=== PATIENT | female | born 1940 | race Caucasian/White ===

== ENCOUNTER → 2018-07-13 09:44 | Outpatient (CLI) | payer MEDICARE, BC, SELFPAY ==
[2018-07-13 12:08] LABS: Absolute Lymphocyte Count 1.35 X10^3/ul (0.83-4.51); Basophil# 0.02 X10^3/uL; Basophil% 0.4 % (0-1); Eosinophil# 0.06 X10^3/uL; Eosinophils% 1.2 % (0-5); Hematocrit 41.2 % (37-47); Hemoglobin 13.5 g/dl (12.0-15.0); Lymphocyte # 1.35 X10^3/ul (4.0); Lymphocyte % 27.7 % (19-41); Mean Corp Hgb Conc 32.8 g/gl (32-36); Mean Corpuscular Hgb 32.5 pg (27.0-32.0); Mean Corpuscular Volume 99.3 fL (81-99); Mean Platelet Vol. 10.1 fl (6.2-12.0); Monocyte# 0.45 X10^3/uL; Monocyte% 9.2 % (0-10); Neutrophil # 2.99 X10^3/uL (2.7-7.7); Neutrophil % 61.3 % (47-70); Platelet Count 231 K/mm3 (150-450); RBC Distribution Width CV 12.4 % (11.6-14.6); Red Blood Count 4.15 M/mm3 (4.2-5.4); White Blood Count 4.9 K/mm3 (4.4-11.0)
[2018-07-13 12:12] LABS: POSITIVE COUNT NO; POSITIVE DIFFERENTIAL NO; POSITIVE MORPHOLOGY NO
[2018-07-13 12:40] LABS: Anion Gap 5 (5-15); BUN 7 mg/dL (7-18); BUN/Creat Ratio 10.2 RATIO (10-20); Calcium,Total 8.7 mg/dL (8.5-10.1); Chloride 99 mmol/L (98-107); Creatinine, Serum 0.69 mg/dL (0.55-1.02); EST Glomerular Filtration Rate 88 mL/min (>60); Est Glom Filt Rate - Afr Amer 106 mL/min (>60); Glucose 89 mg/dL (74-106); Potassium 3.9 mmol/L (3.5-5.1); Sodium Level 133 mmol/L (136-145); T4 Free Direct 0.94 ng/dL (0.76-1.46); Thyroid Stim Hormone (TSH) 1.85 uIU/mL (0.358-3.74)
== END ==
PROVIDERS: Family Provider Family Medicine; PCP Family Medicine; Visit Provider Family Medicine
DX: F41.9 Anxiety disorder, unspecified (principal); R53.83 Other fatigue; R03.0 Elevated blood-pressure reading, without diagnosis of hypertension
CPT/HCPCS: 36415; 80048; 84439; 84443; 85025

== ENCOUNTER → 2018-07-28 10:08 | Outpatient (CLI) | payer MEDICARE, BC, SELFPAY ==
[2018-07-28 12:16] LABS: Absolute Lymphocyte Count 1.11 X10^3/ul (0.83-4.51); Absolute Neutrophil Count 7.5 X10^3/uL (2.0-7.7); Basophil# 0.02 X10^3/uL; Basophil% 0.2 % (0-1); Eosinophil# 0.04 X10^3/uL; Eosinophils% 0.4 % (0-5); Hematocrit 38.6 % (37-47); Lymphocyte # 1.11 X10^3/ul (4.0); Lymphocyte % 11.6 % (19-41); Mean Corp Hgb Conc 33.7 g/gl (32-36); Mean Corpuscular Hgb 33.7 pg (27.0-32.0); Monocyte# 0.82 X10^3/uL; Monocyte% 8.6 % (0-10); Neutrophil # 7.52 X10^3/uL (2.7-7.7); Platelet Count 211 K/mm3 (150-450); RBC Distribution Width CV 11.9 % (11.6-14.6); RBC Distribution Width SD 42.9 fl (35.1-43.9); Red Blood Count 3.86 M/mm3 (4.2-5.4); White Blood Count 9.5 K/mm3 (4.4-11.0)
[2018-07-28 12:29] LABS: POSITIVE COUNT NO; POSITIVE DIFFERENTIAL NO; POSITIVE MORPHOLOGY NO
[2018-07-28 12:31] LABS: Vitamin B12 506 pg/mL (211-911)
== END ==
PROVIDERS: Family Provider Family Medicine; PCP Family Medicine; Visit Provider Family Medicine
DX: D75.89 Other specified diseases of blood and blood-forming organs (principal)
CPT/HCPCS: 36415; 82607; 82746; 85025

== ENCOUNTER 2018-09-01 14:00 | Outpatient (RCR) | payer MEDICARE, BC, SELFPAY ==
--- NOTE | 2018-08-01 13:54 | HP.PTEVAL_ITS ---
Patient's Visit Information LANA BUCK is a 78 year old F referred to Physical Therapy by STEFF HA with a diagnosis of R hip pain. Date of Evaluation: 06/30/18 Physical Therapist: Jonn Martin - Visit Plan Frequency: 2x /Week Duration: 4 Weeks Plan: begin with low intensity glut and hip exercises, progress as tolerated. include modalities to reduce pain. - Subjective Subjective: Pt. is here today for her initial evaluation with diagnosis of R hip pain, R hip OA. Pt. reports having increased pain over the past few years, but has become worse recenlty. Pt. reports that her major concern is her current BP. Pt. reports having BP arodun 180/110 at home (139/97 this date). Pt. also very conerned about her son who has psychological pathology, pt. did not disclose nature. She reports increased posterior and lateral hip pain, no groin symptoms. Pt. did have xray- showing mild OA, but not needing surgery at this time. 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 Pt. denies N/T, but has icnreased pain with walking and with exercises in pool. Pt. reports being very active with pool exercises, but is hopeful to reduce symptoms in order to get back to all walking and recretaional activities with out limitations. Pt. has increasd pain with negotiation of steps, decreased pain with sitting. - Pain R hip Pain Intensity (Out of 10): 4 Pain Intensity Range: 1, 6 Comment: 4 or 5 - Objective POSTURE: Pt. has equal wt. shift between bilateral LEs. Pt. has normal lumbar spine posture and normal iliac crest heights. PALPATION: Pt. reports no pain with palpation of lumbar spine and lateral hip. Pt. has no pain throughout gluteal region. NEURO: Normal all intact. normal sensation and normal DTR bilaterally. Pt. is able to rise on heels and toes without visible weakness. ROM: LUMBAR SPINE: normal in all ranges except with ext mod loss NE on hip. R hip- flexion 110deg increase NW, ext 10deg increase NW, 60deg increase NW, IR 28deg increase NW. L hip- all with in normal ranges, did not add overpressure due to history of L BIJU. MMT: LLE- 4+/5 throughout. RLE- ankle/knee 5/5 throughot; hip- flexion 4/5, abd 4/5, ext 4/5. Core strength- poor. GAIT: Pt. ambulates without AD. Pt. has normal step length bilaterally, but does have incerased R hip sway during stance phase. STAIRS: Pt. is able to negotiate with reciprocal patttern with 2 HR with increased pain during R stance phase - Goals Goal 1:: Pt. to be I with HEP. Goal Time Frame: 4-6 Weeks Goal 2:: Pt. to have increased MMT of R hip by 1/2 grade of all effected musculature. Goal Time Frame: 4-6 Weeks Goal 3:: Pt. to have 0-2/10 pain in R hip with all functional mobility and walking. Goal Time Frame: 4-6 Weeks Goal 4:: Pt. to sleep throughout the night without incerase in symptoms allowing for increased quality of life. Goal Time Frame: 4-6 Weeks - Rehabilitation Potential Physical Therapy Diagnosis: Pt. has signs and symptoms consistent with R hip pain/OA. Pt. would benefit from PT to increase R hip strength and stability to reduce stress applied to hip with all functional mobility. Rehabilitation Potential: Good - Anticipated Interventions Patient/Client Instruction: Educate patient on: Condition, Plan of Care, Risk Factors, Benefits of Fitness Program For the Purpose of:: To foster healthy habits, To improve decision making, To facilitate caregiver knowledge, To improve self management, To prevent re- injury, To improve ability to perform tasks related to life management, To improve tolerance to ADL's Therapeutic Exercise to Include: Strength training, Power training, Endurance training, Postural training, Flexibilty training, Gait and locomotor training, Passive ROM, Active ROM, Dynamic Lumbar Stabilization For the Purpose of:: To decrease pain, To decrease swelling/inflammation, To improve nutrient delivery to tissue, To increase oxygenation perfusion, To improve muscle performance and motor function, To improve ability of physical actions for home/community/work/leisure, To improve gait and locomotor functions, To improve health of tissue, To decrease soft tissue restriction, To increase flexibility/ROM Manual Therapy Techniques to Include: Mobilization, Passive ROM, Functional dry needling, Soft tissue mobilization For the Purpose of:: To decrease pain, To decrease swelling/inflammation, To increase ROM, To improve nutrient delivery to tissue IF ES: Yes Cryotherapy (ice pack, ice massage): Yes Thermo therapy (hot pack): Yes Ultrasound (thermal/non thermal): Yes For the Purpose of:: To decrease pain, To decrease swelling/inflammation, To increase ROM, To improve nutrient delivery to tissue, To improve muscle performance and motor function, To improve ability of physical actions for home/community/work/leisure, To improve health of tissue, To decrease soft tissue restriction Thank you for the opportunity to evaluate your patient. For Medicare and Medicare HMO plans, please review the plan of care and approve it. It will need to be FAXED BACK to us at [phone] for Medicare purposes. Please let me know if there are questions or concerns regarding this plan of care. Physician Signature: Date:
--- NOTE | 2018-08-22 08:43 | HP.PTREVAL_ITS ---
STEFF HA, It has been my pleasure to treat LANA BUCK over the last 5 visits for R hip pain. Please see the progress note below for an update on the physical therapy plan of care! Subjective: Pt. reports I have my good days and bad ones. Pt. reports being not able to complete pool exercises due to being ill. Pt. reports being 50% better overall. Objective/Function: Pt. completed all exercises without adverse reaction. Pt. has improved gait mechanics, but does report 3/10 pain with walking. MMT- 4+/5 throughout; - mild increase NW with ABD and flexion testing. ROM: normal except decreased IR secondary to pain. Pt. continues to have tenderness with piriformis region and greater trochanter. Plan Plan: Pt. will be recerted, POC extended x1 per week for 3-4 weeks to continue to progress HEP with stretching and hip/core stability in neutral spine positioning. Goals Goal 1:: Pt. to be I with HEP. Goal Time Frame: 4-6 Weeks Goal Progress: Progressing Goal 2:: Pt. to have increased MMT of R hip by 1/2 grade of all effected musculature. Goal Time Frame: 4-6 Weeks Goal Progress: Progressing Goal 3:: Pt. to have 0-2/10 pain in R hip with all functional mobility and walking. Goal Time Frame: 4-6 Weeks Goal Progress: Progressing Goal 4:: Pt. to sleep throughout the night without incerase in symptoms allowing for increased quality of life. Goal Time Frame: 4-6 Weeks Goal Progress: Progressing Anticipated Interventions Patient/Client Instruction: Educate patient on: Condition, Plan of Care, Risk Factors, Benefits of Fitness Program For the Purpose of:: To foster healthy habits, To improve decision making, To facilitate caregiver knowledge, To improve self management, To prevent re- injury, To improve ability to perform tasks related to life management, To improve tolerance to ADL's Therapeutic Exercise to Include: Strength training, Power training, Endurance training, Postural training, Flexibilty training, Gait and locomotor training, Passive ROM, Active ROM, Dynamic Lumbar Stabilization For the Purpose of:: To decrease pain, To decrease swelling/inflammation, To improve nutrient delivery to tissue, To increase oxygenation perfusion, To improve muscle performance and motor function, To improve ability of physical ac tions for home/community/work/leisure, To improve gait and locomotor functions, To improve health of tissue, To decrease soft tissue restriction, To increase flexibility/ROM Manual Therapy Techniques to Include: Mobilization, Passive ROM, Functional dry needling, Soft tissue mobilization For the Purpose of:: To decrease pain, To decrease swelling/inflammation, To increase ROM, To improve nutrient delivery to tissue IF ES: Yes Cryotherapy (ice pack, ice massage): Yes Thermo therapy (hot pack): Yes Ultrasound (thermal/non thermal): Yes For the Purpose of:: To decrease pain, To decrease swelling/inflammation, To increase ROM, To improve nutrient delivery to tissue, To improve muscle performance and motor function, To improve ability of physical actions for home/community/work/leisure, To improve health of tissue, To decrease soft tissue restriction Please do not hesitate to contact me at [phone] by phone or if you have questions or concerns regarding this new plan of care! Sincerely, Jonn Martin
--- NOTE | 2018-12-19 09:30 | HP.PTDCSUM ---
HP - PT D/C Summary It has been my pleasure to treat LANA BUCK under orders from STEFF HA, for the diagnosis of R hip pain for a total of 6 visit(s). Discharge Date: 09/01/18 Please see the following information for a summary of their discharge status. - Subjective Subjective: Pt. reports I am doing okay today, I just have a lot going on. Pt. reports being I with pool exercises. - Pain R hip Pain Intensity (Out of 10): 3 - Overall Improvement % Improvement: 75 - Objective Objective/Function: Pt. tolerated all exercises this date. Pt. is independent with her land and pool exercises. Pt. is still conserned about her intermittent pain, but wants to trial exercises on own and possibly follow up with her ortho if symptoms do not improve. Pt. has incerased her strength by 1/2 grade throughout and is able to ambulate with normal pattern. No antalgic pattern noted. Stairs wtih 2 HR without LOB. Pt. to attempt pool and land exercises independently at this point in time. - Goals Goal 1:: Pt. to be I with HEP. Goal Progress: Goal Met Goal 2:: Pt. to have increased MMT of R hip by 1/2 grade of all effected musculature. Goal Progress: Goal Met Goal 3:: Pt. to have 0-2/10 pain in R hip with all functional mobility and walking. Goal Progress: Progressing Goal 4:: Pt. to sleep throughout the night without incerase in symptoms allowing for increased quality of life. Goal Progress: Progressing - Plan Plan: Pt. to be DC from PT at this point in time. - D/C Information Discharge Comments: Pt. was treated with modalities, stretching and strengthening. Pt. made some progress, but ws still having pain. Pt. is currently independent with both pool and land exercises and is to attempt to self manage at this point in time. Pt. will be DC from PT this date. If there are questions or concerns regarding this patient's physical therapy, please feel free to call me at [phone]. Thank you for the referral of this patient. Sincerely, Jonn Martin DPT
== END 2018-09-01 19:00 | disposition home or self-care (01) ==
LOC: PT 14:00
PROVIDERS: Family Provider Family Medicine; PCP Family Medicine
DX: M16.11 Unilateral primary osteoarthritis, right hip (principal)
CPT/HCPCS: 97014; 97035; 97110; 97162; 97530; G0283

== ENCOUNTER → 2018-11-11 15:34 | Outpatient (CLI) | payer MEDICARE, BC, SELFPAY ==
[2018-11-11 17:11] LABS: Absolute Lymphocyte Count 1.71 X10^3/ul (0.83-4.51); Absolute Neutrophil Count 3.6 X10^3/uL (2.0-7.7); Basophil# 0.03 X10^3/uL; Basophil% 0.5 % (0-1); Eosinophil# 0.06 X10^3/uL; Hematocrit 40.5 % (37-47); Hemoglobin 13.7 g/dl (12.0-15.0); Lymphocyte # 1.71 X10^3/ul (4.0); Lymphocyte % 29.7 % (19-41); Mean Corp Hgb Conc 33.8 g/gl (32-36); Mean Corpuscular Hgb 33.4 pg (27.0-32.0); Mean Corpuscular Volume 98.8 fL (81-99); Mean Platelet Vol. 10.4 fl (6.2-12.0); Monocyte# 0.35 X10^3/uL; Monocyte% 6.1 % (0-10); Neutrophil # 3.59 X10^3/uL (2.7-7.7); Neutrophil % 62.4 % (47-70); Platelet Count 203 K/mm3 (150-450); RBC Distribution Width CV 12.7 % (11.6-14.6); RBC Distribution Width SD 45.7 fl (35.1-43.9); White Blood Count 5.8 K/mm3 (4.4-11.0)
[2018-11-11 17:13] LABS: Anion Gap 10 (5-15); BUN 11 mg/dL (7-18); BUN/Creat Ratio 18.9 RATIO (10-20); Calcium,Total 8.7 mg/dL (8.5-10.1); Chloride 102 mmol/L (98-107); Creatinine, Serum 0.58 mg/dL (0.55-1.02); EST Glomerular Filtration Rate 106 mL/min (>60); Est Glom Filt Rate - Afr Amer 128 mL/min (>60); Glucose 86 mg/dL (74-106); Potassium 4.6 mmol/L (3.5-5.1); Sodium Level 134 mmol/L (136-145)
[2018-11-11 17:14] LABS: POSITIVE COUNT NO; POSITIVE DIFFERENTIAL NO; POSITIVE MORPHOLOGY NO
== END ==
PROVIDERS: Family Provider Family Medicine; PCP Family Medicine; Visit Provider Family Medicine
DX: Z01.818 Encounter for other preprocedural examination (principal); M16.9 Osteoarthritis of hip, unspecified
CPT/HCPCS: 36415; 80048; 85025

== ENCOUNTER 2018-11-30 08:06 | Inpatient (IN) | payer MEDICARE, BC, SELFPAY ==
[2018-11-15 10:51] VITALS: BP 124/76; PULSE 78; RESP 16; TEMP 36.9; O2SAT 97; BMI 23.8
--- NOTE | 2018-11-15 21:26 | HP.PCM_ITS ---
History and Physical DATE OF SURGERY: 11/30/2018 SCHEDULED PROCEDURE: right total hip arthroplasty HISTORY OF PRESENT ILLNESS: This is an 78-year-old female who has been having ongoing pain in the right hip for the past 4 months. They can reach as high as a 9/10. Patient has had a previous left total hip arthroplasty in 2013. Patient denies trauma or injury and to the right hip. She is doing well from the left hip. She does complain of groin pain in the right hip that does radiate down into the knee. She does have start up pain. Pain has been intermittent, aching, and sharp. Pain is increased going up and down stairs and walking. She has difficult time with activities of daily living including bathing, getting dressed, housework, and s hopping. Patient has tried heat and aquatic aerobics. She has been through physical therapy with no relief in symptoms. Patient has tried [id number] Aleve as well as meloxicam with minimal relief. Patient denies previous surgery on the right hip. She has had an MRI of the right hip which does show degenerative labral tearing and degenerative arthrosis of the joint with subchondral edema in the acetabular bone. Patient currently denies chest pain, shortness of breath, fevers chills, recent infections. Patient has obtain surgical clearance from Dr. Bar. After failing conservative measures and discussing all treatment options with Dr. Wayne So, the patient would like to proceed with a right total hip arthroplasty. REVIEW OF SYSTEMS: ROS: Const: Reports difficulty sleeping, weight change, but denies anorexia, change in appetite and fever. CV: Denies chest pain, heart murmur, irregular heartbeat and peripheral vascular disease. Resp: Reports shortness of breath, but denies asthma, cough, pneumonia, sleep apnea, tuberculosis and wheezing. GI: Reports constipation and rectal itching, but denies diarrhea, heartburn, nausea, bloody stools and vomiting. : Denies incontinence. Musculo: Denies leg swelling, pain, trouble walking and weakness. Skin: Reports history of shingles, but denies Raynaud's and tattoo. Neuro: Reports dizziness but denies ambulatory dysfunction, numbness/tingling and tremor. Psych: Reports anxiety and depression, but denies insomnia, mental illness and stress. Pavan/Lymph: Reports bleeding/bruising tendency, but denies anemia and past horta sfusion. Reviewed and updated. PAST MEDICAL HISTORY: Advance Care Plan: No Advance Directives Effective Date: 10/06/2018 PMH: Medical Problems: Depression, Anxeity Accidents: Fracture - NECK FELL OUT OF THE BARN Surgical Hx: Gallstones Hysterectomy - (2010) Appendectomy - (2010) Lumpectomy - ARTEMIO BREAST Tonsillectomy LT Leg - WIRE REMOVED LT THR - (2013) Anesthesia Complications: Reacted Badly To Spinal With LT THR Assistive Devices: Glasses, Hearing Aid Reviewed and updated. SOCIAL HISTORY: SH: Marital: .Occupation: Retired.Work Status: Housewife.Hand Dominance: Right-handed. Personal Habits: Smoking: Patient has never smoked.Cigarette Use: Never Smoked Cigarettes.Alcohol: Denies use.Drug Use: Denies Use.Enjoy Exercising: Never Exercises. Reviewed and updated. VITALS: Ht: 62 Wt: 130lb Wt k.968 BMI: 23.8 BP: 124/71 Pulse: 85 Resp: 20 T: 97.9 T: 36.6C ALLERGIES: No Known Drug Allergy MEDICATIONS: Mobic 7.5 mg 1 by mouth twice a day, Clonazepam 0.5 mg 1 tab PO bid, Aspirin 81 mg 1 tab PO daily, Acidophilus 100 mg 1 cap PO daily, Centrum Silver 1 tab PO daily, Vitamin D3 1 tab PO daily, Vitamin B12 1 tab PO bid, Magnesium 500 mg 1po qday, Escitalopram Oxalate 20 mg 1 tab PO daily PRE-OP EXAM: General appearance:NORMAL Other: Eyes: Conjunctivae and lids: NORMAL Pupils: ERR Ears, Nose, Mouth, and Throat: NORMAL Other: Inspection of lips, teeth and gums: NORMAL Other: Neck: Examination of neck: no masses noted. Respiratory: Assessment of respiratory effort: NORMAL Other: Auscultation of lungs: clear to auscultation no wheezes, rhonchi or rales. Cardiovascular: Auscultation of heart: regular rate and rhythm, no murmurs, gallops or rubs. Exam of carotid arteries: NORMAL Other: Gastrointestinal: Exam of abdomen: soft, nontender, nondistended bowel sounds present. PHYSICAL EXAMINATION: Patient walks with an antalgic gait. Patient does have right hip greater trochanteric tenderness to palpation. Range of motion 80 flexion, internal rotation 5. It is reproduced with flexion, abduction, and in external rotation. Sensation intact to light touch. Neurovascularly intact. IMAGING STUDIES: X-rays were obtained at [facility] on November 14, 2018 including 3 views AP pelvis, AP right hip, and crossfire lateral right hip reveals joint space narrowing with subchondral sclerosis and osteophyte formation consistent with moderate osteoarthritis. MRI was obtained of the right hip was obtained which does show degenerative tearing with arthrosis of the joint and subchondral edema in the acetabular bone consistent with degenerative osteoarthritis. IMPRESSION: 1. Right hip osteoarthritis 2. Presence of left total hip arthroplasty 3. Anxiety 4. Depression PLAN: Dr. Wayne So did discuss and review with the patient all treatment options including surgical versus nonsurgical options. Patient does wish to proceed with the above-stated procedure. Potential risks, benefits, and complications of the procedure were discussed in detail including but not limited to , infection, nerve and blood vessel damage, persistent pain, numbness, tingling, paresthesias, blood clot, pulmonary embolism, and requirement for possible further surgery. The patient expressed full understanding and has no further questions for the doctor. Patient does agree to proceed with the above-stated procedure and has signed the surgery consent form. This dictation was created using voice recognition software. Phonetic and/or grammatical errors may exist.. ___ I have re-examined the patient. There are no clinical changes since date of exam. ___ See progress notes for changes. ___ Dictated on admission Date: Time: Signature:
[2018-11-30] VITALS (12 sets, daily range): BP systolic 114–180; BP diastolic 55–89; PULSE 60–75; RESP 16–18; TEMP 36.1–37.1; O2SAT 96–100; BMI 23.8
[2018-11-30] MEDS: Acetaminophen 500 MG Tablet 1000 MG PO ×3 (08:35→21:05)
[2018-11-30] MEDS: Celecoxib 200 MG Capsule 400 MG PO (08:35)
--- NOTE | 2018-11-30 09:05 | RAD_ITS ---
STUDY: X-RAY - RIGHT HIP REASON FOR EXAM: Female, 78 years old. Abdominal pain after surgery. TECHNIQUE: 2 views of the hip. COMPARISON: Intraoperative right hip, November 30, 2018 (1129 hours). FINDINGS: There is evidence of a new right total hip arthroplasty. The prosthetic components are intact and articulate normally with the other. There is no fracture or loosening from the underlying bone. Air is seen in the overlying soft tissues. Normal visualized superior and inferior pubic rami and ischial tuberosities. Again seen is a stable left total hip arthroplasty. RAD/Hip Min 2 Views (Portable) IMPRESSION: Status post right total hip arthroplasty. Electronically Signed: Soy Kapadia DO at 17:12 EST Tel [phone], Service support ,
[2018-11-30] MEDS: Lactated Ringers 1,000 ML 999 ML IV ×2 (09:09→12:40)
--- NOTE | 2018-11-30 10:30 | RAD_ITS ---
STUDY: X-RAY - RIGHT HIP REASON FOR EXAM: Female, 78 years old. Right total hip replacement. TECHNIQUE: 2 views of the hip. COMPARISON: None. FINDINGS: Intraoperative imaging provided for right hip replacement. There is good alignment. RAD/Hip 1 view with Pelvis IMPRESSION: Status post right hip replacement. There is good alignment. Electronically Signed: Danny Kaur MD at 15:54 EST , Service support ,
[2018-11-30] MEDS: Cefazolin 2 GM in 0.9% Normal Saline 100 ML IV (10:33)
--- NOTE | 2018-11-30 11:48 | PCM.OPRPT ---
Report of Operation Date of Procedure: 11/30/18 Pre-Operative Diagnosis: Right hip primary osteoarthritis Post-Operative Diagnosis: Right hip primary osteoarthritis Surgery/Procedure Performed:: Right direct anterior total hip replacement Description of Surgical Findings:: Stable hip with equal leg lengths bank note designer: Ines Baldwin Type of Anesthesia:: Spinal Anesthesiologist: Levar Oswald Special Medications: 2 g Ancef, 1 g TXA at incision, 1 g TXA closure, 10 mg Decadron, joint cocktail (5 mg Duramorph, 30 mL of 0.5% Ropivicaine, 1000 units of epinephrine, 30 mg of Toradol) Specimen's removed: Bony cuts Estimated Blood Loss (mL): 150 Fluids Replaced: 1400 mL crystalloid Description of Procedure: Components used: 1. Accolade 2 Lucio femoral stem size 4 127? 2. [place] trident 2 acetabular shell size 50 mm 3. [place] X3 polyethylene d 4. [place] Biolox delta 36mm, -5mm femoral head Brief history operative indications: 78 yo F who failed conservative measures for their hip osteoarthritis. X-rays were consistent with osteoarthritis including joint space narrowing, osteophyte formation and subchondral cysts. Total hip replacement was discussed with the patient with risks and benefits including but not limited to blood loss, DVTs, PEs, neurovascular damage, dislocation, general risks of anesthesia including loss of life. Patient demonstrated an understanding medical clearance is obtained the patient was consented for surgery. Procedure: On the date of procedure the patient's R hip was marked in the preoperative area. Patient was then taken back to the operating room where anesthesia assumed control of the C-spine and airway and administered anesthetic. Patient was transferred to the operating table and placed in the supine position. The hips were placed at the break of the bed and a sacral bump was placed. The R lower extremity was then prepped out in a sterile fashion using chlorhexidine while the surgeon scrubbed. The PA was vital in the positioning of the patient. Upon reentering the room the R lower extremity was draped in the standard orthopedic fashion and the incision was marked. A timeout was called and everyone agreed upon the side, the site, the procedure be performed, antibody given, and patient's identity. At this time incision was made through skin, subcutaneous tissue, and fat down to fascia. The fascia was then incised and the TFL was retracted laterally. A retractor was placed on the lateral border of the femoral neck. Attention was directed to the inferior portion of the approach and all crossing vessels were identified and appropriately coagulated. A retractor was then placed on the medial portion of the femoral neck. The anterior capsule was then cleared of all soft tissue and then H shaped capsulotomy was made. The retractors were then placed inside the capsule. The femoral neck was identified and a cleanup cut was made. At this time a power corkscrew was used to remove the femoral head. Attention was then turned toward the acetabulum where the soft tissues were appropriately retracted and the acetabulum was sequentially reamed to 50 mm. A 50 mm cup was then selected and impacted into place. Acetabular liner was impacted into place and locking mechanism was verified. The position of the acetabular cup was then verified under live fluoroscopy. Attention was then turned to the femur. Soft tissue releases on the medial and lateral femoral neck were appropriately done, the leg was externally rotated and lateralized. A Herman retractor was placed medially and proximally to the greater trochanter this allowed appropriate visualization and exposure of the femoral canal. Rongeour was then used to remove excess lateral bone. A canal finder and entry broach were used to open the proximal canal. Once we verified we were down the femoral canal we subsequently broached up to a size 4 femur. The appropriate neck was placed in the previously selected head was trialed with a -5 mm neck. Traction was pulled and the hip was reduced with internal rotation. Once it was appropriately reduced and stability was checked. There was minimal shuck, equal leg lengths and appropriate stability with hyperextension and external rotation as well as with 90? flexion and internal rotation. Fluoroscopy was then also used to verify the position of the components and leg lengths using the contralateral side for comparison. The trial components were then dislocated the proximal femur was again exposed and the components were removed from the wound. The final components were verified and opened. The wound was copiously irrigated out with normal saline. The acetabulum was checked for any residual debris. The final components were placed and impacted. Traction and internal rotation were again used to reduce the hip. After adequate reduction the hip remained stable with appropriate leg lengths. The final components were once again checked with live fluoroscopy and were found to be satisfactory. The wound was then copiously irrigated with normal saline once more, and hemostasis was obtained. Closure was then done using #1 Vicryl runner to close the fascia. A 2-0 vicryl interuppted sutures were used to close the subcutaneous skin. A 3-0 Monocryl and Steri-Strips were used for final skin closure. A Silverlon dressing was placed. Patient was awakened by anesthesia and transferred [facility] the [facility]. Patient was then transferred to the PACU for recovery. Postoperative plan: Patient will get 24 hours postop antibiotics. Patient will get in-house physical therapy and will be weight-bear as tolerated. Patient will follow up in office in 2 weeks for a wound check and x-rays. Grafts/Implants Used: [place] Accolade 2, Trident 2 - Complications No intraoperative complications - Admit VTE Documentation VTE Present on Admission: No VTE Mechan Device Prophylaxis: SCD's, Thigh High LORE Hose Reason prophylaxis not ordered:: Adverse Reaction to Drug
[2018-11-30] MEDS: Scopolamine 1mg/72hr Patch 1 PATCH TD (12:38)
[2018-11-30] MEDS: Famotidine 20 MG Tablet PO (14:12)
[2018-11-30] MEDS: Escitalopram Oxalate 20 MG Tablet PO (14:12)
[2018-11-30] MEDS: Lactated Ringers 1,000 ML 75 ML IV ×2 (14:13→21:07)
[2018-11-30] MEDS: Senna/Docusate Sodium 1 Tablet 2 TABLET PO ×2 (14:13→21:06)
--- NOTE | 2018-11-30 14:58 | PCM.PN.BLA ---
Progress Note Post op check. pts hip doing well. able to wiggle toes, spinal wearing off. pt does complain of some abdominal pain. history of hiatal hernia abdomen soft and nondistended. mild ttp. medicine on consult sees her pcp for gi issues. currently stable. will await any recommendations from hospitalist. saw
--- NOTE | 2018-11-30 15:24 | PCM.PROGNOTE ---
<Antoni Luo - Last Filed: 11/30/18 15:24> Subjective: Pt resting comfortably in bed post op. c/o middle abdominal pain. sharp in quality mild in severity. No n/v. No f/c. No sob/cough. Hx chronic constipation. Last BM yesterday. - Physical Exam General: Alert, Oriented x3, Cooperative HEENT: Atraumatic, PERRLA, EOMI, Normocephalic Neck: Supple, No JVD, Negative Carotid Bruits Lungs: Rales - faint, bases Cardiovascular: Regular rate, No murmurs Abdomen: Bowel Sounds Present, Soft, Non Tender, - - BL LQ somewhat firm. Diffuse tenderness to palp. Extremities: No edema, Capillary Refill Less than 3 Seconds Skin: No rashes, No breakdown Musculoskeletal: No Tenderness to Palpation of Joints or Extremities Neurological: Cranial nerves II-XII grossly intact Psych/Mental Status: Anxious, Alert and oriented to time, place, person, mood and affect Vital Signs Temp Pulse Resp BP Pulse Ox 98.5 F 60 16 136/79 H 96 11/30/18 13:42 11/30/18 13:42 11/30/18 15:12 11/30/18 13:42 11/30/18 15:12 Oxygen Delivery Method Room Air Weight: 130 lb Body Mass Index (BMI) 23.8 Intake and Output for Last 24 Hours 11/28/18 11/29/18 11/30/18 23:59 23:59 23:59 Intake Total 1999 Balance 1999 Medical Necessity - Tobacco Use Smoking Status: Never smoker Assessment/Plan All Active Problems Partial small bowel obstruction (Acute) 1. Osteoarthritis right hip - total hip POD#0. Care per Dr. So. 2. Abdominal pain + tenderness- check KUB 3. Hx PAFib - pt of Dr. Bauman. Treated medically and no longer has this and no longer follows cardiology. Not on OAC 4. Hx Chronic constipation - aggressive bowel regimen 5. Hx Depression / Anxiety - continue home meds. Affect is anxious DVT ppx: asa BID per ortho Thank you for the opportunity to participate in the care of this patient. This patient was seen by Antoni Luo PA-C under the supervision of Doctor Rikki. <Anatoly Brandt - Last Filed: 11/30/18 20:34> Subjective: Patient complain of abdominal pain, nonspecific, mild pain intermittently. Patient has history of constipation. KUB reviewed and shows faces retention in rectum and colon. Patient has mild pain in the surgical site that is expected. - Physical Exam General: Alert, Oriented x3, Cooperative HEENT: Atraumatic, PERRLA, EOMI, Normocephalic Neck: Supple, No JVD, Negative Carotid Bruits Lungs: Diminished - Air entry diminished in bilateral lung bases, Rales Cardiovascular: Regular rate, Regular Rhythm, Normal S1, Normal S2, No murmurs Abdomen: Bowel Sounds Present, Soft, Non Tender, - Extremities: No edema, Capillary Refill Less than 3 Seconds Skin: No rashes, No breakdown Musculoskeletal: Arthritic Changes, Tenderness, - - Right hip surgical dressing is dry Neurological: Cranial nerves II-XII grossly intact, - Psych/Mental Status: Normal Affect, Appropriate Vital Signs Temp Pulse Resp BP Pulse Ox 97.9 F 62 16 124/67 H 98 11/30/18 18:19 11/30/18 18:19 11/30/18 18:19 11/30/18 18:19 11/30/18 18:19 Oxygen Delivery Method Room Air Weight: 130 lb Body Mass Index (BMI) 23.8 Intake and Output for Last 24 Hours 11/28/18 11/29/18 11/30/18 23:59 23:59 23:59 Intake Total 2000 / 2000 Output Total 1100 / 1100 Balance 900 / 900 Assessment/Plan This patient was seen in conjunction with Antoni MCADAMS. I have independently interviewed and examined the patient and reviewed pertinent history, examination findings, laboratory and plan of management. I have reviewed the note and agree with the documented findings with the few additional points. In brief, patient is admitted for 3 elective right hip hip replacement for advanced osteoarthritis of right hip. Patient also has chronic constipation. Laxatives are not working. Dulcolax suppository 1 now and then as needed. KUB shows fecal retention in the rectum. I have discussed my assessment with Antoni MCADAMS and orders have been reviewed. Code Visit Inpatient E&M: 74806 Init Hosp L2
--- NOTE | 2018-11-30 15:50 | RAD_ITS ---
STUDY: X-RAY - ABDOMEN/PELVIS REASON FOR EXAM: Female, 78 years old. Abdominal pain. TECHNIQUE: Two AP supine views of the abdomen and pelvis. COMPARISON: April 17, 2017. FINDINGS: Normal visualized lung bases. There is an unremarkable bowel gas pattern. There are small flecks of residual barium from prior examinations within nondistended colon. There is a large amount of rectal feces. There is no small bowel dilatation or evidence of obstruction. There is no demonstrated free abdominal air. The visualized liver, spleen and kidneys are grossly normal in size and morphology. Cholecystectomy clips are seen in the right upper quadrant. Normal soft tissue structures. The lumbar spine appears normal. There are bilateral hip replacements. RAD/Abdomen Single View (Portable) IMPRESSION: Question constipation. Electronically Signed: Soy Kapadia DO at 17:40 EST Tel [phone], Service support ,
[2018-11-30] MEDS: Morphine 2 MG/ML Syringe IV (16:43)
[2018-11-30] MEDS: Aspirin 81 MG TAB.CHEW PO (16:45)
[2018-11-30] MEDS: Ketorolac 15 MG/ML Vial IV (18:14)
[2018-11-30] MEDS: Cefazolin 1 GM/50 ML BAG IV (18:15)
[2018-11-30] MEDS: clonazePAM 0.5 MG Tablet PO (21:06)
[2018-11-30] MEDS: Bisacodyl 10 MG Suppository RECTAL (21:06)
[2018-12-01] MEDS: Ketorolac 15 MG/ML Vial IV (02:15)
[2018-12-01] MEDS: Cefazolin 1 GM/50 ML BAG IV (02:15)
[2018-12-01 02:27] VITALS: BP 127/63; PULSE 58; RESP 18; TEMP 36.4; O2SAT 97
[2018-12-01] MEDS: traMADol 50 MG Tablet PO ×2 (04:21→11:46)
[2018-12-01] MEDS: Acetaminophen 500 MG Tablet 1000 MG PO ×3 (06:03→22:04)
[2018-12-01 06:23] LABS: Hemoglobin 11.6 g/dl (12.0-15.0); Mean Corp Hgb Conc 33.1 g/gl (32-36); Mean Corpuscular Hgb 33.2 pg (27.0-32.0); Mean Corpuscular Volume 100.3 fL (81-99); Mean Platelet Vol. 10.2 fl (6.2-12.0); Platelet Count 170 K/mm3 (150-450); RBC Distribution Width CV 11.9 % (11.6-14.6); RBC Distribution Width SD 42.7 fl (35.1-43.9); Red Blood Count 3.49 M/mm3 (4.2-5.4); White Blood Count 6.5 K/mm3 (4.4-11.0)
[2018-12-01 06:25] LABS: Scan Indicated on CBC? Y/N NO
[2018-12-01 06:41] LABS: Anion Gap 5 (5-15); BUN 6 mg/dL (7-18); BUN/Creat Ratio 10.2 RATIO (10-20); Calcium,Total 7.9 mg/dL (8.5-10.1); Chloride 105 mmol/L (98-107); Creatinine, Serum 0.59 mg/dL (0.55-1.02); EST Glomerular Filtration Rate 105 mL/min (>60); Est Glom Filt Rate - Afr Amer 127 mL/min (>60); Estimated Creatinine Clearance 35.49 ml/min; Glucose 92 mg/dL (74-106); Potassium 3.9 mmol/L (3.5-5.1); Sodium Level 137 mmol/L (136-145)
[2018-12-01 08:19] VITALS: BP 140/63; PULSE 70; RESP 16; TEMP 36.6; O2SAT 96
[2018-12-01 08:25] VITALS: PULSE 72
[2018-12-01] MEDS: Cyanocobalamin 500 MCG Tablet PO (08:30)
[2018-12-01] MEDS: Aspirin 81 MG TAB.CHEW PO ×2 (08:30→17:23)
--- NOTE | 2018-12-01 09:20 | PN.ORTHO_ITS ---
Subjective: The patient was sitting in bedside chair upon examination. Patient denies any chest pain, shortness of breath, dizziness, lightheadedness, nausea or vomiting, or calf pain. Patient states she does not feel well. Her stomach does continue to bother her. Patient was started on an aggressive bowel regimen due to constipation by primary medicine. Patient did have a bowel movement and did feel better after the bowel movement. However her stomach does continue to bother her. Patient does have chronic constipation she deals with. Pain is con trolled on medications. No adverse overnight events. Objective: Vital signs stable and afebrile. Patient is able to plantarflex and dorsiflex actively. Sensation is intact to light touch to saphenous, sural, superficial and deep peroneal, and tibial distribution. Dressing is clean dry and intact. Negative Homans bilaterally, negative signs and symptoms of DVT. - Physical Exam General: Alert, Oriented x3, Cooperative, No apparent distress Vital Signs Temp Pulse Resp BP Pulse Ox 97.9 F 70 16 140/63 H 96 12/01/18 08:19 12/01/18 08:19 12/01/18 08:19 12/01/18 08:19 12/01/18 08:19 Oxygen Delivery Method Room Air Weight: 58.967 kg Body Mass Index (BMI) 23.8 Intake and Output for Last 24 Hours 11/29/18 11/30/18 12/01/18 23:59 23:59 23:59 Intake Total 1999 / 1999 2489 / 2489 Output Total 1100 / 1100 1900 / 1900 Balance 900 / 900 589 / 589 Laboratory Tests Past 24 Hrs 12/01/18 12/01/18 06:00 06:00 WBC 6.5 RBC 3.49 L Hgb 11.6 L Hct 35.0 L MCV 100.3 H MCH 33.2 H MCHC 33.1 RDW 11.9 RDW Differential 42.7 Plt Count 170 MPV 10.2 Sodium 137 Potassium 3.9 Chloride 105 Carbon Dioxide 27.0 Anion Gap 5 BUN 6 L Creatinine 0.59 Estim Creat Clear Calc 35.49 Est GFR (MDRD) Af Amer 127 Est GFR (MDRD) Non-Af 105 BUN/Creatinine Ratio 10.2 Glucose 92 Calcium 7.9 L Medical Necessity - Tobacco Use Smoking Status: Never smoker Assessment/Plan All Active Problems Partial small bowel obstruction (Acute) 1. S/P right total hip direct anterior arthroplasty POD #1 2. Continue Pain Medications: Tylenol and tramadol 3. DVT Prophylaxis: Aspirin 81 mg twice daily for 4 weeks postoperatively 4. PT/OT: Weightbearing as tolerated 5. H & H: 11.6/35.0, asymptomatic 6. Encouraged Incentive Spirometry 7. Continue postoperative medical management per medicine: Appreciate involvement and management 8. History of chronic constipation: Continue medications per medicine: Patient currently is on MiraLAX, senna, and had a Dulcolax suppository. Patient states she takes Benefiber and prune juice at home. 9. Disposition: Plan will be for possible discharge home tomorrow. Patient does request home health physical therapy. If patient is doing well tomorrow we discussed discharged home.
[2018-12-01] MEDS: Escitalopram Oxalate 20 MG Tablet PO (09:26)
[2018-12-01] MEDS: Famotidine 20 MG Tablet PO (09:26)
[2018-12-01] MEDS: Senna/Docusate Sodium 1 Tablet 2 TABLET PO ×2 (09:26→22:04)
[2018-12-01] MEDS: Meloxicam 7.5 MG Tablet PO ×2 (09:26→22:04)
--- NOTE | 2018-12-01 10:15 | CASEMGMT ---
LIAM HOLT Face to Face with patient for initial transition planning/care coordination assessment. LIAM HOLT introduced self and role at [facility]. Patient sitting in chair, alert and oriented. Patient willing to participate in assessment and is able to answer all questions appropriately. Care providers, pharmacy, and demographics verified. Patient wishes to discharge home and would like [facility] for therapy. LIAM HOLT provided list and patient wishes for [facility]. Patient states she has no further needs or concerns at this time. Referral sent to [facility] and they are able to accept the patient. CM to follow for discharge planning needs that may arise. PCP: Dipika Specialists: Delroy Lovelace Pharmacy: [facility] Insurance: [facility] Prescription Benefit: Yes Living Will/HPOA: Yes Daughter Dee Bird HPOA LNOK: Son and daughter Living Arrangements: Patient lives with son in 2 story home with bed and bath on first floor. Transportation: Son DME/HHC: [place] states she has a walker, grab bars, and BSC at home. Patient declined additional DME needs at this time. Patient setup with [facility] for at discharge. Disposition Plan: Patient to discharge home with HHC, family support, and follow-up plans in place. Wen BARAKAT, RN, CM
--- NOTE | 2018-12-01 12:59 | CHAPLAIN ---
patient was out of the room
--- NOTE | 2018-12-01 13:52 | PCM.PN.HOSP ---
Subjective: Patient seen and examined. Postop day 1 for right anterior total hip replacement. Patient complains of feeling tired and generally weak. She is complains of pain in the right hip with movement the pain is better at rest. She denies any fever chills, chest pain, palpitations or dizziness, diarrhea vomiting. Review of systems otherwise negative. Vitals/I&O's: Vital Signs Temp Pulse Resp BP Pulse Ox 97.9 F 72 16 140/63 H 96 12/01/18 08:19 12/01/18 08:25 12/01/18 08:19 12/01/18 08:19 12/01/18 08:19 Oxygen Delivery Method Room Air Weight: 130 lb Body Mass Index (BMI) 23.8 Intake and Output for Last 24 Hours 11/29/18 11/30/18 12/01/18 23:59 23:59 23:59 Intake Total 1999 / 1999 2489 / 2489 Output Total 1100 / 1100 1900 / 1900 Balance 900 / 900 589 / 589 General: Alert, Oriented x3, Cooperative, Lethargic HEENT: Atraumatic, PERRLA, EOMI, Normocephalic Oral: Moist Mucosa Neck: Supple, No JVD, Negative Carotid Bruits Lungs: Clear to auscultation, Normal air movement, No rhonchi, No wheeze, No rales Cardiovascular: Regular rate, Regular Rhythm, Normal S1, Normal S2, No murmurs Abdomen: Bowel Sounds Present, Soft, Non Tender, Non-Distended, No Hepato-splenomegaly Extremities: No clubbing, No cyanosis, No edema, Capillary Refill Less than 3 Seconds Skin: No rashes, No breakdown Musculoskeletal: - - Dressing over right hip is clean and dry Lymphatic: No Cervical, Supraclavicular, or Inguinal Adenopathy Neurological: Cranial nerves II-XII grossly intact, Neuro grossly intact Psych/Mental Status: Normal Affect, Appropriate, Alert and oriented to time, place, person, mood and affect Laboratory Results 12/01/18 06:00: WBC 6.5, RBC 3.49 L, Hgb 11.6 L, Hct 35.0 L, MCV 100.3 H, MCH 33.2 H, MCHC 33.1, RDW 11.9, RDW Differential 42.7, Plt Count 170, MPV 10.2 12/01/18 06:00: Sodium 137, Potassium 3.9, Chloride 105, Carbon Dioxide 27.0, Anion Gap 5, BUN 6 L, Creatinine 0.59, Estim Creat Clear Calc 35.49, Est GFR (MDRD) Af Amer 127, Est GFR (MDRD) Non-Af 105, BUN/Creatinine Ratio 10.2, Glucose 92, Calcium 7.9 L Current Medications Acetaminophen (Tylenol) 1,000 mg PO Q8 [facility] Last Admin: 12/01/18 06:03 Dose: 1,000 mg [facility] Last Admin: 12/01/18 08:30 Dose: 81 mg Bisacodyl (Dulcolax) 10 mg RECTAL DAILY PRN PRN Reason: constipation Cholecalciferol (Vitamin D) [facility] Last Admin: 12/01/18 08:30 Dose: 2,000 unit Clonazepam (Klonopin) 0.5 mg PO QHS [facility] Last Admin: 11/30/18 21:06 Dose: 0.5 mg Cyanocobalamin (Vitamin B12) [facility] Last Admin: 12/01/18 08:30 Dose: 500 mcg Escitalopram Oxalate (Lexapro) 20 mg PO DAILY [facility] Last Admin: 12/01/18 09:26 Dose: 20 mg Famotidine (Pepcid) 20 mg PO DAILY [facility] Last Admin: 12/01/18 09:26 Dose: 20 mg Ketorolac Tromethamine (Toradol) 15 mg IV Q6H PRN PRN PRN Reason: MILD-MOD PAIN (1-5/10) Stop: 12/05/18 09:04 Last Admin: 12/01/18 02:15 Dose: 15 mg Lactobacillus Acidophilus (Acidophilus) 1 tablet PO DAILY [facility] Last Admin: 12/01/18 09:26 Dose: 1 tablet Meloxicam (Mobic) 7.5 mg PO BID [facility] Last Admin: 12/01/18 09:26 Dose: 7.5 mg Morphine Sulfate () 2 - 4 mg IV Q2H PRN PRN PRN Reason: SEVERE PAIN (6-10/10) Last Admin: 11/30/18 16:43 Dose: 2 mg Morphine Sulfate () 2 - 4 mg IV Q2H PRN PRN PRN Reason: SEVERE PAIN (6-10/10) Nutritional Formula (Lactose Free) (Ensure Clear) 120 ml PO TIDCM [facility] Last Admin: 12/01/18 11:48 Dose: 120 ml Ondansetron HCl (Zofran) 4 mg IV Q8H PRN PRN PRN Reason: NAUSEA Polyethylene Glycol (Miralax) 17 gm PO DAILY PRN PRN PRN Reason: Constipation Promethazine HCl (Phenergan) 12.5 mg IM Q6H PRN PRN; Protocol PRN Reason: NAUSEA/VOMITING Psyllium Hydrophilic Mucilloid (Metamucil) 1 packet PO DAILY [facility] Last Admin: 12/01/18 09:26 Dose: Not Given Senna/Docusate Sodium (Senokot-S, Sherron-Colace) 2 tablet PO BID [facility] Last Admin: 12/01/18 09:26 Dose: 2 tablet Sodium Chloride () 5 - 15 ml IV UD PRN PRN Reason: SALINE FLUSH Tramadol HCl (Ultram) 50 - 100 mg PO Q6H PRN PRN PRN Reason: MOD-SEVERE PAIN () Last Admin: 12/01/18 11:46 Dose: 100 mg Medical Necessity - Tobacco Use Smoking Status: Never smoker Assessment/Plan All Active Problems Partial small bowel obstruction (Acute) 1. Osteoarthritis of right hip s/p right total hip replacement today is POD 0 complains of pain in left hip with movement pain meds as per orthopedics encourage incentive spirometer use 2. Chronic constipation KUB done yeserday o/a of abdominal pain showed possible constipation aggressive bowel regimen 3. History of paroxysmal A. fib: Medical treatment. Will continue. 4. Depression and anxiety: Continue home meds DVT prophylaxis: Aspirin as per orthopedics Code Visit Inpatient E&M: 31902 Subs Hosp L2
--- NOTE | 2018-12-01 13:58 | PN_ITS ---
Subjective: Patient seen and examined. Postop day 1 for right anterior total hip replacement. Patient complains of feeling tired and generally weak. She is co mplains of pain in the right hip with movement the pain is better at rest. She denies any fever chills, chest pain, palpitations or dizziness, diarrhea vomiting. Review of systems otherwise negative. Vitals/I&O's: Vital Signs Temp Pulse Resp BP Pulse Ox 97.9 F 72 16 140/63 H 96 12/01/18 08:19 12/01/18 08:25 12/01/18 08:19 12/01/18 08:19 12/01/18 08:19 Oxygen Delivery Method Room Air Weight: 130 lb Body Mass Index (BMI) 23.8 Intake and Output for Last 24 Hours 11/29/18 11/30/18 12/01/18 23:59 23:59 23:59 Intake Total 1999 / 1999 2489 / 2489 Output Total 1100 / 1100 1900 / 1900 Balance 900 / 900 589 / 589 General: Alert, Oriented x3, Cooperative, Lethargic HEENT: Atraumatic, PERRLA, EOMI, Normocephalic Oral: Moist Mucosa Neck: Supple, No JVD, Negative Carotid Bruits Lungs: Clear to auscultation, Normal air movement, No rhonchi, No wheeze, No rales Cardiovascular: Regular rate, Regular Rhythm, Normal S1, Normal S2, No murmurs Abdomen: Bowel Sounds Present, Soft, Non Tender, Non-Distended, No Hepato- splenomegaly Extremities: No clubbing, No cyanosis, No edema, Capillary Refill Less than 3 Seconds Skin: No rashes, No breakdown Musculoskeletal: - - Dressing over right hip is clean and dry Lymphatic: No Cervical, Supraclavicular, or Inguinal Adenopathy Neurological: Cranial nerves II-XII grossly intact, Neuro grossly intact Psych/Mental Status: Normal Affect, Appropriate, Alert and oriented to time, place, person, mood and affect Laboratory Results 12/01/18 06:00: WBC 6.5, RBC 3.49 L, Hgb 11.6 L, Hct 35.0 L, MCV 100.3 H, MCH 33.2 H, MCHC 33.1, RDW 11.9, RDW Differential 42.7, Plt Count 170, MPV 10.2 12/01/18 06:00: Sodium 137, Potassium 3.9, Chloride 105, Carbon Dioxide 27.0, Anion Gap 5, BUN 6 L, Creatinine 0.59, Estim Creat Clear Calc 35.49, Est GFR (MDRD) Af Amer 127, Est GFR (MDRD) Non-Af 105, BUN/Creatinine Ratio 10.2, Glucose 92, Calcium 7.9 L Current Medications Acetaminophen (Tylenol) 1,000 mg PO Q8 ON LICENSE OF [facility] Last Admin: 12/01/18 06:03 Dose: 1,000 mg [facility] ([facility], Baby) [facility] Last Admin: 12/01/18 08:30 Dose: 81 mg Bisacodyl (Dulcolax) 10 mg RECTAL DAILY PRN PRN Reason: constipation Cholecalciferol (Vitamin D) [facility] Last Admin: 12/01/18 08:30 Dose: 2,000 unit Clonazepam (Klonopin) 0.5 mg PO QHS ON [facility] OF [facility] Last Admin: 11/30/18 21:06 Dose: 0.5 mg Cyanocobalamin (Vitamin B12) [facility] Last Admin: 12/01/18 08:30 Dose: 500 mcg Escitalopram Oxalate (Lexapro) 20 mg PO DAILY [facility] Last Admin: 12/01/18 09:26 Dose: 20 mg Famotidine (Pepcid) 20 mg PO DAILY [facility] Last Admin: 12/01/18 09:26 Dose: 20 mg Ketorolac Tromethamine (Toradol) 15 mg IV Q6H PRN PRN PRN Reason: MILD-MOD PAIN (1-5/10) Stop: 12/05/18 09:04 Last Admin: 12/01/18 02:15 Dose: 15 mg Lactobacillus Acidophilus (Acidophilus) 1 tablet PO DAILY [facility] OF [facility] Last Admin: 12/01/18 09:26 Dose: 1 tablet Meloxicam (Mobic) 7.5 mg PO BID ON [facility] OF [facility] Last Admin: 12/01/18 09:26 Dose: 7.5 mg Morphine Sulfate () 2 - 4 mg IV Q2H PRN PRN PRN Reason: SEVERE PAIN (6-10/10) Last Admin: 11/30/18 16:43 Dose: 2 mg Morphine Sulfate () 2 - 4 mg IV Q2H PRN PRN PRN Reason: SEVERE PAIN (6-10/10) Nutritional Formula (Lactose Free) (Ensure Clear) 120 ml PO TIDCM ON [facility] OF [facility] Last Admin: 12/01/18 11:48 Dose: 120 ml Ondansetron HCl (Zofran) 4 mg IV Q8H PRN PRN PRN Reason: NAUSEA Polyethylene Glycol (Miralax) 17 gm PO DAILY PRN PRN PRN Reason: Constipation Promethazine HCl (Phenergan) 12.5 mg IM Q6H PRN PRN; Protocol PRN Reason: NAUSEA/VOMITING Psyllium Hydrophilic Mucilloid (Metamucil) 1 packet PO DAILY [facility] OF [facility] Last Admin: 12/01/18 09:26 Dose: Not Given Senna/Docusate Sodium (Senokot-S, Sherron-Colace) 2 tablet PO BID [facility] OF [facility] Last Admin: 12/01/18 09:26 Dose: 2 tablet Sodium Chloride () 5 - 15 ml IV UD PRN PRN Reason: SALINE FLUSH Tramadol HCl (Ultram) 50 - 100 mg PO Q6H PRN PRN PRN Reason: MOD-SEVERE PAIN (-07/27) Last Admin: 12/01/18 11:46 Dose: 100 mg Medical Necessity - Tobacco Use Smoking Status: Never smoker Assessment/Plan All Active Problems Partial small bowel obstruction (Acute) 1. Osteoarthritis of right hip s/p right total hip replacement * today is POD 0 * complains of pain in left hip with movement * pain meds as per orthopedics * encourage incentive spirometer use * 2. Chronic constipation * KUB done yeserday o/a of abdominal pain showed possible constipation * aggressive bowel regimen * 3. History of paroxysmal A. fib: Medical treatment. Will continue. 4. Depression and anxiety: Continue home meds DVT prophylaxis: Aspirin as per orthopedics Code Visit Inpatient E&M: 35009 Subs Hosp L2
[2018-12-01 14:15] VITALS: BP 118/64; PULSE 64; RESP 16; TEMP 36.5; O2SAT 97
[2018-12-01 20:15] VITALS: BP 125/62; PULSE 67; RESP 16; TEMP 36.6; O2SAT 96
[2018-12-01] MEDS: clonazePAM 0.5 MG Tablet PO (22:04)
[2018-12-01] MEDS: 0.9% NaCl Peripheral Flush Adult/Peds IV (22:05)
[2018-12-02] MEDS: traMADol 50 MG Tablet PO (00:39)
[2018-12-02 02:00] VITALS: BP 134/67; PULSE 64; RESP 16; TEMP 36.6; O2SAT 95
[2018-12-02] MEDS: Acetaminophen 500 MG Tablet 1000 MG PO ×2 (05:46→15:17)
[2018-12-02 06:54] LABS: Hematocrit 33.4 % (37-47); Hemoglobin 11.3 g/dl (12.0-15.0); Mean Corp Hgb Conc 33.8 g/gl (32-36); Mean Corpuscular Hgb 33.9 pg (27.0-32.0); Mean Corpuscular Volume 100.3 fL (81-99); Mean Platelet Vol. 10.5 fl (6.2-12.0); Platelet Count 150 K/mm3 (150-450); RBC Distribution Width CV 12.1 % (11.6-14.6); RBC Distribution Width SD 43.2 fl (35.1-43.9); Red Blood Count 3.33 M/mm3 (4.2-5.4); White Blood Count 6.4 K/mm3 (4.4-11.0)
[2018-12-02 07:00] LABS: Scan Indicated on CBC? Y/N NO
--- NOTE | 2018-12-02 07:30 | PCM.PN.ORT ---
Subjective: Overall patient appears to be doing well. States a desire to get to home today if possible. She does report she still feels unstable when she gets up. Therapy notes are reviewed she did seem to do well with therapy. She does seem to have some confusion and repetitively asks the same questions. She reports thigh pain and some groin pain this morning. No chest pain or shortness of breath. Objective: Postoperative radiographs were reviewed today. Shows well-placed right total hip replacement no apparent fractures. - Physical Exam General: Alert, Cooperative, - Abdomen: Non-Distended Extremities: - - Right lower extremity: Dressing is clean dry and intact Sensations intact to light touch saphenous, sural, superficial peroneal, deep peroneal, and tibial distributions Motors intact EHL, DF, PF calves are soft and supple Vital Signs Temp Pulse Resp BP Pulse Ox 97.9 F 64 16 134/67 H 95 12/02/18 02:00 12/02/18 02:00 12/02/18 02:00 12/02/18 02:00 12/02/18 02:00 Oxygen Delivery Method Room Air Weight: 130 lb Body Mass Index (BMI) 23.8 Intake and Output for Last 24 Hours 11/30/18 12/01/18 12/02/18 23:59 23:59 23:59 Intake Total 1999 / 1999 2489 / 2489 500 / 500 Output Total 1100 / 1100 1900 / 1900 1500 / 1500 Balance 900 / 900 589 / 589 -1000 / -1000 Laboratory Tests Past 24 Hrs 12/02/18 05:56 WBC 6.4 RBC 3.33 L Hgb 11.3 L Hct 33.4 L MCV 100.3 H MCH 33.9 H MCHC 33.8 RDW 12.1 RDW Differential 43.2 Plt Count 150 MPV 10.5 Medical Necessity - Tobacco Use Smoking Status: Never smoker Assessment/Plan All Active Problems Partial small bowel obstruction (Acute) Postop day 2 right direct anterior total hip replacement. 1. DVT prophylaxis: Aspirin twice daily 2. Pain control: Continue current regimen tramadol Tylenol 3. Therapy: Weight-bear as tolerated activity as tolerated 4. Abdominal discomfort: Patient has chronic constipation continue current bowel regimen appreciate medical input. 5. Disposition: Patient would like to be discharged home today with plans for home health if she is able to pass therapy. Will get ready this morning. [facility] Office:
--- NOTE | 2018-12-02 07:37 | DCINST_ITS ---
Discharge Diet: No Restrictions, - - Continue bowel regimen Discharge Activity: May Not Drive - while taking narcotic pain medications. May shower in (days): 1 - only if incision is dry and without drainage. Do NOT soak/submerge in tub/pool/kendall/stream/hot tub. May resume sexual activity in: 6 weeks Ice area for (Minutes): 20 Weight Bearing Status: Weight bearing as tolerated Additional Activity Instructions:: Wear elastic stockings for 2 weeks. DO NOT use alcohol with narcotic pain medication. DO NOT make important decisions while taking narcotic medication. If you have problems with taking your medic ation (rash, itching, nausea, etc.) call the office at once. Call your doctor if your incision/area has: Increased Pain/ Swelling, Increased Redness, Foul Smelling Discharge Call your doctor if you observe: Fever of 101 or Higher Remove Dressing in (days):: 12-05-2018 Cleanse incision/area with: Keep Dressing Clean & Dry Additional Dressing/Incision Instructions:: If incision is clean dry and intact may leave the wound open to air and continue showering. If there is continued drainage continue daily dry dressing changes and keep incision clean dry and intact until there is no drainage. Allergies/Adverse Reactions: Allergies No Known Allergies Allergy (Verified 11/15/18 10:45) Medications to take at Discharge Clonazepam [Klonopin] 0.5 mg PO QHS 10/02/14 Aspirin 81 mg PO QODAY 07/04/16 Escitalopram Oxalate [Lexapro] 20 mg PO DAILY 04/15/17 Lactobacillus Acidophilus [Acidophilus] 1 tablet PO DAILY 04/15/17 Cholecalciferol (Vitamin D3) [Vitamin D3] 2,000 unit PO DAILY 11/15/18 Cyanocobalamin (Vitamin B-12) [Vitamin B-12] 500 mcg PO DAILY 11/15/18 Magnesium Oxide [Magnesium] 500 mg PO DAILY 11/15/18 [place]-3 Fatty Acids [Fish Oil] 500 mg PO DAILY 11/15/18 Turmeric Root Extract [Turmeric] 500 mg PO DAILY 11/15/18 Primary Care Physician: Wilbert Bar MD [Primary Care Provider] - Please follow up with your Primary Care Physician in: Upon discharge for bowel discomfort Test Results: Test results from this visit will be discussed in further detail at your follow- up appointment, if applicable. Please Follow Up With: Westley Cristina PA-C When: 12-14-2018 11:00 Proposed Discharge Date: 12/02/18
[2018-12-02 08:00] VITALS: BP 136/68; PULSE 79; RESP 16; TEMP 36.5; O2SAT 96
[2018-12-02] MEDS: Aspirin 81 MG TAB.CHEW PO (08:53)
[2018-12-02] MEDS: Escitalopram Oxalate 20 MG Tablet PO (08:54)
[2018-12-02] MEDS: Cyanocobalamin 500 MCG Tablet PO (08:54)
[2018-12-02] MEDS: Psyllium 1 PACKET PO (08:54)
[2018-12-02] MEDS: Senna/Docusate Sodium 1 Tablet 2 TABLET PO (08:55)
[2018-12-02] MEDS: Meloxicam 7.5 MG Tablet PO (08:55)
[2018-12-02] MEDS: Famotidine 20 MG Tablet PO (08:55)
--- NOTE | 2018-12-02 14:47 | PCM.PN.HOSP ---
Subjective: Patient seen and examined. She has no complaints and feels well. She feels much better than yesterday and was comfortably eating lunch. She does say that she gets some mild pain in her hip with movement. Review of systems otherwise negative. For discharge today per orthopedics. Vitals/I&O's: Vital Signs Temp Pulse Resp BP Pulse Ox 97.7 F L 79 16 136/68 H 96 12/02/18 08:00 12/02/18 08:00 12/02/18 08:00 12/02/18 08:00 12/02/18 08:00 Oxygen Delivery Method Room Air Weight: 130 lb Body Mass Index (BMI) 23.8 Intake and Output for Last 24 Hours 11/30/18 12/01/18 12/02/18 23:59 23:59 23:59 Intake Total 1999 / 1999 2489 / 2489 500 / 500 Output Total 1100 / 1100 1900 / 1900 1500 / 1500 Balance 900 / 900 589 / 589 -1000 / -1000 General: Alert, Oriented x3, Cooperative, Lethargic HEENT: Atraumatic, PERRLA, EOMI, Normocephalic Oral: Moist Mucosa Neck: Supple, No JVD, Negative Carotid Bruits Lungs: Clear to auscultation, Normal air movement, No rhonchi, No wheeze, No rales Cardiovascular: Regular rate, Regular Rhythm, Normal S1, Normal S2, No murmurs Abdomen: Bowel Sounds Present, Soft, Non Tender, Non-Distended, No Hepato-splenomegaly Extremities: No clubbing, No cyanosis, No edema, Capillary Refill Less than 3 Seconds Skin: No rashes, No breakdown Musculoskeletal: - - Dressing over right hip is clean and dry Lymphatic: No Cervical, Supraclavicular, or Inguinal Adenopathy Neurological: Cranial nerves II-XII grossly intact, Neuro grossly intact Psych/Mental Status: Normal Affect, Appropriate, Alert and oriented to time, place, person, mood and affect Laboratory Results 12/02/18 05:56: WBC 6.4, RBC 3.33 L, Hgb 11.3 L, Hct 33.4 L, MCV 100.3 H, MCH 33.9 H, MCHC 33.8, RDW 12.1, RDW Differential 43.2, Plt Count 150, MPV 10.5 Current Medications Acetaminophen (Tylenol) 1,000 mg PO Q8 [facility] Last Admin: 12/02/18 05:46 Dose: 1,000 mg [facility], [facility]) [facility] Last Admin: 12/02/18 08:53 Dose: 81 mg Bisacodyl (Dulcolax) 10 mg RECTAL DAILY PRN PRN Reason: constipation Cholecalciferol (Vitamin D) [facility] Last Admin: 12/02/18 08:53 Dose: 2,000 unit Clonazepam (Klonopin) 0.5 mg PO QHS [facility] Last Admin: 12/01/18 22:04 Dose: 0.5 mg Cyanocobalamin (Vitamin B12) [facility] Last Admin: 12/02/18 08:54 Dose: 500 mcg Escitalopram Oxalate (Lexapro) 20 mg PO DAILY [facility] Last Admin: 12/02/18 08:54 Dose: 20 mg Famotidine (Pepcid) 20 mg PO DAILY [facility] Last Admin: 12/02/18 08:55 Dose: 20 mg Ketorolac Tromethamine (Toradol) 15 mg IV Q6H PRN PRN PRN Reason: MILD-MOD PAIN (1-5/10) Stop: 12/05/18 09:04 Last Admin: 12/01/18 02:15 Dose: 15 mg Lactobacillus Acidophilus (Acidophilus) 1 tablet PO DAILY [facility] Last Admin: 12/02/18 08:54 Dose: 1 tablet Meloxicam (Mobic) 7.5 mg PO BID [facility] Last Admin: 12/02/18 08:55 Dose: 7.5 mg Morphine Sulfate () 2 - 4 mg IV Q2H PRN PRN PRN Reason: SEVERE PAIN (6-10/10) Last Admin: 11/30/18 16:43 Dose: 2 mg Morphine Sulfate () 2 - 4 mg IV Q2H PRN PRN PRN Reason: SEVERE PAIN (6-10/10) Nutritional Formula (Lactose Free) (Ensure Clear) 120 ml PO TIDCM [facility] Last Admin: 12/02/18 08:56 Dose: 120 ml Ondansetron HCl (Zofran) 4 mg IV Q8H PRN PRN PRN Reason: NAUSEA Polyethylene Glycol (Miralax) 17 gm PO DAILY PRN PRN PRN Reason: Constipation Promethazine HCl (Phenergan) 12.5 mg IM Q6H PRN PRN; Protocol PRN Reason: NAUSEA/VOMITING Psyllium Hydrophilic Mucilloid (Metamucil) 1 packet PO DAILY [facility] Last Admin: 12/02/18 08:54 Dose: 1 packet Senna/Docusate Sodium (Senokot-S, Sherron-Colace) 2 tablet PO BID [facility] Last Admin: 12/02/18 08:55 Dose: 2 tablet Sodium Chloride () 5 - 15 ml IV UD PRN PRN Reason: SALINE FLUSH Last Admin: 12/01/18 22:05 Dose: 10 ml Tramadol HCl (Ultram) 50 - 100 mg PO Q6H PRN PRN PRN Reason: MOD-SEVERE PAIN (4-1010) Last Admin: 12/02/18 00:39 Dose: 100 mg Medical Necessity - Tobacco Use Smoking Status: Never smoker Assessment/Plan All Active Problems Partial small bowel obstruction (Acute) 1. Osteoarthritis of right hip s/p right total hip replacement today is POD 1 complains of pain in left hip with movement pain meds as per orthopedics encourage incentive spirometer use 2. Chronic constipation aggressive bowel regimen stable. 3. History of paroxysmal A. fib: stable. Not on any beta lora or antirarrhythmic drugs per EMR. HR has been stable. TO follow up with her oncologist 4. Depression and anxiety: on lexapro DVT prophylaxis: Aspirin as per orthopedics Disposition: DC today Code Visit Inpatient E&M: 72032 Subs Hosp L2
--- NOTE | 2018-12-02 14:50 | PN_ITS ---
Subjective: Patient seen and examined. She has no complaints and feels well. She feels much better than yesterday and was comfortably eating lunch. She does say that she gets some mild pain in her hip with movement. Review of systems otherwise negative. For discharge today per orthopedics. Vitals/I&O's: Vital Signs Temp Pulse Resp BP Pulse Ox 97.7 F L 79 16 136/68 H 96 12/02/18 08:00 12/02/18 08:00 12/02/18 08:00 12/02/18 08:00 12/02/18 08:00 Oxygen Delivery Method Room Air Weight: 130 lb Body Mass Index (BMI) 23.8 Intake and Output for Last 24 Hours 11/30/18 12/01/18 12/02/18 23:59 23:59 23:59 Intake Total 1999 / 1999 2489 / 2489 500 / 500 Output Total 1100 / 1100 1900 / 1900 1500 / 1500 Balance 900 / 900 589 / 589 -1000 / -1000 General: Alert, Oriented x3, Cooperative, Lethargic HEENT: Atraumatic, PERRLA, EOMI, Normocephalic Oral: Moist Mucosa Neck: Supple, No JVD, Negative Carotid Bruits Lungs: Clear to auscultation, Normal air movement, No rhonchi, No wheeze, No rales Cardiovascular: Regular rate, Regular Rhythm, Normal S1, Normal S2, No murmurs Abdomen: Bowel Sounds Present, Soft, Non Tender, Non-Distended, No Hepato- splenomegaly Extremities: No clubbing, No cyanosis, No edema, Capillary Refill Less than 3 Seconds Skin: No rashes, No breakdown Musculoskeletal: - - Dressing over right hip is clean and dry Lymphatic: No Cervical, Supraclavicular, or Inguinal Adenopathy Neurological: Cranial nerves II-XII grossly intact, Neuro grossly intact Psych/Mental Status: Normal Affect, Appropriate, Alert and oriented to time, place, person, mood and affect Laboratory Results 12/02/18 05:56: WBC 6.4, RBC 3.33 L, Hgb 11.3 L, Hct 33.4 L, MCV 100.3 H, MCH 33.9 H, MCHC 33.8, RDW 12.1, RDW Differential 43.2, Plt Count 150, MPV 10.5 Current Medications Acetaminophen (Tylenol) 1,000 mg PO Q8 [facility] Last Admin: 12/02/18 05:46 Dose: 1,000 mg Aspirin ([facility]in, Baby) [facility] Last Admin: 12/02/18 08:53 Dose: 81 mg Bisacodyl (Dulcolax) 10 mg RECTAL DAILY PRN PRN Reason: constipation Cholecalciferol (Vitamin D) 2,000 [facility] Last Admin: 12/02/18 08:53 Dose: 2,000 unit Clonazepam (Klonopin) 0.5 mg PO QHS [facility] Last Admin: 12/01/18 22:04 Dose: 0.5 mg Cyanocobalamin (Vitamin B12) 500 [facility]cg [facility] Last Admin: 12/02/18 08:54 Dose: 500 mcg Escitalopram Oxalate (Lexapro) 20 mg PO DAILY [facility] Last Admin: 12/02/18 08:54 Dose: 20 mg Famotidine (Pepcid) 20 mg PO DAILY [facility] Last Admin: 12/02/18 08:55 Dose: 20 mg Ketorolac Tromethamine (Toradol) 15 mg IV Q6H PRN PRN PRN Reason: MILD-MOD PAIN (1-5/10) Stop: 12/05/18 09:04 Last Admin: 12/01/18 02:15 Dose: 15 mg Lactobacillus Acidophilus (Acidophilus) 1 tablet PO DAILY [facility] Last Admin: 12/02/18 08:54 Dose: 1 tablet Meloxicam (Mobic) 7.5 mg PO BID [facility] Last Admin: 12/02/18 08:55 Dose: 7.5 mg Morphine Sulfate () 2 - 4 mg IV Q2H PRN PRN PRN Reason: SEVERE PAIN (6-10/10) Last Admin: 11/30/18 16:43 Dose: 2 mg Morphine Sulfate () 2 - 4 mg IV Q2H PRN PRN PRN Reason: SEVERE PAIN (6-10/10) Nutritional Formula (Lactose Free) (Ensure Clear) 120 ml PO TIDCM [facility] Last Admin: 12/02/18 08:56 Dose: 120 ml Ondansetron HCl (Zofran) 4 mg IV Q8H PRN PRN PRN Reason: NAUSEA Polyethylene Glycol (Miralax) 17 gm PO DAILY PRN PRN PRN Reason: Constipation Promethazine HCl (Phenergan) 12.5 mg IM Q6H PRN PRN; Protocol PRN Reason: NAUSEA/VOMITING Psyllium Hydrophilic Mucilloid (Metamucil) 1 packet PO DAILY [facility] Last Admin: 12/02/18 08:54 Dose: 1 packet Senna/Docusate Sodium (Senokot-S, Sherron-Colace) 2 tablet PO BID [facility] Last Admin: 12/02/18 08:55 Dose: 2 tablet Sodium Chloride () 5 - 15 ml IV UD PRN PRN Reason: SALINE FLUSH Last Admin: 12/01/18 22:05 Dose: 10 ml Tramadol HCl (Ultram) 50 - 100 mg PO Q6H PRN PRN PRN Reason: MOD-SEVERE PAIN (4-10/10) Last Admin: 12/02/18 00:39 Dose: 100 mg Medical Necessity - Tobacco Use Smoking Status: Never smoker Assessment/Plan All Active Problems Partial small bowel obstruction (Acute) 1. Osteoarthritis of right hip s/p right total hip replacement * today is POD 1 * complains of pain in left hip with movement * pain meds as per orthopedics * encourage incentive spirometer use * 2. Chronic constipation * aggressive bowel regimen * stable. 3. History of paroxysmal A. fib: stable. Not on any beta lora or antirarrhythmic drugs per EMR. HR has been stable. TO follow up with her oncologist 4. Depression and anxiety: on lexapro DVT prophylaxis: Aspirin as per orthopedics Disposition: DC today Code Visit Inpatient E&M: 26183 Subs Hosp L2
[2018-12-02 15:18] VITALS: BP 114/67; PULSE 79; RESP 16; TEMP 36.8; O2SAT 95
== END 2018-12-02 15:45 | disposition home or self-care (01) | DRG 470 ==
PROVIDERS: Admitting Provider Specialist; Family Provider Family Medicine; PCP Family Medicine; Referring Provider Specialist; Visit Provider Student in an Organized Health Care Education/Training Program
PROC: 0SR904A Replacement of Right Hip Joint with Ceramic on Polyethylene Synthetic Substitute, Uncemented, Open Approach (ICD-10-PCS; CPT 27284; principal; 2018-11-30 10:05)
DX: M16.11 Unilateral primary osteoarthritis, right hip (principal); F41.9 Anxiety disorder, unspecified; F32.9 Major depressive disorder, single episode, unspecified; K59.09 Other constipation; Z96.642 Presence of left artificial hip joint
CPT/HCPCS: 36415; 73501; 73502; 74018; 76000; 80048; 85027; 87077; 87081; 97110; 97116; 97162; 97165; 97530; 97535; 97802; 99251; C1776; J7120; A4216; G0463; J2405

== ENCOUNTER → 2019-01-16 11:45 | Outpatient (CLI) | payer MEDICARE, BC, SELFPAY | PROVIDERS: Family Provider Family Medicine; PCP Family Medicine; Visit Provider Family Medicine | DX: R35.0 Frequency of micturition (principal) | CPT/HCPCS: 87086; 87088 ==

== ENCOUNTER → 2019-03-08 09:45 | Outpatient (CLI) | payer MEDICARE, BC, SELFPAY ==
[2019-03-08 12:30] LABS: Absolute Lymphocyte Count 0.97 X10^3/ul (0.83-4.51); Absolute Neutrophil Count 2.1 X10^3/uL (2.0-7.7); Basophil# 0.02 X10^3/uL; Basophil% 0.6 % (0-1); Eosinophil# 0.05 X10^3/uL; Eosinophils% 1.4 % (0-5); Hematocrit 42.3 % (37-47); Hemoglobin 13.9 g/dl (12.0-15.0); Lymphocyte # 0.97 X10^3/ul (4.0); Lymphocyte % 27.7 % (19-41); Mean Corp Hgb Conc 32.9 g/gl (32-36); Mean Corpuscular Volume 97.5 fL (81-99); Mean Platelet Vol. 10.9 fl (6.2-12.0); Monocyte# 0.33 X10^3/uL; Monocyte% 9.4 % (0-10); Neutrophil # 2.13 X10^3/uL (2.7-7.7); Neutrophil % 60.9 % (47-70); Platelet Count 219 K/mm3 (150-450); RBC Distribution Width CV 12.3 % (11.6-14.6); RBC Distribution Width SD 43.2 fl (35.1-43.9); Red Blood Count 4.34 M/mm3 (4.2-5.4); White Blood Count 3.5 K/mm3 (4.4-11.0)
[2019-03-08 12:48] LABS: POSITIVE COUNT NO; POSITIVE DIFFERENTIAL NO; POSITIVE MORPHOLOGY NO
[2019-03-08 12:59] LABS: ALB/GLOB Ratio 0.8 RATIO (0.9-2.4); AST(SGOT) 18 U/L (15-37); Alanine Aminotransfer ALT/SGPT 18 U/L (13-56); Albumin, Serum 3.4 g/dL (3.2-5.0); Alkaline Phosphatase 99 U/L (45-117); Anion Gap 3 (5-15); BUN 10 mg/dL (7-18); Calcium,Total 8.6 mg/dL (8.5-10.1); Chloride 104 mmol/L (98-107); Creatinine, Serum 0.62 mg/dL (0.55-1.02); EST Glomerular Filtration Rate 97 mL/min (>60); Est Glom Filt Rate - Afr Amer 118 mL/min (>60); Globulin 4.1 g/dL (2.2-4.2); Glucose 84 mg/dL (74-106); Iron 119 ug/dL (50-170); Potassium 3.8 mmol/L (3.5-5.1); Protein, Total 7.5 g/dL (6.4-8.2); Sodium Level 136 mmol/L (136-145); T4 Free Direct 0.87 ng/dL (0.76-1.46); Thyroid Stim Hormone (TSH) 1.45 uIU/mL (0.358-3.74); Vitamin B12 1095 pg/mL (211-911); Vitamin D,25 Hydroxy 65.1 ng/mL (29.95-100.01)
== END ==
PROVIDERS: Family Provider Family Medicine; PCP Family Medicine; Visit Provider Family Medicine
DX: M81.0 Age-related osteoporosis without current pathological fracture (principal); E53.8 Deficiency of other specified B group vitamins; F41.9 Anxiety disorder, unspecified; D64.9 Anemia, unspecified; R53.83 Other fatigue
CPT/HCPCS: 36415; 80053; 82306; 82607; 83540; 84439; 84443; 85025

== ENCOUNTER 2019-08-26 19:47 | Observation (INO) | payer MEDICARE, BC, SELFPAY ==
[2019-08-26] VITALS (8 sets, daily range): BP systolic 99–190; BP diastolic 64–101; PULSE 68–79; RESP 15–30; TEMP 36.5–36.7; O2SAT 95–97; BMI 23.8; BMI 23.9
--- NOTE | 2019-08-26 19:54 | EKG12_ITS ---
Test Reason : CP Blood Pressure : / mmHG Vent. Rate : 073 BPM Atrial Rate : 073 BPM P-R Int : 168 ms QRS Dur : 076 ms QT Int : 368 ms P-R-T Axes : 074 075 079 degrees QTc Int : 405 ms Normal sinus rhythm Possible Left atrial enlargement Abnormal ECG Confirmed by MANOLO PATEL, LIZZIE ([id number]), graphics editor ALEKSANDRA OWENS ([id number]) on 08/29/2019 1:56:21 PM Referred By: Juan Francisco Palacios Confirmed By:LIZZIE FRENCH MD
--- NOTE | 2019-08-26 19:55 | RAD_ITS ---
STUDY: X-RAY CHEST REASON FOR EXAM: Female, 79 years old. Chest pain TECHNIQUE: Single AP portable view of the chest. COMPARISON: Previous study of 10/03/2014 FINDINGS: compliance monitor leads are present. The lungs are clear and expanded. There is no demonstrated pleural abnormality. Normal size heart. Normal mediastinum and mago. Normal visualized pulmonary arteries. Normal visualized aortic arch and descending thoracic aorta. Normal visualized thoracic spine. Normal visualized ribs, clavicles, and shoulders. There is no demonstrated abnormality of the visualized soft tissue structures of the upper abdomen. RAD/Chest 1 View (Portable) IMPRESSION: Normal x-ray examination of the chest. Electronically Signed: Kartik Santiago MD at 20:37 EST , Service support ,
--- NOTE | 2019-08-26 19:58 | ED.DCSUM_ITS ---
- ER Visit Summary Date of Service: 08/26/19 Chief Complaint: Chest pain History of Present Illness: The patient is a 79 F presenting with midsternal chest pain that started 30 minutes prior to arrival. Patient has associated shortness of breath. She denies nausea or diaphoresis. This started after walking around [employer]. She is exposed to secondhand smoke but is not a smoker. She has a family history of early heart disease. No other CAD risk factors. Physical Examination: Vitals are stable. Blood pressure 190/101. Patient is afebrile. Alert no acute distress. HEENT exam is unremarkable. Neck is supple. Lungs are clear and equal bilaterally. Heart is regular rate and rhythm. Abdomen is soft nontender nondistended. Extremities are unremarkable. Skin is warm and dry. No focal neurologic deficit. Remainder of exam is unremarkable. Emergency Department Course and Treatment: Patient was given aspirin, nitro. EKG is sinus rate of 73 no acute ischemic changes. CBC, chemistries unremarkable other than potassium 3.3. Troponin is negative. Chest x-ray shows no acute process . She is pain-free after 1 nitro. Repeat blood pressure is 160/79. Discussed with the hospitalist for observation. Disposition: Observation Impression: Chest pain This note was generated with [employer] dictation software. It may contain incorrect words, spelling, and punctuation that were not noted in review of the chart prior to signing ED Disposition - Plan for ED Patient: Referrals: Wilbert Bar MD [Primary Care Provider] -
[2019-08-26] MEDS: Aspirin 81 MG TAB.CHEW 324 MG PO (19:59)
[2019-08-26 20:02] LABS: Absolute Lymphocyte Count 2.11 X10^3/uL (0.83-4.51); Absolute Neutrophil Count 2.5 X10^3/uL (2.0-7.7); Basophil# 0.03 X10^3/uL; Basophil% 0.6 % (0-1); Eosinophil# 0.15 X10^3/uL; Eosinophils% 2.9 % (0-5); Hematocrit 41.4 % (37-47); Hemoglobin 13.9 g/dL (12.0-15.0); Lymphocyte # 2.11 X10^3/ul (4.0); Lymphocyte % 40.4 % (19-41); Mean Corp Hgb Conc 33.6 g/dL (32-36); Mean Corpuscular Hgb 33.4 pg (27.0-32.0); Mean Corpuscular Volume 99.5 fL (81-99); Mean Platelet Vol. 9.5 fl (6.2-12.0); Monocyte# 0.46 X10^3/uL; Monocyte% 8.8 % (0-10); NRBC Flagged by Analyzer 0 % (0-5); Neutrophil # 2.46 X10^3/uL (2.7-7.7); Neutrophil % 47.1 % (47-70); Platelet Count 216 K/mm3 (150-450); RBC Distribution Width CV 11.7 % (11.6-14.6); RBC Distribution Width SD 42.5 fl (35.1-43.9); Red Blood Count 4.16 M/mm3 (4.2-5.4); White Blood Count 5.2 K/mm3 (4.4-11.0)
[2019-08-26] MEDS: Nitroglycerin SL (ED/IMG/CATH) 0.4 MG TABLET SUBLINGUAL (20:03)
--- NOTE | 2019-08-26 20:15 | EKG12_ITS ---
Test Reason : ADM EKG Blood Pressure : / mmHG Vent. Rate : 070 BPM Atrial Rate : 070 BPM P-R Int : 166 ms QRS Dur : 074 ms QT Int : 390 ms P-R-T Axes : 072 065 055 degrees QTc Int : 421 ms Normal sinus rhythm Normal ECG When compared with ECG of 03-OCT-2014 01:04, Sinus rhythm has replaced Atrial fibrillation Vent. rate has decreased BY 52 BPM Non-specific change in ST segment in Inferior leads Nonspecific T wave abnormality no longer evident in Anterior leads Confirmed by BERNARDO ANDERSON ([id number]), editor & co founder CARLIN SHABAZZ ([id number]) on 09/01/2019 11:31:56 AM Referred By: Juan Francisco Palacios Confirmed By:BERNARDO ANDERSON
[2019-08-26 20:16] LABS: Anion Gap 5 (5-15); BUN 11 mg/dL (7-18); Calcium,Total 8.9 mg/dL (8.5-10.1); Chloride 104 mmol/L (98-107); Creatinine, Serum 0.74 mg/dL (0.55-1.02); EST Glomerular Filtration Rate 81 mL/min (>60); Est Glom Filt Rate - Afr Amer 98 mL/min (>60); Glucose 93 mg/dL (74-106); Potassium 3.3 mmol/L (3.5-5.1); Sodium Level 139 mmol/L (136-145)
--- NOTE | 2019-08-26 20:37 | HP.PCM_ITS ---
Problem List (1) Chest pain Status: Acute (2) Depression Status: Chronic (3) Hyperlipidemia Status: Chronic History of Present Illness Date of Admission: 08/26/19 Chief Complaint: chest pain The patient is a 79 year old F with a significant history of depression; anxiety; paroxysmal A. fib; and osteoporosis who presented to emergency department with chest pain. Reportedly she picked her daughter from the [facility]. They (family) ate pizza after which they want to [facility]. While at [facility] she had shortness of breath. She returned into her car and developed chest pain. She rates her chest pain as 8 out of 10. Her chest pain was sharp and it was nonradiating. Her chest pain spun across her entire chest. She denies any nausea vomiting or diaphoresis. She denies any aggravating factor. She thinks that lying down on her back somewhat improve her chest pain. Her chest pain lasted for about 45 minutes. At the emergency department she was given nitroglycerin. But her chest pain went away even before receiving the nitroglycerin. Past Medical History Past Medical History (Chronic Problems): Chronic Problems Depression (Chronic) Hyperlipidemia (Chronic) Allergies No Known Allergies Allergy (Verified 08/26/19 19:47) Home Medications: Ambulatory Orders Medication Instructions Recorded Escitalopram Oxalate [Lexapro] 20 mg PO DAILY 04/15/17 Lactobacillus Acidophilus 1 tablet PO DAILY 04/15/17 [Acidophilus] Cholecalciferol (Vitamin D3) 2,000 unit PO DAILY 11/15/18 [Vitamin D3] Cyanocobalamin (Vitamin B-12) 500 mcg PO DAILY 11/15/18 [Vitamin B-12] Magnesium Oxide [Magnesium] 500 mg PO DAILY 11/15/18 [place]-3 Fatty Acids [Fish Oil] 500 mg PO DAILY 11/15/18 Ensure Clear 120 ml PO TIDCM liquid 12/02/18 Ibandronate Sodium 150 mg PO QMONTH 08/26/19 Mirtazapine 0.5 tab PO QHS 08/26/19 Surgical History: appendectomy, cholecystectomy, hysterectomy, total knee arthroplasty, - - Neck surgery. 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 - *Family History Offspring History Items: Diabetes, Hypertension Maternal History Items: Stroke, - - Patient reported that her mother from gallstones. Paternal History Items: Heart Disease - Patient thinks that his father might have had a heart attack before age 58. Review of Systems Constitutional: Denies: Chills, Fever, Weight Change HEENT: Denies: Head Aches, Sinus Congestion, Sinus Drainage Cardiovascular: Reports: Chest Pain. Denies: Palpitations Respiratory: Reports: Shortness of Breath. Denies: Cough, Sputum production Gastrointestinal: Denies: Abdominal Pain, Nausea, Vomiting Genitourinary: Denies: Dysuria Musculoskeletal: Denies: Joint Pain, Joint Tenderness Skin: Denies: Rash, Wounds Neurological: Denies: Numbness, Tingling, Focal weakness Psychiatric: Denies: Anxiety, Depression, Homicidal Ideations, Suicidal Ideations Hematologic/ Lymphatic: Denies: Easy Bruising, Easy Bleeding VTE Information - Inpt Only VTE Present on Admission: No VTE Mechan Device Prophylaxis: None VTE Pharm Prophylaxis ordered?: Yes Patient Problems: Active and Suspected Problems Chest pain (Acute) - Physical Exam Vitals/I&O's: Vital Signs Temp Pulse Resp BP Pulse Ox 97.7 F L 72 16 99/67 97 08/26/19 19:48 08/26/19 20:18 08/26/19 20:18 08/26/19 20:18 08/26/19 20:18 Oxygen Delivery Method Room Air Weight: 58.967 kg Body Mass Index (BMI) 23.8 General: Alert, Oriented x3, Cooperative HEENT: Atraumatic, PERRLA, EOMI, Normocephalic Neck: Supple, No JVD, Negative Carotid Bruits Lungs: Clear to auscultation, Normal air movement Cardiovascular: Regular rate, Regular Rhythm, Normal S1, Normal S2, No murmurs Abdomen: Bowel Sounds Present, Soft, Non Tender Extremities: No edema, Capillary Refill Less than 3 Seconds Skin: No rashes, No breakdown Musculoskeletal: No Tenderness to Palpation of Joints or Extremities Neurological: Cranial nerves II-XII grossly intact Psych/Mental Status: Normal Affect, Appropriate Laboratory Results 08/26/19 20:00: WBC 5.2, RBC 4.16 L, Hgb 13.9, Hct 41.4, MCV 99.5 H, MCH 33.4 H, MCHC 33.6, RDW Std Deviation 42.5, RDW Coeff of Osmar 11.7, Plt Count 216, MPV 9.5, Immature Gran % (Auto) 0.200, Neut % (Auto) 47.1, Lymph % (Auto) 40.4, Hale % (Auto) 8.8, Eos % (Auto) 2.9, Baso % (Auto) 0.6, Absolute Neuts (auto) 2.5, Absolute Lymphs (auto) 2.11, Nucleated RBC % 0 08/26/19 20:00: Sodium 139, Potassium 3.3 L, Chloride 104, Carbon Dioxide 30.0, Anion Gap 5, BUN 11, Creatinine 0.74, Estim Creat Clear Calc 34.90, Est GFR (MDRD) Af Amer 98, Est GFR (MDRD) Non-Af 81, BUN/Creatinine Ratio 15.0, Glucose 93, Calcium 8.9, Troponin I < 0.015 Current Medications Nitroglycerin (Nitrostat) 0.4 mg SUBLINGUAL Q5M PRN PRN Reason: Chest pain Last Admin: 08/26/19 20:03 Dose: 0.4 mg Documented by: Assessment/Plan All Active Problems Chest pain (Acute) The patient is a 79 year old F with a significant history of depression; anxiety; paroxysmal A. fib; and osteoporosis who presented to emergency depart ment with chest pain. Chest pain Place on a monitored bed at PCU CXR independently reviewed confirms no acute cardiopulmonary process. EKG independently reviewed confirms NSR. The computer erroneously read the first EKG as ST elevation ME so EKG was repeated at the emergency department. Both EKG showed sinus rhythm. Received aspirin 324 mg in the emergency department. ASA 81 mg p.o. daily SL NTG 0.4 mg prn as needed for chest pain Serial cardiac enzymes Stat EKG as needed for chest pain Patient chest pain went away within 45 minutes. Patient said her chest pain may be related to the pizza she ate. Discussed with patient that stress test can be done but she has to stay at the hospital until 08/28/2019 for stress test since patient is being admitted on Wednesday night (08/26/2019) and stress test typically is not done at this Hospital on Sundays. Patient asked whether she could be discharge home before Wednesday (08/28/2019) Because her symptoms has gone away it is reasonable that if cardiac enzymes are negative patient be discharged home with instructions to follow-up with PCP and a possible stress test outpatient if her chest pain re-occur and it is tolerable; or to come to emergency department again for chest pain which is not tolerable. Consider acid reflux medication or ways to prevent GERD if her chest pain does not recur Hypokalemia On presentation her potassium was 3.3. Was supplemented p.o. potassium. Will check magnesium. Repeat BMP in a.m. Depression and anxiety Lexapro; and mirtazapine continued Osteoporosis On Ibandronate DVT prophylaxis Lovenox subcutaneous. Code Visit OBSV E&M: 81366 Initial observation care L2
--- NOTE | 2019-08-26 21:12 | EKG12_ITS ---
Test Reason : REPEAT Blood Pressure : / mmHG Vent. Rate : 070 BPM Atrial Rate : 070 BPM P-R Int : 166 ms QRS Dur : 078 ms QT Int : 396 ms P-R-T Axes : 073 073 074 degrees QTc Int : 427 ms Normal sinus rhythm Normal ECG Confirmed by MANOLO PATEL, LIZZIE ([id number]), writer editor ALEKSANDRA OWENS ([id number]) on 08/29/2019 1:56:45 PM Referred By: Juan Francisco Palacios Confirmed By:LIZZIE FRENCH MD
[2019-08-26 22:04] LABS: Magnesium 1.9 mg/dL (1.6-2.6)
[2019-08-26] MEDS: Mirtazapine 15 MG Tablet 3.75 MG PO (22:45)
[2019-08-26] MEDS: CLARIFY ORDER 1 EACH NOTE (23:15)
[2019-08-27] VITALS (9 sets, daily range): BP systolic 122–138; BP diastolic 68–74; PULSE 62–76; RESP 16–18; TEMP 36.5–36.7; O2SAT 94–98; BMI 23.8
[2019-08-27 02:59] LABS: Anion Gap 7 (5-15); BUN 11 mg/dL (7-18); BUN/Creat Ratio 18.8 RATIO (10-20); Calcium,Total 8.7 mg/dL (8.5-10.1); Chloride 108 mmol/L (98-107); Creatinine, Serum 0.59 mg/dL (0.55-1.02); EST Glomerular Filtration Rate 105 mL/min (>60); Est Glom Filt Rate - Afr Amer 127 mL/min (>60); Glucose 86 mg/dL (74-106); Potassium 4.4 mmol/L (3.5-5.1); Sodium Level 140 mmol/L (136-145)
[2019-08-27] MEDS: Cyanocobalamin 500 MCG Tablet PO (08:57)
[2019-08-27] MEDS: Magnesium Oxide 400 MG Tablet PO (08:58)
[2019-08-27] MEDS: Escitalopram Oxalate 20 MG Tablet PO (08:58)
[2019-08-27] MEDS: Aspirin E.C. 81 MG Tablet PO (08:58)
--- NOTE | 2019-08-27 11:07 | PCM.PROGNOTE ---
Patient Problems: Active and Suspected Problems Chest pain (Acute) Subjective: Patient was seen and examined today, she was placed in the observation status yesterday due to complaints of chest pain, she states the chest pain lasted approximately 45 minutes, it was not precipitated with anything in particular and it went away on its own. Patient denies any radiation of the discomfort, she described the chest discomfort as sharp. Patient's enzymes have been negative. - Physical Exam Vitals/I&O's: Vital Signs Temp Pulse Resp BP Pulse Ox 97.9 F 74 18 133/74 H 98 08/27/19 09:15 08/27/19 09:15 08/27/19 09:15 08/27/19 09:15 08/27/19 09:15 Oxygen Delivery Method Room Air Weight: 58.967 kg Body Mass Index (BMI) 23.8 Intake and Output for Last 24 Hours 08/25/19 08/26/19 08/27/19 23:59 23:59 23:59 Intake Total 300 / 300 100 / 100 Balance 300 / 300 100 / 100 General: Alert, Oriented x3, Cooperative, No apparent distress, Well developed, Well nourished HEENT: Atraumatic, PERRLA, EOMI, Normocephalic Oral: Moist Mucosa Neck: Supple, Trachea Midline, Thyroid Normal Size and Texture Lungs: Clear to auscultation, Normal air movement, No rhonchi, No wheeze, No rales Cardiovascular: Regular rate, Regular Rhythm, Normal S1, Normal S2, No murmurs Abdomen: Bowel Sounds Present, Soft, Non Tender, Non-Distended Extremities: No clubbing, No cyanosis, No edema, Capillary Refill Less than 3 Seconds Skin: No rashes, No breakdown Musculoskeletal: No Tenderness to Palpation of Joints or Extremities Neurological: Cranial nerves II-XII grossly intact, Neuro grossly intact, Sensory exam intact to light touch and pain, Coordination normal Psych/Mental Status: Normal Affect, Appropriate, Alert and oriented to time, place, person, mood and affect Laboratory Results 08/26/19 20:00: WBC 5.2, RBC 4.16 L, Hgb 13.9, Hct 41.4, MCV 99.5 H, MCH 33.4 H, MCHC 33.6, RDW Std Deviation 42.5, RDW Coeff of Osmar 11.7, Plt Count 216, MPV 9.5, Immature Gran % (Auto) 0.200, Neut % (Auto) 47.1, Lymph % (Auto) 40.4, [place] % (Auto) 8.8, Eos % (Auto) 2.9, Baso % (Auto) 0.6, Absolute Neuts (auto) 2.5, Absolute Lymphs (auto) 2.11, Nucleated RBC % 0 08/26/19 20:00: Sodium 139, Potassium 3.3 L, Chloride 104, Carbon Dioxide 30.0, Anion Gap 5, BUN 11, Creatinine 0.74, Estim Creat Clear Calc 34.90, Est GFR (MDRD) Af Amer 98, Est GFR (MDRD) Non-Af 81, BUN/Creatinine Ratio 15.0, Glucose 93, Calcium 8.9, Troponin I < 0.015 08/26/19 20:00: Magnesium 1.9 08/26/19 23:03: Troponin I < 0.015 08/27/19 02:22: Troponin I < 0.015 08/27/19 02:22: Sodium 140, Potassium 4.4, Chloride 108 H, Carbon Dioxide 25.0, Anion Gap 7, BUN 11, Creatinine 0.59, Estim Creat Clear Calc 34.90, Est GFR (MDRD) Af Amer 127, Est GFR (MDRD) Non-Af 105, BUN/Creatinine Ratio 18.8, Glucose 86, Calcium 8.7 Current Medications Acetaminophen (Tylenol) 650 mg PO Q6H PRN PRN PRN Reason: Pain Score 1-3/Temp > 100.7 F Aspirin (Ecotrin) 81 mg PO DAILY@0800 [facility] Last Admin: 08/27/19 08:58 Dose: 81 mg Documented by: Cholecalciferol (Vitamin D) 2,000 unit PO DAILY [facility] Last Admin: 08/27/19 08:57 Dose: 2,000 unit Documented by: Cyanocobalamin (Vitamin B12) 500 mcg PO DAILY [facility] Last Admin: 08/27/19 08:57 Dose: 500 mcg Documented by: Dextrose (D50w Syringe) 0 gm IV X1 PRN; Protocol PRN Reason: Hypoglycemia Enoxaparin Sodium (Lovenox) 40 mg SC DAILY [facility] Escitalopram Oxalate (Lexapro) 20 mg PO DAILY [facility] Last Admin: 08/27/19 08:58 Dose: 20 mg Documented by: Glucagon () 1 mg IM .X1 PRN PRN Reason: Hypoglycemia Sodium Chloride () 250 mls @ 15 mls/hr IV .[id number] PRN PRN Reason: Saline Flush Lactobacillus Acidophilus (Acidophilus) 1 tablet PO DAILY [facility] Last Admin: 08/27/19 08:57 Dose: 1 tablet Documented by: Magnesium Oxide (Mag-Ox 400) 400 mg PO DAILY [facility] Last Admin: 08/27/19 08:58 Dose: 400 mg Documented by: Mirtazapine (Remeron) 3.75 mg PO QHS [facility] Last Admin: 08/26/19 22:45 Dose: 3.75 mg Documented by: Nitroglycerin (Nitrostat) 0.4 mg SUBLINGUAL Q5M PRN PRN Reason: CARDIAC/CHEST PAIN Nutritional Formula (Lactose Free) (Ensure Clear) 120 ml PO TIDCM [facility] Last Admin: 08/27/19 09:03 Dose: Not Given Documented by: Ondansetron HCl (Zofran) 4 mg IV Q8H PRN PRN PRN Reason: NAUSEA/VOMITING Sodium Chloride () 10 - 40 ml IV UD PRN PRN Reason: SALINE FLUSH Medical Necessity - Tobacco Use Smoking Status: Never smoker Assessment/Plan All Active Problems Chest pain (Acute) #1 precordial chest pain-etiology unclear, patient will undergo a nuclear stress test tomorrow #2 hyperlipidemia #3 chronic depression
[2019-08-27] MEDS: Enoxaparin 40 MG/0.4 ML Syringe SC (11:56)
[2019-08-27] MEDS: Mirtazapine 15 MG Tablet 3.75 MG PO (21:09)
[2019-08-28 03:04] VITALS: PULSE 72
[2019-08-28 03:05] VITALS: BP 142/70; PULSE 71; RESP 16; TEMP 36.5; O2SAT 97
[2019-08-28] MEDS: Aspirin E.C. 81 MG Tablet PO (05:31)
--- NOTE | 2019-08-28 05:55 | EKG12_ITS ---
Test Reason : AM EKG Blood Pressure : / mmHG Vent. Rate : 067 BPM Atrial Rate : 067 BPM P-R Int : 164 ms QRS Dur : 070 ms QT Int : 396 ms P-R-T Axes : 071 070 074 degrees QTc Int : 418 ms Normal sinus rhythm Normal ECG When compared with ECG of 26-AUG-2019 21:49, MANUAL COMPARISON REQUIRED, DATA IS UNCONFIRMED Confirmed by BERNARDO ANDERSON ([id number]), department editor CARLIN SHABAZZ ([id number]) on 09/01/2019 11:34:27 AM Referred By: Juan Francisco Palacios Confirmed By:BERNARDO ANDERSON
[2019-08-28 06:49] VITALS: PULSE 74
[2019-08-28 06:50] VITALS: BP 145/83; PULSE 74; RESP 16; TEMP 36.7; O2SAT 96
[2019-08-28 07:08] LABS: Absolute Lymphocyte Count 1.55 X10^3/uL (0.83-4.51); Absolute Neutrophil Count 1.7 X10^3/uL (2.0-7.7); Basophil# 0.03 X10^3/uL; Basophil% 0.8 % (0-1); Eosinophils% 5.1 % (0-5); Hematocrit 40.8 % (37-47); Hemoglobin 13.9 g/dL (12.0-15.0); Lymphocyte # 1.55 X10^3/ul (4.0); Lymphocyte % 39.2 % (19-41); Mean Corp Hgb Conc 34.1 g/dL (32-36); Mean Corpuscular Hgb 33.6 pg (27.0-32.0); Mean Corpuscular Volume 98.6 fL (81-99); Mean Platelet Vol. 9.4 fl (6.2-12.0); Monocyte# 0.46 X10^3/uL; Monocyte% 11.6 % (0-10); NRBC Flagged by Analyzer 0 % (0-5); Platelet Count 195 K/mm3 (150-450); RBC Distribution Width CV 11.8 % (11.6-14.6); RBC Distribution Width SD 42.7 fl (35.1-43.9); Red Blood Count 4.14 M/mm3 (4.2-5.4)
[2019-08-28 07:18] LABS: Prothrombin Time (Protime)PT. 13.1 SECONDS (11.7-14.9)
[2019-08-28 07:19] LABS: Partial Thromboplast Time 35.4 Seconds (24.1-36.2)
[2019-08-28 07:26] LABS: Anion Gap 6 (5-15); BUN 10 mg/dL (7-18); BUN/Creat Ratio 16.4 RATIO (10-20); Calcium,Total 8.5 mg/dL (8.5-10.1); Chloride 108 mmol/L (98-107); Creatinine, Serum 0.61 mg/dL (0.55-1.02); EST Glomerular Filtration Rate 100 mL/min (>60); Est Glom Filt Rate - Afr Amer 121 mL/min (>60); Glucose 89 mg/dL (74-106); Potassium 4.1 mmol/L (3.5-5.1); Sodium Level 139 mmol/L (136-145)
[2019-08-28] MEDS: Cyanocobalamin 500 MCG Tablet PO (11:41)
[2019-08-28] MEDS: Escitalopram Oxalate 20 MG Tablet PO (11:41)
[2019-08-28] MEDS: Magnesium Oxide 400 MG Tablet PO (11:41)
[2019-08-28 11:45] VITALS: BP 133/68; PULSE 81; RESP 16; TEMP 36.6; O2SAT 93
--- NOTE | 2019-08-28 13:35 | STRESSREP ---
Stress Test Report Pharmacologic myocardial perfusion stress test. 79-year-old lady with a history of chest pain. Stress protocol: Resting EKG demonstrates normal sinus rhythm with a rate of 71 bpm normal intervals noted resting blood pressures 134/70 mmHg. 0.4 mg of regadenoson was infused per usual protocol followed by rapid intravenous saline flush injection continuous EKG monitoring was performed. The maximum heart rate attained was 92 bpm which was 66% of maximum predicted heart rate the maximum workload was 1 metabolic equivalent. At rest there were no ST or T wave changes noted suggest abnormal flow reserve a peak infusion nonspecific ST-T wave changes were noted with no meet the criteria for ischemic flow reserve. Resting blood pressures on the 34/70 with a final blood pressure 108/62 mmHg. Myocardial perfusion protocol. 11.3 mCi of technetium 99m sestamibi was injected at rest. 0.4 mg of regadenoson was infused per usual protocol peak infusion 33.0 mCi of technetium 99m sestamibi was injected stress images were obtained stress and rest images were reconstructed in comparing the short axis vertical and horizontal long axis. Gated images were also obtained . Perfusion SPECT analysis: Review of the stress images demonstrate normal uptake of tracer noted in all rest myocardium the rest images similar demonstrate normal uptake of tracer noted in all the rest myocardium. No areas of reversibility are noted suggest ischemia. Gated SPECT analysis: The gated ejection fraction is noted to be 80%. Conclusion: Normal pharmacologic myocardial perfusion stress test. Preserved ejection fraction.
--- NOTE | 2019-08-28 14:50 | DCINST_ITS ---
- Discharge Diagnoses Current Active Problems: Current Active and Chronic Problems Chest pain (Acute) You will use the following diet at home:: No restrictions Your food should be the consistency of: Regular Your liquids should be the consistency of: Regular/Thin Discharge Activity: Return to Normal Activity Weight Bearing Status: Full weight bearing Allergies/Adverse Reactions: Allergies No Known Allergies Allergy (Verified 08/26/19 19:47) Medications to take at Discharge Escitalopram Oxalate [Lexapro] 20 mg PO DAILY 04/15/17 Lactobacillus Acidophilus [Acidophilus] 1 tablet PO DAILY 04/15/17 Cholecalciferol (Vitamin D3) [Vitamin D3] 2,000 unit PO DAILY 11/15/18 Cyanocobalamin (Vitamin B-12) [Vitamin B-12] 500 mcg PO DAILY 11/15/18 Magnesium Oxide [Magnesium] 250 mg PO QHS 11/15/18 [place]-3 Fatty Acids [Fish Oil] 500 mg PO DAILY 11/15/18 Ibandronate Sodium 150 mg PO QMONTH 08/26/19 Mirtazapine 0.5 tab PO QHS 08/26/19 Primary Care Physician: Wilbert Bar MD [Primary Care Provider] - Please follow up with your Primary Care Physician in: at next scheduled appointment Test Results: Test results from this visit will be discussed in further detail at your follow- up appointment, if applicable.
--- NOTE | 2019-08-28 14:57 | PHA.DC.MR ---
Pharmacy Service has performed discharge medication reconciliation for this patient. Home Medications Escitalopram Oxalate [Lexapro] 20 mg PO DAILY 04/15/17 Lactobacillus Acidophilus [Acidophilus] 1 tablet PO DAILY 04/15/17 Cholecalciferol (Vitamin D3) [Vitamin D3] 2,000 unit PO DAILY 11/15/18 Cyanocobalamin (Vitamin B-12) [Vitamin B-12] 500 mcg PO DAILY 11/15/18 Magnesium Oxide [Magnesium] 250 mg PO QHS 11/15/18 [place]-3 Fatty Acids [Fish Oil] 500 mg PO DAILY 11/15/18 Ibandronate Sodium 150 mg PO QMONTH 08/26/19 Mirtazapine 0.5 tab PO QHS 08/26/19 The patient's discharge medication list was reviewed for discrepancies and discrepancies were resolved.
--- NOTE | 2019-08-29 20:38 | DS.PCM_ITS ---
Discharge Date and Diagnosis Date of Admission: 08/26/19 Date of Discharge: 08/28/19 - Primary Discharge Diagnosis #1 musculoskeletal chest pain #2 hyperlipidemia #3 chronic depression - Secondary Discharge Diagnosis Chronic Problems Depression (Chronic) Hyperlipidemia (Chronic) Hospital Course and Treatment Operations: None Procedures: Nuclear stress test Summary of Care Provided: The patient is a 79 year old F was seen in the emergency room at [facility] with complaints of chest pain, work-up in the emergency room included a chest x-ray, EKG, and cardiac enzymes-all of which were unremarkable. Testing was slightly low at 3.3, she was given 1 nitroglycerin and her chest pain resolved. Patient was placed in observation status on PCU, iliac enzymes were cycled and these remain normal. On 08/28/2019, patient underwent a nuclear stress test which was negative for reversible ischemia. On that date, she was seen and examined: On examination she appeared in good health and spirits. Vital signs as documented. Skin warm and dry and without overt rashes. Neck without JVD. Lungs clear. Heart exam notable for regular rhythm, normal sounds and absence of murmurs, rubs or gallops. Abdomen unremarkable and without evidence of organomegaly, masses, or abdominal aortic enlargement. Extremities nonedematous. Neuro: Cranial nerves II through XII are grossly intact, no focal motor deficits were noted, sensation to light touch and pinprick is intact. Psych: Patient is alert and oriented x3, she does not appear anxious or d epressed On 08/28/2019, patient was seen and examined and felt to be in stable condition for discharge home - Physical Exam Vitals/I&O's: Vital Signs Temp Pulse Resp BP Pulse Ox 97.9 F 81 16 133/68 H 93 08/28/19 11:45 08/28/19 11:45 08/28/19 11:45 08/28/19 11:45 08/28/19 11:45 Oxygen Delivery Method Room Air Weight: 58.967 kg Body Mass Index (BMI) 23.8 Intake and Output for Last 24 Hours 08/27/19 08/28/19 08/29/19 23:59 23:59 23:59 Intake Total 780 / 780 200 / 200 Balance 780 / 780 200 / 200 Discharge Activity: Return to Normal Activity Weight Bearing Status: Full weight bearing Home Medications: Medications to take at Discharge Escitalopram Oxalate [Lexapro] 20 mg PO DAILY 04/15/17 Lactobacillus Acidophilus [Acidophilus] 1 tablet PO DAILY 04/15/17 Cholecalciferol (Vitamin D3) [Vitamin D3] 2,000 unit PO DAILY 11/15/18 Cyanocobalamin (Vitamin B-12) [Vitamin B-12] 500 mcg PO DAILY 11/15/18 Magnesium Oxide [Magnesium] 250 mg PO QHS 11/15/18 [place]-3 Fatty Acids [Fish Oil] 500 mg PO DAILY 11/15/18 Ibandronate Sodium 150 mg PO QMONTH 08/26/19 Mirtazapine 0.5 tab PO QHS 08/26/19 Primary Care Physician: Wilbert Bar MD [Primary Care Provider] - Please follow up with your Primary Care Physician in: at next scheduled appointment Disposition: Home Minutes spent on discharge:: 31 Patient Condition:: Stable Medical Necessity - Tobacco Use Smoking Status: Never smoker Meaningful Use Info Meaningful Use Diagnoses (Choose all that apply): None applicable Code Visit OBSV E&M: 89096 Observation care discharge
== END 2019-08-28 14:50 | disposition home or self-care (01) ==
LOC: ED 20:05 → PCU 21:33
PROVIDERS: Admitting Provider Hospitalist; Emergency Provider Emergency Medicine; Family Provider Family Medicine; PCP Family Medicine; Referring Provider Hospitalist; Visit Provider Internal Medicine
DX: R07.89 Other chest pain (principal); E78.5 Hyperlipidemia, unspecified; F32.9 Major depressive disorder, single episode, unspecified; R06.02 Shortness of breath; F41.9 Anxiety disorder, unspecified; I48.0 Paroxysmal atrial fibrillation; E87.6 Hypokalemia; Z79.899 Other long term (current) drug therapy
CPT/HCPCS: 36415; 71045; 78452; 80048; 83735; 84484; 85025; 85610; 85730; 93005; 93017; 96372; 99218; 99285; A9500; A4216; G0378; J2785

== ENCOUNTER → 2019-09-08 09:52 | Outpatient (CLI) | payer MEDICARE, BC, SELFPAY ==
[2019-08-27 08:32] VITALS: BMI 23.8
[2019-09-08 12:26] LABS: Anion Gap 6 (5-15); BUN 10 mg/dL (7-18); BUN/Creat Ratio 15.5 RATIO (10-20); Calcium,Total 8.9 mg/dL (8.5-10.1); Chloride 107 mmol/L (98-107); Creatinine, Serum 0.65 mg/dL (0.55-1.02); EST Glomerular Filtration Rate 94 mL/min (>60); Est Glom Filt Rate - Afr Amer 113 mL/min (>60); Glucose 70 mg/dL (74-106); Sodium Level 138 mmol/L (136-145)
== END ==
PROVIDERS: Family Provider Family Medicine; PCP Family Medicine; Visit Provider Family Medicine
DX: E61.2 Magnesium deficiency (principal); E87.6 Hypokalemia
CPT/HCPCS: 36415; 80048; 83735

== ENCOUNTER → 2019-12-22 14:41 | Outpatient (CLI) | payer MEDICARE, BC, SELFPAY ==
[2019-08-27 08:32] VITALS: BMI 23.8
== END ==
PROVIDERS: PCP Family Medicine; Visit Provider Family Medicine
DX: R30.0 Dysuria (principal)
CPT/HCPCS: 87086; 87088; 87186

== ENCOUNTER → 2020-04-15 14:38 | Outpatient (CLI) | payer MEDICARE, BC, SELFPAY ==
[2019-08-27 08:32] VITALS: BMI 23.8
== END ==
PROVIDERS: PCP Family Medicine; Visit Provider Family Medicine
DX: R35.0 Frequency of micturition (principal)
CPT/HCPCS: 87086; 87088

== ENCOUNTER → 2020-04-29 15:32 | Outpatient (CLI) | payer MEDICARE, BC, SELFPAY ==
[2019-08-27 08:32] VITALS: BMI 23.8
--- NOTE | 2020-04-29 15:40 | RAD_ITS ---
STUDY: X-RAY - ABDOMEN/PELVIS REASON FOR EXAM: Female, 80 years old. nausea x 3 weeks TECHNIQUE: AP supine and upright views of the abdomen and pelvis. COMPARISON: Previous study of November 30, 2018 FINDINGS: Normal visualized lung bases. There is an unremarkable bowel gas pattern. There is no demonstrated free abdominal air. The visualized liver, spleen and kidneys are grossly normal in size and morphology. Surgical clips are seen in the right upper quadrant of the abdomen consistent with cholecystectomy. Bilateral total hip replacements are noted. RAD/Abd Inc Decub and/or Erect IMPRESSION: There is no evidence of ileus, obstruction, or free intraperitoneal air. Electronically Signed: Kartik Santiago MD at 16:48 EDT , Service support ,
[2020-04-29 18:51] LABS: ALB/GLOB Ratio 0.9 RATIO (0.9-2.4); AST(SGOT) 14 U/L (15-37); Alanine Aminotransfer ALT/SGPT 17 U/L (13-56); Albumin, Serum 3.5 g/dL (3.2-5.0); Alkaline Phosphatase 82 U/L (45-117); Anion Gap 2 (5-15); BUN 11 mg/dL (7-18); BUN/Creat Ratio 17.1 RATIO (10-20); Calcium,Total 8.9 mg/dL (8.5-10.1); Chloride 101 mmol/L (98-107); Creatinine, Serum 0.64 mg/dL (0.55-1.02); EST Glomerular Filtration Rate 94 mL/min (>60); Est Glom Filt Rate - Afr Amer 113 mL/min (>60); Globulin 4.1 g/dL (2.2-4.2); Glucose 72 mg/dL (74-106); Potassium 3.4 mmol/L (3.5-5.1); Protein, Total 7.6 g/dL (6.4-8.2); Sodium Level 135 mmol/L (136-145)
[2020-04-29 19:01] LABS: Erythrocyte Sedimentation Rate 4 mm/hr (0-30)
[2020-04-29 19:04] LABS: Absolute Neutrophil Count 3.1 X10^3/uL (2.0-7.7); Basophil# 0.02 X10^3/uL; Basophil% 0.4 % (0-1); Eosinophil# 0.13 X10^3/uL; Eosinophils% 2.3 % (0-5); Hematocrit 42.6 % (37-47); Hemoglobin 13.8 g/dL (12.0-15.0); Lymphocyte % 31.9 % (19-41); Mean Corp Hgb Conc 32.4 g/dL (32-36); Mean Corpuscular Hgb 32.9 pg (27.0-32.0); Mean Corpuscular Volume 101.4 fL (81-99); Mean Platelet Vol. 10.5 fl (6.2-12.0); Monocyte% 10.6 % (0-10); NRBC Flagged by Analyzer 0 % (0-5); Neutrophil # 3.09 X10^3/uL (2.7-7.7); Neutrophil % 54.6 % (47-70); Platelet Count 260 K/mm3 (150-450); RBC Distribution Width SD 44.7 fl (35.1-43.9); White Blood Count 5.7 K/mm3 (4.4-11.0)
== END ==
PROVIDERS: PCP Family Medicine; Referring Provider Family Medicine; Visit Provider Family Medicine
DX: R10.9 Unspecified abdominal pain (principal)
CPT/HCPCS: 36415; 74019; 80053; 85025; 85652

== ENCOUNTER → 2020-05-16 12:11 | Outpatient (CLI) | payer MEDICARE, BC, SELFPAY ==
[2019-08-27 08:32] VITALS: BMI 23.8
[2020-05-16 16:13] LABS: Erythrocyte Sedimentation Rate 11 mm/hr (0-30)
[2020-05-16 16:45] LABS: Vitamin B12 553 pg/mL (211-911); Vitamin D,25 Hydroxy 62.2 ng/mL
[2020-05-16 16:57] LABS: Ferritin 97 ng/mL (8-252); Free T3 2.6 pg/mL (2.18-3.98); Iron 118 ug/dL (50-170); T4 Free Direct 0.91 ng/dL (0.76-1.46); Thyroid Stim Hormone (TSH) 1.48 uIU/mL (0.358-3.74)
== END ==
PROVIDERS: PCP Family Medicine; Referring Provider Family Medicine; Visit Provider Family Medicine
DX: M81.0 Age-related osteoporosis without current pathological fracture (principal); R53.83 Other fatigue; E61.1 Iron deficiency
CPT/HCPCS: 36415; 82306; 82533; 82607; 82728; 83540; 84439; 84443; 84481; 85652

== ENCOUNTER 2020-06-09 19:43 | Observation (INO) | payer MEDICARE, BC, SELFPAY ==
[2019-08-27 08:32] VITALS: BMI 23.8
[2020-06-09 19:44] VITALS: BP 146/91; PULSE 70; RESP 16; TEMP 36.6; O2SAT 95; BMI 25.7
[2020-06-09 19:55] VITALS: BP 137/85; BP 163/88; BP 164/82; PULSE 68; PULSE 71; PULSE 81
--- NOTE | 2020-06-09 19:55 | CT_ITS ---
STUDY: CT BRAIN WITHOUT CONTRAST REASON FOR EXAM: Female, 80 years old. SYNCOPE X 2 THIS WEEK,LEG WEAKNESS -- HX:SKIN CANCER RADIATION DOSAGE (If Supplied By Facility): CTDIvol = ( 44.99 ) mGy, DLP = ( 812.98 ) mGycm TECHNIQUE: Transaxial CT imaging of the brain was performed without administration of intravenous contrast material. Individualized dose optimization techniques were used for this CT. COMPARISON: No relevant priors. FINDINGS: Normal soft tissue structures. Normal calvarium. There is mild cerebral atrophy with widening of the extra-axial spaces and ventricular dilatation. Normal white matter tracts of the cerebral hemispheres. Normal basal ganglia and thalami. Normal brainstem. Normal cerebellum. Carotid artery calcifications. There is no intracranial hemorrhage. There are no findings of an acute ischemic infarction. 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 Hypoplastic right maxillary sinus with mild areas of mucosal thickening. CT/Brain/Head without Contrast IMPRESSION: No acute intracranial findings. Negative for hemorrhage, hematoma or demarcation of a new nonhemorrhagic infarct zone. Mild involutional changes appropriate for age. Bilateral carotid artery calcifications. 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 Hypoplastic right maxillary sinus with mild areas of mucosal thickening. Electronically Signed: Valencia Rockwell MD at 20:51 EDT , Service support ,
--- NOTE | 2020-06-09 19:55 | EKG12_ITS ---
Test Reason : SYNCOPE Blood Pressure : / mmHG Vent. Rate : 067 BPM Atrial Rate : 067 BPM P-R Int : 160 ms QRS Dur : 076 ms QT Int : 374 ms P-R-T Axes : 044 054 045 degrees QTc Int : 395 ms Normal sinus rhythm Normal ECG Confirmed by MANOLO PATEL, LIZZIE ([id number]), editorial director ALEKSANDRA OEWNS ([id number]) on 06/11/2020 9:19:47 AM Referred By: Sal Joseph Confirmed By:LIZZIE FRENCH MD
--- NOTE | 2020-06-09 19:58 | ED.VISSUMM ---
- ER Visit Summary Date of Service: 06/09/20 Chief Complaint: Syncope History of Present Illness: The patient is a 80 F presenting after syncopal episode. Patient states she was at [employer] and bent over and had a syncopal episode. She states that this was her third syncopal episode in the past week. She denies hitting her head. She is not on anticoagulants. She denies chest pain. She has shortness of breath with exertion. She has a chronic cough. She denies fever. She complains of generalized weakness and fatigue. She complains of lightheadedness with standing. She denies vertigo. Denies other complaints. Physical Examination: Vitals are stable. Patient is afebrile. Alert no acute distress. HEENT exam is unremarkable. Neck is supple. Lungs are clear and equal bilaterally. Heart is regular rate and rhythm. Abdomen is soft nontender nondistended. Extremities are unremarkable. Skin is warm and dry. No focal neurologic deficit. Remainder of exam is unremarkable. Emergency Department Course and Treatment: EKG is sinus rhythm rate of 67 with no acute ischemic changes. Orthostatic vital signs: Her blood pressure goes from 164/82 to 137/85 with standing. Her heart rate goes from 68 to 81. CBC, chemistries unremarkable. Urinalysis unremarkable. Troponin is negative. CT head shows no acute intracranial findings. Negative for hemorrhage, hematoma or demarcation of a new nonhemorrhagic infarct zone. Mild involutional changes appropriate for age. Bilateral carotid artery calcifications. 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 Hypoplastic right maxillary sinus with mild areas of mucosal thickening. Chest xray shows no acute cardiopulmonary process identified. Due to multiple syncopal episodes, discussed with hospitalist for observation. Disposition: Observation Impression: Syncope This note was generated with [employer] dictation software. It may contain incorrect words, spelling, and punctuation that were not noted in review of the chart prior to signing ED Disposition - Plan for ED Patient:
[2020-06-09 20:08] LABS: Color, Urine Straw (Yellow); Glucose, Dipstick Normal (Normal); Ketone-Dipstick Negative (Negative); Leukocyte Esterase-Dipstick Negative /ul (Negative); Mucous, Urine 0 SEEN /hpf (<or=2+); Nitrite-Dipstick Negative (Negative); Occult Blood-Urine Negative /ul (Negative); Protein-Dipstick Negative (Negative); Red Blood Cells-Urine 0 SEEN /hpf (0-5); Urine Bilirubin Dipstick Negative (Negative); Urine Clarity Clear (Clear); Urine Urobilinogen Normal (Normal); White Blood Cells 0 SEEN /hpf (0-5)
[2020-06-09 20:20] LABS: Absolute Lymphocyte Count 1.71 X10^3/uL (0.83-4.51); Absolute Neutrophil Count 2.1 X10^3/uL (2.0-7.7); Basophil# 0.03 X10^3/uL; Basophil% 0.6 % (0-1); Eosinophil# 0.31 X10^3/uL; Eosinophils% 6.5 % (0-5); Hematocrit 41.6 % (37-47); Hemoglobin 14.1 g/dL (12.0-15.0); Lymphocyte # 1.71 X10^3/ul (4.0); Lymphocyte % 35.7 % (19-41); Mean Corp Hgb Conc 33.9 g/dL (32-36); Mean Corpuscular Hgb 33.4 pg (27.0-32.0); Mean Corpuscular Volume 98.6 fL (81-99); Mean Platelet Vol. 9.5 fl (6.2-12.0); Monocyte# 0.59 X10^3/uL; Monocyte% 12.3 % (0-10); NRBC Flagged by Analyzer 0 % (0-5); Neutrophil # 2.14 X10^3/uL (2.7-7.7); Neutrophil % 44.7 % (47-70); Platelet Count 234 K/mm3 (150-450); RBC Distribution Width CV 11.9 % (11.6-14.6); RBC Distribution Width SD 43.2 fl (35.1-43.9); Red Blood Count 4.22 M/mm3 (4.2-5.4); White Blood Count 4.8 K/mm3 (4.4-11.0)
--- NOTE | 2020-06-09 20:25 | RAD_ITS ---
STUDY: X-RAY CHEST REASON FOR EXAM: Female, 80 years old. 3 EPISODES OF SYNCOPE IN PAST 7 DAYS, MOST RECENT TONIGHT TECHNIQUE: Single frontal view of the chest. COMPARISON: 08/26/2019. FINDINGS: Cardiac silhouette unremarkable. Pulmonary vascularity unremarkable. Aorta unremarkable. No focal airspace opacities. No pleural effusions. Upper abdomen unremarkable. Osseous structures intact. No pneumothorax. RAD/Chest 1 View (Portable) IMPRESSION: No acute cardiopulmonary process identified. Electronically Signed: Westley Nova, at 21:02 EDT Tel , Service support ,
[2020-06-09 20:28] LABS: Bacteria RARE /hpf (None Seen); Squamous Epithelial Cells - UA 0-5 SEEN /hpf (5-10)
[2020-06-09 20:40] LABS: Anion Gap 2 (5-15); BUN 9 mg/dL (7-18); BUN/Creat Ratio 12.2 RATIO (10-20); Calcium,Total 8.7 mg/dL (8.5-10.1); Chloride 105 mmol/L (98-107); Creatinine, Serum 0.74 mg/dL (0.55-1.02); EST Glomerular Filtration Rate 80 mL/min (>60); Est Glom Filt Rate - Afr Amer 97 mL/min (>60); Estimated Creatinine Clearance 32.73 ml/min; Glucose 73 mg/dL (74-106); Potassium 3.7 mmol/L (3.5-5.1); Sodium Level 138 mmol/L (136-145)
[2020-06-09] MEDS: 0.9% Normal Saline 1,000 ML 999 ML IV (21:15)
--- NOTE | 2020-06-09 21:21 | PCM.HP.STD ---
Problem List (1) Syncope Status: Acute (2) Depression Status: Chronic (3) Hyperlipidemia Status: Chronic History of Present Illness Date of Admission: 06/09/20 Chief Complaint: Syncope The patient is a 80 year old F with a significant history of depression and anxiety who presents to the emergency department with syncope on the same day of presentation. Reportedly patient at [employer] bent over and could not get up. While she think that she was so weak and and her legs gave up, people around her thoughts she actually lost consciousness briefly.She reports fatigue and lightheadedness. She denies any nausea; vomiting or diarrhea.. She reports chronic abdominal pain. Her family encouraged her to come to the emergency department. Past Medical History Past Medical History (Chronic Problems): Chronic Problems Depression (Chronic) Hyperlipidemia (Chronic) Allergies No Known Allergies Allergy (Verified 06/09/20 19:45) Home Medications: Ambulatory Orders Medication Instructions Recorded Mirtazapine 0.5 tab PO QHS 08/26/19 Escitalopram Oxalate 10 mg PO DAILY 06/09/20 Surgical History: appendectomy, cholecystectomy, hysterectomy, total knee arthroplasty, - - Neck surgery. Psychiatric History: Anxiety, Depression [employer] History: No pertinent [employer] history Smoking Status: Never smoker - *Family History Offspring History Items: Diabetes, Hypertension Maternal History Items: Stroke, - - Patient reported that her mother from gallstones. Paternal History Items: Heart Disease - Patient thinks that his father might have had a heart attack before age 58. Review of Systems Constitutional: Reports: Weakness, Fatigue. Denies: Chills, Fever, Weight Change HEENT: Denies: Head Aches, Sinus Congestion, Sinus Drainage Cardiovascular: Reports: Light Headedness, Syncope. Denies: Chest Pain, Palpitations Respiratory: Denies: Cough, Shortness of breath at rest, Sputum production Gastrointestinal: Reports: Abdominal Pain - Chronic. Denies: Nausea, Vomiting Genitourinary: Denies: Dysuria Musculoskeletal: Denies: Joint Pain, Joint Tenderness Skin: Denies: Rash, Wounds Neurological: Denies: Numbness, Tingling, Focal weakness Psychiatric: Denies: Anxiety, Depression, Homicidal Ideations, Suicidal Ideations Hematologic/ Lymphatic: Denies: Easy Bruising, Easy Bleeding VTE Information - Inpt Only VTE Present on Admission: No VTE Mechan Device Prophylaxis: None VTE Pharm Prophylaxis ordered?: Yes Patient Problems: Active and Suspected Problems Syncope (Acute) - Physical Exam Vitals/I&O's: Vital Signs Temp Pulse Resp BP Pulse Ox 97.8 F 68 16 164/82 H 95 06/09/20 19:44 06/09/20 19:55 06/09/20 19:44 06/09/20 19:55 06/09/20 19:44 Oxygen Delivery Method Room Air Weight: 61.689 kg Body Mass Index (BMI) 25.7 General: Alert, Oriented x3, Cooperative HEENT: Atraumatic, PERRLA, EOMI, Normocephalic Neck: Supple, No JVD, Negative Carotid Bruits Lungs: Clear to auscultation, Normal air movement Cardiovascular: Regular rate, Regular Rhythm, Normal S1, Normal S2, No murmurs Abdomen: Bowel Sounds Present, Soft, Non Tender Extremities: No edema, Capillary Refill Less than 3 Seconds Skin: No rashes, No breakdown Musculoskeletal: No Tenderness to Palpation of Joints or Extremities Neurological: Cranial nerves II-XII grossly intact Psych/Mental Status: Normal Affect, Appropriate Laboratory Results 06/09/20 20:00: Urine Color Straw, Urine Clarity Clear, Urine pH 7.0, Ur Specific [place] 1.010, Urine Protein Negative, Urine Glucose (UA) Normal, Urine Ketones Negative, Urine Occult Blood Negative, Urine Nitrite Negative, Urine Bilirubin Negative, Urine Urobilinogen Normal, Ur Leukocyte Esterase Negative, Urine RBC 0 SEEN, Urine WBC 0 SEEN, Ur Squamous Epith Cells 0-5 SEEN, Urine Bacteria RARE, Urine Mucus 0 SEEN 06/09/20 20:10: WBC 4.8, RBC 4.22, Hgb 14.1, Hct 41.6, MCV 98.6, MCH 33.4 H, MCHC 33.9, RDW Std Deviation 43.2, RDW Coeff of Osmar 11.9, Plt Count 234, MPV 9.5, Immature Gran % (Auto) 0.200, Neut % (Auto) 44.7 L, Lymph % (Auto) 35.7, [place] % (Auto) 12.3 H, Eos % (Auto) 6.5 H, Baso % (Auto) 0.6, Absolute Neuts (auto) 2.1, Absolute Lymphs (auto) 1.71, Nucleated RBC % 0 06/09/20 20:10: Sodium 138, Potassium 3.7, Chloride 105, Carbon Dioxide 31.0, Anion Gap 2 L, BUN 9, Creatinine 0.74, Estim Creat Clear Calc 32.73, Est GFR (MDRD) Af Amer 97, Est GFR (MDRD) Non-Af 80, BUN/Creatinine Ratio 12.2, Glucose 73 L, Calcium 8.7, Troponin I < 0.015 Current Medications Sodium Chloride () 1,000 mls @ 999 mls/hr IV .Q1H1M ONE Stop: 06/09/20 21:47 Last Admin: 06/09/20 21:15 Dose: 999 mls/hr Documented by: Assessment/Plan All Active Problems Syncope (Acute) The patient is a 80 year old F with a significant history of depression and anxiety who presents emergency department with syncope. Syncope Patient was found to be orthostatic positive at emergency department. She received normal saline bolus in the emergency department. We will continue patient on normal saline IV hydration. Repeat orthostatic vitals in a.m. We will observe patient at the progressive care unit and put her on telemetry. EKG at emergency department showed sinus rhythm. We will get an echocardiogram Discussed with patient's on getting up slowly from a sitting or standing position. Physical therapy and occupational therapy to work with patient's and teach patient on how to slowly get up. Patient was wearing a LORE hose from feet to knee. Continue home LORE hose at this time. After fluid resuscitation and if echocardiogram does not show a reason for syncope consider changing LORE hose from feet to knee; to feet to thigh. Depression anxiety Lexapro continued Remeron continued DVT prophylaxis Subcutaneous Lovenox OBSV E&M: 48062 Initial observation care L3
[2020-06-09 21:54] VITALS: BP 175/81; PULSE 62; RESP 16; TEMP 37.2; O2SAT 98
--- NOTE | 2020-06-09 22:03 | ECHOD_ITS ---
Reason For Study: SYNCOPE/NEAR SYNCOPE Procedure This was a 2D Doppler, Color Flow transthoracic echocardiogram. Exam performed portable in patient room. Left Ventricle Normal LV size. Left ventricular systolic function is normal. The estimated ejection fraction is 60 %. Stage 1 diastolic dysfunction. No regional wall motion abnormalities noted. Right Ventricle Normal RV size. Normal systolic function. Atria Normal left atrium. Normal right atrium. Mitral Valve Normal mitral valve. Tricuspid Valve Normal tricuspid valve. Unable to estimate RV systolic pressure due to insufficient tricuspid regurgitant envelope. Aortic Valve Trisinus/trileaflet aortic valve. Mild (1+) eccentric aortic valve insufficiency. Pulmonic Valve Normal pulmonic valve. Great Vessels Normal aortic root. The pulmonary artery is normal size. Normal inferior vena cava. Pericardium/Pleural No pericardial effusion. MMode/2D Measurements & Calculations LVIDd: 3.9 cm IVSd: 1.3 cm Ao root diam: 3.1 cm LVIDs: 2.7 cm LVPWd: 0.83 cm RVDd: 3.4 cm FS: 31.1 % LAV(MOD-bp): 45.7 ml LA A4 area: 18.2 cm2 LA dimension(2D): 2.2 cm LAV(MOD-bp) Indexed: 28.7 ml/m2 LAV(MOD-sp2): 38.5 ml LAV(MOD-sp4): 52.0 ml RA A4 area: 21.4 cm2 Time Measurements MV dec time: 0.20 sec Doppler Measurements & Calculations MV E max eric: 82.3 cm/sec Lat Peak E' Eric: 7.5 cm/sec Med Peak E' Eric: 9.5 cm/sec MV A max eric: 87.2 cm/sec E/E' lat: 11.0 E/E' med: 8.7 MV E/A: 0.94 Ao V2 max: 140.7 cm/sec AI max eric: 458.7 cm/sec LV V1 max: 96.1 cm/sec Ao max P.9 mmHg AI max P.2 mmHg LV V1 max P.7 mmHg AI dec slope: 227.0 cm/sec2 AI P1/2t: 591.8 msec PA V2 max: 62.0 cm/sec PI end-d eric: 244.4 cm/sec Interpretation Summary Normal LV size. Left ventricular systolic function is normal. The estimated ejection fraction is 60 %. Stage 1 diastolic dysfunction. Mild (1+) eccentric aortic valve insufficiency. Ordering Physician: Juan Francisco Palacios Referring Physician: Nahum Khan Performed By: Nery Justice, LALO, RVT
[2020-06-09 22:15] VITALS: BMI 23.0; BMI 25.7
[2020-06-09 22:20] VITALS: BP 169/80; PULSE 63; RESP 18; TEMP 36.4; O2SAT 99
[2020-06-09 22:25] VITALS: BP 149/83; BP 169/80; BP 177/84; PULSE 63; PULSE 65; PULSE 71
[2020-06-09 22:42] VITALS: PULSE 71
[2020-06-09] MEDS: 0.9% Saline Lock 10 ML Syringe IV (23:19)
[2020-06-09] MEDS: Mirtazapine 15 MG Tablet 3.75 MG PO (23:19)
[2020-06-09] MEDS: 0.9% Normal Saline 1,000 ML 100 ML IV (23:20)
[2020-06-09] MEDS: Glycerin/Hypromellose/PEG400 15 ml Bottle 1 DRP EACH EYE (23:42)
[2020-06-10 03:10] VITALS: PULSE 65
[2020-06-10 04:20] VITALS: BP 135/79; BP 151/77; BP 157/74; PULSE 70; PULSE 74; PULSE 77; RESP 16; TEMP 36.5; O2SAT 95
[2020-06-10 07:07] VITALS: PULSE 79
[2020-06-10 07:45] VITALS: O2SAT 95
[2020-06-10] MEDS: 0.9% Normal Saline 1,000 ML 100 ML IV (09:10)
[2020-06-10] MEDS: Enoxaparin 40 MG/0.4 ML Syringe SC (09:11)
[2020-06-10] MEDS: Escitalopram Oxalate 10 MG Tablet PO (09:11)
[2020-06-10 09:16] VITALS: BP 143/79; PULSE 76; RESP 16; TEMP 36.6; O2SAT 97
--- NOTE | 2020-06-10 13:22 | DCINST_ITS ---
- Discharge Diagnoses Current Active Problems: Current Active and Chronic Problems Syncope (Acute) You will use the following diet at home:: No restrictions Your food should be the consistency of: Regular Your liquids should be the consistency of: Regular/Thin Discharge Activity: Return to Normal Activity Weight Bearing Status: Full weight bearing Allergies/Adverse Reactions: Allergies No Known Allergies Allergy (Verified 06/09/20 22:18) Medications to take at Discharge Mirtazapine 0.5 tab PO QHS 08/26/19 Escitalopram Oxalate 10 mg PO DAILY 06/09/20 Orders to be completed after discharge: Cardiac Holter Monitor, Set-Up [[facility]] Location: None Selected Primary Care Physician: Yg Khan MD [Primary Care Provider] - Please follow up with your Primary Care Physician in: in one week Test Results: Test results from this visit will be discussed in further detail at your follow- up appointment, if applicable.
--- NOTE | 2020-06-10 16:17 | DS.PCM_ITS ---
Discharge Date and Diagnosis Date of Admission: 06/09/20 Date of Discharge: 06/10/20 - Primary Discharge Diagnosis Acute Problems: #1 syncope-etiology unclear #2 chronic depression - Secondary Discharge Diagnosis Chronic Problems: Chronic Problems Depression (Chronic) Hyperlipidemia (Chronic) Hospital Course and Treatment Operations: None Procedures: 2-D Echocardiogram Summary of Care Provided: The patient is a 80 year old F who was seen in the emergency room at [facility] with chief complaint of a syncopal episode on 06/09/2020. Patient also complained that she had 2 previous syncopal episodes over the last week. 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 Patient underwent a work-up in the emergency room which included a CT of the head which showed no acute intracranial findings, chest x- ray showed no acute cardiopulmonary process, EKG showed a sinus rhythm at 67 with no acute ischemic changes. Patient was mildly orthostatic in the emergency room but did not have any syncope or lightheadedness. Patient was placed in observation status on PCU, she underwent an echocardiogram and was monitored on telemetry. Echocardiogram showed no significant valvular heart disease with a normal EF. On 06/10/2020, patient was seen and examined: On examination she appeared in good health and spirits, she does not appear to be in any distress. Vital signs as documented. Skin warm and dry and without overt rashes. Neck without JVD, thyroid appears normal, trachea is midline, neck is supple. Lungs clear, normal air movement was noted. Heart exam notable for regular rhythm, normal sounds and absence of murmurs, rubs or gallops. Abdomen unremarkable and without evidence of organomegaly, masses, or abdominal aortic enlargement, bowel sounds are present in all 4 quadrants, no abdominal tenderness was noted. Extremities nonedematous, no cyanosis was noted, no clubbing was noted. Neuro: Cranial nerves II through XII are grossly intact, no focal motor deficits were noted, sensation to light touch and pinprick is intact, motor exam 5/5 throughout. Psych: Patient is alert and oriented x3, she does not appear anxious or depressed, she does not appear agitated. I discussed her plan of care on 06/10/2020, I could not determine whether the patient actually had syncopal episodes over the past week or whether these were just presyncopal episodes. In talking with the patient, we decided the plan would include an outpatient 48-hour Holter monitor. I told the patient that she must be careful standing up abruptly where she could have repeat presyncopal/syncopal symptomology. On 06/10/2020, patient was seen and examined and felt to be in stable condition for discharge home - Physical Exam Vitals/I&O's: Vital Signs Temp Pulse Resp BP Pulse Ox 97.9 F 76 16 143/79 H 97 06/10/20 09:16 06/10/20 09:16 06/10/20 09:16 06/10/20 09:16 06/10/20 09:16 Oxygen Delivery Method Room Air Weight: 60.9 kg Body Mass Index (BMI) 23.0 Orthostatic Vital Signs Start: 06/09/20 22:31 Freq: q24h Status: Active Protocol: Activity Type Activity Date Activity User E-Sign Co-Sign Detail Recorded Client Recorded Date Recorded By Document 06/10/20 04:20 GERARD [id number] 06/10/20 04:51 GERARD 06/10/20 04:20 Orthostatic Vitals Standing -Blood Pressure (90/60-120/80) 135/79 H -Extremity Use Left Arm -Pulse Rate (60-100) 77 Sitting -Blood Pressure (90/60-120/80) 157/74 H -Extremity Use Left Arm -Pulse Rate (60-100) 70 Lying -Blood Pressure (90/60-120/80) 151/77 H -Extremity Use Left Arm -Pulse Rate (60-100) 74 Intake and Output for Last 24 Hours 06/08/20 06/09/20 06/10/20 23:59 23:59 23:59 Intake Total 1360 / 1360 2376.66 / 2376.66 Balance 1360 / 1360 2376.66 / 2376.66 Laboratory Results 06/09/20 20:00: Urine Color Straw, Urine Clarity Clear, Urine pH 7.0, Ur Specific Blodgett 1.010, Urine Protein Negative, Urine Glucose (UA) Normal, Urine Ketones Negative, Urine Occult Blood Negative, Urine Nitrite Negative, Urine Bilirubin Negative, Urine Urobilinogen Normal, Ur Leukocyte Esterase Negative, Urine RBC 0 SEEN, Urine WBC 0 SEEN, Ur Squamous Epith Cells 0-5 SEEN, Urine Bacteria RARE, Urine Mucus 0 SEEN 06/09/20 20:10: WBC 4.8, RBC 4.22, Hgb 14.1, Hct 41.6, MCV 98.6, MCH 33.4 H, MCHC 33.9, RDW Std Deviation 43.2, RDW Coeff of Osmar 11.9, Plt Count 234, MPV 9.5, Immature Gran % (Auto) 0.200, Neut % (Auto) 44.7 L, Lymph % (Auto) 35.7, [place] % (Auto) 12.3 H, Eos % (Auto) 6.5 H, Baso % (Auto) 0.6, Absolute Neuts (auto) 2.1, Absolute Lymphs (auto) 1.71, Nucleated RBC % 0 06/09/20 20:10: Sodium 138, Potassium 3.7, Chloride 105, Carbon Dioxide 31.0, Anion Gap 2 L, BUN 9, Creatinine 0.74, Estim Creat Clear Calc 32.73, Est GFR (MDRD) Af Amer 97, Est GFR (MDRD) Non-Af 80, BUN/Creatinine Ratio 12.2, Glucose 73 L, Calcium 8.7, Troponin I < 0.015 Discharge Activity: Return to Normal Activity Weight Bearing Status: Full weight bearing Home Medications: Medications to take at Discharge Mirtazapine 0.5 tab PO QHS 08/26/19 Escitalopram Oxalate 10 mg PO DAILY 06/09/20 Other Amb Orders: Cardiac Holter Monitor, Set-Up [[facility]] Location: None Selected Primary Care Physician: Yg Khan MD [Primary Care Provider] - Please follow up with your Primary Care Physician in: in one week Disposition: Home Minutes spent on discharge:: 30 Patient Condition:: Stable Medical Necessity - Tobacco Use Smoking Status: Never smoker Meaningful Use Info Meaningful Use Diagnoses (Choose all that apply): None applicable OBSV E&M: 49701 Observation care discharge
== END 2020-06-10 13:23 | disposition home or self-care (01) ==
LOC: ED 21:37 → PCU 21:45
PROVIDERS: Admitting Provider Hospitalist; Emergency Provider Emergency Medicine; PCP Family Medicine; Visit Provider Internal Medicine
DX: R55 Syncope and collapse (principal); E78.5 Hyperlipidemia, unspecified; F32.9 Major depressive disorder, single episode, unspecified; Z79.899 Other long term (current) drug therapy; R06.02 Shortness of breath; F41.9 Anxiety disorder, unspecified
CPT/HCPCS: 70450; 71045; 80048; 81001; 84484; 85025; 93005; 93225; 93226; 93306; 96360; 96361; 96372; 97162; 97166; 99218; 99285; J7030; A4216; G0378

== ENCOUNTER → 2020-06-10 13:37 | Outpatient (CLI) | payer MEDICARE, BC, SELFPAY ==
[2020-06-09 22:15] VITALS: BMI 23.0
== END ==
PROVIDERS: PCP Family Medicine; Referring Provider Internal Medicine; Visit Provider Internal Medicine
DX: R55 Syncope and collapse (principal)
CPT/HCPCS: 93225; 93226

== ENCOUNTER → 2020-10-03 11:52 | Outpatient (CLI) | payer MEDICARE, BC, SELFPAY ==
[2020-06-09 22:15] VITALS: BMI 23.0
[2020-10-04 07:12] LABS: SARS-COV-2 TOTAL ABS Nonreactive (Nonreactive)
== END ==
PROVIDERS: PCP Family Medicine; Referring Provider Family Medicine; Visit Provider Family Medicine
DX: R48.1 Agnosia (principal)
CPT/HCPCS: 36415; 86769

== ENCOUNTER 2020-10-16 14:08 | Observation (INO) | payer MEDICARE, BC, SELFPAY ==
[2020-06-09 22:15] VITALS: BMI 23.0
[2020-10-16] VITALS (12 sets, daily range): BP systolic 112–171; BP diastolic 57–91; PULSE 65–85; RESP 12–18; TEMP 36.1–36.8; O2SAT 94–100; BMI 24.1; BMI 23.6
--- NOTE | 2020-10-16 14:29 | EKG12_ITS ---
Test Reason : WEAK Blood Pressure : / mmHG Vent. Rate : 075 BPM Atrial Rate : 075 BPM P-R Int : 140 ms QRS Dur : 078 ms QT Int : 386 ms P-R-T Axes : 039 069 066 degrees QTc Int : 431 ms Normal sinus rhythm Normal ECG Confirmed by BELLE PATEL, REI ([id number]), editor sound ALEKSANDRA OWENS ([id number]) on 10/21/2020 9:28:12 AM Referred By: DAGMAR Confirmed By:VAHID ODONNELL MD
--- NOTE | 2020-10-16 14:30 | RAD_ITS ---
STUDY: X-RAY CHEST REASON FOR EXAM: Female, 80 years old. PT WAS AT [employer] EATING A [employer]OME[employer] MARSH AND and quot;IT WENT DOWN THE WRONG WAY and quot; PT C/O STARTED COUGHING THEN FELT WEAK, SOB FROM COUGHING, C/O ARM NUMBNESS, PT FEARFUL SHE HAS COVID. PT LOST TASTE and amp; SMELL ONE YEAR AGO TECHNIQUE: Single AP portable view of the chest. COMPARISON: None. FINDINGS: There is hyperinflation of the lungs consistent with chronic obstructive lung disease (COPD). There is no demonstrated pleural abnormality. Normal size heart. Normal mediastinum and mago. Normal visualized pulmonary arteries. Normal visualized aortic arch and descending thoracic aorta. There is a levoscoliosis of the thoracic spine. There is degenerative osteoarthritis of the bilateral shoulders. There is no demonstrated abnormality of the visualized soft tissue structures of the upper abdomen. RAD/Chest 1 View (Portable) IMPRESSION: Degenerative changes, as described above. No demonstrated acute cardiopulmonary process. Electronically Signed: William Santos, at 14:49 EST Tel , Service support ,
--- NOTE | 2020-10-16 14:30 | ED.VISSUMM ---
- ER Visit Summary Date of Service: 10/16/20 Chief Complaint: Weakness History of Present Illness: The patient is a 80 F who presents with weakness that began today. Patient states she went to [employer] and was eating a [place] casiano. Patient states she had a choking episode. Patient states she got weak after this. Patient states that she was having difficulty moving her arms during this episode. Patient states she also was having difficulty talking at that time. Patient states this lasted approximately 15 minutes and then resolved. Patient admits to nausea but denies any vomiting. Patient also admits to some myalgias. Patient denies any sick contacts. Patient denies any loss of taste or smell. Physical Examination: Vital signs are stable. Patient is afebrile. Patient is in no acute distress. Oral mucosa is pink and moist. Neck is supple. Trachea is midline. There is no JVD noted. Heart was regular rate and rhythm. Lungs are clear and equal bilaterally. Abdomen is soft. Bowel sounds are normal. There is no tenderness. There is no rebound or guarding noted. Skin is warm dry. Cranial nerves II through XII are intact. There are no focal motor or sensory deficits noted. Extremities are intact. There is no calf tenderness or edema. Test Results: EKG shows normal sinus rhythm with a rate of 75. There are no acute ST or T wave changes. CBC and basic metabolic profile were within normal limits. Urinalysis does not show any evidence of urinary tract infection. Troponin was normal. COVID-19 rapid antigen was obtained and was negative. Portable 1 view chest x-ray was obtained. On my interpretation, lung bennett are clear. There is normal cardiac silhouette. Bony thorax is normal. There is no acute process noted. Radiologist also interpreted the x-ray and agrees. Emergency Department Course and Treatment: Patient states that she cannot move her left side when she was going to be discharged. Earlier on exam there were no focal deficits noted. Because of her left-sided weakness a stroke team was called. CT scan of the brain and CTA of the head neck were obtained and showed chronic changes but no acute infarct or large vessel occlusion. On the way to CAT scan, the patient began moving her left arm and leg. Patient speech has improved. Case was discussed with the stroke neurologist at [facility]. They recommended admission here for TIA work-up. Case was discussed with the hospitalist. She will admit the patient to her service. Patient and family understood and were agreeable with the plan. All questions were answered. Disposition: Admit to hospital Impression: 1. TIA This note was generated with [employer] dictation software. It may contain incorrect words, spelling, and punctuation that were not noted in review of the chart prior to signing ED Disposition - Plan for ED Patient: Disposition: Acute Care Hospital [facility] Diagnosis: TIA (transient ischemic attack) Referrals: Yg Khan MD [Primary Care Provider] - 3-5 Days
[2020-10-16 14:36] LABS: Bedside Glucose 166 mg/dL (70-110)
[2020-10-16 14:49] LABS: Absolute Lymphocyte Count 1.56 X10^3/uL (0.83-4.51); Absolute Neutrophil Count 2.7 X10^3/uL (2.0-7.7); Basophil# 0.04 X10^3/uL; Basophil% 0.8 % (0-1); Eosinophil# 0.26 X10^3/uL; Eosinophils% 5.1 % (0-5); Hematocrit 40.9 % (37-47); Hemoglobin 13.9 g/dL (12.0-15.0); Lymphocyte # 1.56 X10^3/ul (4.0); Lymphocyte % 30.9 % (19-41); Mean Corpuscular Hgb 33.9 pg (27.0-32.0); Mean Corpuscular Volume 99.8 fL (81-99); Mean Platelet Vol. 9.8 fl (6.2-12.0); Monocyte# 0.49 X10^3/uL; Monocyte% 9.7 % (0-10); NRBC Flagged by Analyzer 0 % (0-5); Neutrophil # 2.69 X10^3/uL (2.7-7.7); Neutrophil % 53.3 % (47-70); Platelet Count 205 K/mm3 (150-450); RBC Distribution Width SD 43.4 fl (35.1-43.9); White Blood Count 5.1 K/mm3 (4.4-11.0)
[2020-10-16 14:52] LABS: Bacteria 0 SEEN /hpf (None Seen); Mucous, Urine 0 SEEN /hpf (<or=2+); Red Blood Cells-Urine 0 SEEN /hpf (0-5); Squamous Epithelial Cells - UA 0 SEEN /hpf (5-10)
[2020-10-16 15:02] LABS: ALB/GLOB Ratio 0.8 RATIO (0.9-2.4); AST(SGOT) 14 U/L (15-37); Alanine Aminotransfer ALT/SGPT 18 U/L (13-56); Albumin, Serum 3.4 g/dL (3.2-5.0); Alkaline Phosphatase 93 U/L (45-117); Anion Gap 5 (5-15); BUN 8 mg/dL (7-18); BUN/Creat Ratio 9.7 RATIO (10-20); Chloride 102 mmol/L (98-107); Creatinine, Serum 0.82 mg/dL (0.55-1.02); EST Glomerular Filtration Rate 71 mL/min (>60); Est Glom Filt Rate - Afr Amer 86 mL/min (>60); Estimated Creatinine Clearance 43.76 ml/min; Glucose 141 mg/dL (74-106); Potassium 3.5 mmol/L (3.5-5.1); Protein, Total 7.4 g/dL (6.4-8.2); Sodium Level 135 mmol/L (136-145)
[2020-10-16 15:03] LABS: Color, Urine Straw (Yellow); Glucose, Dipstick Normal (Normal); Ketone-Dipstick Negative (Negative); Leukocyte Esterase-Dipstick Negative /ul (Negative); Nitrite-Dipstick Negative (Negative); Occult Blood-Urine Negative /ul (Negative); Protein-Dipstick Negative (Negative); Urine Bilirubin Dipstick Negative (Negative); Urine Clarity Clear (Clear); Urine Urobilinogen Normal (Normal)
[2020-10-16 15:09] LABS: White Blood Cells 0-5 SEEN /hpf (0-5)
--- NOTE | 2020-10-16 16:37 | ED.RN ---
IV DC'ED, CATHETER INTACT, SMALL GAUZE DRESSING PLACED. DISCHARGE INSTRUCTIONS GIVEN TO AND REVIEWED WITH PATIENT, PATIENT DENIES QUESTIONS OR CONCERNS AND VOICES UNDERSTANDING OF DISCHARGE INSTRUCTIONS.
--- NOTE | 2020-10-16 16:44 | ED.RN ---
UPON DRESSING PATIENT TO DISCHARGE HER, SHE COMPLAINS OF LEFT SIDED WEAKNESS WITH SLURRED SPEECH. PATIENT UNABLE TO LIFT LEFT ARM/LEG. DR. LAGUNAS MADE AWARE AND TO BEDSIDE. STROKE ALERT ACTIVATED PER DR. LAGUNAS REQUEST.
--- NOTE | 2020-10-16 16:45 | CT_ITS ---
STUDY: CT HEAD STROKE PROTOCOL W/O CONTRAST INJECTION REASON FOR EXAM: Female, 80 years old. Neuro deficit. Acute stroke is suspected. TECHNIQUE: Transaxial CT imaging of the brain was performed without administration of intravenous contrast material. Individualized dose optimization techniques were used for this CT. COMPARISON: 06/09/2020. FINDINGS: Normal soft tissue structures. Normal calvarium. Normal size ventricles and extra-axial spaces for the patient''s age. Normal white matter tracts of the cerebral hemispheres. Normal basal ganglia and thalami. Normal brainstem. Normal cerebellum. There is no intracranial hemorrhage. There are no findings of an acute ischemic infarction. Normal visualized paranasal sinuses. ASPECT score: CT/STROKE Brain/Head without Cont IMPRESSION: Normal unenhanced CT scan of the brain. N.B. : The above information has been verbally conveyed by Soy Kapadia DO to Zaki Lepe DO, on 10/16/2020 17:04:04 (ET). Electronically Signed: Soy Kapadia DO at 17:05 EST Tel [phone], Service support ,
--- NOTE | 2020-10-16 16:47 | CT_ITS ---
STUDY: CTA HEAD AND NECK WITH CONTRAST REASON FOR EXAM: Female, 80 years old. Neurodeficit. Suspected acute stroke. Could not lift left arm. RADIATION DOSAGE (If Supplied By Facility): CTDIvol = ( 20.855 ) mGy, DLP = ( 617.39 ) mGycm TECHNIQUE: CT angiography was performed with a multi-detector CT scanner. Data acquisition was obtained from the skull base through the vertex following intravenous administration of IV 100mL [id number]-[id number]. MIP images were reconstructed from the axial data set. Post-processing of the angiographic images was performed, with multiplanar reformation and 3D reconstruction. Individualized dose optimization techniques were used for this CT. COMPARISON: CT of the head, 10/16/2020. FINDINGS: Normal bilateral petrous carotid arteries. There is calcified plaque formation of the right cavernous carotid artery, with a mild stenosis (less than 50%). There is calcified plaque formation of the left cavernous carotid artery, with a mild stenosis (less than 50%). Normal right A1 segments of the anterior cerebral artery. Normal left A1 segments of the anterior cerebral artery. Normal intact anterior communicating artery (ACOM). Normal bilateral A2 segments of the anterior cerebral arteries. Normal right M1 and M2 segments of the middle cerebral arteries, with a normal M1 bifurcation. Normal left M1 and M2 segments of the middle cerebral arteries, with a normal M1 bifurcation. Normal right posterior communicating artery (PCOM). Normal left posterior communicating artery (PCOM). Normal bilateral vertebral arteries. 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 The visualized bilateral superior cerebellar (SCA) arteries are normal. Normal bilateral P1, P2 and visualized P3 segments of the posterior cerebral arteries. There is no demonstrated aneurysm of the [place]. There is no demonstrated abnormality of the visualized brain. AORTIC ARCH: Normal visualized aortic arch. Normal origins of the brachiocephalic, left common carotid, and left subclavian arteries. RIGHT CAROTID ARTERIES: Normal right common carotid artery (CCA). The small calcified plaque in the carotid bulb without significant stenosis. Normal origin of the right internal carotid (ICA) artery without a hemodynamically significant stenosis. Normal visualized cervical portion of the right internal carotid artery. Normal origin of the right external carotid artery (ECA). LEFT CAROTID ARTERIES: Normal left common carotid artery (CCA). Normal left common carotid bulb. Normal origin of the left internal carotid (ICA) artery without a hemodynamically significant stenosis. Normal visualized cervical portion of the left internal carotid artery. Normal origin of the left external carotid artery (ECA). VERTEBRAL ARTERIES: There is enhancement within the bilateral vertebral arteries with a small left vertebral artery, and a dominant right vertebral artery. CT/STROKE CTA Head AND Neck W/Con IMPRESSION: 1. Minimal calcific plaque in the right carotid bulb without significant stenosis. 2. Atretic basilar artery. The posterior cerebral arteries are supplied predominantly via the patent bilateral posterior communicating arteries. N.B. : The above information has been verbally conveyed by Soy Kapadia DO to Zaki Mai DO, on 10/16/2020 17:08:47 (ET). Electronically Signed: Soy Kapadia DO at 17:09 EST Tel [phone], Service support ,
--- NOTE | 2020-10-16 16:48 | ED.RN ---
SYMPTOMS RESOLVED. NIH 0, DR. LAGUNAS MADE AWARE.
--- NOTE | 2020-10-16 16:55 | CM.ED ---
SOCIAL WORK Stroke Alert Responded to Stroke Alert. Patient out of room for testing. No family present. This worker to remain available for needs. Ryley Diez, DROP SHIPMENT CLERK, HVAC TECHNICIAN
[2020-10-16 17:06] LABS: Bedside Glucose 108 mg/dL (70-110)
[2020-10-16 17:09] LABS: Partial Thromboplast Time 32.9 Seconds (24.1-36.2)
--- NOTE | 2020-10-16 18:06 | MRI_ITS ---
HISTORY: TIA, WEAKNESS AND DIFFICULT SPEECH TODAY TECHNIQUE: Routine brain MR protocol was performed without gadolinium. COMPARISON: Previous CT scans of the brain are from just over 2 hours earlier, and June 09, 2020 FINDINGS: # of images incl. paperwork: 280 Brain volume is age appropriately atrophic.. No acute stroke is present. A small amount of fluid layers within the right maxillary sinus. Mastoid air cells are free of disease.. There are no masses, herniations, nor deviations. Orbits and globes are normal. The pituitary and sella turcica are not enlarged. Flow is present within major central intracranial arteries. MRI/Brain without Contrast IMPRESSION: No acute ischemia. No masses.. at 2218 Reported and signed by: Saroj Woods MD Electronically Signed: Saroj Woods MD at 22:17 EST Tel , Service support ,
--- NOTE | 2020-10-16 18:09 | PCS.PANDOC ---
PANDEMIC DOCUMENTATION INITIATED: Date: 10/16/2020 Time: 5844
[2020-10-16] MEDS: 0.9% Normal Saline 1,000 ML 100 ML IV (20:15)
--- NOTE | 2020-10-16 20:40 | HP.PCM_ITS ---
Problem List (1) Chest pain Status: Inactive (2) Syncope Status: Inactive (3) TIA (transient ischemic attack) Status: Acute (4) Depression Status: Chronic (5) Hyperlipidemia Status: Chronic (6) Partial small bowel obstruction Status: Inactive History of Present Illness Date of Admission: 10/16/20 Ms Higuera is a 80 year old F who presented to the ED today for weakness. This started acutely today and she was eating at [employer] and was eating a surinamese casiano when she had a choking episode which she stated happens periodically. She experienced weakness after this episode. She also reported having difficulty talking for a time after this. She then stated that it last about 15 minutes and all of her issues resolved. She came to the emergency department and her initial work-up was unimpressive. The ED physician was going to send her home, but when she when she went to be discharged she was experiencing dense left- sided hemiparesis all of which were new. Stroke team was called in the emergency department at that time. She had a CT of her brain and a CTA of her head and neck both which showed chronic changes but no acute changes or large vessel occlusions. In all of her symptoms returned to baseline. The case was discussed by the stroke neurologist at [facility] who did not recommend TPA given her complete resolution of symptoms but did request admission for TIA work-up. She has been mildly hypertensive but her other vital signs have remained normal. CBC and BMP are overall unimpressive. Her coags are within normal limits. Her UA is unremarkable. Troponin was done and is negative. She will be admitted to PCU for TIA work-up. Past Medical History Past Medical History (Chronic Problems): Chronic Problems Depression (Chronic) Hyperlipidemia (Chronic) Allergies No Known Allergies Allergy (Verified 06/09/20 22:18) Home Medications: Ambulatory Orders Medication Instructions Recorded Mirtazapine 7.5 mg PO QHS PRN PRN 08/26/19 Carboxymethylcellulose Sodium 15 ml OP BID 10/16/20 [Thera Tears] Escitalopram Oxalate [Lexapro] 20 mg PO DAILY 10/16/20 Ibandronate Sodium [Boniva] 150 mg PO QMONTH 10/16/20 Multivitamin [Multivitamins] 1 ea PO DAILY 10/16/20 Vit A/Vit C/Vit E/Zinc/Copper 1 ea PO DAILY 10/16/20 [Preservision Areds Softgel] Aspirin [Aspirin, Baby] 81 mg PO DAILY@0800 tab.chew 10/17/20 Atorvastatin Calcium 40 mg PO QHS #30 tab 10/17/20 Surgical History: appendectomy, cholecystectomy, hysterectomy, total knee arthroplasty, - - Neck surgery. 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 Paternal History Items: Heart Disease - Patient thinks that his father might have had a heart attack before age 58. Review of Systems Constitutional: Reports: Weakness - now resolved. Denies: Anorexia, Chills, Fever, Night Sweats, Malaise, Weight Change, Fatigue Eyes: Denies: Blurred vision, Double vision, Drainage, Eyelid Inflammation, Pain, Redness HEENT: Denies: Ear Pain, Eye Pain, Hard of Hearing, Head Aches, Nasal bleeding, Nasal Congestion, Post Nasal Drip, Sinus Congestion, Sinus Drainage, Sore Throat, Visual Changes Cardiovascular: Denies: Chest Pain, Claudication, Chest Pressure, Chest Tightness, Edema, Heaviness, Light Headedness, Orthopnea, Palpitations, Paroxysmal Noc. Dyspnea, Syncope Respiratory: Denies: Cough, Hemoptysis, Pleuritic Pain, Shortness of Breath, Shortness of breath at rest, Shortness of breath upon exertion, Sputum production, Wheezing Gastrointestinal: Denies: Abdominal Pain, Constipation, Diarrhea, Dyspepsia, Hematemesis, Hematochezia, Nausea, Melena, Vomiting Genitourinary: Reports: Incontinence. Denies: Dysuria, Frequency, Hematuria, Hesitancy, Nocturia, Retention, Urgency Musculoskeletal: Denies: Back Pain, Joint Pain, Joint stiffness, Joint swelling, Joint Tenderness, Muscle pain, Neck Pain Skin: Denies: Dryness, Jaundice, Lesions, Pruritis, Rash, Skin Changes, Wounds Neurological: Reports: Change in Speech - resolved, Focal weakness - resolved. Denies: Balance problems, Double vision, Confusion, Difficulty swallowing, Incoordination, Numbness, Tingling, Tremor, Seizures Psychiatric: Denies: Anxiety, Depression Endocrine: Denies: Change in Body Habitus, Heat/ Cold Intolerance, Polydipsia Hematologic/ Lymphatic: Denies: Adenopathy, Anemia, Easy Bruising, Easy Bleeding, Petechiae, Purpura VTE Information - Inpt Only VTE Present on Admission: No VTE Mechan Device Prophylaxis: None VTE Pharm Prophylaxis ordered?: Yes Patient Problems: Active and Suspected Problems TIA (transient ischemic attack) (Acute) - Physical Exam Vitals/I&O's: Vital Signs Temp Pulse Resp BP Pulse Ox 98.2 F 68 14 166/77 H 100 10/16/20 18:09 10/16/20 19:47 10/16/20 18:09 10/16/20 18:09 10/16/20 18:09 Oxygen Flow Rate (L/min) 2 Oxygen Delivery Method Nasal Cannula Weight: 60.5 kg Body Mass Index (BMI) 23.6 Finger Stick Blood Glucose 108 General: Alert, Oriented x3, Cooperative, No apparent distress, Well developed, Well nourished, - - Pleasant elderly white female lying in bed comfortably ,nontoxic HEENT: Atraumatic, PERRLA, EOMI, Normocephalic, EAC Clear Oral: Moist Mucosa, No Gingival or Mucosal Lesions/ Ulcerations Neck: Supple, No JVD, Negative Carotid Bruits, Negative Hepatojugular Reflux, No Nodes, No Nuchal Rigidity, Trachea Midline, Thyroid Normal Size and Texture Lungs: Clear to auscultation, Normal air movement, No rhonchi, No wheeze, No rales Cardiovascular: Regular rate, Regular Rhythm, Normal S1, Normal S2, No murmurs, No Ectopic Activity, No rub noted, No Gallop Abdomen: Bowel Sounds Present, Soft, Non Tender, Non-Distended, No hernias noted Extremities: No clubbing, No cyanosis, No edema, Capillary Refill Less than 3 Seconds, Peripheral Pulses Normal Skin: No rashes, No breakdown Musculoskeletal: No Tenderness to Palpation of Joints or Extremities, No Muscle Wasting Lymphatic: No Cervical, Supraclavicular, or Inguinal Adenopathy Neurological: Cranial nerves II-XII grossly intact, Deep Tendon Reflexes 2+/4 and Symmetrical, Neuro grossly intact, Motor Exam 5/5 strength throughout, Muscle tone normal, Sensory exam intact to light touch and pain, Coordination normal Psych/Mental Status: Normal Affect, Appropriate Microbiology Past 72 Hours 10/16/20 14:45 Mucosa - Nose SARS-CoV-2 Antigen (Rapid) - Final Laboratory Results 10/16/20 14:25: WBC 5.1, RBC 4.10 L, Hgb 13.9, Hct 40.9, MCV 99.8 H, MCH 33.9 H, MCHC 34.0, RDW Std Deviation 43.4, RDW Coeff of Osmar 12.0, Plt Count 205, MPV 9.8, Immature Gran % (Auto) 0.200, Neut % (Auto) 53.3, Lymph % (Auto) 30.9, [place] % (Auto) 9.7, Eos % (Auto) 5.1 H, Baso % (Auto) 0.8, Absolute Neuts (auto) 2.7, Absolute Lymphs (auto) 1.56, Nucleated RBC % 0 10/16/20 14:25: Sodium 135 L, Potassium 3.5, Chloride 102, Carbon Dioxide 28.0, Anion Gap 5, BUN 8, Creatinine 0.82, Estim Creat Clear Calc 43.76, Est GFR (MDRD) Af Amer 86, Est GFR (MDRD) Non-Af 71, BUN/Creatinine Ratio 9.7 L, Glucose 141 H, Calcium 9.0, Total Bilirubin 0.50, AST 14 L, ALT 18, Alkaline Phosphatase 93, Troponin I < 0.015, Total Protein 7.4, Albumin 3.4, Globulin 4.0, Albumin/Globulin Ratio 0.8 L 10/16/20 14:28: POC Glucose 166 H 10/16/20 14:45: Urine Color Straw, Urine Clarity Clear, Urine pH 6.0, Ur Specific [place] 1.010, Urine Protein Negative, Urine Glucose (UA) Normal, Urine Ketones Negative, Urine Occult Blood Negative, Urine Nitrite Negative, Urine Bilirubin Negative, Urine Urobilinogen Normal, Ur Leukocyte Esterase Negative, Urine RBC 0 SEEN, Urine WBC 0-5 SEEN, Ur Squamous Epith Cells 0 SEEN, Urine Bacteria 0 SEEN, Urine Mucus 0 SEEN 10/16/20 16:25: PT 13.0, INR 1.0, APTT 32.9 10/16/20 17:01: POC Glucose 108 10/16/20 18:32: Troponin I < 0.015 Current Medications Acetaminophen (Acetaminophen 325 Mg Tablet) 650 mg PO Q4H PRN PRN PRN Reason: Headache/Temp>99.6F Acetaminophen (Acetaminophen 650 Mg Suppository) 650 mg RECTAL Q4H PRN PRN PRN Reason: Headache/Temp>99F Aspirin (Aspirin 81 Mg Tab.Chew) 81 mg PO DAILY@0800 [facility] Atorvastatin Calcium (Atorvastatin Calcium 80 Mg Tablet) 80 mg PO QHS [facility] Escitalopram Oxalate (Escitalopram Oxalate 10 Mg Tablet) 10 mg PO DAILY [facility] Hydralazine HCl (Hydralazine 20 Mg/Ml Vial) 5 mg IV Q30M PRN PRN Reason: to maintain BP goals Sodium Chloride () 1,000 mls @ 100 mls/hr IV .Q10H [facility] Last Admin: 10/16/20 20:15 Dose: 100 mls/hr Documented by: Labetalol HCl (Labetalol (Prefilled) 20 Mg/4 Ml) 10 - 20 mg IV Q10M PRN PRN PRN Reason: to Maintain BP Goals Mirtazapine (Mirtazapine 15 Mg Tablet) 7.5 mg PO QHS [facility] Multivitamins (Multivitamins,Therapeutic Tablet) [facility] Sodium Chloride (0.9% Saline Lock 10 Ml Syringe) 10 - 40 ml IV UD PRN PRN Reason: SALINE FLUSH Assessment/Plan All Active Problems TIA (transient ischemic attack) (Acute) Suspected TIA -All symptoms have since resolved -She has passed for a cardiac diet -CT and CTA's are overall unremarkable for acute issues -She had a recent echo done on 06/11/2020--> this showed a normal LV size and EF of 60%, stage I diastolic dysfunction, and mild concentric aortic valve insufficiency -We will not repeat an echo at this time -MRI in the a.m. -Start aspirin 81 mg daily -Start Lipitor 80 mg daily -Check EEG -PT/OT consultation -We will hold off at this time with aggressive blood pressure management secondary to concern for recent stroke Mild hyponatremia -135 on admission -We will follow with BMP in the morning -No acute management needed at this time Osteoporosis -Hold Boniva at this time -Restart at discharge Depression -Continue Lexapro DVT prophylaxis -Lovenox 40 mg daily CODE STATUS -Full code Inpatient E&M: 21496 Init Hosp L3
[2020-10-16] MEDS: Atorvastatin Calcium 80 MG Tablet PO (22:07)
[2020-10-16] MEDS: Mirtazapine 15 MG Tablet 7.5 MG PO (22:07)
[2020-10-17] VITALS (8 sets, daily range): BP systolic 116–134; BP diastolic 64–73; PULSE 65–89; RESP 16–18; TEMP 36.6–36.9; O2SAT 92–100
[2020-10-17] MEDS: Glycerin/Hypromellose/PEG400 15 ml Bottle 2 DRP EACH EYE (04:14)
[2020-10-17 05:59] LABS: Cholesterol 184 mg/dL (200); High Density Lipoprotein 54 mg/dL; Triglycerides 45 mg/dL; Very Low Density Lipoprotein 9 mg/dL (5-40)
[2020-10-17] MEDS: 0.9% Normal Saline 1,000 ML 100 ML IV (06:15)
--- NOTE | 2020-10-17 08:51 | TELEMED_ITS ---
SOC Telemed has confirmed receipt of a request for visit. This document confirms receipt of the order initiating the consult. To find the results of the consultation, please view the patient's reports for the scanned Telemed Consult.
[2020-10-17] MEDS: Aspirin 81 MG TAB.CHEW PO (10:01)
[2020-10-17] MEDS: Escitalopram Oxalate 10 MG Tablet PO (10:02)
[2020-10-17] MEDS: Multivitamins,Therapeutic Tablet 1 TABLET PO (10:02)
[2020-10-17] MEDS: Enoxaparin 40 MG/0.4 ML Syringe SC (10:02)
--- NOTE | 2020-10-17 12:16 | CASEMGMT ---
Face to Face with patient and her son Geoffrey for initial transition planning/care coordination assessment. LIAM HOLT introduced self and role at [facility], voices understanding. Care providers, pharmacy, and demographics verified. PCP: Dr. Khan Specialists: Dr. Bauman (director executive communications) Preferred Pharmacy: [facility] but would like [facility] Retail pharmacy at discharge. Insurance: MCR A/B, [place] Prescription Benefit: Yes Living Will/HPOA: Yes/Yes, daughter Dee Love is HPOA LNOK: son Geoffrey, Daughter Dee Love Living Arrangements: Pt lives with son Geoffrey in a two story home but with first floor set up for her bathroom and bedroom. One step to enter the home. ADLs: Pt was independent with ADLs prior to admission. Her son assists with cooking and associate professor of music. Transportation: Pt drives occasionally but her son is the primary pack train driver. DME: [facility] only. Pt denies cane, walker, w/c, grab bars, hand held shower (only has a tub), bipap, cpap, O2 SNF: Previous stay at [facility] s/p hip replacement. States she would want to go to the [facility] if needed. HHC: Previous use after second hip replacement but cannot recall the provider's name. Plan: Pt plans to return home at discharge. Pt does not feel she will need home health care at discharge. Will continue to follow for PT/OT evaluations to determine any further therapy needs to finalize discharge plan. Kaylee Aguilar RN CM
--- NOTE | 2020-10-17 14:23 | PN_ITS ---
Patient Problems: Active and Suspected Problems TIA (transient ischemic attack) (Acute) Reason for Visit: Left sided weakness. Subjective: No further weakness. Vitals/I&O's: Vital Signs Temp Pulse Resp BP Pulse Ox 36.9 C 89 16 116/68 92 10/17/20 09:23 10/17/20 11:11 10/17/20 09:23 10/17/20 09:23 10/17/20 09:23 Oxygen Flow Rate (L/min) 2 Oxygen Delivery Method Room Air Weight: 60.5 kg Body Mass Index (BMI) 23.6 Finger Stick Blood Glucose 108 Intake and Output for Last 24 Hours 10/15/20 10/16/20 10/17/20 23:59 23:59 23:59 Intake Total 480 / 480 1240 / 1240 Output Total 200 / 200 Balance 280 / 280 1240 / 1240 General: Alert, No apparent distress HEENT: Atraumatic, EOMI, Normocephalic Oral: Moist Mucosa, No Gingival or Mucosal Lesions/ Ulcerations Neck: No Nodes, Thyroid Normal Size and Texture Lungs: Clear to auscultation, Normal air movement, No rhonchi, No wheeze, No rales Cardiovascular: Regular rate, Regular Rhythm, Normal S1, Normal S2, No murmurs Abdomen: Bowel Sounds Present, Soft, Non Tender, Non-Distended, No Hepato- splenomegaly Extremities: No edema, No Calf Tenderness Neurological: Cranial nerves II-XII grossly intact, Motor Exam 5/5 strength throughout, Coordination normal Psych/Mental Status: Normal Affect, Appropriate Microbiology Past 72 Hours 10/16/20 14:45 Mucosa - Nose SARS-CoV-2 Antigen (Rapid) - Final Laboratory Results 10/16/20 14:25: WBC 5.1, RBC 4.10 L, Hgb 13.9, Hct 40.9, MCV 99.8 H, MCH 33.9 H, MCHC 34.0, RDW Std Deviation 43.4, RDW Coeff of Osmar 12.0, Plt Count 205, MPV 9.8, Immature Gran % (Auto) 0.200, Neut % (Auto) 53.3, Lymph % (Auto) 30.9, [place] % (Auto) 9.7, Eos % (Auto) 5.1 H, Baso % (Auto) 0.8, Absolute Neuts (auto) 2.7, Absolute Lymphs (auto) 1.56, Nucleated RBC % 0 10/16/20 14:25: Sodium 135 L, Potassium 3.5, Chloride 102, Carbon Dioxide 28.0, Anion Gap 5, BUN 8, Creatinine 0.82, Estim Creat Clear Calc 43.76, Est GFR (MDRD) Af Amer 86, Est GFR (MDRD) Non-Af 71, BUN/Creatinine Ratio 9.7 L, Glucose 141 H, Calcium 9.0, Total Bilirubin 0.50, AST 14 L, ALT 18, Alkaline Phosphatase 93, Troponin I < 0.015, Total Protein 7.4, Albumin 3.4, Globulin 4.0, Albumin/Globulin Ratio 0.8 L 10/16/20 14:28: POC Glucose 166 H 10/16/20 14:45: Urine Color Straw, Urine Clarity Clear, Urine pH 6.0, Ur Specific [place] 1.010, Urine Protein Negative, Urine Glucose (UA) Normal, Urine Ketones Negative, Urine Occult Blood Negative, Urine Nitrite Negative, Urine Bilirubin Negative, Urine Urobilinogen Normal, Ur Leukocyte Esterase Negative, Urine RBC 0 SEEN, Urine WBC 0-5 SEEN, Ur Squamous Epith Cells 0 SEEN, Urine Bacteria 0 SEEN, Urine Mucus 0 SEEN 10/16/20 16:25: PT 13.0, INR 1.0, APTT 32.9 10/16/20 17:01: POC Glucose 108 10/16/20 18:32: Troponin I < 0.015 10/17/20 05:20: Triglycerides 45, Cholesterol 184, LDL Cholesterol 121, VLDL Cholesterol 9, HDL Cholesterol 54 Current Medications Acetaminophen (Acetaminophen 325 Mg Tablet) 650 mg PO Q4H PRN PRN PRN Reason: Headache/Temp>99.6F Acetaminophen (Acetaminophen 650 Mg Suppository) 650 mg RECTAL Q4H PRN PRN PRN Reason: Headache/Temp>99F Aspirin (Aspirin 81 Mg Tab.Chew) 81 mg PO DAILY@0800 [facility] Last Admin: 10/17/20 10:01 Dose: 81 mg Documented by: Atorvastatin Calcium (Atorvastatin Calcium 80 Mg Tablet) 80 mg PO QHS [facility] Last Admin: 10/16/20 22:07 Dose: 80 mg Documented by: Enoxaparin Sodium (Enoxaparin 40 Mg/0.4 Ml Syringe) 40 mg SC DAILY [facility] Last Admin: 10/17/20 10:02 Dose: 40 mg Documented by: Escitalopram Oxalate (Escitalopram Oxalate 10 Mg Tablet) 10 mg PO DAILY [facility] Last Admin: 10/17/20 10:02 Dose: 10 mg Documented by: Hydralazine HCl (Hydralazine 20 Mg/Ml Vial) 5 mg IV Q30M PRN PRN Reason: to maintain BP goals Sodium Chloride () 1,000 mls @ 100 mls/hr IV .Q10H [facility] Last Admin: 10/17/20 06:15 Dose: 100 mls/hr Documented by: Labetalol HCl (Labetalol (Prefilled) 20 Mg/4 Ml) 10 - 20 mg IV Q10M PRN PRN PRN Reason: to Maintain BP Goals Mirtazapine (Mirtazapine 15 Mg Tablet) 7.5 mg PO QHS [facility] Last Admin: 10/16/20 22:07 Dose: 7.5 mg Documented by: Multivitamins (Multivitamins,Therapeutic Tablet) 1 tablet PO DAILYCM [facility] Last Admin: 10/17/20 10:02 Dose: 1 tablet Documented by: Sodium Chloride (0.9% Saline Lock 10 Ml Syringe) 10 - 40 ml IV UD PRN PRN Reason: SALINE FLUSH STROKE Vital Signs/Narrative: Vital Signs Pulse 10/17/20 11:11 89 Medical Necessity - Tobacco Use Smoking Status: Never smoker Assessment/Plan All Active Problems TIA (transient ischemic attack) (Acute) 1. Left sided weakness * MRI negative for CVA * EEG showed single left frontopolar spike * consult [facility] neurology for recommendations * seizure precautions * await input from neurology about AEDs 2. VTE prophylaxis: LMWH OBSV E&M: 74526 Subsequent observation care L3
--- NOTE | 2020-10-17 15:45 | CASEMGMT ---
This RN CM to room for MARTELL form. Form explained re: observation status for treatment of left sided weakness. Explained hospitalization will be paid per insurance policy for outpatient billing and condition will continue to be monitored for inpt necessity. Also let pt know that [facility] can be contacted if questions. Discussed pharmacy section and self-administered medication guidelines. Pt verbalizes understanding and does not have further questions. Form signed and placed in the chart, copy to pt. Kaylee Aguilar RN CM
--- NOTE | 2020-10-17 15:53 | CASEMGMT ---
Social Work No PHQ9 depression screen completed due to negative MRI. NEREIDA Markham
--- NOTE | 2020-10-17 16:53 | DCINST_ITS ---
- Discharge Diagnoses Current Active Problems: Current Active and Chronic Problems TIA (transient ischemic attack) (Acute) Depression (Chronic) Hyperlipidemia (Chronic) You will use the following diet at home:: Cardiac Your food should be the consistency of: Regular Your liquids should be the consistency of: Regular/Thin Discharge Activity: Return to Normal Activity Call your doctor if you observe: - - unilateral weakness, difficulty speaking Allergies/Adverse Reactions: Allergies No Known Allergies Allergy (Verified 06/09/20 22:18) Medications to take at Discharge Mirtazapine 7.5 mg PO QHS PRN PRN 08/26/19 Carboxymethylcellulose Sodium [Thera Tears] 15 ml OP BID 10/16/20 Escitalopram Oxalate [Lexapro] 20 mg PO DAILY 10/16/20 Ibandronate Sodium [Boniva] 150 mg PO QMONTH 10/16/20 Multivitamin [Multivitamins] 1 ea PO DAILY 10/16/20 Vit A/Vit C/Vit E/Zinc/Copper [Preservision Areds Softgel] 1 ea PO DAILY 10/16/20 Aspirin [Aspirin, Baby] 81 mg PO DAILY@0800 tab.chew 10/17/20 Atorvastatin Calcium 40 mg PO QHS #30 tab 10/17/20 The following prescriptions were given: Atorvastatin Calcium 40 mg PO QHS #30 tab Transmission Status: Pending to [id number] Primary Care Physician: Yg Khan MD [Primary Care Provider] - 3-5 Days Test Results: Test results from this visit will be discussed in further detail at your follow- up appointment, if applicable. Please Follow Up With: Westley Portillo MD - neurology When: 1-2 months Proposed Discharge Date: 10/17/20
--- NOTE | 2020-10-17 16:55 | PCM.DC.SUM ---
Discharge Date and Diagnosis - Problem List Patient Problems: Active and Suspected Problems TIA (transient ischemic attack) (Acute) Date of Admission: 10/16/20 Date of Discharge: 10/17/20 - Primary Discharge Diagnosis Acute Problems: Active Problems TIA (transient ischemic attack) (Acute) - Secondary Discharge Diagnosis Chronic Problems: Chronic Problems Depression (Chronic) Hyperlipidemia (Chronic) Hospital Course and Treatment Imaging Results: Clinical Impression(s) from Imaging Studies Chest X-Ray 10/16/20 14:30 IMPRESSION: Degenerative changes, as described above. No demonstrated acute cardiopulmonary process. Electronically Signed: William Santos at 14:49 EST Tel , Service support , Brain CT 10/16/20 16:45 IMPRESSION: Normal unenhanced CT scan of the brain. N.B. : The above information has been verbally conveyed by Soy Kapadia DO to Zaki Lepe DO on 10/16/2020 17:04:04 (ET). Electronically Signed: Soy Kapadia DO at 17:05 EST Tel [phone], Service support , ADDENDUM: 10/16/20 1712 IMPRESSION: Normal unenhanced CT scan of the brain. N.B. : The above information has been verbally conveyed by Soy Kapadia DO to Zaki Lepe DO on 10/16/2020 17:04:04 (ET). Electronically Signed: Soy Kapadia DO at 17:05 EST Tel [phone], Service support , Head/Neck CTA 10/16/20 16:47 IMPRESSION: 1. Minimal calcific plaque in the right carotid bulb without significant stenosis. 2. Atretic basilar artery. The posterior cerebral arteries are supplied predominantly via the patent bilateral posterior communicating arteries. N.B. : The above information has been verbally conveyed by Soy Kapadia DO to Zaki Mai DO on 10/16/2020 17:08:47 (ET). Electronically Signed: Soy Kapadia DO at 17:09 EST Tel [phone], Service support , ADDENDUM: 10/16/20 1716 IMPRESSION: 1. Minimal calcific plaque in the right carotid bulb without significant stenosis. 2. Atretic basilar artery. The posterior cerebral arteries are supplied predominantly via the patent bilateral posterior communicating arteries. N.B. : The above information has been verbally conveyed by Soy Kapadia DO to Zaki Mai DO, on 10/16/2020 17:08:47 (ET). Electronically Signed: Soy Kapadia DO at 17:09 EST Tel [phone], Service support , Brain MRI 10/16/20 18:06 IMPRESSION: No acute ischemia. No masses.. at 2218 Reported and signed by: Saroj Woods MD Electronically Signed: Saroj Woods MD at 22:17 EST Tel , Service support , Operations: None Summary of Care Provided: The patient is a 80 year old F presents with weakness have a coughing spell but then developed left-sided weakness while she was in ER being ready to be discharged. Patient underwent a stroke work-up with an MRI that was negative. Patient also did have an EEG that showed a single left frontopolar spike. Consulted the [facility] who felt that that was unremarkable, and her nurse to come in from the EEG and would not explain her symptoms anyways had a been a seizure. He feels that she may have had a TIA. Complicating this picture is the patient has very profound anxiety so is unclear patient has conversion disorder but patient going to be electively treated for a TIA with aspirin as well as high intensity statin. Will be using 40 mg based on the patient's age for the atorvastatin. Patient will be discharged home in stable condition. Patient given advice to follow-up with neurology as well as her primary care provider as outpatient. Patient vies if she has recurrent symptoms to notify someone or return to the emergency room. [] Patient Problems: Active and Suspected Problems TIA (transient ischemic attack) (Acute) - Physical Exam Vitals/I&O's: Vital Signs Temp Pulse Resp BP Pulse Ox 36.8 C 77 16 123/73 H 100 10/17/20 14:33 10/17/20 14:33 10/17/20 14:33 10/17/20 14:33 10/17/20 14:33 Oxygen Flow Rate (L/min) 2 Oxygen Delivery Method Room Air Weight: 60.5 kg Body Mass Index (BMI) 23.6 Finger Stick Blood Glucose 108 Intake and Output for Last 24 Hours 10/15/20 10/16/20 10/17/20 23:59 23:59 23:59 Intake Total 480 / 480 2161.67 / 2161.67 Output Total 200 / 200 Balance 280 / 280 2161.67 / 2161.67 Microbiology Past 72 Hours 10/16/20 14:45 Mucosa - Nose SARS-CoV-2 Antigen (Rapid) - Final Laboratory Results 10/16/20 16:25: PT 13.0, INR 1.0, APTT 32.9 10/16/20 17:01: POC Glucose 108 10/16/20 18:32: Troponin I < 0.015 10/17/20 05:20: Triglycerides 45, Cholesterol 184, LDL Cholesterol 121, VLDL Cholesterol 9, HDL Cholesterol 54 Current Medications Acetaminophen (Acetaminophen 325 Mg Tablet) 650 mg PO Q4H PRN PRN PRN Reason: Headache/Temp>99.6F Acetaminophen (Acetaminophen 650 Mg Suppository) 650 mg RECTAL Q4H PRN PRN PRN Reason: Headache/Temp>99F Aspirin (Aspirin 81 Mg Tab.Chew) 81 mg PO DAILY@0800 [facility] Last Admin: 10/17/20 10:01 Dose: 81 mg Documented by: Atorvastatin Calcium (Atorvastatin Calcium 80 Mg Tablet) 80 mg PO QHS [facility] Last Admin: 10/16/20 22:07 Dose: 80 mg Documented by: Enoxaparin Sodium (Enoxaparin 40 Mg/0.4 Ml Syringe) 40 mg SC DAILY [facility] Last Admin: 10/17/20 10:02 Dose: 40 mg Documented by: Escitalopram Oxalate (Escitalopram Oxalate 10 Mg Tablet) 10 mg PO DAILY [facility] Last Admin: 10/17/20 10:02 Dose: 10 mg Documented by: Hydralazine HCl (Hydralazine 20 Mg/Ml Vial) 5 mg IV Q30M PRN PRN Reason: to maintain BP goals Labetalol HCl (Labetalol (Prefilled) 20 Mg/4 Ml) 10 - 20 mg IV Q10M PRN PRN PRN Reason: to Maintain BP Goals Mirtazapine (Mirtazapine 15 Mg Tablet) 7.5 mg PO QHS [facility] Last Admin: 10/16/20 22:07 Dose: 7.5 mg Documented by: Multivitamins ([facility],Therapeutic Tablet) [facility] Admin: 10/17/20 10:02 Dose: 1 tablet Documented by: Sodium Chloride (0.9% Saline Lock 10 Ml Syringe) 10 - 40 ml IV UD PRN PRN Reason: SALINE FLUSH Discharge Diet: Low fat/ Low Cholesterol Discharge Activity: Return to Normal Activity Call your doctor if you observe: - - unilateral weakness, difficulty speaking Home Medications: Medications to take at Discharge Mirtazapine 7.5 mg PO QHS PRN PRN 08/26/19 Carboxymethylcellulose Sodium [Thera Tears] 15 ml OP BID 10/16/20 Escitalopram Oxalate [Lexapro] 20 mg PO DAILY 10/16/20 Ibandronate Sodium [Boniva] 150 mg PO QMONTH 10/16/20 Multivitamin [Multivitamins] 1 ea PO DAILY 10/16/20 Vit A/Vit C/Vit E/Zinc/Copper [Preservision Areds Softgel] 1 ea PO DAILY 10/16/20 Aspirin [Aspirin, Baby] 81 mg PO DAILY@0800 tab.chew 10/17/20 Atorvastatin Calcium 40 mg PO QHS #30 tab 10/17/20 Following Prescriptions Were Given to Patient: Atorvastatin Calcium 40 mg PO QHS #30 tab Transmission Status: Pending to [facility] Primary Care Physician: Yg Khan MD [Primary Care Provider] - 3-5 Days Please Follow Up With: Westley Portillo MD - neurology When: 1-2 months Disposition: Home Minutes spent on discharge:: 32 Patient Condition:: Good Medical Necessity - Tobacco Use Smoking Status: Never smoker Meaningful Use Info Meaningful Use Diagnoses (Choose all that apply): Ischemic CVA - CVA Therapy Assessed for PT,OT and/or ST?: Yes - Ischemic Stroke Antithrombotic order at d/c?: Yes Dx of Atrial fib/flutter?: No Statins at discharge?: Yes Primary Dx Acute Ischemic CVA?: Yes IV tPA ordered during stay?: No Reason IV t-PA not ordered: Treatment not Indicated OBSV E&M: 39434 Observation care discharge
== END 2020-10-17 16:54 | disposition home or self-care (01) ==
LOC: ED 17:18 → PCU 17:35
PROVIDERS: Admitting Provider Internal Medicine; Emergency Provider Emergency Medicine; PCP Family Medicine
DX: G45.9 Transient cerebral ischemic attack, unspecified (principal); R53.1 Weakness; F32.9 Major depressive disorder, single episode, unspecified; E78.5 Hyperlipidemia, unspecified; Z79.899 Other long term (current) drug therapy; F41.9 Anxiety disorder, unspecified; E87.1 Hypo-osmolality and hyponatremia; M81.0 Age-related osteoporosis without current pathological fracture; T17.928A Food in respiratory tract, part unspecified causing other injury, initial encounter; R09.89 Other specified symptoms and signs involving the circulatory and respiratory systems; M79.10 Myalgia, unspecified site; R47.89 Other speech disturbances
CPT/HCPCS: 36415; 70450; 70496; 70498; 70551; 71045; 80053; 80061; 81001; 82962; 84484; 85025; 85610; 85730; 87426; 92523; 92610; 93005; 94762; 95819; 96360; 96361; 96372; 97161; 97166; 99218; 99285; J7030; Q9967; A4216; G0378

== ENCOUNTER → 2021-03-10 08:41 | Outpatient (CLI) | payer MEDICARE, BC, SELFPAY ==
[2021-02-12 10:20] VITALS: BMI 25.2
[2021-03-10 14:34] LABS: AST(SGOT) 21 U/L (15-37); Alanine Aminotransfer ALT/SGPT 21 U/L (13-56); Albumin, Serum 3.4 g/dL (3.2-5.0); Alkaline Phosphatase 73 U/L (45-117); Bilirubin, Direct 0.18 mg/dL (0.00-0.30); Cholesterol 152 mg/dL (200); Globulin 3.5 g/dL (2.2-4.2); High Density Lipoprotein 68 mg/dL; Protein, Total 6.9 g/dL (6.4-8.2); Triglycerides 46 mg/dL; Very Low Density Lipoprotein 9 mg/dL (5-40)
[2021-03-11 12:23] LABS: Vitamin B12 529 pg/mL (211-911)
[2021-03-11 12:33] LABS: Thyroid Stim Hormone (TSH) 1.58 uIU/mL (0.358-3.74)
== END ==
PROVIDERS: PCP Family Medicine; Visit Provider Family Medicine
DX: E78.5 Hyperlipidemia, unspecified (principal); R53.83 Other fatigue; I95.1 Orthostatic hypotension
CPT/HCPCS: 36415; 80061; 80076; 82607; 84443

== ENCOUNTER 2021-04-01 05:42 | Day surgery (SDC) | payer MEDICARE, BC, SELFPAY ==
[2021-02-12 10:20] VITALS: BMI 25.2
[2021-04-01] VITALS (8 sets, daily range): BP systolic 133–166; BP diastolic 64–89; PULSE 64–77; RESP 16–18; TEMP 36–36.6; O2SAT 96–100; BMI 24.0
[2021-04-01] MEDS: Lactated Ringers 1,000 ML 100 ML IV (06:38)
[2021-04-01] MEDS: Vancomycin IV 1,000 MG/200 ML BAG 200 MG IV (06:39)
--- NOTE | 2021-04-01 07:18 | HP.PCM_ITS ---
HPI - General HPI Narrative LANA BUCK, is a 80 F who presents for definitive management of her urinary urgency, urge incontinence. Informed consent has been obtained. She has failed multiple first and second line treatment options in the past. [facility] Medical History (Updated 04/01/21 @ 07:[address] Mari Frost MD) Anxiety Arthritis Atrial fibrillation Back pain Bladder disease Depression Difficulty swallowing Easy bruising Foreign body Frequency of micturition High cholesterol History of hiatal hernia History of Holter monitoring History of stress test Hx of echocardiogram Injury of head and neck Nocturia Non-smoker Restless legs Shortness of breath on exertion TIA (transient ischemic attack) Urge incontinence Urgency of micturition Wears glasses Wears hearing aid Home Medications carboxymethylcellulose sodium 15 ml OP BID 10/16/20 [History Last Taken 10/16/20 09:00] escitalopram oxalate 20 mg PO QHS 10/16/20 [History Last Taken Unknown] ibandronate 150 mg PO QMONTH 10/16/20 [History Last Taken Unknown] multivitamin 1 ea PO DAILY 10/16/20 [History Last Taken Unknown] vitamins A,C,F-ftbl-mwirpu 1 ea PO DAILY 10/16/20 [History Last Taken Unknown] aspirin 81 mg PO DAILY@0800 tab.chew 10/17/20 [Rx Last Taken Unknown] mirtazapine 7.5 mg tablet 7.5 mg PO QHS tab 11/15/20 [History Last Taken Unknown] rosuvastatin 20 mg tablet 20 mg PO QHS tab 01/02/21 [History Last Taken Unknown] fexofenadine 180 mg tablet 180 mg PO DAILY 02/12/21 [History Last Taken Unknown] flaxseed oil 1,000 mg capsule 1,000 mg PO DAILY 02/12/21 [History Last Taken Unknown] buspirone 5 mg PO DAILY 03/25/21 [History Last Taken Unknown] cholecalciferol (vitamin D3) [Vitamin D3] 50 mcg PO DAILY 03/25/21 [History Last Taken Unknown] Allergy/AdvReac Type Severity Reaction Status Date / Time No Known Allergies Allergy Verified 04/01/21 06:28 Family History Daughter Schizophrenia Grandmother CVA (cerebral vascular accident) Father Myocardial infarction Sister CVA (cerebral vascular accident) Surgical History H/O cervical spine surgery History of appendectomy History of bilateral hip replacements History of cholecystectomy History of tonsillectomy History of total hysterectomy with bilateral salpingo-oophorectomy (BSO) Hx of breast biopsy Hx of colonoscopy Social History Smoking Status: Never smoker Electronic Cigarette Use: not used alcohol intake: former substance use type: does not use ROS Constitutional Constitutional: Denies change in weight, chills, fatigue, fever(s) or lethargy Eyes Eyes: Reports systems reviewed and no addt'l complaints, except as documented ENT HEENT: Reports systems reviewed and no addt'l complaints, except as documented Cardiovascular Cardiovascular: Denies abdominal pain, cold extremities, dyspnea at rest, nausea or vomiting Respiratory/Chest Respiratory/Chest: Denies chest congestion, cough, inability to speak or shortness of breath at rest Gastrointestinal Gastrointestinal: Denies abdominal pain, loose stools, melena, nausea or vomiting Genitourinary Genitourinary: Reports urinary frequency, urinary incontinence and urinary urgency; Denies hematuria or urinary hesitancy Musculoskeletal Musculoskeletal: Denies difficulty walking or muscle weakness Integumentary Integumentary: Reports systems reviewed and no addt'l complaints, except as documented Neurologic Neurologic: Reports systems reviewed and no addt'l complaints, except as documented Psychiatric Psychiatric: Reports anxiety Endocrine Endocrinology: Reports systems reviewed and no addt'l complaints, except as documented Hematologic/Lymphatic Hematologic/Lymphatic: Reports systems reviewed and no addt'l complaints, except as documented Allergic/Immunologic Allergic/Immunologic: Reports systems reviewed and no addt'l complaints, except as documented Vital Signs Vital Signs Vital Signs: 04/01/21 06:29 Temperature 97.1 F L Temperature Source Temporal Pulse Rate 72 Respiratory Rate 18 Respiratory Pattern Normal Blood Pressure 133/76 H Blood Pressure Mean 95 Blood Pressure Source Monitor Blood Pressure Position Semi-Fowlers Blood Pressure Location Left Arm Pulse Ox 96 Oxygen Delivery Method Room Air Weight Weight: 59.5 kg Body Mass Index (BMI) 24.0 Physical Exam Const alert, oriented x3 and no apparent distress HEENT normocephalic, head/scalp atraumatic, hearing grossly normal bilaterally, external ears normal and external nose normal Eyes conjunctivae normal and no scleral icterus Neck supple General: trachea midline Lymph Lymphatic: no lymphedema noted Chest inspection of chest normal Chest: symmetrical chest wall rise Resp normal respiratory effort, normal air movement, no retractions, no use of accessory muscles and clear to auscultation bilaterally Cardio regular rate and regular rhythm GI soft to palpation, non-tender and non-distended no CVA tenderness and external exam normal Back/Spine no CVA tenderness and normal to inspection Extremity normal to inspection, no calf tenderness and no pedal edema Skin no rashes or lesions noted, no wounds, skin turgor normal, no jaundice, no petechiae and no mottling Neuro oriented x3, CN's II-XII intact bilaterally and moves all extremities Psych mental status grossly normal, thought process normal and cooperative Appearance: grossly normal Assessment & Plan Assessment/Plan (1) Urge incontinence: PLAN: proceed with Interstim Stage 1 (2) Urgency of micturition: (3) Nocturia: (4) Frequency of micturition: Procedure Criteria Type of Procedure Procedure Type: Elective Elective Risks - COVID COVID Risk Discussion: The surgeon/proceduralist and patient have discussed in detail the risk of exposure to and/or potential harm posed by the COVID-19 virus with having a surgery/procedure at this time versus the risk of delaying the surgery/procedure. It is not possible to know either the risk of delaying the surgery or procedure or chance of getting an infection with perfect accuracy, but a joint decision was made between the patient and the surgeon/proceduralist to proceed at this time with the scheduled surgery/procedure as indicated on the consent form.
--- NOTE | 2021-04-01 07:30 | RAD_ITS ---
STUDY: X-RAY - PELVIS REASON FOR EXAM: Female, 80 years old. INTER STIM THERAPY 1 TECHNIQUE: One view of the pelvis was obtained. COMPARISON: None. FINDINGS: Intraoperative imaging demonstrates the tip of the electrode in the right superior posterior aspect of the right hemipelvis. RAD/Pelvis 1 or 2 Views IMPRESSION: Intraoperative imaging provided for InterStim electrode placement. Electronically Signed: Danny Kaur MD at 9:56 EDT , Service support ,
[2021-04-01] MEDS: Lidocaine 1% /Epi 1:100 (20ml) 20 ML Vial (08:07)
--- NOTE | 2021-04-01 08:30 | PCM.OPRPT ---
Problems Associated Problem List Diagnoses (1) Frequency of micturition: (2) Nocturia: (3) Urgency of micturition: (4) Urge incontinence: Report of Operation Date of Procedure: 04/01/21 Pre-Operative Diagnosis: frequency, nocturia and urge incontinence Post-Operative Diagnosis: Same Surgery/Procedure Performed:: InterStim stage I Description of Surgical Findings:: The lead was placed into the right S3 foramen with the pocket site on the right side, lead extension exiting on the left. Surgeon: Mari Frost Type of Anesthesia: MAC Special Medications: Vancomycin Specimen's removed: None Estimated Blood Loss (mL): 5cc Description of Procedure: The patient is an 80-year-old female who has failed a level 1 and 2 treatment for her lower urinary tract symptoms and presents for InterStim stage I after informed consent was obtained. The patient was taken to the operating room and placed in a prone position on the operating room table. All dependent portions of her body were appropriately padded and secured to the table. Anesthesia monitored the head, neck, airway, IV access and vital signs throughout the case. Once anesthesia was appropriately administered, the patient was prepped and draped in usual sterile fashion. Using fluoroscopy, the sacrum was visualized and the S3 foramen was marked on the skin. At this time the overlying areas were infiltrated with lidocaine. The needle was then used to intubate the S3 foramen, followed by a guidewire and then the skin dilator. At this time the lead was inserted and tested. All 4 leads had great мария response to stimulation. The sheath was then removed leaving the tines in position. The lead was then tunneled to the pocket site which had been infiltrated with lidocaine, opened with a knife and hemostasis achieved with Bovie cautery. At this time the tunneling device was used to bring the lead extension from the contralateral side. The lead was dried and inserted and secured using the torque wrench into the lead extension. The excess lead extension was secured using Prolene suture. This was then buried into the pocket site which was closed in 2 layers using 3-0 Vicryl interrupted suture followed by 4-0 subcuticular suturing and then skin glue. The incision overlying the lead insertion site was closed using 4-0 Vicryl followed by skin glue. 1 suture was placed around the lead extension for hemostasis. At this time the battery was attached to the lead extension, drain sponges were applied followed by OpSite's and cloth tape. The patient was then awakened and taken to the recovery room in good condition. There were no complications during this procedure. Grafts/Implants Used: InterStim lead and lead extension Complications None Admit VTE Documentation VTE Present on Admission: No VTE Pharm Prophylaxis ordered?: No Reason prophylaxis not ordered:: Treatment Not Indicated
--- NOTE | 2021-04-01 08:36 | PCM.DC ---
Discharge Instructions Diet Discharge Diet: No restrictions Activity Discharge Activity: May Not Shower May resume sexual activity in: 3 weeks Dressing / Incision Call your doctor if your incision/area has: Continuous Slow Oozing, Sudden Increased Bleeding, Increased Pain/ Swelling and Foul Smelling Discharge Call your doctor if you observe: Fever of 101 or Higher, Inability to urinate, Inability to have a bowel movement, Calf discomfort and Uncontrolled pain Suture Line Care: Avoid Pulling/Pushing and Avoid Pinching/Bending Change Dressing in: do not change dressing Remove Dressing in: do not remove dressing Cleanse incision/area with: Keep Dressing Clean & Dry Follow Up Care Please Follow Up With: Mari Frost MD When: 1 week Test Results: Test results from this visit will be discussed in further detail at your follow-up appointment, if applicable. Discharge Plan Admission Attending Provider: Mari Frost Primary Care Provider: Yg Khan Discharge Orders/Prescriptions Prescriptions: New acetaminophen-codeine [acetaminophen-codeine] 1 TABLET tablet 1 - 2 tab PO Q6H PRN PRN (Reason: Pain Score 6-10/10) 3 Days Qty: 10 RF: 0 cephalexin [cephalexin] 500 MG capsule 500 mg PO Q12 3 Days Qty: 6 RF: 0 Continued rosuvastatin 20 mg tablet 20 mg PO QHS RF: 0 flaxseed oil 1,000 mg capsule 1,000 mg PO DAILY RF: 0 fexofenadine [Angela Allergy] 180 mg tablet 180 mg PO DAILY RF: 0 mirtazapine 7.5 mg tablet 7.5 mg PO QHS RF: 0 multivitamin 1 EACH tablet 1 ea PO DAILY RF: 0 vitamins A,C,R-pspr-yehyob 1 EACH capsule 1 ea PO DAILY RF: 0 escitalopram oxalate 20 MG tablet 20 mg PO QHS RF: 0 ibandronate 150 MG tablet 150 mg PO QMONTH RF: 0 carboxymethylcellulose sodium 15 ML drops 15 ml OP BID RF: 0 aspirin 81 MG tablet,chewable 81 mg PO DAILY@0800 RF: 0 buspirone 5 mg Tablet 5 mg PO DAILY RF: 0 cholecalciferol (vitamin D3) [Vitamin D3] 50 mcg (2,000 unit) Capsule 50 mcg PO DAILY RF: 0 Referrals / Follow Up: Yg Khan MD [Primary Care Provider] - Disposition Disposition (needs filled in before D/C Order can be placed): Home, self care
== END 2021-04-01 10:00 | disposition home or self-care (01) ==
LOC: SDC 05:42 → AC 05:42
PROVIDERS: PCP Family Medicine; Referring Provider Urology; Visit Provider Urology
PROC: (CPT 64581; principal; 2021-04-01 07:20)
DX: N39.41 Urge incontinence (principal); R35.0 Frequency of micturition; R35.1 Nocturia; F41.9 Anxiety disorder, unspecified; I48.91 Unspecified atrial fibrillation; F32.9 Major depressive disorder, single episode, unspecified; E78.00 Pure hypercholesterolemia, unspecified; M19.90 Unspecified osteoarthritis, unspecified site; G25.81 Restless legs syndrome; G31.84 Mild cognitive impairment of uncertain or unknown etiology; Z79.899 Other long term (current) drug therapy; Z79.82 Long term (current) use of aspirin
CPT/HCPCS: 00630; 64581; 64590; 72170; 76000; J7120

== ENCOUNTER 2021-04-16 05:18 | Day surgery (SDC) | payer MEDICARE, BC, SELFPAY ==
[2021-04-01 06:29] VITALS: BMI 24.0
[2021-04-16 05:55] VITALS: BP 123/81; PULSE 70; RESP 16; TEMP 36.2; O2SAT 96; BMI 23.7
[2021-04-16] MEDS: Lactated Ringers 1,000 ML 100 ML IV (06:13)
[2021-04-16] MEDS: Vancomycin IV 1,000 MG/200 ML BAG 200 MG IV (06:16)
[2021-04-16] MEDS: Lidocaine 1% /Epi 1:100 (20ml) 20 ML Vial (07:40)
[2021-04-16 08:00] VITALS: BP 101/53; BP 123/81; PULSE 72; RESP 16; TEMP 36.3; O2SAT 94
[2021-04-16 08:05] VITALS: BP 123/81; BP 97/53; PULSE 73; RESP 16; O2SAT 95
--- NOTE | 2021-04-16 08:09 | PCM.DC ---
Discharge Instructions Diet Discharge Diet: No restrictions Activity Discharge Activity: Return to Normal Activity and - (ok to shower later today, ok for tub bath and swimming tomorrow if does not mess with incision) Dressing / Incision Call your doctor if your incision/area has: Continuous Slow Oozing, Sudden Increased Bleeding, Increased Pain/ Swelling, Increased Redness, Foul Smelling Discharge and Swelling at the incision site Call your doctor if you observe: Fever of 101 or Higher, Inability to urinate, Inability to have a bowel movement, Calf discomfort and Uncontrolled pain Suture Line Care: Avoid Pulling/Pushing and Avoid Pinching/Bending Cleanse incision/area with: Keep Dressing Clean & Dry Follow Up Care Please Follow Up With: Mari Frost MD When: call for appt next week Test Results: Test results from this visit will be discussed in further detail at your follow-up appointment, if applicable. Discharge Plan Admission Attending Provider: Mari Frost Primary Care Provider: Yg Khan Discharge Orders/Prescriptions Prescriptions: Continued rosuvastatin 20 mg tablet 20 mg PO QHS RF: 0 flaxseed oil 1,000 mg capsule 1,000 mg PO DAILY RF: 0 fexofenadine [Angela Allergy] 180 mg tablet 180 mg PO DAILY RF: 0 mirtazapine 7.5 mg tablet 7.5 mg PO QHS RF: 0 multivitamin 1 EACH tablet 1 ea PO DAILY RF: 0 vitamins A,C,N-gwut-gztnlw 1 EACH capsule 1 ea PO DAILY RF: 0 escitalopram oxalate 20 MG tablet 20 mg PO QHS RF: 0 ibandronate 150 MG tablet 150 mg PO QMONTH RF: 0 carboxymethylcellulose sodium 15 ML drops 15 ml OP BID RF: 0 aspirin 81 MG tablet,chewable 81 mg PO DAILY@0800 RF: 0 buspirone 5 mg Tablet 5 mg PO DAILY RF: 0 cholecalciferol (vitamin D3) [Vitamin D3] 50 mcg (2,000 unit) Capsule 50 mcg PO DAILY RF: 0 acetaminophen-codeine 1 TABLET tablet 1 - 2 tab PO Q6H PRN PRN (Reason: Pain Score 6-10/10) 3 Days Qty: 10 RF: 0 cephalexin 500 MG capsule 500 mg PO Q12 3 Days Qty: 6 RF: 0 Referrals / Follow Up: Yg Khan MD [Primary Care Provider] - Disposition Disposition (needs filled in before D/C Order can be placed): Home, Self Care
[2021-04-16 08:10] VITALS: BP 100/48; BP 123/81; PULSE 71; RESP 16; O2SAT 94
--- NOTE | 2021-04-16 08:12 | OP.PCM_ITS ---
Problems Associated Problem List Diagnoses (1) Frequency of micturition: (2) Nocturia: (3) Urge incontinence: Report of Operation Date of Procedure: 04/16/21 Pre-Operative Diagnosis: Nocturia, urge incontinence, urinary frequency Post-Operative Diagnosis: Same Surgery/Procedure Performed:: Removal of InterStim lead and lead extension Surgeon: Mari Frost Type of Anesthesia: MAC Estimated Blood Loss (mL): 3cc Description of Procedure: The patient is an 81-year-old female who failed a stage I InterStim. She now presents for removal of the lead and lead extension. Informed consent was obtained. The patient was taken to the operating room and placed in a prone position on the operating room table. She is a probably padded and secured to the table. Anesthesia monitored the head, neck, airway, IV access and vital signs throughout the case. Once anesthesia was a probably administered the patient wa s prepped and draped in usual sterile fashion. Using a knife the previous incisions over the lead insertion site and the pocket site were opened. The boot was brought into the operative field and was cut and removed. The lead extension was pulled from the contralateral external skin site. The open incision over the lead site was used to gain access to the lead which was easily removed in its entirety. At this time irrigation was performed on both incision sites which were then closed with 3-0 interrupted Vicryl followed by 4-0 subcuticular suturing. At this time skin glue was applied to the incision sites. The patient was then awakened and taken to the recovery room in good condition. There were no complications during this procedure. Grafts/Implants Used: none Complications none Admit VTE Documentation VTE Present on Admission: Yes VTE Mechan Device Prophylaxis: SCD's VTE Pharm Prophylaxis ordered?: No Reason prophylaxis not ordered:: Treatment Not Indicated
[2021-04-16 08:15] VITALS: BP 123/81; BP 98/47; PULSE 70; RESP 16; TEMP 36.3; O2SAT 98
--- NOTE | 2021-04-16 08:15 | HP.PCM_ITS ---
HPI - General HPI Narrative LANA BUCK, is a 81 F who presents for removal of an InterStim lead and lead extension secondary to it not working. REPLACED BY [facility] Medical History Anxiety Arthritis Atrial fibrillation Back pain Bladder disease Depression Difficulty swallowing Easy bruising Foreign body Frequency of micturition High cholesterol History of hiatal hernia History of Holter monitoring History of stress test Hx of echocardiogram Injury of head and neck Nocturia Non-smoker Restless legs Shortness of breath on exertion TIA (transient ischemic attack) Urge incontinence Urgency of micturition Wears glasses Wears hearing aid Home Medications carboxymethylcellulose sodium 15 ml OP BID 10/16/20 [History Last Taken 10/16/20 09:00] escitalopram oxalate 20 mg PO QHS 10/16/20 [History Last Taken Unknown] ibandronate 150 mg PO QMONTH 10/16/20 [History Last Taken Unknown] multivitamin 1 ea PO DAILY 10/16/20 [History Last Taken Unknown] vitamins A,C,A-kpva-bsmusq 1 ea PO DAILY 10/16/20 [History Last Taken Unknown] aspirin 81 mg PO DAILY@0800 tab.chew 10/17/20 [Rx Last Taken Unknown] mirtazapine 7.5 mg tablet 7.5 mg PO QHS tab 11/15/20 [History Last Taken Unknown] rosuvastatin 20 mg tablet 20 mg PO QHS tab 01/02/21 [History Last Taken Unknown] fexofenadine 180 mg tablet 180 mg PO DAILY 02/12/21 [History Last Taken Unknown] flaxseed oil 1,000 mg capsule 1,000 mg PO DAILY 02/12/21 [History Last Taken Unknown] buspirone 5 mg PO DAILY 03/25/21 [History Last Taken Unknown] cholecalciferol (vitamin D3) [Vitamin D3] 50 mcg PO DAILY 03/25/21 [History Last Taken Unknown] acetaminophen-codeine 1 - 2 tab PO Q6H PRN PRN 3 Days #10 tablet 04/01/21 [Rx Last Taken Unknown] cephalexin 500 mg PO Q12 3 Days #6 capsule 04/16/21 [Rx Last Taken Unknown] Allergy/AdvReac Type Severity Reaction Status Date / Time No Known Allergies Allergy Verified 04/16/21 05:53 Family History Daughter Schizophrenia Grandmother CVA (cerebral vascular accident) Father Myocardial infarction Sister CVA (cerebral vascular accident) Surgical History H/O cervical spine surgery History of appendectomy History of bilateral hip replacements History of cholecystectomy History of tonsillectomy History of total hysterectomy with bilateral salpingo-oophorectomy (BSO) Hx of breast biopsy Hx of colonoscopy Social History Smoking Status: Never smoker Electronic Cigarette Use: not used alcohol intake: former substance use type: does not use ROS Constitutional Constitutional: Denies change in weight, chills, fever(s), headache(s) or weakness Eyes Eyes: Denies change in vision, discharge from eye(s) or eye pain ENT HEENT: Denies loss taste/smell, mouth lesions or mouth pain Cardiovascular Cardiovascular: Denies abdominal pain, chest pain, dyspnea or fatigue Respiratory/Chest Respiratory/Chest: Denies chest congestion, chest tightness, cough or dyspnea Gastrointestinal Gastrointestinal: Denies change in bowel habits, fecal incontinence, hematemesis, loose stools, nausea or vomiting Genitourinary Genitourinary: Reports nocturia, urinary incontinence and urinary urgency; Denies abdominal discomfort, burning urination, genital pain, hematuria or low back pain Musculoskeletal Musculoskeletal: Denies abnormal gait Integumentary Integumentary: Denies pruritus, rash, skin ulcer, unusual bruising or wounds Neurologic Neurologic: Denies abnormal gait, abnormal hearing, abnormal movements, abnormal speech or behavior changes Psychiatric Psychiatric: Reports abnormal sleep pattern, anxiety and depression Hematologic/Lymphatic Hematologic/Lymphatic: Denies anemia, easy bleeding or easy bruising Vital Signs Vital Signs Vital Signs: 04/16/21 05:55 04/16/21 08:00 04/16/21 08:05 Temperature 97.1 F L 97.3 F L Temperature Source Temporal Temporal Pulse Rate 70 72 73 Respiratory Rate 16 16 16 Respiratory Pattern Normal Normal Blood Pressure 123/81 H 101/53 L 97/53 L Blood Pressure Mean 95 69 67 Blood Pressure Source Monitor Monitor Monitor Blood Pressure Position Semi-Fowlers Semi-Fowlers Semi-Fowlers Blood Pressure Location Right Arm Right Arm Right Arm Baseline BP 123/81 123/81 Pulse Ox 96 94 95 Oxygen Delivery Method Room Air Room Air Room Air 04/16/21 08:10 Temperature Temperature Source Pulse Rate 71 Respiratory Rate 16 Respiratory Pattern Blood Pressure 100/48 L Blood Pressure Mean 65 Blood Pressure Source Monitor Blood Pressure Position Semi-Fowlers Blood Pressure Location Right Arm Baseline BP 123/81 Pulse Ox 94 Oxygen Delivery Method Room Air Weight Weight: 58.8 kg Body Mass Index (BMI) 23.7 Physical Exam Const alert, oriented x3 and no apparent distress HEENT normocephalic, head/scalp atraumatic, hearing grossly normal bilaterally, external ears normal, external nose normal, moist oral mucous membranes, dentition normal and gingiva normal Neck supple General: normal visual inspection and trachea midline Lymph Lymphatic: no lymphedema noted Chest inspection of chest normal Resp normal respiratory effort, normal air movement, no retractions and no use of accessory muscles Effort and Inspection: able to speak in complete sentences and symmetric chest movement Cardio regular rate and regular rhythm GI soft to palpation, non-tender and non-distended no CVA tenderness and external exam normal Back/Spine no CVA tenderness and normal to inspection Extremity normal to inspection, no calf tenderness and no pedal edema Skin no rashes or lesions noted, no wounds, skin turgor normal, no jaundice, no pet echiae and no mottling Neuro oriented x3, CN's II-XII intact bilaterally, moves all extremities and gait normal Psych mental status grossly normal, thought process normal and cooperative Mood & Affect: anxious Assessment & Plan Assessment/Plan (1) Frequency of micturition: PLAN: removal Interstim Lead and lead extension (2) Nocturia: (3) Urgency of micturition: Procedure Criteria Type of Procedure Procedure Type: Elective Elective Risks - COVID COVID Risk Discussion: The surgeon/proceduralist and patient have discussed in detail the risk of exposure to and/or potential harm posed by the COVID-19 virus with having a surgery/procedure at this time versus the risk of delaying the surgery/procedure. It is not possible to know either the risk of delaying the surgery or procedure or chance of getting an infection with perfect accuracy, but a joint decision was made between the patient and the surgeon/proceduralist to proceed at this time with the scheduled surgery/procedure as indicated on the consent form.
[2021-04-16 09:09] VITALS: BP 123/81
== END 2021-04-16 09:22 | disposition home or self-care (01) ==
LOC: SDC 05:18 → AC 05:18
PROVIDERS: PCP Family Medicine; Referring Provider Urology; Visit Provider Urology
PROC: (CPT 64585; principal; 2021-04-16 07:20)
DX: R35.0 Frequency of micturition (principal); R35.1 Nocturia; N39.41 Urge incontinence; I48.91 Unspecified atrial fibrillation; E78.00 Pure hypercholesterolemia, unspecified; G25.81 Restless legs syndrome; F32.9 Major depressive disorder, single episode, unspecified; F41.9 Anxiety disorder, unspecified; Z79.82 Long term (current) use of aspirin; Z79.899 Other long term (current) drug therapy; Z86.73 Personal history of transient ischemic attack (TIA), and cerebral infarction 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 deficits
CPT/HCPCS: 00300; 64585; J7120

== ENCOUNTER → 2021-09-15 11:24 | Outpatient (CLI) | payer MEDICARE, BC, SELFPAY ==
[2021-09-15 15:10] LABS: Hematocrit 39.6 % (37-47); Hemoglobin 13.2 g/dL (12.0-15.0); Mean Corp Hgb Conc 33.3 g/dL (32-36); Mean Platelet Vol. 10.8 fl (6.2-12.0); Platelet Count 201 K/mm3 (150-450); RBC Distribution Width CV 12.5 % (11.6-14.6); RBC Distribution Width SD 45.4 fl (35.1-43.9); White Blood Count 5.2 K/mm3 (4.4-11.0)
[2021-09-15 15:28] LABS: Vitamin B12 625 pg/mL (211-911); Vitamin D,25 Hydroxy 49.7 ng/mL
[2021-09-15 15:33] LABS: ALB/GLOB Ratio 0.7 RATIO (0.9-2.4); AST(SGOT) 17 U/L (15-37); Alanine Aminotransfer ALT/SGPT 19 U/L (13-56); Alkaline Phosphatase 80 U/L (45-117); BUN 9 mg/dL (7-18); Calcium,Total 8.7 mg/dL (8.5-10.1); Chloride 104 mmol/L (98-107); Creatinine, Serum 0.64 mg/dL (0.55-1.02); EST Glomerular Filtration Rate 93 mL/min (>60); Est Glom Filt Rate - Afr Amer 113 mL/min (>60); Globulin 4.3 g/dL (2.2-4.2); Glucose 78 mg/dL (74-106); Protein, Total 7.3 g/dL (6.4-8.2); Sodium Level 138 mmol/L (136-145)
[2021-09-15 15:34] LABS: Anion Gap 5 (5-15); Iron 70 ug/dL (50-170); Thyroid Stim Hormone (TSH) 1.23 uIU/mL (0.358-3.74)
== END ==
PROVIDERS: PCP Family Medicine; Visit Provider Family Medicine
DX: R53.83 Other fatigue (principal)
CPT/HCPCS: 36415; 80053; 82306; 82607; 83540; 84443; 85027

== ENCOUNTER 2022-01-07 11:34 | Outpatient (CLI) | payer MEDICARE, BC, SELFPAY ==
--- NOTE | 2022-01-07 11:37 | RAD_ITS ---
PROCEDURE: Fluoroscopic guided left shoulder Injection DATE: 01/07/2022. INDICATION: Female, 81 years old. Chronic left shoulder pain. PHYSICIAN: Danny Kaur M.D. MEDICATIONS: 12 mg of BETAMETHASONE and 4 cc of 1% LIDOCAINE. 2% Lidocaine administered subcutaneously for local anesthesia. ACCESS SITE: Left shoulder. NEEDLE: 22-gauge spinal needle. FLUOROSCOPY TIME (if supplied): (0:47) minutes/seconds. One image was obtained. FINDINGS: The risks, benefits, and alternatives to the procedure were explained to the patient. The specific risks of bleeding, infection, and neurovascular injury were detailed and accepted. Witnessed informed consent was obtained. A 22-gauge spinal needle was positioned under radiographic fluoroscopic localization. Approximately 2 cc of ISOVUE-300 instilled for localization purposes. Medication was then injected. The patient tolerated the procedure well without any immediate complications. RAD/Inj/Asp [place] Jt Should/Hip/Knee IMPRESSION: 1. Successful fluoroscopic guided left shoulder injection. Electronically Signed: Danny Kaur MD at 12:34 EDT ,
[2022-01-07] MEDS: Lidocaine 2% (5ml sdv) 5 ML VIAL.MPF (12:00)
[2022-01-07] MEDS: Betamethasone/Betamethasone 30 MG/5 ML Vial 12 MG INTRAARTIC (12:03)
[2022-01-07] MEDS: Lidocaine 1% (5 ml sdv) 5 ML Vial 4 ML OPERA.SITE (12:03)
== END 2022-01-07 23:59 | disposition home or self-care (01) ==
LOC: RAD 11:35
PROVIDERS: PCP Family Medicine; Referring Provider Specialist; Visit Provider Specialist
DX: M19.012 Primary osteoarthritis, left shoulder (principal)
CPT/HCPCS: 20610; 77002; Q9967; J0702

== ENCOUNTER 2022-01-30 10:39 | Outpatient (CLI) | payer MEDICARE, BC, SELFPAY ==
--- NOTE | 2022-01-30 10:52 | ART_ITS ---
Reason For Study: Restless leg Procedure A bilateral lower extremity continuous wave Doppler with analog waveform analysis and ankle brachial indexes. Left Segmental Pressures Left brachial= 152mmHg. Left posterior tibial artery = 161mmHg. Left dorsalis pedis artery = 167mmHg. Left digit = 122 mmHg. The left dorsalis pedis waveforms are triphasic. The left posterior tibial artery waveforms are triphasic. Right Segmental Pressures Right brachial= 151mmHg. Right posterior tibial artery = 164mmHg. Right dorsalis pedis artery = 154mmHg. Right digit = 132 mmHg. The right dorsalis pedis waveforms are triphasic. The right posterior tibial artery waveforms are triphasic. Indices The right ankle brachial index by the dorsalis pedis is 1.01. The right ankle brachial index by the posterior tibial artery is 1.08. The right digital-brachial index is 0.87. The left ankle brachial index by the dorsalis pedis is 1.10. The left ankle brachial index by the posterior tibial artery is 1.06. The left digital-brachial index is 0.80. VL/Ankle Brachial Index Interpretation Summary Triphasic Doppler waveforms are noted at ankle level bilaterally. Pulse-volume recordings appear satisfactory at ankle and digital levels bilaterally. Resting ankle-brachial in dices are normal bilaterally. Digital-brachial indices are normal bilaterally. There is no evidence of significant arterial occlusive disease in the lower ext remities bilaterally. Ordering Physician: Yg Khan Referring Physician: Yg Khan Performed By: Wen Burgos RVT
== END 2022-01-30 23:59 | disposition home or self-care (01) ==
LOC: CVS 10:42
PROVIDERS: PCP Family Medicine; Referring Provider Family Medicine; Visit Provider Family Medicine
DX: I79.8 Other disorders of arteries, arterioles and capillaries in diseases classified elsewhere (principal); G25.81 Restless legs syndrome
CPT/HCPCS: 93922

== ENCOUNTER 2022-03-17 12:02 | Outpatient (CLI) | payer MEDICARE, BC, SELFPAY ==
[2022-03-17 15:16] LABS: Iron 78 ug/dL (50-170)
== END 2022-03-17 23:59 | disposition home or self-care (01) ==
LOC: MFPLAB 12:04
PROVIDERS: PCP Family Medicine; Visit Provider Family Medicine
DX: G25.81 Restless legs syndrome (principal)
CPT/HCPCS: 36415; 83540

== ENCOUNTER → 2022-04-01 | Outpatient (CLI) | payer MEDICARE, BC, SELFPAY ==
[2022-04-01 09:59] LABS: Basophil# 0.03 X10^3/uL; Basophil% 0.8 % (0-1); Eosinophils% 2.8 % (0-5); Hematocrit 41.2 % (37-47); Hemoglobin 13.8 g/dL (12.0-15.0); Lymphocyte % 30.3 % (19-41); Mean Corp Hgb Conc 33.5 g/dL (32-36); Mean Corpuscular Hgb 33.6 pg (27.0-32.0); Mean Corpuscular Volume 100.2 fL (81-99); Mean Platelet Vol. 10.6 fl (6.2-12.0); Monocyte# 0.37 X10^3/uL; Monocyte% 10.2 % (0-10); NRBC Flagged by Analyzer 0 % (0-5); Neutrophil # 2.02 X10^3/uL (2.7-7.7); Neutrophil % 55.6 % (47-70); Platelet Count 193 K/mm3 (150-450); RBC Distribution Width CV 12.5 % (11.6-14.6); RBC Distribution Width SD 46.6 fl (35.1-43.9); Red Blood Count 4.11 M/mm3 (4.2-5.4); White Blood Count 3.6 K/mm3 (4.4-11.0)
[2022-04-01 10:35] LABS: ALB/GLOB Ratio 0.9 RATIO (0.9-2.4); AST(SGOT) 21 U/L (15-37); Alanine Aminotransfer ALT/SGPT 23 U/L (13-56); Albumin, Serum 3.3 g/dL (3.2-5.0); Alkaline Phosphatase 68 U/L (45-117); Anion Gap 7 (5-15); BUN 9 mg/dL (7-18); BUN/Creat Ratio 14.5 RATIO (10-20); Calcium,Total 8.6 mg/dL (8.5-10.1); Chloride 105 mmol/L (98-107); Cholesterol 146 mg/dL (200); Creatinine, Serum 0.62 mg/dL (0.55-1.02); EST Glomerular Filtration Rate 97 mL/min (>60); Est Glom Filt Rate - Afr Amer 118 mL/min (>60); Globulin 3.7 g/dL (2.2-4.2); Glucose 91 mg/dL (74-106); High Density Lipoprotein 71 mg/dL; Potassium 4.1 mmol/L (3.5-5.1); Sodium Level 137 mmol/L (136-145); Thyroid Stim Hormone (TSH) 1.61 uIU/mL (0.358-3.74); Triglycerides 44 mg/dL; Very Low Density Lipoprotein 9 mg/dL (5-40)
[2022-04-01 10:36] LABS: Vitamin B12 1955 pg/mL (211-911)
== END | disposition home or self-care (01) ==
LOC: MFPLAB 08:31
PROVIDERS: PCP Family Medicine; Referring Provider Family Medicine; Visit Provider Family Medicine
DX: E53.8 Deficiency of other specified B group vitamins (principal); E78.5 Hyperlipidemia, unspecified; R53.83 Other fatigue
CPT/HCPCS: 36415; 80053; 80061; 82607; 84443; 85025

== ENCOUNTER → 2022-06-25 | Outpatient (CLI) | payer MEDICARE, BC, SELFPAY ==
--- NOTE | 2022-06-25 09:35 | RAD_ITS ---
STUDY: X-RAY - ESOPHAGUS (BARIUM SWALLOW) WITH FLUOROSCOPY REASON FOR EXAM: Female, 82 years old. DYSPHAGIA TECHNIQUE: 18 view(s) of the esophagus were obtained following swallowing of barium. FLUOROSCOPY TIME (if supplied): (36 seconds) minutes/seconds COMPARISON: None. FINDINGS: There is no demonstrated esophageal foreign body. There is no demonstrated stricture or mucosal abnormality. Normal gastroesophageal junction, without a demonstrated hiatal hernia. The patient ingested a 12 mm tablet that barium without any difficulty. There is atherosclerotic tortuosity of the aortic arch and descending thoracic aorta. Normal visualized pulmonary parenchyma. Normal visualized osseous structures of the thorax. RAD/Esophagus Dual Contrast IMPRESSION: Normal plain film x-ray examination (barium swallow) of the esophagus. Electronically Signed: Danny Kaur MD at 14:35 EDT ,
== END | disposition home or self-care (01) ==
LOC: RAD 09:02
PROVIDERS: PCP Family Medicine; Referring Provider Family Medicine; Visit Provider Family Medicine
DX: R13.10 Dysphagia, unspecified (principal)
CPT/HCPCS: 74221

== ENCOUNTER → 2022-07-16 | Outpatient (CLI) | payer MEDICARE, BC, SELFPAY ==
--- NOTE | 2022-07-16 09:41 | BI_ITS ---
MAMMOGRAPHY - BILATERAL SCREENING REASON FOR EXAM: Female, 82 years old. Routine annual screening examination. PERTINENT HISTORY: Non-contributory. Prior bilateral excisional breast biopsies. TECHNIQUE: Digital bilateral breast evon (3D mammographic acquisition) in the CC and MLO projections. 2-D mediolateral oblique (MLO) and craniocaudad (CC) views of both breasts were obtained. CAD: Full Field Digital Mammography with Computer Added Detection was performed. COMPARISON: Comparison is made with prior outside examination dated 09/28/2019 FINDINGS: Breast Composition: The breasts are heterogeneously dense, which may obscure small masses. There are no dominant masses or suspicious calcifications. Scattered calcifications in the upper outer quadrant of the left breast. No other significant abnormalities are identified. There has been no significant change since the prior study. BI/SCRN MAMM (CAD)W/EVON BILAT IMPRESSION: Stable bilateral screening mammogram. Yearly follow-up mammogram recommended. (A) ASSESSMENT CATEGORY: BIRADS Category 2: Benign. A letter regarding these results will be sent to the patient by the facility within 30 days. Approximately 10% of breast cancers are not detected by mammography. A normal mammogram should not delay biopsy of a clinically suspicious abnormality. [id number] Electronically Signed: Danny Kaur MD at 14:46 EDT ,
--- NOTE | 2022-07-16 10:23 | BD_ITS ---
STUDY: DUAL ENERGY X-RAY ABSORPTIOMETRY / DXA REASON FOR EXAM: Female, 82 years old. [id number] TECHNIQUE: Bone Mineral Density (BMD) measurements of lumbar spine and left forearm were obtained. COMPARISON: None. FINDINGS: Lumbar Spine (L1-L4): g/cm2 (0.761) / T-score (-2.6) / Z-score (0.2) Findings are suggestive of osteoporosis with a high fracture risk. Left Forearm: g/cm2 (0.307) / T-score (-5.0) / Z-score (-1.5) BD/Dexa Bone Density Study IMPRESSION: The patient is considered osteoporotic as outlined below according to World Deshawn Organization (WHO) criteria with a high fracture risk. Reference Information: The T-score is the number of standard deviations above or below the standard which is normal for young adults at their peak bone mineral density. The World Health Organization (WHO) interprets the T-scores as follows: Above -1 Normal bone density Between -1 and -2.5 Osteopenia Equal to / or below -2.5 Osteoporosis As a practical clinical guideline, osteopenia may be graded as follows: Mild -1 through -1.5 Moderate -1.6 through -2.0 Severe -2.1 through -2.4 The Z-score is the number of standard deviations above or below age-matched controls. A Z-score of less than -1.5 would be considered abnormal. References: 1. NIH Osteoporosis and Related Bone Diseases www osteo.org 2. International Society for Clinical Densitometry www iscd.org 3. National Osteoporosis Foundation www nof.org Electronically Signed: Danny Kaur MD at 11:12 EDT ,
== END | disposition home or self-care (01) ==
LOC: OPBD 09:39
PROVIDERS: PCP Family Medicine; Visit Provider Family Medicine
DX: N95.9 Unspecified menopausal and perimenopausal disorder (principal); Z12.31 Encounter for screening mammogram for malignant neoplasm of breast
CPT/HCPCS: 77063; 77067; 77080

== ENCOUNTER → 2022-07-20 | Outpatient (CLI) | payer MEDICARE, BC, SELFPAY ==
[2022-07-20 18:24] LABS: Vitamin D,25 Hydroxy 54.6 ng/mL
[2022-07-20 18:34] LABS: Anion Gap 5 (5-15); BUN 11 mg/dL (7-18); BUN/Creat Ratio 17.1 RATIO (10-20); Calcium,Total 9.3 mg/dL (8.5-10.1); Chloride 105 mmol/L (98-107); Creatinine, Serum 0.64 mg/dL (0.55-1.02); EST Glomerular Filtration Rate 93 mL/min (>60); Est Glom Filt Rate - Afr Amer 113 mL/min (>60); Glucose 63 mg/dL (74-106); Phosphorus 3.4 mg/dL (2.5-4.9); Potassium 3.9 mmol/L (3.5-5.1); Sodium Level 139 mmol/L (136-145); Thyroid Stim Hormone (TSH) 1.43 uIU/mL (0.358-3.74)
[2022-07-21 07:46] LABS: PTHIN 27.4 pg/mL (18.4-80.1)
== END | disposition home or self-care (01) ==
LOC: MFPLAB 11:55
PROVIDERS: PCP Family Medicine; Visit Provider Family Medicine
DX: M81.0 Age-related osteoporosis without current pathological fracture (principal); E78.5 Hyperlipidemia, unspecified
CPT/HCPCS: 36415; 80048; 82306; 82330; 83970; 84100; 84443

== ENCOUNTER → 2022-12-21 | Outpatient (CLI) | payer MEDICARE, BC, SELFPAY ==
--- NOTE | 2022-12-21 11:38 | RAD_ITS ---
STUDY: X-RAY - ABDOMEN/PELVIS REASON FOR EXAM: Female, 82 years old. Constipation. TECHNIQUE: AP supine and upright views of the abdomen and pelvis on 3 images. COMPARISON: Abdomen and pelvic CT dated March 2017. FINDINGS: Normal visualized lung bases. Normal bowel gas pattern with air seen to the rectum. Moderate amount feces in the colon. There is no demonstrated free abdominal air. The visualized liver, spleen and kidneys are grossly normal in size and morphology. Cholecystectomy clips. Bilateral uncomplicated total hip arthroplasties. RAD/Abd Inc Decub and/or Erect IMPRESSION: Moderate amount of feces in the colon. No acute abnormality of the lower chest, abdomen or pelvis. Electronically Signed: Phil Butler, at 14:33 EST ,
== END | disposition home or self-care (01) ==
PROVIDERS: PCP Family Medicine; Referring Provider Family Medicine; Visit Provider Family Medicine
DX: K59.00 Constipation, unspecified (principal)
CPT/HCPCS: 74019

== ENCOUNTER → 2023-02-10 | Outpatient (CLI) | payer MEDICARE, BC, SELFPAY ==
[2023-02-10 16:08] LABS: Anion Gap 4 (5-15); BUN 13 mg/dL (7-18); BUN/Creat Ratio 19.8 RATIO (10-20); Calcium,Total 9.1 mg/dL (8.5-10.1); Chloride 104 mmol/L (98-107); Cholesterol 144 mg/dL (200); Creatinine, Serum 0.66 mg/dL (0.55-1.02); EST Glomerular Filtration Rate 91 mL/min (>60); Est Glom Filt Rate - Afr Amer 110 mL/min (>60); Ferritin 125 ng/mL (8-252); Glucose 164 mg/dL (74-106); High Density Lipoprotein 73 mg/dL; Potassium 4.1 mmol/L (3.5-5.1); Sodium Level 134 mmol/L (136-145); Triglycerides 72 mg/dL; Very Low Density Lipoprotein 14 mg/dL (5-40)
[2023-02-11 08:34] LABS: Vitamin B12 485 pg/mL (211-911)
== END | disposition home or self-care (01) ==
LOC: MTLAB 12:35
PROVIDERS: PCP Family Medicine; Referring Provider Internal Medicine Pulmonary Disease; Visit Provider Internal Medicine Pulmonary Disease
DX: R53.83 Other fatigue (principal); G25.81 Restless legs syndrome; R73.09 Other abnormal glucose; E78.5 Hyperlipidemia, unspecified
CPT/HCPCS: 36415; 80048; 80061; 82607; 82728; 83036

== ENCOUNTER → 2023-02-15 | Outpatient (CLI) | payer MEDICARE, BC, SELFPAY ==
[2023-02-15 10:42] LABS: Hemoglobin A1c 5.4 % (3.8-5.6)
== END | disposition home or self-care (01) ==
LOC: MTLAB 08:32
PROVIDERS: PCP Family Medicine; Referring Provider Family Medicine; Visit Provider Family Medicine
DX: R73.09 Other abnormal glucose (principal)
CPT/HCPCS: 36415; 83036

== ENCOUNTER → 2023-06-02 | Outpatient (CLI) | payer MEDICARE, BC, SELFPAY ==
[2023-06-02 17:33] LABS: Absolute Lymphocyte Count 1.66 X10^3/uL (0.83-4.51); Absolute Neutrophil Count 2.4 X10^3/uL (2.0-7.7); Basophil# 0.04 X10^3/uL; Basophil% 0.9 % (0-1); Eosinophils% 2.1 % (0-5); Lymphocyte # 1.66 X10^3/ul (0.83-4.51); Lymphocyte % 35.3 % (19-41); Mean Corp Hgb Conc 33.3 g/dL (32-36); Mean Corpuscular Hgb 33.6 pg (27.0-32.0); Mean Corpuscular Volume 100.7 fL (81-99); Mean Platelet Vol. 10.9 fl (6.2-12.0); Monocyte# 0.48 X10^3/uL; Monocyte% 10.2 % (0-10); NRBC Flagged by Analyzer 0 % (0-5); Neutrophil # 2.41 X10^3/uL (2.7-7.7); Neutrophil % 51.3 % (47-70); Platelet Count 199 K/mm3 (150-450); RBC Distribution Width CV 12.3 % (11.6-14.6); RBC Distribution Width SD 46.3 fl (35.1-43.9); Red Blood Count 4.17 M/mm3 (4.2-5.4); White Blood Count 4.7 K/mm3 (4.4-11.0)
[2023-06-02 17:46] LABS: Vitamin B12 531 pg/mL (211-911); Vitamin D,25 Hydroxy 77.5 ng/mL
[2023-06-02 17:53] LABS: Anion Gap 5 (5-15); BUN 11 mg/dL (7-18); BUN/Creat Ratio 14.7 RATIO (10-20); Calcium,Total 9.3 mg/dL (8.5-10.1); Chloride 101 mmol/L (98-107); Creatinine, Serum 0.75 mg/dL (0.55-1.02); EST Glomerular Filtration Rate 79 mL/min (>60); Est Glom Filt Rate - Afr Amer 95 mL/min (>60); Glucose 90 mg/dL (74-106); Potassium 4.1 mmol/L (3.5-5.1); Sodium Level 134 mmol/L (136-145)
== END | disposition home or self-care (01) ==
LOC: MFPLAB 14:49
PROVIDERS: PCP Family Medicine; Visit Provider Family Medicine
DX: R00.2 Palpitations (principal); R53.83 Other fatigue; M81.0 Age-related osteoporosis without current pathological fracture
CPT/HCPCS: 36415; 80048; 82306; 82533; 82607; 84443; 85025

== ENCOUNTER → 2023-06-24 | Outpatient (CLI) | payer MEDICARE, BC, SELFPAY ==
--- NOTE | 2023-06-24 12:47 | CT_ITS ---
STUDY: CT MAXILLOFACIAL SINUSES REASON FOR EXAM: Female, 83 years old. Anosmia, dysgeusia RADIATION DOSAGE (If Supplied By Facility): CTDIvol = ( 33.06 ) mGy, DLP = ( 809.06 ) mGycm TECHNIQUE: The patient was scanned in a multi detector CT scanner. High resolution axial imaging was performed without the administration of intravenous contrast material. Sagittal and coronal images were reconstructed. Individualized dose optimization techniques were used for this CT. COMPARISON: None. FINDINGS: FRONTAL SINUSES: Normal aeration, without mucosal inflammatory disease. ETHMOIDAL SINUSES: Mucosal thickening of the ethmoid sinus. There is a 5.8 mm x 9.1 mm osteoma along the lateral aspect of the right ethmoid sinus. MAXILLARY SINUSES: Small air-fluid level seen in the posterior aspect of the right maxillary sinus. SPHENOIDAL SINUSES: Normal aeration, without mucosal inflammatory disease. There is patency of the bilateral maxillary infundibuli with normal uncinate processes, ethmoid bullae, and hiatus semilunaris. Normal bilateral middle turbinates. Normal bilateral inferior turbinates. Normal midline nasal septum. There is patency of the bilateral nasal airways. The visualized osseous structures are normal. The visualized bilateral orbital contents are normal. CT/Sinus/Facial Bone IMPRESSION: Mucosal thickening of the ethmoid sinuses as well as a small air-fluid level in the right maxillary sinus. 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 Electronically Signed: Danny Kaur MD at 15:22 EDT ,
== END | disposition home or self-care (01) ==
LOC: CT 12:46
PROVIDERS: PCP Family Medicine; Referring Provider Psychiatry & Neurology Neurology; Visit Provider Psychiatry & Neurology Neurology
DX: R43.0 Anosmia (principal); R43.2 Parageusia
CPT/HCPCS: 70486

== ENCOUNTER → 2023-07-20 | Outpatient (CLI) | payer MEDICARE, BC, SELFPAY ==
--- NOTE | 2023-07-20 12:19 | BI_ITS ---
MAMMOGRAPHY - BILATERAL SCREENING REASON FOR EXAM: Female, 83 years old. Routine annual screening examination. PERTINENT HISTORY: Non-contributory. Remote bilateral excisional breast biopsies. TECHNIQUE: Digital bilateral breast evon (3D mammographic acquisition) in the CC and MLO projections. 2-D mediolateral oblique (MLO) and craniocaudad (CC) views of both breasts were obtained. CAD: Full Field Digital Mammography with Computer Added Detection was performed. COMPARISON: Comparison is made with prior study dated July 16, 2022. FINDINGS: Breast Composition: The breasts are heterogeneously dense, which may obscure small masses. There are no dominant masses or suspicious calcifications. Stable scattered calcifications in the upper outer quadrant of the left breast. No other significant abnormalities are identified. There has been no significant change since the prior study. BI/SCRN MAMM (CAD)W/EVON BILAT IMPRESSION: Stable bilateral screening mammogram. Yearly follow-up mammogram recommended. (A) ASSESSMENT CATEGORY: BIRADS Category 2: Benign. A letter regarding these results will be sent to the patient by the facility within 30 days. Approximately 10% of breast cancers are not detected by mammography. A normal mammogram should not delay biopsy of a clinically suspicious abnormality. [id number] Electronically Signed: Danny Kaur MD at 14:00 EDT ,
== END | disposition home or self-care (01) ==
LOC: OPBI 12:18
PROVIDERS: PCP Family Medicine; Referring Provider Family Medicine; Visit Provider Family Medicine
DX: Z12.31 Encounter for screening mammogram for malignant neoplasm of breast (principal)
CPT/HCPCS: 77063; 77067

== ENCOUNTER → 2023-08-23 | Outpatient (CLI) | payer MEDICARE, BC, SELFPAY ==
[2023-08-23 14:08] LABS: Iron 68 ug/dL (50-170); Iron Binding Capacity,Total 280 ug/dL (250-450); PERCENT IRON SATURATION 24.3 % (15.0-55.0)
== END | disposition home or self-care (01) ==
LOC: LAB 13:12
PROVIDERS: PCP Family Medicine; Referring Provider Internal Medicine Pulmonary Disease; Visit Provider Internal Medicine Pulmonary Disease
DX: G25.81 Restless legs syndrome (principal)
CPT/HCPCS: 36415; 83540; 83550

== ENCOUNTER 2024-01-03 12:07 | Outpatient (CLI) | payer MEDICARE, BC, SELFPAY ==
[2024-01-03 16:32] LABS: PTHIN 31.9 pg/mL (18.4-80.1)
[2024-01-03 16:41] LABS: Vitamin D,25 Hydroxy 64.4 ng/mL
[2024-01-03 17:02] LABS: Anion Gap 4 (5-15); BUN 11 mg/dL (7-18); Calcium,Total 9.1 mg/dL (8.5-10.1); Chloride 103 mmol/L (98-107); Creatinine, Serum 0.73 mg/dL (0.55-1.02); EST Glomerular Filtration Rate 80 mL/min (>60); Est Glom Filt Rate - Afr Amer 97 mL/min (>60); Ferritin 116 ng/mL (8-252); Glucose 84 mg/dL (74-106); Iron 62 ug/dL (50-170); Iron Binding Capacity,Total 292 ug/dL (250-450); Magnesium 2.4 mg/dL (1.6-2.6); Phosphorus 2.9 mg/dL (2.5-4.9); Potassium 4.1 mmol/L (3.5-5.1); Sodium Level 138 mmol/L (136-145); Thyroid Stim Hormone (TSH) 1.21 uIU/mL (0.358-3.74)
== END 2024-01-03 23:59 | disposition home or self-care (01) ==
LOC: MFPLAB 12:07
PROVIDERS: PCP Family Medicine; Visit Provider Family Medicine
DX: M81.0 Age-related osteoporosis without current pathological fracture (principal); G25.81 Restless legs syndrome; R03.0 Elevated blood-pressure reading, without diagnosis of hypertension; I10 Essential (primary) hypertension; E61.1 Iron deficiency
CPT/HCPCS: 36415; 80048; 82306; 82728; 83540; 83550; 83735; 83970; 84100; 84443

== ENCOUNTER → 2024-07-05 | Outpatient (CLI) | payer MEDICARE, BC, SELFPAY ==
[2024-07-05 15:25] LABS: Vitamin D,25 Hydroxy 54.7 ng/mL
[2024-07-05 15:37] LABS: Anion Gap 2 (5-15); BUN 10 mg/dL (7-18); BUN/Creat Ratio 14.1 RATIO (10-20); Calcium,Total 9.4 mg/dL (8.5-10.1); Chloride 104 mmol/L (98-107); Cholesterol 168 mg/dL (200); Creatinine, Serum 0.71 mg/dL (0.55-1.02); EST Glomerular Filtration Rate 83 mL/min (>60); Est Glom Filt Rate - Afr Amer 101 mL/min (>60); Glucose 78 mg/dL (74-106); High Density Lipoprotein 74 mg/dL; Magnesium 2.4 mg/dL (1.6-2.6); Potassium 4.3 mmol/L (3.5-5.1); Sodium Level 136 mmol/L (136-145); Triglycerides 68 mg/dL; Very Low Density Lipoprotein 14 mg/dL (5-40)
== END | disposition home or self-care (01) ==
LOC: MFPLAB 10:51
PROVIDERS: PCP Family Medicine; Visit Provider Family Medicine
DX: E78.5 Hyperlipidemia, unspecified (principal); M81.0 Age-related osteoporosis without current pathological fracture
CPT/HCPCS: 36415; 80048; 80061; 82306; 83735; 84443

== ENCOUNTER → 2024-07-28 | Outpatient (CLI) | payer MEDICARE, BC, SELFPAY ==
--- NOTE | 2024-07-28 08:46 | BD_ITS ---
STUDY: DUAL ENERGY X-RAY ABSORPTIOMETRY / DXA REASON FOR EXAM: Female, 84 years old. 733.00OsteoporosisBONE DENSITY REASON FOR EXAM TECHNIQUE: Bone Mineral Density (BMD) measurements of lumbar spine and left forearm were obtained. COMPARISON: Comparison is made with prior study dated July 16, 2022. FINDINGS: Lumbar Spine (L1-L4): g/cm2 (0.837) / T-score (-1.9) / Z-score (1.0) Findings are suggestive of normal bone density with a moderate fracture risk. Left Forearm: g/cm2 (0.309) / T-score (-5.0) / Z-score ( ) The T-Scores on the most recent prior examination were: Lumbar Spine (L1-L4): There has been improvement of bone density since the previous examination. BD/Dexa Bone Density Study IMPRESSION: The patient is considered osteoporotic as outlined below according to World Deshawn Organization (WHO) criteria with a high fracture risk. There has been worsening of bone density since the previous examination. Reference Information: The T-score is the number of standard deviations above or below the standard which is normal for young adults at their peak bone mineral density. The World Health Organization (WHO) interprets the T-scores as follows: Above -1 Normal bone density Between -1 and -2.5 Osteopenia Equal to / or below -2.5 Osteoporosis As a practical clinical guideline, osteopenia may be graded as follows: Mild -1 through -1.5 Moderate -1.6 through -2.0 Severe -2.1 through -2.4 The Z-score is the number of standard deviations above or below age-matched controls. A Z-score of less than -1.5 would be considered abnormal. References: 1. NIH Osteoporosis and Related Bone Diseases www osteo.org 2. International Society for Clinical Densitometry www iscd.org 3. National Osteoporosis Foundation www nof.org Electronically Signed: Danny Kaur MD at 13:01 EDT ,
== END | disposition home or self-care (01) ==
LOC: OPBD 08:46
PROVIDERS: PCP Family Medicine; Referring Provider Family Medicine; Visit Provider Family Medicine
DX: N95.9 Unspecified menopausal and perimenopausal disorder (principal)
CPT/HCPCS: 77080

== ENCOUNTER → 2025-01-01 | Outpatient (CLI) | payer MEDICARE, BC, SELFPAY ==
[2025-01-01 15:38] LABS: Hematocrit 37.5 % (37-47); Hemoglobin 12.3 g/dL (12.0-15.0); Mean Corp Hgb Conc 32.8 g/dL (32-36); Mean Corpuscular Hgb 32.6 pg (27.0-32.0); Mean Corpuscular Volume 99.5 fL (81-99); Mean Platelet Vol. 10.9 fl (6.2-12.0); Platelet Count 180 K/mm3 (150-450); RBC Distribution Width CV 12.8 % (11.6-14.6); RBC Distribution Width SD 46.8 fl (35.1-43.9); Red Blood Count 3.77 M/mm3 (4.2-5.4); White Blood Count 4.7 K/mm3 (4.4-11.0)
[2025-01-01 16:22] LABS: Ferritin 170 ng/mL (22-378); Iron 59 ug/dL (50-170)
== END | disposition home or self-care (01) ==
LOC: MTLAB 12:32
PROVIDERS: PCP Family Medicine; Referring Provider Psychiatry & Neurology Neurology; Visit Provider Psychiatry & Neurology Neurology
DX: Z86.2 Personal history of diseases of the blood and blood-forming organs and certain disorders involving the immune mechanism (principal); G31.84 Mild cognitive impairment of uncertain or unknown etiology
CPT/HCPCS: 36415; 82728; 83540; 85027

== ENCOUNTER → 2025-02-21 | Outpatient (CLI) | payer MEDICARE, BC, SELFPAY ==
[2025-02-21 12:54] LABS: Hematocrit 37.1 % (37-47); Hemoglobin 12.8 g/dL (12.0-15.0); Mean Corp Hgb Conc 34.5 g/dL (32-36); Mean Corpuscular Hgb 33.2 pg (27.0-32.0); Mean Corpuscular Volume 96.4 fL (81-99); Mean Platelet Vol. 10.6 fl (6.2-12.0); Platelet Count 163 K/mm3 (150-450); RBC Distribution Width CV 13.2 % (11.6-14.6); RBC Distribution Width SD 46.9 fl (35.1-43.9); Red Blood Count 3.85 M/mm3 (4.2-5.4); White Blood Count 6.2 K/mm3 (4.4-11.0)
[2025-02-21 13:38] LABS: Anion Gap 11 (5-15); BUN 11 mg/dL (4-19); BUN/Creat Ratio 18.4 RATIO (10-20); Calcium,Total 9.2 mg/dL (7.6-11.0); Chloride 103 mmol/L (98-108); Creatinine, Serum 0.61 mg/dL (0.70-1.20); EST Glomerular Filtration Rate 87 (>60); Glucose 84 mg/dL (70-99); Potassium 3.9 mmol/L (3.3-5.1); Sodium Level 137 mmol/L (133-145)
== END | disposition home or self-care (01) ==
LOC: MFPLAB 11:11
PROVIDERS: PCP Family Medicine; Referring Provider Family Medicine; Visit Provider Family Medicine
DX: I10 Essential (primary) hypertension (principal); E03.9 Hypothyroidism, unspecified
CPT/HCPCS: 36415; 80048; 84443; 85027

== ENCOUNTER → 2025-04-03 | Outpatient (CLI) | payer MEDICARE, BC, SELFPAY ==
[2025-04-03 12:37] LABS: Absolute Lymphocyte Count 1.51 X10^3/uL (0.83-4.51); Absolute Neutrophil Count 4.5 X10^3/uL (2.0-7.7); Basophil# 0.03 X10^3/uL; Basophil% 0.5 % (0-1); Eosinophil# 0.05 X10^3/uL; Eosinophils% 0.8 % (0-5); Hematocrit 40.8 % (37-47); Hemoglobin 13.7 g/dL (12.0-15.0); Lymphocyte # 1.51 X10^3/ul (0.83-4.51); Lymphocyte % 22.7 % (19-41); Mean Corp Hgb Conc 33.6 g/dL (32-36); Mean Corpuscular Volume 98.3 fL (81-99); Mean Platelet Vol. 10.3 fl (6.2-12.0); Monocyte# 0.58 X10^3/uL; Monocyte% 8.7 % (0-10); NRBC Flagged by Analyzer 0 % (0-5); Neutrophil # 4.46 X10^3/uL (2.7-7.7); Neutrophil % 66.8 % (47-70); Platelet Count 186 K/mm3 (150-450); RBC Distribution Width CV 12.9 % (11.6-14.6); RBC Distribution Width SD 46.1 fl (35.1-43.9); Red Blood Count 4.15 M/mm3 (4.2-5.4); White Blood Count 6.7 K/mm3 (4.4-11.0)
[2025-04-03 14:23] LABS: ALB/GLOB Ratio 1.3 RATIO (0.9-2.4); AST(SGOT) 26 U/L (<=31); Alanine Aminotransfer ALT/SGPT 31 U/L (<=34); Albumin, Serum 3.8 g/dL (3.4-4.8); Alkaline Phosphatase 73 U/L (35-104); Anion Gap 8 (5-15); BUN 9 mg/dL (4-19); BUN/Creat Ratio 12.9 RATIO (10-20); Calcium,Total 9.2 mg/dL (7.6-11.0); Carbon Dioxide 25.5 mmol/L (21.0-32.0); Chloride 103 mmol/L (98-108); Creatinine, Serum 0.71 mg/dL (0.70-1.20); EST Glomerular Filtration Rate 83 (>60); Globulin 2.9 g/dL (2.2-4.2); Glucose 86 mg/dL (70-99); Potassium 4.1 mmol/L (3.3-5.1); Protein, Total 6.6 g/dL (5.9-8.4); Sodium Level 136 mmol/L (133-145); Total Bilirubin 0.36 mg/dL (0.00-1.30)
== END | disposition home or self-care (01) ==
LOC: MTLAB 10:26
PROVIDERS: PCP Family Medicine
DX: K92.1 Melena (principal)
CPT/HCPCS: 36415; 80053; 85025

== ENCOUNTER → 2025-04-04 | Outpatient (CLI) | payer MEDICARE, BC, SELFPAY ==
--- OUTSIDE RECORDS SUMMARY | 2025-04-04 07:51 | XMS RPT_ITS | CCD ---
Author Organization [facility] Care Team Providers Care Lime Kiln Worker Name Role Phone Gume Emery PA-C Unavailable WSANurse Unavailable Unavailable Dr. Yg Khan Primary Care Provider [place] DIESEL LUBE TECH, DIESEL LUBE TECH-C Didi Attending Provider [place] DIESEL LUBE TECH, DIESEL LUBE TECH-C Didi Referring Provider Dr. Yg Khan Referring Provider Dr. Yg Khan Primary Care Provider [phone] [place] DIESEL LUBE TECH, DIESEL LUBE TECH-C Didi Attending Provider Dr. Yg Khan Primary Care Provider Dr. Yg Khan Referring Provider Dr. Westley Portillo Attending Provider Dr. Yg Khan Primary Care Provider [phone] Dr. Yg Khan Referring Provider Dr. Westley Portillo Attending Provider Dr. Yg Khan Primary Care Provider [phone] Dr. Yg Khan Referring Provider Dr. Westley Portillo Attending Provider Dr. Nahum Khan MD Primary Care Provider Dr. Nahum Khan MD Referring Provider Dr. Westley Portillo MD Attending Provider Dr. Westley Portillo MD Referring Provider Erin PATEL, Dr. Sidhu Attending Provider Nahum Khan Primary Care Unavailable Nahum Khan Attending Unavailable Nahum Khan Referring Unavailable Westley Portillo Attending Unavailable Nahum Khan Primary Care Unavailable Nahum Khan Primary Care Unavailable Nahum Khan Referring Unavailable Westley Portillo Attending Unavailable Nahum Khan Primary Care Unavailable Nahum Khan Referring Unavailable Nahum Khan Attending Unavailable Nahum Khan Primary Care Unavailable Westley Portillo Referring Unavailable Westley Portillo Attending Unavailable Nahum Khan Primary Care Unavailable Nahum Khan Referring Unavailable Nahum Khan Attending Unavailable Allergies Allergy Classification Reported Allergen(s) Allergy Type Date of Onset Reaction(s) Facility (1 source) Seasonal allergy; Translations: [SEASONAL] allergy to substance [facility] Work Phone: Medications Current Medications Medication Drug Class(es) Dates Sig (Normalized) Sig (Original) carboxymethylcellulose sodium 2.5 mg/ml ophthalmic solution (14 sources) Start: 10-16-20 Carboxymethylcellulose Sodium 15 ML drops Active 15 mL OP TWICE A DAY October 16, 2020 1:00am cholecalciferol 0.05 mg oral capsule (20 sources) Vitamin D Start: 01-13-20 take 1 capsule by mouth once daily Cholecalciferol (Vitamin D3) (Vitamin D3) 50 mcg (2,000 unit) capsule Active 25 ug PO DAILY January 12, 2022 1:07pm Start: 03-25-2021 End: 01-12-2022 take 1 capsule by mouth once daily Cholecalciferol (Vitamin D3) (Vitamin D3) 50 mcg (2,000 unit) Capsule Discontinued 50 ug PO DAILY March 25, 2021 12:00am January 12, 2022 1:12pm Start: 08-29-2014 VITAMIN D 2000 UNIT TABS 1 tablet daily CHOLECALCIFEROL [id number] Stacy Segura LPN mirtazapine 7.5 mg oral tablet (20 sources) Start: 09-16-2021 take 3.75 mg by mouth at bedtime Mirtazapine 7.5 mg tablet Active 3.75 mg PO AT BEDTIME September 16, 2021 3:43pm Start: 09-16-2021 take 3.75 mg by mout h at bedtime Mirtazapine Active 3.75 MG PO AT BEDTIME September 16, 2021 3:43pm Start: 08-26-2019 End: 09-16-2021 take 1 tablet by mouth at bedtime Mirtazapine 7.5 mg tablet Discontinued 7.5 mg PO AT BEDTIME November 15, 2020 3:42pm September 16, 2021 3:44pm Multivitamin 1 EACH tablet (2 sources) Start: 10-16-2020 Multivitamin 1 EACH tablet Active 1 NMA PO DAILY October 16, 2020 1:00am Multivitamin preparation (12 sources) Start: 10-16-2020 Multivitamin A ctive 1 EACH PO DAILY October 16, 2020 3:29pm Start: 10-16-2020 Multivitamin A ctive 1 EACH PO DAILY October 16, 2020 12:00am Start: 10-16-2020 Multivitamin A ctive 1 EACH PO DAILY October 16, 2020 1:00am rOPINIRole 1 mg oral tablet (20 sources) Nonergot Dopamine Agonist Start: 01-12-2022 take 0.25 mg by mouth twice daily at bedtime Ropinirole 1 mg tablet Active 0.25 mg PO TWICE A DAY January 12, 2022 1:09pm administer 1-3 hours before bedtime Start: 01-12-2022 take 0.25 mg by mout h twice daily at bedtime Ropinirole Active 0.25 MG PO TWICE A DAY January 12, 2022 1:09pm administer 1-3 hours before bedtime Start: 09-16-2021 End: 01-12-2022 take 1 tablet by mouth at bedtime Ropinirole 1 mg tablet Discontinued 1 mg PO AT BEDTIME September 16, 2021 1:00am January 12, 2022 1:12pm administer 1-3 hours before bedtime rosuvastatin calcium 20 mg oral tablet (14 sources) HMG-CoA Reductase Inhibitor Start: 01-02-2021 take 1 tablet by mouth at bedtime Rosuvastatin 20 mg tablet Active 20 mg PO AT BEDTIME January 02, 2021 12:00am ubidecarenone 75 mg oral capsule (14 sources) Start: 01-12-2022 Coenzyme Q10 (Ultra Coq10) 75 mg capsule Active 100 mg PO DAILY January 12, 2022 12:00am Completed/Discontinued Medications Medication Drug Class(es) Dates Sig (Normalized) Sig (Original) acetaminophen 300 mg / codeine phosphate 30 mg oral tablet (14 sources) Opioid Agonist Start: 04-01-2021 End: 01-12-2022 Acetaminophen-Codei ne 1 TABLET tablet Discontinued 1 - 2 {tbl} PO EVERY 6 HOURS NEEDED as needed for Pain Score 6-10/10 10 3 April 01, 2021 12:00am January 12, 2022 1:11pm Start: 04-01-2021 End: 01-12-2022 take 1 tablet by mouth every six hours as needed Acetaminophen-Codeine Discontinued 1 - 2 TABLET PO EVERY 6 HOURS NEEDED 10 3 April 01, 2021 12:00am January 12, 2022 1:11pm alendronic acid 70 mg oral tablet (1 source) Bisphosphonate Start: 06-12-2014 take 1 tablet by mouth every week FOSAMAX 70 MG TABS One tablet by mouth weekly ALENDRONATE SODIUM [id number] Wale Bauman MD ARIPiprazole 5 mg oral tablet (2 sources) Atypical Antipsychotic Start: 01-27-2011 End: 05-20-2012 take 1 tablet by mouth once daily ABILIFY 5 MG TABS One tablet by mouth daily ARIPIPRAZOLE [id number] Wale Bauman MD ascorbic acid 1000 mg extended release oral tablet (1 source) Vitamin C Start: 12-12-2014 take 1 tablet by mouth once daily VITAMIN C CR CR-TABS One tablet by mouth daily ASCORBIC ACID CR-TABS Trice Lloyd PA-C aspirin 81 mg chewable tablet (20 sources) Platelet Aggregation Inhibitor, Nonsteroidal Anti-inflammatory Drug Start: 10-17-2020 End: 01-12-2023 take 1 tablet by mouth once daily Aspirin 81 MG tablet,chewable Discontinued 81 mg PO DAILY@0800 October 17, 2020 1:00am January 12, 2023 1:34pm Start: 07-04-2016 End: 12-02-2018 take 1 tablet by mouth every other day Aspirin 81 MG Tab.Chew Discontinued 81 mg PO EVERY OTHER DAY July 04, 2016 12:00am December 02, 2018 8:39am Start: 08-29-2014 ADULT ASPIRIN EC LOW STRENGTH 81 MG TBEC 1 tablet every other day ASPIRIN [id number] Stacy Colton WILCOX Start: 05-13-2012 take 1 tablet by arslan th every other day ASPIRIN 81 MG TABS One tablet by mouth every other day ASPIRIN [id number] Kaya Whyte RN Start: 01-27-2011 End: 06-08-2013 take 1 tablet by mouth once daily ASPIRIN 81 MG TABS One tablet by mouth daily ASPIRIN [id number] Wale Bauman MD atorvastatin 40 mg oral tablet (14 sources) HMG-CoA Reductase Inhibitor Start: 10-17-2020 End: 01-02-2021 take 1 tablet by mouth at bedtime Atorvastatin 40 MG tablet Discontinued 40 mg PO AT BEDTIME October 17, 2020 1:00am January 02, 2021 1:18pm busPIRone hydrochloride 5 mg oral tablet (20 sources) Start: 01-12-2022 End: 01-12-2023 take 2 tablets by mouth once daily Buspirone 5 mg tablet Discontinued 10 mg PO DAILY January 12, 2022 1:08pm January 12, 2023 1:34pm Start: 01-12-2022 End: 01-12-2023 take 10 mg by mouth once daily Buspirone Discontinued 10 MG PO DAILY January 12, 2022 1:08pm January 12, 2023 1:34pm Start: 09-16-2021 End: 01-12-2022 take 1 tablet by mouth once daily Buspirone 5 mg tablet Discontinued 5 mg PO DAILY September 16, 2021 1:00am January 12, 2022 1:12pm Start: 03-25-2021 End: 07-16-2021 take 1 tablet by mouth once daily Buspirone 5 mg Tablet Discontinued 5 mg PO DAILY March 25, 2021 12:00am July 16, 2021 11:23am Start: 01-02-2021 End: 02-12-2021 take 1 tablet by mouth once daily at bedtime, then take 1 tablet by mouth twice daily Buspirone 5 mg tablet Discontinued 0 .ROUTE .COMPLEX 0 January 02, 2021 12:26pm February 12, 2021 2:28pm 5mg PO QHS x 1 week, then 5mg PO BID thereafter Start: 11-19-2020 End: 01-02-2021 take 1 tablet by mouth twice daily Buspirone 5 mg tablet Discontinued 5 mg PO TWICE A DAY 60 November 19, 2020 1:00am January 02, 2021 12:28pm cephalexin 500 mg oral capsule (20 sources) Cephalosporin Antibacterial Start: 04-01-2021 End: 07-16-2021 take 1 capsule by mouth every twelve hours Cephalexin 500 MG capsule Discontinued 500 mg PO EVERY 12 HOURS 6 3 April 16, 2021 8:12am July 16, 2021 11:23am clonazePAM 0.5 mg oral tablet (5 sources) Benzodiazepine Start: 06-08-2013 take 1 tablet by mouth twice daily CLONAZEPAM 0.5 MG TABS One tablet by mouth twice daily CLONAZEPAM [id number] Wale Bauman MD Start: 05-20-2012 take 1 tablet by arslan three times daily CLONAZEPAM 0.5 MG TABS One tablet by mouth three times a day CLONAZEPAM [id number] Wale Bauman MD Start: 01-27-2011 KLONOPIN 0.5 M G TABS 1/2 tablet in AM and 1 tablet at bedtime CLONAZEPAM [id number] Stacy Segura LPN 24 hr desvenlafaxine succinate 50 mg extended release oral tablet (2 sources) Serotonin and Norepinephrine Reuptake Inhibitor Start: 01-27-2011 End: 05-20-2012 take 1 tablet by mouth once daily PRISTIQ 50 MG [id number] One tablet by mouth daily DESVENLAFAXINE SUCCINATE [id number] Kalani Eng DULoxetine 20 mg delayed release oral capsule (2 sources) Serotonin and Norepinephrine Reuptake Inhibitor Start: 06-08-2013 End: 06-12-2014 take 1 tablet by mouth once daily CYMBALTA 20 MG CPEP One tablet by mouth daily DULOXETINE HCL [id number] Wale Bauman MD ergocalciferol 71984 unt oral tablet (1 source) Provitamin D2 Compound Start: 06-12-2014 take 1 tablet by mouth every week VITAMIN D (ERGOCALCIFEROL) 43069 UNIT CAPS One tablet by mouth weekly ERGOCALCIFEROL [id number] Wale Bauman MD escitalopram 20 mg oral tablet (15 sources) Serotonin Reuptake Inhibitor Start: 10-16-2020 End: 01-12-2023 take 1 tablet by mouth at bedtime Escitalopram Oxalate 20 MG tablet Discontinued 20 mg PO AT BEDTIME October 16, 2020 1:00am January 12, 2023 7:52pm Start: 08-10-2016 LEXAPRO 20 MG TABS 1 tablet daily ESCITALOPRAM OXALATE [id number] Stacy Segura LPN fexofenadine hydrochloride 180 mg oral tablet (14 sources) Histamine-1 Receptor Antagonist Start: 02-12-2021 End: 01-12-2022 take 1 tablet by mouth once daily Fexofenadine (Angela Allergy) 180 mg tablet Discontinued 180 mg PO DAILY February 12, 2021 12:00am January 12, 2022 1:11pm FLUoxetine 20 mg oral capsule (2 sources) Serotonin Reuptake Inhibitor Start: 06-12-2014 End: 01-14-2015 take 1 tablet by mouth once daily PROZAC 20 MG CAPS One tablet by mouth daily FLUOXETINE HCL [id number] Trice Lloyd PA-C gabapentin 100 mg oral capsule (2 sources) Anti-epileptic Agent Start: 06-12-2014 End: 12-12-2014 take 2 tablets by mouth three times daily GABAPENTIN 100 MG CAPS Two tablets by mouth three times daily GABAPENTIN [id number] Trice Lloyd PA-C ibandronic acid 150 mg oral tablet (14 sources) Bisphosphonate Start: 10-16-2020 End: 01-12-2023 take 1 tablet by mouth every month Ibandronate 150 MG tablet Discontinued 150 mg PO EVERY MONTH October 16, 2020 1:00am January 12, 2023 1:35pm LACTOBACILLUS CAPS (1 source) Start: 01-27-2011 take 1 tablet by mouth once daily ACIDOPHILUS CAPS One tablet by mouth daily LACTOBACILLUS CAPS [id number] Kalani Eng levothyroxine sodium 0.05 mg oral tablet (2 sources) l-Thyroxine Start: 01-27-2011 End: 05-20-2012 take 1 tablet by mouth once daily SYNTHROID 50 MCG TABS One tablet by mouth daily LEVOTHYROXINE SODIUM [id number] Kalani Eng linseed oil 1000 mg oral capsule (14 sources) Start: 02-12-2021 End: 01-12-2022 take 1 capsule by mouth once daily Flaxseed Oil 1,000 mg capsule Discontinued 1000 mg PO DAILY February 12, 2021 12:00am January 12, 2022 1:10pm administer with a meal Magnesium (2 sources) Start: 06-16-2018 MAGNESIUM 500 MG TABS 1 tablet daily MAGNESIUM [id number] Stacy Segura LPN Start: 12-12-2014 take 1 tablet by arslan th once daily MAGNESIUM CAPS One tablet by mouth daily MAGNESIUM CAPS [id number] Trice Lloyd PA-C 24 hr mirabegron 25 mg extended release oral tablet (14 sources) beta3-Adrenergic Agonist Start: 01-02-2021 End: 02-12-2021 take 1 tablet by mouth once daily Mirabegron (Myrbetriq) 25 mg tablet extended release 24 hr Discontinued 25 mg PO DAILY January 02, 2021 12:00am February 12, 2021 9:52am MULTIPLE VITAMIN (1 source) Start: 08-29-2014 MULTIPLE VITAMIN TABS 1 tablet daily MULTIPLE VITAMIN [id number] Stacy Segura LPN MULTIPLE VITAMIN (1 source) Start: 06-12-2014 take 1 tablet by mouth once daily MULTIVITAMINS TABS One tablet by mouth daily MULTIPLE VITAMIN Orlandoanum Bauman MD naproxen sodium 220 mg oral tablet (2 sources) Nonsteroidal Anti-inflammatory Drug Start: 10-31-2014 End: 12-12-2014 ALEVE 220 MG TABS PRN NAPROXEN SODIUM [id number] Trinity Cornell RN risperiDONE 0.5 mg oral tablet (2 sources) Atypical Antipsychotic Start: 05-20-2012 End: 06-08-2013 take 1 tablet by mouth once daily RISPERDAL 0.5 MG TABS One tablet by mouth daily RISPERIDONE [id number] Wale Bauman MD saccharomyces boulardii (1 source) Start: 06-16-2018 PROBIOTIC CAPS 1 capsule daily SACCHAROMYCES BOULARDII CAPS [id number] Stacy Segura PERMASTONE INSTALLER simvastatin 20 mg oral tablet (2 sources) HMG-CoA Reductase Inhibitor Start: 05-20-2012 take 1 tablet by mouth once daily SIMVASTATIN 20 MG TABS One tablet by mouth daily SIMVASTATIN [id number] Wale Bauman MD Start: 01-27-2011 take 1 tablet by arslan th once daily in the evening SIMVASTATIN 80 MG TABS 1 tablet by mouth every evening (pt only takes 1/4 tablet or 20mg) SIMVASTATIN [id number] Kalani Eng traMADol hydrochloride 50 mg oral tablet (14 sources) Opioid Agonist Start: 12-02-2018 End: 12-09-2018 take 50-100 mg by mouth every six hours as needed for pain Tramadol 50 MG tablet Discontinued 50 - 100 mg PO EVERY 6 HOURS NEEDED as needed for Mod-Severe Pain (-07/27) 60 7 December 02, 2018 1:00am December 08, 2018 1:00am December 09, 2018 1:10am 24 hr venlafaxine 150 mg extended release oral capsule (2 sources) Serotonin and Norepinephrine Reuptake Inhibitor Start: 05-20-2012 End: 06-08-2013 take 1 tablet by mouth once daily EFFEXOR XR 150 MG TO12M-ODR One tablet by mouth daily VENLAFAXINE HCL [id number] Wale Bauman MD vilazodone hydrochloride 40 mg oral tablet (1 source) Start: 06-12-2014 take 1 tablet by mouth once daily VIIBRYD 40 MG TABS One tablet by mouth daily VILAZODONE HCL [id number] Wale Bauman MD vitamin b12 1 mg/ml injectable solution (13 sources) Vitamin B12 Start: 09-16-2021 End: 09-16-2021 inject 1500 ug by intramuscular injection once cyanocobalamin (vitamin B-12) 1,000 mcg/mL injection solution Discontinued 1500 MCG IM ONCE 1.5 September 16, 2021 3:13pm September 16, 2021 4:15pm Start: 08-18-2021 End: 08-18-2021 inject 1000 ug by intramuscular injection once cyanocobalamin (vitamin B-12) 1,000 mcg/mL injection solution Discontinued 1000 MCG IM ONCE August 18, 2021 10:41am August 18, 2021 10:51am Start: 07-16-2021 End: 07-16-2021 inject 1000 ug by intramuscular injection once cyanocobalamin (vitamin B-12) 1,000 mcg/mL injection solution Discontinued 1000 MCG IM ONCE July 16, 2021 11:02am July 16, 2021 11:05am Start: 06-16-2021 End: 06-16-2021 inject 1000 ug by intramuscular injection once cyanocobalamin (vitamin B-12) 1,000 mcg/mL injection solution Discontinued 1000 MCG IM ONCE June 16, 2021 1:00pm June 16, 2021 1:48pm Start: 06-12-2014 [facility] 1 tablet [facility] mouth [facility] VITAMIN B-12 1000 MCG TABS One tablet by mouth daily CYANOCOBALAMIN [id number] Wale Bauman MD Vitamins A,C,J-Rhqx-Ytkknj (12 sources) Start: 10-16-2020 End: 06-16-2021 Vitamins A,C,N-Jumi-Smjqen Discontinued 1 EACH PO DAILY October 16, 2020 3:31pm June 16, 2021 1:08pm Start: 10-16-2020 End: 06-16-2021 Vitamins A,C,J-Txeq-Peztyz D iscontinued 1 EACH PO DAILY October 16, 2020 12:00am June 16, 2021 12:08pm Start: 10-16-2020 End: 06-16-2021 Vitamins A,C,W-Kmsx-Fuckfa D iscontinued 1 EACH PO DAILY October 16, 2020 1:00am June 16, 2021 1:08pm Vitamins A,C,F-Ytxu-Ckzgoc 1 EACH capsule (2 sources) Start: 10-16-2020 End: 06-16-2021 take 1 capsule by mouth once daily Vitamins A,C,V-Gjgh-Rngmeb 1 EACH capsule Discontinued 1 NMA PO DAILY October 16, 2020 1:00am June 16, 2021 1:08pm Problems Active Problems Problem Classification Problem Date Documented Date Episodic/Chronic Anxiety disorders (15 sources) Anxiety; Translations: [Anxiety disorder, unspecified] Chronic Cardiac dysrhythmias (1 source) Atrial fibrillation; Translations: [Paroxysmal atrial fibrillation] Onset: 01-27-2011 01-27-2011 Chronic Disorders of lipid metabolism (16 sources) Hyperlipidemia; Translations: [Hyperlipidemia, unspecified] Onset: 01-27-2011 01-27-2011 Chronic Essential hypertension (2 sources) Labile hypertension; Translations: [Essential (primary) hypertension] Onset: 12-12-2014 12-12-2014 Chronic Genitourinary symptoms and ill-defined conditions (14 sources) Urge incontinence of urine; Translations: [Urge incontinence] 04-01-2021 Chronic Genitourinary symptoms and ill-defined conditions (20 sources) Increased frequency of urination; Translations: [Frequency of micturition] 04-01-2021 Episodic Intestinal obstruction without hernia (14 sources) Partial obstruction of small bowel; Translations: [Partial intestinal obstruction, unspecified as to cause] 08-26-2019 Episodic Malaise and fatigue (19 sources) Fatigue; Translations: [Other fatigue] Episodic Menopausal disorders (1 source) Unspecified menopausal and perimenopausal disorder; Translations: [Unspecified menopausal and perimenopausal disorder] Onset: 08-22-2024 Chronic Mood disorders (15 sources) Depressive disorder; Translations: [Depression] Chronic Nonspecific chest pain (14 sources) Chest pain; Translations: [Chest pain, unspecified] 10-16-2020 Episodic Osteoarthritis (1 source) Unilateral primary osteoarthritis, right hip; Translations: [Unilateral primary osteoarthritis, right hip] Onset: 06-16-2018 06-16-2018 Chronic Other circulatory disease (9 sources) History of transient ischemic attack; Translations: [Personal history of transient ischemic attack (TIA), and cerebral infarction 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 deficits] 01-12-2023 Episodic Other circulatory disease (4 sources) Personal history of transient ischemic attack (TIA), and cerebral infarction 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 deficits; Translations: [Personal history of transient ischemic attack (TIA), and cerebral infarction 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 deficits] 01-12-2023 Episodic Other connective tissue disease (1 source) History of total hip arthroplasty; Translations: [Presence of left artificial hip joint] Onset: 08-27-2015 08-27-2015 Chronic Other connective tissue disease (1 source) Iliotibial band syndrome, right leg; Translations: [Iliotibial band syndrome, right leg] Onset: 06-16-2018 06-16-2018 Episodic Other hematologic conditions (1 source) Personal history of diseases of the blood and blood-forming organs and certain disorders involving the immune mechanism; Translations: [Personal history of diseases of the blood and blood-forming organs and certain disorders involving the immune mechanism] Onset: 01-10-2025 Episodic Other hereditary and degenerative nervous system conditions (16 sources) Impaired cognition; Translations: [Mild cognitive impairment, so stated] 01-12-2023 Chronic Other hereditary and degenerative nervous system conditions (10 sources) Mild cognitive impairment, so stated; Translations: [Mild cognitive impairment, so stated] Onset: 01-01-2025 Chronic Other hereditary and degenerative nervous system conditions (4 sources) Restless legs; Translations: [Restless legs syndrome] 01-01-2025 Chronic Other nervous system disorders (4 sources) Loss of sense of smell; Translations: [Anosmia] 07-02-2023 Episodic Other nervous system disorders (4 sources) Taste sense altered; Translations: [Parageusia] 06-17-2023 Episodic Other nervous system disorders (2 sources) Anosmia; Translations: [Disturbances of sensation of smell and taste] 06-17-2023 Episodic Other nervous system disorders (2 sources) Parageusia; Translations: [Disturbances of sensation of smell and taste] 06-17-2023 Episodic Syncope (14 sources) Syncope; Translations: [Syncope and collapse] 10-16-2020 Episodic Thyroid disorders (2 sources) Iatrogenic hypothyroidism; 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] Onset: 01-27-2011 Resolved: 06-11-2015 06-11-2015 Chronic Transient cerebral ischemia (19 sources) Transient cerebral ischemia; Translations: [Transient cerebral ischemic attack, unspecified] Chronic Unclassified (1 source) Long-term drug therapy; Translations: [Other intermediate (current) drug therapy] Onset: 01-27-2011 01-27-2011 Past or Other Problems Problem Classification Problem Date Documented Da te Episodic/Chronic Conditions associated with dizziness or vertigo (1 source) Dizziness and giddiness; Translations: [Dizziness and giddiness] Onset: 12-12-2014 12-12-2014 Episodic Residual codes; unclassified (1 source) Family history of ischemic heart disease and other diseases of the circulatory system; Translations: [Family history of ischemic heart disease and other diseases of the circulatory system] 06-12-2014 Episodic Unclassified (1 source) Problem Results Test Name Value Interpretation Reference Range Facility Anion gap in Serum or Plasma Ordered By: Nahum Khan on 02-21-2025 Anion gap [Moles/Vol] 11 mmol/L - [facility] BUN/creatinine ratioOrdered By: Nahum Khan on 02-21-2025 Urea nitrogen/Creatinine [Mass ratio] 18.4 mg/mg - [facility] Basic Metabolic Profile (BMP )on 02-21-2025 BUN/CRE 18.4 RATIO Normal 08-06 [facility] Comment on above: Order Comment: Order Date: 02/21/25 Order Info: 0667-1 - BMP Order Info: 3013 - TSH Performed By: #### L [id number], L100.0500, L500.2500 #### [facility] [address] [place], [address] Calcium [Mass/Vol] 9.2 mg/dL Normal 7.6-11.0 [facility] Comment on above: Order Comment: Order Date: 02/21/25 Order Info: 0667-1 - BMP Order Info: [id number] - TSH Performed By: #### L [id number], L100.0500, L500.2500 #### [facility] [address] [place], [address] Chloride [Moles/Vol] 103 mmol/L Normal 98-108 [facility] Comment on above: Order Comment: Order Date: 02/21/25 Order Info: 0667-1 - BMP Order Info: [id number] - TSH Performed By: #### L [id number], L100.0500, L500.2500 #### [facility] [address] [place], [address] CO2 [Moles/Vol] 23.0 mmol/L Normal 21.0-32.0 [facility] Comment on above: Order Comment: Order Date: 02/21/25 Order Info: 0667-1 - BMP Order Info: 301-3 - TSH Performed By: #### L [id number], L100.0500, L500.2500 #### [facility] [address] [place], [address] Creatinine [Mass/Vol] 0.61 mg/dL Low 0.70-1.20 [facility] Comment on above: Order Comment: Order Date: 02/21/25 Order Info: 0667-1 - BMP Order Info: 3 - TSH Performed By: #### L [id number], L100.0500, [id number] #### [facility] [address] [place], [address] GAP 11 Normal 5-15 [facility] Comment on above: Order Comment: Order Date: 02/21/25 Order Info: 0667- - BMP Order Info: 3013 - TSH Performed By: #### L [id number], L100.0500, L500.2500 #### [facility] [address] [place], [address] GFR/1.73 sq M.predicted among non-blacks MDRD (S/P/Bld) [Vol rate/Area] 87 mL/min/{1.73_m2} Normal >60 [facility] Comment on above: Order Comment: Order Date: 02/21/25 Order Info: 0667-1 - BMP Order Info: 301-3 - TSH Result Comment: mL/m in/1.73m2 CKD-EPI Creatinine Equation (2020) Performed By: #### L [id number], L100.0500, [id number] #### [facility] [address] [place], [address] Glucose [Mass/Vol] 84 mg/dL Normal 70-99 [facility] Comment on above: Order Comment: Order Date: 02/21/25 Order Info: 0667-1 - BMP Order Info: 3016-3 - TSH Performed By: #### L [id number], L100.0500, [id number] #### [facility] [address] [place], [address] Potassium [Moles/Vol] 3.9 mmol/L Normal 3.3-5.1 [facility] Comment on above: Order Comment: Order Date: 02/21/25 Order Info: [id number] - BMP Order Info: 3 - TSH Performed By: #### L 501.9520, L100.0500, L500.2500 #### [facility] [address] [place], [address] Sodium [Moles/Vol] 137 mmol/L Normal 133-145 [facility] Comment on above: Order Comment: Order Date: 02/21/25 Order Info: [id number] - BMP Order Info: 3015-12 - TSH Performed By: #### L 501.9520, L100.0500, L500.2500 #### [facility] [address] [place], [address] Urea nitrogen [Mass/Vol] 11 mg/dL Normal 4-19 [facility] Comment on above: Order Comment: Order Date: 02/21/25 Order Info: [id number] - BMP Order Info: 3015-12 - TSH Performed By: #### L 501.9520, L100.0500, L500.2500 #### [facility] [address] [place], [address] CBC-Complete Blood Cnt No Di ffon 02-21-2025 Erythrocyte distribution width (RBC) [Ratio] 13.2 % Normal 11.6-14.6 [facility] Comment on above: Order Comment: Order Date: 02/21/25 Order Info: [id number] - CBC Performed By: #### L 501.9520, L100.0500, L500.2500 #### [facility] [address] [place], [address] Hematocrit (Bld) [Volume fraction] 37.1 % Normal 37-47 [facility] Comment on above: Order Comment: Order Date: 02/21/25 Order Info: [id number] - CBC Performed By: #### L 501.9520, L100.0500, L500.2500 #### [facility] [address] [place], [address] Hemoglobin (Bld) [Mass/Vol] 12.8 g/dL Normal 12.0-15.0 [facility] Comment on above: Order Comment: Order Date: 02/21/25 Order Info: [id number] - CBC Performed By: #### L 501.9520, L100.0500, L500.2500 #### [facility] [address] [place], [address] MCH (RBC) [Entitic mass] 33.2 pg High 27.0-32.0 [facility] Comment on above: Order Comment: Order Date: 02/21/25 Order Info: [id number] - CBC Performed By: #### L 501.9520, L100.0500, L500.2500 #### [facility] [address] [place], [address] MCHC (RBC) [Mass/Vol] 34.5 g/dL Normal 32-36 [facility] Comment on above: Order Comment: Order Date: 02/21/25 Order Info: [id number] - CBC Performed By: #### L 501.9520, L100.0500, L500.2500 #### [facility] [address] [place], [address] MCV (RBC) [Entitic vol] 96.4 fL Normal 81-99 [facility] Comment on above: Order Comment: Order Date: 02/21/25 Order Info: [id number] - CBC Performed By: #### L 501.9520, L100.0500, L500.2500 #### [facility] [address] [place], [address] Platelet mean volume (Bld) [Entitic vol] 10.6 fL Normal 6.2-12.0 [facility] Comment on above: Order Comment: Order Date: 02/21/25 Order Info: [id number] - CBC Performed By: #### L 501.9520, L100.0500, L500.2500 #### [facility] [address] [place], [address] Platelets (Bld) [#/Vol] 163 10*3/uL Normal 150-450 [facility] Comment on above: Order Comment: Order Date: 02/21/25 Order Info: [id number] - CBC Performed By: #### L 501.9520, L100.0500, L500.2500 #### [facility] [address] [place], [address] RBC (Bld) [#/Vol] 3.85 10*6/uL Low 4.2-5.4 [facility] Comment on above: Order Comment: Order Date: 02/21/25 Order Info: [id number] - CBC Performed By: #### L 501.9520, L100.0500, L500.2500 #### [facility] [address] [place], [address] RDW SD 46.9 fl High 35.1-43.9 [facility] Comment on above: Order Comment: Order Date: 02/21/25 Order Info: [id number] - CBC Performed By: #### L 501.9520, L100.0500, L500.2500 #### [facility] [address] [place], [address] WBC (Bld) [#/Vol] 6.2 10*3/uL Normal 4.4-11.0 [facility] Comment on above: Order Comment: Order Date: 02/21/25 Order Info: [id number] - CBC Performed By: #### L 501.9520, L100.0500, L500.2500 #### [facility] [place], [address] Carbon dioxide, total [Moles /volume] in Central venous bloodOrdered By: Nahum Khan on 02-21-2025 CO2 [Moles/Vol] 23.0 mmol/L 21.0-32.0 [facility] Chloride assayOrdered By: Nolan Khan on 02-21-2025 Chloride [Moles/Vol] 103 mmol/L 98-108 [facility] Erythrocyte distribution wid th ratioOrdered By: Nahum Khan on 02-21-2025 Erythrocyte distribution width (RBC) [Ratio] 13.2 % 11.6-14.6 [facility] Erythrocyte distribution wid th standard deviationOrdered By: Nahum Khan on 02-21-2025 Erythrocyte distribution width (RBC) [Ratio] 46.9 fl High 35.1-43.9 [facility] Glomerular filtration rate ( GFR) estimation/1.73 sq m using serum, plasma, or whole bOrdered By: Nahum Khan on 02-21-2025 GFR/1.73 sq M.predicted among non-blacks MDRD (S/P/Bld) [Vol rate/Area] 87 mL/min/{1.73_m2} >60 [facility] Comment on above: mL/min/1.73m2 CKD-EP I Creatinine Equation (2020) Hematocrit Auto (Bld) [Volum e fraction]Ordered By: Nahum Khan on 02-21-2025 Hematocrit (Bld) [Volume fraction] 37.1 % 37-47 [facility] Hemoglobin measurementOrdere d By: Nahum Khan on 02-21-2025 Hemoglobin (Bld) [Mass/Vol] 12.8 g/dL 12.0-15.0 [facility] MCV (mean corpuscular volume ) determinationOrdered By: Nahum Khan on 02-21-2025 MCV (RBC) [Entitic vol] 96.4 fL 81-99 [facility] Mean corpuscular hemoglobin (MCH) determinationOrdered By: Nahum Khan on 02-21-2025 MCH (RBC) [Entitic mass] 33.2 pg High 27.0-32.0 [facility] Mean corpuscular hemoglobin concentration (MCHC) determinationOrdered By: Nahum Khan on 02-21-2025 MCHC (RBC) [Mass/Vol] 34.5 g/dL 32-36 [facility] Mean platelet volume determi nationOrdered By: Nahum Khan on 02-21-2025 Platelet mean volume (Bld) [Entitic vol] 10.6 fL 6.2-12.0 [facility] Platelet countOrdered By: Nolan Khan on 02-21-2025 Platelets (Bld) [#/Vol] 163 10*3/uL 150-450 [facility] Potassium measurement (mass/ volume)Ordered By: Nahum Khan on 02-21-2025 Potassium (Unsp spec) [Mass/Vol] 3.9 mmol/L 3.3-5.1 [facility] RBC Auto (Bld) [#/Vol]Ordere d By: Nahum Khan on 02-21-2025 RBC (Bld) [#/Vol] 3.85 10*6/uL Low 4.2-5.4 [facility] Serum creatinine measurement (mass/volume)Ordered By: Nahum Khan on 02-21-2025 Creatinine [Mass/Vol] 0.61 mg/dL Low 0.70-1.20 [facility] Serum glucose measurement (m ass/volume)Ordered By: Nahum Khan on 02-21-2025 Glucose [Mass/Vol] 84 mg/dL 70-99 [facility] Serum or plasma calcium lynn urement (mass/volume)Ordered By: Nahum Khan on 02-21-2025 Calcium [Mass/Vol] 9.2 mg/dL 7.6-11.0 [facility] Serum or plasma urea nitroge n measurement (mass/volume)Ordered By: Nahum Khan on 02-21-2025 Urea nitrogen [Mass/Vol] 11 mg/dL 4-19 [facility] Sodium levelOrdered By: Miah Khan on 02-21-2025 Sodium [Moles/Vol] 137 mmol/L 133-145 [facility] TSH DL <= 0.005 mIU/L QnOrde red By: Nahum Khan on 02-21-2025 TSH Qn 1.050 uIU/mL 0.300-4.200 [facility] Thyroid Stim Hormone (TSH)on 02-21-2025 TSH 1.050 uIU/mL Normal 0.300-4.200 [facility] Comment on above: Order Comment: Order Date: 02/21/25 Order Info: [id number] - BMP Order Info: [id number] - TSH Performed By: #### L 501.9520, L100.0500, L500.2500 #### [facility] [address] [place], [address] White blood cell (WBC) count Ordered By: Nahum Khan on 02-21-2025 WBC (Bld) [#/Vol] 6.2 10*3/uL 4.4-11.0 [facility] CBC-Complete Blood Cnt No Di ffon 01-01-2025 Erythrocyte distribution width (RBC) [Ratio] 12.8 % Normal 11.6-14.6 [facility] Comment on above: Performed By: #### L 500.4100, L501.9520, L506.1000, L500.2500 #### [facility] [address] [place], [address] Hematocrit (Bld) [Volume fraction] 37.5 % Normal 37-47 [facility] Comment on above: Performed By: #### L 500.4100, L501.9520, L506.1000, L500.2500 #### [facility] [address] [place], [address] Hemoglobin (Bld) [Mass/Vol] 12.3 g/dL Normal 12.0-15.0 [facility] Comment on above: Performed By: #### L 500.4100, L501.9520, L506.1000, L500.2500 #### [facility] [address] [place], [address] MCH (RBC) [Entitic mass] 32.6 pg High 27.0-32.0 [facility] Comment on above: Performed By: #### L 500.4100, L501.9520, L506.1000, L500.2500 #### [facility] [address] [place], [address] MCHC (RBC) [Mass/Vol] 32.8 g/dL Normal 32-36 [facility] Comment on above: Performed By: #### L 500.4100, L501.9520, L506.1000, L500.2500 #### [facility] [address] [place], [address] MCV (RBC) [Entitic vol] 99.5 fL High 81-99 [facility] Comment on above: Performed By: #### L 500.4100, L501.9520, L506.1000, L500.2500 #### [facility] [address] [place], [address] Platelet mean volume (Bld) [Entitic vol] 10.9 fL Normal 6.2-12.0 [facility] Comment on above: Performed By: #### L 500.4100, L501.9520, L506.1000, L500.2500 #### [facility] [address] [place], [address] Platelets (Bld) [#/Vol] 180 10*3/uL Normal 150-450 [facility] Comment on above: Performed By: #### L 500.4100, L501.9520, L506.1000, L500.2500 #### [facility] [address] [place], [address] RBC (Bld) [#/Vol] 3.77 10*6/uL Low 4.2-5.4 [facility] Comment on above: Performed By: #### L 500.4100, L501.9520, L506.1000, L500.2500 #### [facility] [address] [place], [address] RDW SD 46.8 fl High 35.1-43.9 [facility] Comment on above: Performed By: #### L 500.4100, L501.9520, L506.1000, L500.2500 #### [facility] [address] [place], [address] WBC (Bld) [#/Vol] 4.7 10*3/uL Normal 4.4-11.0 [facility] Comment on above: Performed By: #### L 500.4100, L501.9520, L506.1000, L500.2500 #### [facility] [address] [place], [address] Erythrocyte distribution wid th ratioOrdered By: Westley Portillo on 01-01-2025 Erythrocyte distribution width (RBC) [Ratio] 12.8 % 11.6-14.6 [facility] Erythrocyte distribution wid th standard deviationOrdered By: Westelyjacquelyn Portillo on 01-01-2025 Erythrocyte distribution width (RBC) [Entitic vol] 46.8 fL High 35.1-43.9 [facility] Erythrocyte distribution width (RBC) [Ratio] 46.8 fl High 35.1-43.9 [facility] Ferritinon 01-01-2025 Ferritin [Mass/Vol] 170 ng/mL Normal 22-378 [facility] Comment on above: Performed By: #### L 500.4100, L501.9520, L506.1000, L500.2500 #### [facility] [address] [place], [address] Hematocrit Auto (Bld) [Volum e fraction]Ordered By: Westley Portillo on 01-01-2025 Hematocrit (Bld) [Volume fraction] 37.5 % 37-47 [facility] Hemoglobin measurementOrdere d By: Westley Portillo on 01-01-2025 Hemoglobin (Bld) [Mass/Vol] 12.3 g/dL 12.0-15.0 [facility] Ironon 01-01-2025 Iron [Mass/Vol] 59 ug/dL Normal 50-170 [facility] Comment on above: Performed By: #### L 500.6320, L501.9520, L506.1000, L500.2500 #### [facility] [address] [place], [place], [id number] Iron (Unsp spec) [Mass/Mass] Ordered By: Westley Portillo on 01-01-2025 Iron [Mass/Vol] 59 ug/dL 50-170 [facility] Iron measurement (mass/mass) Ordered By: Westley Portillo on 01-01-2025 Iron (Unsp spec) [Mass/Mass] 59 ug/dL 50-170 [facility] MCV (mean corpuscular volume ) determinationOrdered By: Westley Portillo on 01-01-2025 MCV (RBC) [Entitic vol] 99.5 fL High 81-99 [facility] Mean corpuscular hemoglobin (MCH) determinationOrdered By: Westley Portillo on 01-01-2025 MCH (RBC) [Entitic mass] 32.6 pg High 27.0-32.0 [facility] Mean corpuscular hemoglobin concentration (MCHC) determinationOrdered By: Westley Portillo on 01-01-2025 MCHC (RBC) [Mass/Vol] 32.8 g/dL 32-36 [facility] Mean platelet volume determi nationOrdered By: Westley Portillo on 01-01-2025 Platelet mean volume (Bld) [Entitic vol] 10.9 fL 6.2-12.0 [facility] Neurology Visit Reporton Neurology Visit Report [facility] [address], [address] [place] [address] OFFICE VISIT Date of Service: 01/01/25 MR#: [id number] Acct: [id number] Name: LANA BUCK Rep #: [id number] : 1940 Provider: Dr. Westley santos MD Age/Sex: 84/F Location: [facility] Status: Signed HPI HPI Chief Complaint: Details: Interim History: Lana returns for follow-up. She has a history of hyperlipidemia, reported previous atrial fibrillation, thyroid disorder (no longer requiring medication), cervical spinal surgery ( 1987 d/t a fall resulting in a cervical spinal fracture), depression, anxiety, and TIAs. On 10/16/2020, she had an episode of a sensation of choking while eating a panamanian casiano, and experienced left-sided weakness affecting the arm and the leg; the symptoms resolved within 1-2 minutes. She presented to the ER that day and during her evaluation had recurrence of left-sided weakness affecting the arm and the leg, as well as transient dysarthria; these symptoms resolved within minutes. She did not have any change in level of consciousness or abnormal limb movements with these episodes. On evaluation with head CT and head MRI, no acute intracranial pathology was identified. She was thought to have had TIAs and was started on aspirin 81mg daily. She was started on atorvastatin for hyperlipidemia this was later switched to rosuvastatin A 30-day cardiac event monitor revealed normal sinus rhythm with no critical events. She does not have any prior history suggestive of cerebrovascular disease and has had no further symptoms suggestive of recurrent cerebrovascular disease since 10/16/2020. She does not have any history of seizures. She does not have any history of [employer] infection, concussion, or significant history. An EEG revealed a single left frontopolar spike discharge. 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 She had reported vague, intermittent feelings of lightheadedness, sometimes associated with changing position from sitting to standing. Her lightheadedness did not occur with head movement. She did not have vertigo. She has not exhibited orthostatic hypotension on previous exams. She has worn compression stockings. She had reported that her feeling of lightheadedness worsened when she felt anxious. She has had memory difficulty since the beginning of 2019 and feels that her memory has worsened further within recent months. She has had difficulty performing activities such as writing checks however overall she remains independent in her daily activities. She drives in familiar places and does not have driving difficulty. She has managed her own finances. She has word finding difficulty. She has depression and anxiety. She sees a psychiatrist. She takes mirtazapine and citalopram. She previously took escitalopram and buspirone. Her last B12 injections were not of benefit for her fatigue. Her B12 and TSH were normal in February 2021 and again in August 2021. Mini-Mental status exam score was 28/30 on 11/19/2020, 27/30 on 09/16/2021, 28/30 in January 2023, and 28/30 in October 2023. In 2022, she noted impaired smell and taste sensation. She previously reported that she saw an ENT specialist and no clear cause for her impaired smell and taste sensation was identified though the possibility of a postinfectious process was suspected. She had not had upper respiratory tract infection symptoms prior to the onset of her impaired smell and taste sensation. She does not smoke. She has leg restlessness and within recent days has started an ceaf-tun-ggwypkw iron supplement. She is experiencing constipation as a side effect to the iron. Physical Exam: Neuro: The patient is awake; she is marginally bradyphrenic; Mini-Mental status exam score is 30/30 Neck: No bruits Heart: Regular rate and rhythm Supplemental Info 48 Hour Holter Monitor (06/29/2013): There were a total of 245,310 beats recorded over the 48 hours. Average heart rate was 85 bpm which was normal sinus rhythm. The minimum heart rate was 63 bpm which was normal sinus rhythm. The maximum heart rate was 126 bpm which was sinus tachycardia. There were a total of 68 ventricular ectopic beats comprising of 0% of the total QRS complexes. There were a total of 83 supraventricular beats noted, one atrial couplet, comprising of 0% of the total QRS complexes. The longest R-R interval was 1.1 seconds. There was no atrial fibrillation or ventricular tachycardia. Patient kept a diary but did not record any symptoms. Cardiac echo (06/09/2020): Normal LV size. Left ventricular systolic function is normal. The estimated ejection fraction is 60 %. Stage 1 diastolic dysfunction. Mild (1+) eccentric aortic (more content not included)... Normal [facility] Platelet countOrdered By: Ra valeria Portillo on 01-01-2025 Platelets (Bld) [#/Vol] 180 10*3/uL 150-450 [facility] RBC Auto (Bld) [#/Vol]Ordere d By: Westley Portillo on 01-01-2025 RBC (Bld) [#/Vol] 3.77 10*6/uL Low 4.2-5.4 [facility] Serum or plasma ferritin robert surement (mass/volume)Ordered By: Westley Cardosokirill on 01-01-2025 Ferritin [Mass/Vol] 170 ng/mL 22-378 [facility] White blood cell (WBC) count Ordered By: Westley Portillo on 01-01-2025 WBC (Bld) [#/Vol] 4.7 10*3/uL 4.4-11.0 [facility] Dexa Bone Density Studyon Dexa Bone Density Study [facility] Services [address] [place], [place] [address] Dexa Bone Density Study MR#: [id number] Acct: [id number] Name: LANA BUCK Rep #: [id number] : 1940 F 84 From: Danny rosario MD PCP: Dr. Nahum Khan MD Status: [facility] Study: Dexa Bone Density Study Date of Exam: 07/28/24 Exam# [id number] Ordering Dr: Nahum Khan -[id number] STUDY: DUAL ENERGY X-RAY ABSORPTIOMETRY / DXA REASON FOR EXAM: Female, 84 years old. 733.00OsteoporosisB ONE DENSITY REASON FOR EXAM TECHNIQUE: Bone Mineral Density (BMD) measurements of lumbar spine and left forearm were obtained. COMPARISON: Comparison is made with prior study dated July 16, 2022. FINDINGS: Lumbar Spine (L1-L4): g/cm2 (0.837) / T-score (-1.9) / Z-score (1.0) Findings are suggestive of normal bone density with a moderate fracture risk. Left Forearm: g/cm2 (0.309) / T-score (-5.0) / Z-score ( ) The T-Scores on the most recent prior examination were: Lumbar Spine (L1-L4): There has been improvement of bone density since the previous examination. BD/Dexa Bone Density Study IMPRESSION: The patient is considered osteoporotic as outlined below according to World Deshawn Organization (WHO) criteria with a high fracture risk. There has been worsening of bone density since the previous examination. Reference Information: The T-score is the number of standard deviations above or below the standard which is normal for young adults at their peak bone mineral density. The World Health Organization (WHO) interprets the T-scores as follows: Above -1 Normal bone density Between -1 and -2.5 Osteopenia Equal to / or below -2.5 Osteoporosis As a practical clinical guideline, osteopenia may be graded as follows: Mild -1 through -1.5 Moderate -1.6 through -2.0 Severe -2.1 through -2.4 The Z-score is the number of standard deviations above or below age-matched controls. A Z-score of less than -1.5 would be considered abnormal. References: 1. NIH Osteoporosis and Related Bone Diseases www osteo.org 2. International Society for Clinical Densitometry www iscd.org 3. National Osteoporosis Foundation www nof.org Electronically Signed: Danny Kaur MD at 13:01 EDT , CC: Dr. Nahum Khan MD Shackler: Signed Normal [facility] Basic Metabolic Profile (BMP )on 07-05-2024 BUN/CRE 14.1 RATIO Normal - [facility] Comment on above: Order Comment: Order Date: 07/05/24 Order Info: [id number] - BMP Order Date: 04/05/24 Order Info: [id number] - LIPID Order Info: [id number] - MG Order Info: 3016-3 - TSH Performed By: #### L 500.4100, L501.9520, L506.1000, L500.2500 #### [facility] [address] [place], [address] CA,Total 9.4 mg/dL Normal 8.5-10.1 [facility] Comment on above: Order Comment: Order Date: 07/05/24 Order Info: [id number] - BMP Order Date: 04/05/24 Order Info: [id number] - LIPID Order Info: [id number] - MG Order Info: 3016-3 - TSH Performed By: #### L 500.4100, L501.9520, L506.1000, L500.2500 #### [facility] [address] [place], [address] Chloride [Moles/Vol] 104 mmol/L Normal 98-107 [facility] Comment on above: Order Comment: Order Date: 07/05/24 Order Info: 06- - BMP Order Date: 04/05/24 Order Info: [id number] - LIPID Order Info: [id number] - MG Order Info: 3016-3 - TSH Performed By: #### L 500.4100, L501.9520, L506.1000, L500.2500 #### [facility] [address] [place], [address] CO2 [Moles/Vol] 30.0 mmol/L Normal 21.0-32.0 [facility] Comment on above: Order Comment: Order Date: 07/05/24 Order Info: 0667- - BMP Order Date: 04/05/24 Order Info: [id number] - LIPID Order Info: [id number] - MG Order Info: 3016-3 - TSH Performed By: #### L 500.4100, L501.9520, L506.1000, L500.2500 #### [facility] [address] [place], [address] Creatinine [Mass/Vol] 0.71 mg/dL Normal 0.55-1.02 [facility] Comment on above: Order Comment: Order Date: 07/05/24 Order Info: 666- - BMP Order Date: 04/05/24 Order Info: [id number] - LIPID Order Info: [id number] - MG Order Info: 3016-3 - TSH Result Comment: The validity of the calculated GFR GFRAA in patients over 70 years has not been determined. Clinical correlation is essential. Performed By: #### L 500.4100, L501.9520, L506.1000, L500.2500 #### [facility] [address] [place], [address] EST GFR - AA 101 mL/min Normal >60 [facility] Comment on above: Order Comment: Order Date: 07/05/24 Order Info: 666-10 - BMP Order Date: 04/05/24 Order Info: [id number] - LIPID Order Info: [id number] - MG Order Info: 3016-3 - TSH Result Comment: Afri can Bulgarian GFR Calc Performed By: #### L 500.4100, L501.9520, L506.1000, L500.2500 #### [facility] [address] [place], [address] GAP 2 Low 5-15 [facility] Comment on above: Order Comment: Order Date: 07/05/24 Order Info: 0667- - BMP Order Date: 04/05/24 Order Info: [id number] - LIPID Order Info: [id number] - MG Order Info: 3016-3 - TSH Performed By: #### L 500.4100, L501.9520, L506.1000, L500.2500 #### [facility] [address] [place], [address] GFR/1.73 sq M.predicted among non-blacks MDRD (S/P/Bld) [Vol rate/Area] 83 mL/min/{1.73_m2} Normal >60 [facility] Comment on above: Order Comment: Order Date: 07/05/24 Order Info: 666- - BMP Order Date: 04/05/24 Order Info: [id number] - LIPID Order Info: [id number] - MG Order Info: 6-3 - TSH Result Comment: Non- GFR Calc Performed By: #### L 500.4100, L501.9520, L506.1000, L500.2500 #### [facility] [address] [place], [address] Glucose [Mass/Vol] 78 mg/dL Normal 74-106 [facility] Comment on above: Order Comment: Order Date: 07/05/24 Order Info: 666- - BMP Order Date: 04/05/24 Order Info: [id number] - LIPID Order Info: [id number] - MG Order Info: 3015-3 - TSH Performed By: #### L 500.4100, L501.9520, L506.1000, L500.2500 #### [facility] [address] [place], [address] Potassium [Moles/Vol] 4.3 mmol/L Normal 3.5-5.1 [facility] Comment on above: Order Comment: Order Date: 07/05/24 Order Info: [id number] - BMP Order Date: 04/05/24 Order Info: [id number] - LIPID Order Info: [id number] - MG Order Info: 6-3 - TSH Performed By: #### L 500.4100, L501.9520, L506.1000, L500.2500 #### [facility] [address] [place], [address] Sodium [Moles/Vol] 136 mmol/L Normal 136-145 [facility] Comment on above: Order Comment: Order Date: 07/05/24 Order Info: [id number]- - BMP Order Date: 04/05/24 Order Info: [id number] - LIPID Order Info: [id number] - MG Order Info: 3016-3 - TSH Performed By: #### L 500.4100, L501.9520, L506.1000, L500.2500 #### [facility] [address] [place], [address] Urea nitrogen [Mass/Vol] 10 mg/dL Normal -18 [facility] Comment on above: Order Comment: Order Date: 07/05/24 Order Info: [id number]- - BMP Order Date: 04/05/24 Order Info: [id number] - LIPID Order Info: [id number] - MG Order Info: 3016-3 - TSH Performed By: #### L 500.4100, L501.9520, L506.1000, L500.2500 #### [facility] [address] [place], [address] Lipid Profileon 07-05-2024 Cholesterol [Mass/Vol] 168 mg/dL Normal 200 [facility] Comment on above: Order Comment: Order Date: 07/05/24 Order Info: [id number] - BMP Order Date: 04/05/24 Order Info: [id number] - LIPID Order Info: [id number] - MG Order Info: 3016-3 - TSH Result Comment: <200 mg/dL Desirable 200-240 mg/dL Borderline >240 mg/dL High Risk Performed By: #### L 500.4100, L501.9520, L506.1000, L500.2500 #### [facility] [address] [place], [address] Cholesterol in HDL [Mass/Vol] 74 mg/dL Normal [facility] Comment on above: Order Comment: Order Date: 07/05/24 Order Info: [id number]- - BMP Order Date: 04/05/24 Order Info: [id number] - LIPID Order Info: [id number] - MG Order Info: 3016-3 - TSH Result Comment: The drugs N-Acetylcysteine and Metamizole may falsely depress this assay. Reference Range HDL <40 mg/dL Low HDL Cholesterol HDL >or= 60 mg/dL High HDL Cholesterol Performed By: #### L 500.4100, L501.9520, L506.1000, L500.2500 #### [facility] [address] [place], [address] Cholesterol in LDL [Mass/Vol] 80 mg/dL Normal 0-130 [facility] Comment on above: Order Comment: Order Date: 07/05/24 Order Info: [id number] - BMP Order Date: 04/05/24 Order Info: [id number] - LIPID Order Info: [id number] - MG Order Info: 3016-3 - TSH Performed By: #### L 500.4100, L501.9520, L506.1000, L500.2500 #### [facility] [address] [place], [address] Cholesterol in VLDL [Mass/Vol] 14 mg/dL Normal 5-40 [facility] Comment on above: Order Comment: Order Date: 07/05/24 Order Info: [id number] - BMP Order Date: 04/05/24 Order Info: [id number] - LIPID Order Info: [id number] - MG Order Info: 3016-3 - TSH Performed By: #### L 500.4100, L501.9520, L506.1000, L500.2500 #### [facility] [address] [place], [address] Triglyceride [Mass/Vol] 68 mg/dL Normal [facility] Comment on above: Order Comment: Order Date: 07/05/24 Order Info: [id number] - BMP Order Date: 04/05/24 Order Info: [id number] - LIPID Order Info: [id number] - MG Order Info: 3016-3 - TSH Result Comment: The drugs N-Acetylcysteine and Metamizole may falsely depress this assay. Serum Triglycerides Reference Interval Normal <150 mg/dL Borderline high 150 - 199 mg/dL High 200 - 499 mg/dL Very High > or = 500 mg/dL Performed By: #### L 500.4100, L501.9520, L506.1000, L500.2500 #### [facility] [address] [place], [address] Magnesiumon 07-05-2024 Magnesium [Mass/Vol] 2.4 mg/dL Normal 1.6-2.6 [facility] Comment on above: Order Comment: Order Date: 07/05/24 Order Info: [id number] - BMP Order Date: 04/05/24 Order Info: [id number] - LIPID Order Info: [id number] - MG Order Info: 3016-3 - TSH Performed By: #### L 500.4100, L501.9520, L506.1000, L500.2500 #### [facility] [address] [place], [place], [address] Thyroid Stim Hormone (TSH)on 07-05-2024 TSH 1.200 uIU/mL Normal 0.358-3.740 [facility] Comment on above: Order Comment: Order Date: 07/05/24 Order Info: [id number] - BMP Order Date: 04/05/24 Order Info: [id number] - LIPID Order Info: [id number] - MG Order Info: 3016-3 - TSH Performed By: #### L 500.4100, L501.9520, L506.1000, L500.2500 #### [facility] [address] [place], [place], [address] Vitamin D,25 Hydroxyon 07-05 Vitamin D 25-OH 54.7 ng/mL Normal [facility] Comment on above: Order Comment: Order Date: 07/05/24 Order Info: [id number] - VITD25 Result Comment: Erin min D 25(OH) Status Range Deficiency <20 ng/mL (50nmol/L) Insufficiency 20 - 30 ng/mL (50 - 75 nmol/L) Sufficiency 30 - 100 ng/mL (75 - 250 nmol/L) Toxicity >100 ng/mL (>250 nmol/L) Performed By: #### L 500.4100, L501.9520, L506.1000, L500.2500 #### [facility] [address] [place], [place], [address] Neurology Visit Reporton Neurology Visit Report [facility] [address], [address] [place], [place] [address] OFFICE VISIT Date of Service: 05/08/24 MR#: [id number] Acct: [id number] Name: LANA BUCK Rep #: [id number] : 1940 Provider: Dr. Westley santos MD Age/Sex: 84/F Location: [facility] Status: Signed HPI [facility] Chief Complaint: Details: Interim History: Lana returns for follow-up. She has a history of hyperlipidemia, reported previous atrial fibrillation, thyroid disorder (no longer requiring medication), cervical spinal surgery ( 1987 d/t a fall resulting in a cervical spinal fracture), depression, anxiety, and TIAs. On 10/16/2020, she had an episode of a sensation of choking while eating a panamanian casiano, and experienced left-sided weakness affecting the arm and the leg; the symptoms resolved within 1-2 minutes. She presented to the ER that day and during her evaluation had recurrence of left-sided weakness affecting the arm and the leg, as well as transient dysarthria; these symptoms resolved within minutes. She did not have any change in level of consciousness or abnormal limb movements with these episodes. On evaluation with head CT and head MRI, no acute intracranial pathology was identified. She was thought to have had TIAs and was started on aspirin 81mg daily. She was started on atorvastatin for hyperlipidemia this was later switched to rosuvastatin A 30-day cardiac event monitor revealed normal sinus rhythm with no critical events. She does not have any prior history suggestive of cerebrovascular disease and has had no further symptoms suggestive of recurrent cerebrovascular disease since 10/16/2020. She does not have any history of seizures. She does not have any history of [employer] infection, concussion, or significant history. An EEG revealed a single left frontopolar spike discharge. 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 She had reported vague, intermittent feelings of lightheadedness, sometimes associated with changing position from sitting to standing. Her lightheadedness did not occur with head movement. She did not have vertigo. She has not exhibited orthostatic hypotension on previous exams. She has worn compression stockings. She had reported that her feeling of lightheadedness worsened when she felt anxious. She has had memory difficulty since the beginning of 2019 and feels that her memory has worsened further within recent months. She has had difficulty performing activities such as writing checks however overall she remains independent in her daily activities. She drives in familiar places and does not have driving difficulty. She has managed her own finances. She has word finding difficulty. She has depression and anxiety. She sees a psychiatrist. She takes mirtazapine and citalopram. She previously took escitalopram and buspirone. Her last B12 injections were not of benefit for her fatigue. Her B12 and TSH were normal in February 2021 and again in August 2021. Mini-Mental status exam score was 28/30 on 11/19/2020, 27/30 on 09/16/2021, 28/30 in January 2023, and 28/30 in October 2023. In 2022, she noted impaired smell and taste sensation. She states that she saw an ENT specialist and no clear cause for her impaired smell and taste sensation was identified though the possibility of a postinfectious process was suspected. She had not had upper respiratory tract infection symptoms prior to the onset of her impaired smell and taste sensation. She does not smoke. She has leg restlessness and within recent days has started an [id number] iron supplement. She is experiencing constipation as a side effect to the iron. Physical Exam: Neuro: The patient is awake; she is marginally bradyphrenic; she is oriented to day of the week; she is able to subtract 7 from 100 Neck: No bruits Heart: Regular rate and rhythm Supplemental Info 48 Hour Holter Monitor (06/29/2013): There were a total of 245,310 beats recorded over the 48 hours. Average heart rate was 85 bpm which was normal sinus rhythm. The minimum heart rate was 63 bpm which was normal sinus rhythm. The maximum heart rate was 126 bpm which was sinus tachycardia. There were a total of 68 ventricular ectopic beats comprising of 0% of the total QRS complexes. There were a total of 83 supraventricular beats noted, one atrial couplet, comprising of 0% of the total QRS complexes. The longest R-R interval was 1.1 seconds. There was no atrial fibrillation or ventricular tachycardia. Patient kept a diary but did not record any symptoms. Cardiac echo (06/09/2020): Normal LV size. Left ventricular systolic function is normal. The estimated ejection fraction is 60 %. Stage 1 diastolic dysfunction. Mild (1+ (more content not included)... Normal [facility] Basophil percentageOrdered B y: Yg Khan on 01-03-2024 Basophil percentage 2.9 mg/dL 2.5-4.9 [facility] Chloride [Moles/Vol] 103 mmol/L 98-107 [facility] Glucose [Mass/Vol] 84 mg/dL 74-106 [facility] Potassium [Moles/Vol] 4.1 mmol/L 3.5-5.1 [facility] Sodium [Moles/Vol] 138 mmol/L 136-145 [facility] Iron measurement (mass/mass) Ordered By: Yg Khan on 01-03-2024 Iron (Unsp spec) [Mass/Mass] 62 ug/dL 50-170 [facility] - Chemistry and C hemistry - challengeOrdered By: Yg Khan on 01-03-2024 CO2 [Moles/Vol] 31.0 mmol/L 21.0-32.0 [facility] Ferritin [Mass/Vol] 116 ng/mL 8-252 [facility] Magnesium [Mass/Vol] 2.4 mg/dL 1.6-2.6 [facility] Urea nitrogen/Creatinine [Mass ratio] 15.0 mg/mg 10-20 [facility] No Panel InformationOrdered By: Yg Khan on 01-03-2024 Estimated GFR (MDRD) Amer 97 mL/min >60 [facility] Comment on above: GFR Calc Estimated GFR (MDRD) Non-Af Amer 80 mL/min >60 [facility] Comment on above: Non- GFR Calc Parathyroid Hormone (Intact) 31.9 pg/mL 18.4-80.1 [facility] Total Iron Binding Capacity 292 ug/dL 250-450 [facility] Vitamin D 25-Hydroxy 64.4 ng/mL [facility] Comment on above: Vitamin D 25(OH) Sta tus Range Deficiency <20 ng/mL (50nmol/L) Insufficiency 20 - 30 ng/mL (50 - 75 nmol/L) Sufficiency 30 - 100 ng/mL (75 - 250 nmol/L) Toxicity >100 ng/mL (>250 nmol/L) Serum or plasma calcium lynn urement (mass/volume)Ordered By: Yg Khan on 01-03-2024 Calcium [Mass/Vol] 9.1 mg/dL 8.5-10.1 [facility] Serum or plasma creatinine m easurement (mass/volume)Ordered By: Yg Khan on 01-03-2024 Creatinine [Mass/Vol] 0.73 mg/dL 0.55-1.02 [facility] Comment on above: The validity of the calculated GFR & GFRAA in patients over 70 years has not been determined. Clinical correlation is essential. Serum or plasma thyroid stim ulating hormone (TSH) measurement (units/volume)Ordered By: Yg Khan on 01-03-2024 TSH Qn 1.21 uIU/mL 0.358-3.74 [facility] Serum or plasma urea nitroge n measurement (mass/volume)Ordered By: Yg Khan on 01-03-2024 Urea nitrogen [Mass/Vol] 11 mg/dL 7-18 [facility] Thin prep Papanicolaou smear with manual screeningOrdered By: Yg Khan on 01-03-2024 Thin prep Papanicolaou smear with manual screening 4 5-15 [facility] Iron measurement (mass/mass) Ordered By: Duncan Bragg on 08-23-2023 Iron (Unsp spec) [Mass/Mass] 68 ug/dL 50-170 [facility] No Panel InformationOrdered By: Duncan Bragg on 08-23-2023 Total Iron Binding Capacity 280 ug/dL 250-450 [facility] Serum or plasma iron saturat ion measurement (mass fraction)Ordered By: Duncan Bragg on 08-23-2023 Iron saturation [Mass fraction] 24.3 % 15.0-55.0 [facility] Absolute lymphocyte countOrd ered By: Yg Khan on 06-02-2023 Lymphocytes Auto (Unsp spec) [#/Vol] 1.66 10*3/uL 0.83-4.51 [facility] Basophil percentageOrdered B y: Yg Khan on 06-02-2023 Basophils/100 WBC (Bld) 0.9 % 0-1 [facility] Chloride [Moles/Vol] 101 mmol/L 98-107 [facility] Eosinophils/100 WBC (Bld) 2.1 % 0-5 [facility] Glucose [Mass/Vol] 90 mg/dL 74-106 [facility] Neutrophils (Bld) [#/Vol] 2.4 10*3/uL 2.0-7.7 [facility] Neutrophils/100 WBC (Bld) 51.3 % 47-70 [facility] Potassium [Moles/Vol] 4.1 mmol/L 3.5-5.1 [facility] Sodium [Moles/Vol] 134 mmol/L 136-145 [facility] WBC (Bld) [#/Vol] 4.7 10*3/uL 4.4-11.0 [facility] Blood erythrocytes count (nu mber/volume)Ordered By: Yg Khan on 06-02-2023 RBC (Bld) [#/Vol] 4.17 10*6/uL 4.2-5.4 [facility] Blood hemoglobin measurement (mass/volume)Ordered By: Yg Khan on 06-02-2023 Hemoglobin (Bld) [Mass/Vol] 14.0 g/dL 12.0-15.0 [facility] Blood lymphocytes/100 leukoc ytesOrdered By: Yg Khan on 06-02-2023 Lymphocytes/100 WBC (Bld) 35.3 % 19-41 [facility] Blood monocytes/100 leukocyt esOrdered By: Yg Khan on 06-02-2023 Monocytes/100 WBC (Bld) 10.2 % 0-10 [facility] Blood platelet mean volumeOr dered By: Yg Khan on 06-02-2023 Platelet mean volume (Bld) [Entitic vol] 10.9 fL 6.2-12.0 [facility] Determination of erythrocyte mean corpuscular volume (MCV)Ordered By: Yg Khan on 06-02-2023 MCV (RBC) [Entitic vol] 100.7 fL 81-99 [facility] Hematocrit Auto (Bld) [Volum e fraction]Ordered By: Yg Khan on 06-02-2023 Hematocrit (Bld) [Volume fraction] 42.0 % 37-47 [facility] - Chemistry and C hemistry - challengeOrdered By: Yg Khan on 06-02-2023 CO2 [Moles/Vol] 28.0 mmol/L 21.0-32.0 [facility] Cobalamin (Vitamin B12) [Mass/Vol] 531 pg/mL 211-911 [facility] Urea nitrogen/Creatinine [Mass ratio] 14.7 mg/mg 10-20 [facility] - Hematology and Cell countsOrdered By: Yg Khan on 06-02-2023 Erythrocyte distribution width (RBC) [Entitic vol] 46.3 fL 35.1-43.9 [facility] Erythrocyte distribution width (RBC) [Ratio] 12.3 % 11.6-14.6 [facility] Immature granulocytes/100 WBC (Bld) 0.200 % 0.0-0.9 [facility] Comment on above: IG% - Immature Granu locytes (promyelocytes, myelocytes and metamyelocytes) > 1% indicates that a LEFT SHIFT is Present. MCH (RBC) [Entitic mass] 33.6 pg 27.0-32.0 [facility] Nucleated RBC/100 WBC (Bld) [Ratio] 0 % 0-5 [facility] MCHC Auto (RBC) [Mass/Vol]Or dered By: Yg Khan on 06-02-2023 MCHC (RBC) [Mass/Vol] 33.3 g/dL 32-36 [facility] No Panel InformationOrdered By: Yg Khan on 06-02-2023 Estimated GFR (MDRD) Amer 95 mL/min >60 [facility] Comment on above: GFR Calc Estimated GFR (MDRD) Non-Af Amer 79 mL/min >60 [facility] Comment on above: Non- GFR Calc Thyroid Stimulating Hormone (TSH) 1.00 uIU/mL 0.358-3.74 [facility] Vitamin D 25-Hydroxy 77.5 ng/mL [facility] Comment on above: Vitamin D 25(OH) Sta tus Range Deficiency <20 ng/mL (50nmol/L) Insufficiency 20 - 30 ng/mL (50 - 75 nmol/L) Sufficiency 30 - 100 ng/mL (75 - 250 nmol/L) Toxicity >100 ng/mL (>250 nmol/L) Platelets bldOrdered By: Nataliia Khan on 06-02-2023 Platelets (Bld) [#/Vol] 199 10*3/uL 150-450 [facility] Serum or plasma calcium lynn urement (mass/volume)Ordered By: Yg Khan on 06-02-2023 Calcium [Mass/Vol] 9.3 mg/dL 8.5-10.1 [facility] Serum or plasma cortisol robert surement (mass/volume)Ordered By: Yg Khan on 06-02-2023 Cortisol [Mass/Vol] 9.60 ug/dL 3.44-22.45 [facility] Comment on above: Adult (AM) 5.27 - 22 .45 ug/dL Adult (PM) 3.44 - 16.76 ug/dLPlease note revised CORTISOL reference range effective 2019. Serum or plasma creatinine m easurement (mass/volume)Ordered By: Yg Khan on 06-02-2023 Creatinine [Mass/Vol] 0.75 mg/dL 0.55-1.02 [facility] Comment on above: The validity of the calculated GFR & GFRAA in patients over 70 years has not been determined. Clinical correlation is essential. Serum or plasma urea nitroge n measurement (mass/volume)Ordered By: Yg Khan on 06-02-2023 Urea nitrogen [Mass/Vol] 11 mg/dL 7-18 [facility] Thin prep Papanicolaou smear with manual screeningOrdered By: Yg Khan on 06-02-2023 Thin prep Papanicolaou smear with manual screening 5 5-15 [facility] Whole blood hemoglobin A1c/t otal hemoglobin ratio (mass fraction)Ordered By: Dr. Khan on 02-15-2023 HbA1c (Bld) [Mass fraction] 5.4 % 3.8-5.6 [facility] Comment on above: Normal < 5.7 % Predi abetic 5.7 - 6.4 % Diabetic >or= 6.5 % Please note range changes. Basophil percentageOrdered B y: Dr. Khan on 02-10-2023 Chloride [Moles/Vol] 104 mmol/L 98-107 [facility] Cholesterol [Mass/Vol] 144 mg/dL <200 [facility] Comment on above: <200 mg/dL Desirable 200-240 mg/dL Borderline >240 mg/dL High Risk Glucose [Mass/Vol] 164 mg/dL 74-106 [facility] Comment on above: Fasting Glucose resu lt greater than or equal to 126 mg/dL suggests DIABETES MELLITUS per A.D.A. criteria. Potassium [Moles/Vol] 4.1 mmol/L 3.5-5.1 [facility] Sodium [Moles/Vol] 134 mmol/L 136-145 [facility] Triglyceride [Mass/Vol] 72 mg/dL <199 [facility] Comment on above: The drugs N-Acetylcy steine and Metamizole may falsely depress this assay.Serum Triglycerides Reference Interval Normal <150 mg/dL Borderline high 150 - 199 mg/dL High 200 - 499 mg/dL Very High > or = 500 mg/dL Laboratory - Chemistry and C hemistry - challengeOrdered By: Dr. Khan on 02-10-2023 CO2 [Moles/Vol] 26.0 mmol/L 21.0-32.0 [facility] Cobalamin (Vitamin B12) [Mass/Vol] 485 pg/mL 211-911 [facility] Urea nitrogen/Creatinine [Mass ratio] 19.8 mg/mg 10-20 [facility] No Panel InformationOrdered By: Dr. Khan on 02-10-2023 Estimated GFR (MDRD) Amer 110 mL/min >60 [facility] Comment on above: GFR Calc Estimated GFR (MDRD) Non-Af Amer 91 mL/min >60 [facility] Comment on above: Non- GFR Calc Serum or plasma calcium lynn urement (mass/volume)Ordered By: Dr. Khan on 02-10-2023 Calcium [Mass/Vol] 9.1 mg/dL 8.5-10.1 [facility] Serum or plasma cholesterol in HDL measurement (mass/volume)Ordered By: Dr. Khan on 02-10-2023 Cholesterol in HDL [Mass/Vol] 73 mg/dL >40 [facility] Comment on above: The drugs N-Acetylcy steine and Metamizole may falsely depress this assay. Reference Range HDL <40 mg/dL Low HDL Cholesterol HDL >or= 60 mg/dL High HDL Cholesterol Serum or plasma cholesterol in VLDL measurement (mass/volume)Ordered By: Dr. Khan on 02-10-2023 Cholesterol in VLDL [Mass/Vol] 14 mg/dL 5-40 [facility] Serum or plasma creatinine m easurement (mass/volume)Ordered By: Dr. Khan on 02-10-2023 Creatinine [Mass/Vol] 0.66 mg/dL 0.55-1.02 [facility] Comment on above: The validity of the calculated GFR & GFRAA in patients over 70 years has not been determined. Clinical correlation is essential. Serum or plasma ferritin robert surement (mass/volume)Ordered By: Dr. Khan on 02-10-2023 Ferritin [Mass/Vol] 125 ng/mL 8-252 [facility] Serum or plasma low density lipoprotein (LDL) cholesterol measurement (mass/volume)Ordered By: Dr. Khan on 02-10-2023 Cholesterol in LDL [Mass/Vol] 57 mg/dL 0-130 [facility] Serum or plasma urea nitroge n measurement (mass/volume)Ordered By: Dr. Khan on 02-10-2023 Urea nitrogen [Mass/Vol] 13 mg/dL 7-18 [facility] Thin prep Papanicolaou smear with manual screeningOrdered By: Dr. Khan on 02-10-2023 Thin prep Papanicolaou smear with manual screening 4 5-15 [facility] Basophil percentageon 2021 Basophil percentage 3.4 mg/dL 2.5-4.9 [facility] Work Phone: Chloride [Moles/Vol] 105 mmol/L 98-107 [facility] Work Phone: Glucose [Mass/Vol] 63 mg/dL 74-106 [facility] Work Phone: Potassium [Moles/Vol] 3.9 mmol/L 3.5-5.1 [facility] Work Phone: Sodium [Moles/Vol] 139 mmol/L 136-145 [facility] Work Phone: Laboratory - Chemistry and C hemistry - challengeon 07-20-2022 CO2 [Moles/Vol] 29.0 mmol/L 21.0-32.0 [facility] Work Phone: Urea nitrogen/Creatinine [Mass ratio] 17.1 mg/mg 08-06 [facility] Work Phone: No Panel Informationon 07-20 Ionized Calcium 5.4 mg/dL 4.5-5.6 [facility] Work Phone: Comment on above: Performed at: [address] [id number] Director: Sony Pagan PhD, Phone: [phone] Estimated GFR (MDRD) Amer 113 mL/min >60 [facility] Work Phone: Comment on above: GFR Calc Estimated GFR (MDRD) Non-Af Amer 93 mL/min >60 [facility] Work Phone: Comment on above: Non- GFR Calc Parathyroid Hormone (Intact) 27.4 pg/mL 18.4-80.1 [facility] Work Phone: Thyroid Stimulating Hormone (TSH) 1.43 uIU/mL 0.358-3.74 [facility] Work Phone: Vitamin D 25-Hydroxy 54.6 ng/mL [facility] Work Phone: Comment on above: Vitamin D 25(OH) Sta tus Range Deficiency <20 ng/mL (50nmol/L) Insufficiency 20 - 30 ng/mL (50 - 75 nmol/L) Sufficiency 30 - 100 ng/mL (75 - 250 nmol/L) Toxicity >100 ng/mL (>250 nmol/L) Serum or plasma calcium lynn urement (mass/volume)on 07-20-2022 Calcium [Mass/Vol] 9.3 mg/dL 8.5-10.1 [facility] Work Phone: Serum or plasma creatinine m easurement (mass/volume)on 07-20-2022 Creatinine [Mass/Vol] 0.64 mg/dL 0.55-1.02 [facility] Work Phone: Comment on above: The validity of the calculated GFR & GFRAA in patients over 70 years has not been determined. Clinical correlation is essential. Serum or plasma urea nitroge n measurement (mass/volume)on 07-20-2022 Urea nitrogen [Mass/Vol] 11 mg/dL 7-18 [facility] Work Phone: Thin prep Papanicolaou smear with manual screeningon 07-20-2022 Thin prep Papanicolaou smear with manual screening 5 5-15 [facility] Work Phone: Absolute lymphocyte counton 04-01-2022 Lymphocytes Auto (Unsp spec) [#/Vol] 1.10 10*3/uL 0.83-4.51 [facility] Work Phone: Basophil percentageon 2021 Basophils/100 WBC (Bld) 0.8 % 0-1 [facility] Work Phone: Bilirubin [Mass/Vol] 0.40 mg/dL 0.20-1.00 [facility] Work Phone: Comment on above: For patients on eltr ombopag therapy, use of Dimension [place] TBIL is not recommended. Chloride [Moles/Vol] 105 mmol/L 98-107 [facility] Work Phone: Cholesterol [Mass/Vol] 146 mg/dL <200 [facility] Work Phone: Comment on above: <200 mg/dL Desirable 200-240 mg/dL Borderline >240 mg/dL High Risk Eosinophils/100 WBC (Bld) 2.8 % 0-5 [facility] Work Phone: Glucose [Mass/Vol] 91 mg/dL 74-106 [facility] Work Phone: Neutrophils (Bld) [#/Vol] 2.0 10*3/uL 2.0-7.7 [facility] Work Phone: Neutrophils/100 WBC (Bld) 55.6 % 47-70 [facility] Work Phone: Potassium [Moles/Vol] 4.1 mmol/L 3.5-5.1 [facility] Work Phone: Protein [Mass/Vol] 7.0 g/dL 6.4-8.2 [facility] Work Phone: Sodium [Moles/Vol] 137 mmol/L 136-145 [facility] Work Phone: Triglyceride [Mass/Vol] 44 mg/dL <199 [facility] Work Phone: Comment on above: The drugs N-Acetylcy steine and Metamizole may falsely depress this assay.Serum Triglycerides Reference Interval Normal <150 mg/dL Borderline high 150 - 199 mg/dL High 200 - 499 mg/dL Very High > or = 500 mg/dL WBC (Bld) [#/Vol] 3.6 10*3/uL 4.4-11.0 [facility] Work Phone: Blood erythrocytes count (nu mber/volume)on 04-01-2022 RBC (Bld) [#/Vol] 4.11 10*6/uL 4.2-5.4 [facility] Work Phone: Blood hemoglobin measurement (mass/volume)on 04-01-2022 Hemoglobin (Bld) [Mass/Vol] 13.8 g/dL 12.0-15.0 [facility] Work Phone: Blood lymphocytes/100 leukoc yteson 04-01-2022 Lymphocytes/100 WBC (Bld) 30.3 % 19-41 [facility] Work Phone: Blood monocytes/100 leukocyt eson 04-01-2022 Monocytes/100 WBC (Bld) 10.2 % 0-10 [facility] Work Phone: Blood platelet mean volumeon 04-01-2022 Platelet mean volume (Bld) [Entitic vol] 10.6 fL 6.2-12.0 [facility] Work Phone: Determination of erythrocyte mean corpuscular volume (MCV)on 04-01-2022 MCV (RBC) [Entitic vol] 100.2 fL 81-99 [facility] Work Phone: Hematocrit Auto (Bld) [Volum e fraction]on 04-01-2022 Hematocrit (Bld) [Volume fraction] 41.2 % 37-47 [facility] Work Phone: Laboratory - Chemistry and C hemistry - challengeon 04-01-2022 ALP [Catalytic activity/Vol] 68 U/L 45-117 [facility] Work Phone: ALT [Catalytic activity/Vol] 23 U/L 13-56 [facility] Work Phone: CO2 [Moles/Vol] 25.0 mmol/L 21.0-32.0 [facility] Work Phone: Cobalamin (Vitamin B12) [Mass/Vol] 1955 pg/mL 211-911 [facility] Work Phone: Globulin (S) [Mass/Vol] 3.7 g/dL 2.2-4.2 [facility] Work Phone: Urea nitrogen/Creatinine [Mass ratio] 14.5 mg/mg 10-20 [facility] Work Phone: Laboratory - Hematology and Cell countson 04-01-2022 Erythrocyte distribution width (RBC) [Entitic vol] 46.6 fL 35.1-43.9 [facility] Work Phone: Erythrocyte distribution width (RBC) [Ratio] 12.5 % 11.6-14.6 [facility] Work Phone: Immature granulocytes/100 WBC (Bld) 0.300 % 0.0-0.9 [facility] Work Phone: Comment on above: IG% - Immature Granu locytes (promyelocytes, myelocytes and metamyelocytes) > 1% indicates that a LEFT SHIFT is Present. MCH (RBC) [Entitic mass] 33.6 pg 27.0-32.0 [facility] Work Phone: Nucleated RBC/100 WBC (Bld) [Ratio] 0 % 0-5 [facility] Work Phone: MCHC Auto (RBC) [Mass/Vol]on 04-01-2022 MCHC (RBC) [Mass/Vol] 33.5 g/dL 32-36 [facility] Work Phone: No Panel Informationon 04-01 Estimated GFR (MDRD) Amer 118 mL/min >60 [facility] Work Phone: Comment on above: GFR Calc Estimated GFR (MDRD) Non-Af Amer 97 mL/min >60 [facility] Work Phone: Comment on above: Non- GFR Calc Thyroid Stimulating Hormone (TSH) 1.61 uIU/mL 0.358-3.74 [facility] Work Phone: Platelets bldon 04-01-2022 Platelets (Bld) [#/Vol] 193 10*3/uL 150-450 [facility] Work Phone: Serum or plasma albumin lynn urement (mass/volume)on 04-01-2022 Albumin [Mass/Vol] 3.3 g/dL 3.2-5.0 [facility] Work Phone: Serum or plasma albumin/glob ulin mass ratioon 04-01-2022 Albumin/Globulin [Mass ratio] 0.9 {ratio} 0.9-2.4 [facility] Work Phone: Serum or plasma calcium lynn urement (mass/volume)on 04-01-2022 Calcium [Mass/Vol] 8.6 mg/dL 8.5-10.1 [facility] Work Phone: Serum or plasma cholesterol in HDL measurement (mass/volume)on 04-01-2022 Cholesterol in HDL [Mass/Vol] 71 mg/dL >40 [facility] Work Phone: Comment on above: The drugs N-Acetylcy steine and Metamizole may falsely depress this assay. Reference Range HDL <40 mg/dL Low HDL Cholesterol HDL >or= 60 mg/dL High HDL Cholesterol Serum or plasma cholesterol in VLDL measurement (mass/volume)on 04-01-2022 Cholesterol in VLDL [Mass/Vol] 9 mg/dL 5-40 [facility] Work Phone: Serum or plasma creatinine m easurement (mass/volume)on 04-01-2022 Creatinine [Mass/Vol] 0.62 mg/dL 0.55-1.02 [facility] Work Phone: Comment on above: The validity of the calculated GFR & GFRAA in patients over 70 years has not been determined. Clinical correlation is essential. Serum or plasma low density lipoprotein (LDL) cholesterol measurement (mass/volume)on 04-01-2022 Cholesterol in LDL [Mass/Vol] 66 mg/dL 0-130 [facility] Work Phone: Serum or plasma urea nitroge n measurement (mass/volume)on 04-01-2022 Urea nitrogen [Mass/Vol] 9 mg/dL 7-18 [facility] Work Phone: Thin prep Papanicolaou smear with manual screeningon 04-01-2022 Thin prep Papanicolaou smear with manual screening 21 U/L 15-37 [facility] Work Phone: Thin prep Papanicolaou smear with manual screening 7 -15 [facility] Work Phone: Iron measurement (mass/mass) on 03-17-2022 Iron (Unsp spec) [Mass/Mass] 78 ug/dL 50-170 [facility] Work Phone: Basophil percentageon 2020 Bilirubin [Mass/Vol] 0.30 mg/dL 0.20-1.00 [facility] Work Phone: Comment on above: For patients on eltr ombopag therapy, use of Dimension [place] TBIL is not recommended. Chloride [Moles/Vol] 104 mmol/L 98-107 [facility] Work Phone: Glucose [Mass/Vol] 78 mg/dL 74-106 [facility] Work Phone: Comment on above: Please note revised GLUCOSE reference range effective 2017. Potassium [Moles/Vol] 4.0 mmol/L 3.5-5.1 [facility] Work Phone: Protein [Mass/Vol] 7.3 g/dL 6.4-8.2 [facility] Work Phone: Sodium [Moles/Vol] 138 mmol/L 136-145 [facility] Work Phone: WBC (Bld) [#/Vol] 5.2 10*3/uL 4.4-11.0 [facility] Work Phone: Blood erythrocytes count (nu mber/volume)on 09-15-2021 RBC (Bld) [#/Vol] 4.00 10*6/uL 4.2-5.4 [facility]: Blood hemoglobin measurement (mass/volume)on 09-15-2021 Hemoglobin (Bld) [Mass/Vol] 13.2 g/dL 12.0-15.0 [facility] Work Phone: Blood platelet mean volumeon 09-15-2021 Platelet mean volume (Bld) [Entitic vol] 10.8 fL 6.2-12.0 [facility] Work Phone: Determination of erythrocyte mean corpuscular volume (MCV)on 09-15-2021 MCV (RBC) [Entitic vol] 99.0 fL 81-99 [facility] Work Phone: Hematocrit Auto (Bld) [Volum e fraction]on 09-15-2021 Hematocrit (Bld) [Volume fraction] 39.6 % 37-47 [facility] Work Phone: Iron measurement (mass/mass) on 09-15-2021 Iron (Unsp spec) [Mass/Mass] 70 ug/dL 50-170 [facility] Work Phone: Laboratory - Chemistry and C hemistry - challengeon 09-15-2021 ALP [Catalytic activity/Vol] 80 U/L 45-117 [facility] Work Phone: ALT [Catalytic activity/Vol] 19 U/L 13-56 [facility] Work Phone: CO2 [Moles/Vol] 29.0 mmol/L 21.0-32.0 [facility] Work Phone: Cobalamin (Vitamin B12) [Mass/Vol] 625 pg/mL 211-911 [facility] Work Phone: Globulin (S) [Mass/Vol] 4.3 g/dL 2.2-4.2 [facility] Work Phone: Urea nitrogen/Creatinine [Mass ratio] 14.0 mg/mg 10-20 [facility] Work Phone: Laboratory - Hematology and Cell countson 09-15-2021 Erythrocyte distribution width (RBC) [Entitic vol] 45.4 fL 35.1-43.9 [facility] Work Phone: Erythrocyte distribution width (RBC) [Ratio] 12.5 % 11.6-14.6 [facility] Work Phone: MCH (RBC) [Entitic mass] 33.0 pg 27.0-32.0 [facility] Work Phone: MCHC Auto (RBC) [Mass/Vol]on 09-15-2021 MCHC (RBC) [Mass/Vol] 33.3 g/dL 32-36 [facility] Work Phone: No Panel Informationon 09-15 Estimated GFR (MDRD) Amer 113 mL/min >60 [facility] Work Phone: Comment on above: GFR Calc Estimated GFR (MDRD) Non-Af Amer 93 mL/min >60 [facility] Work Phone: Comment on above: Non- GFR Calc Thyroid Stimulating Hormone (TSH) 1.23 uIU/mL 0.358-3.74 [facility] Work Phone: Vitamin D 25-Hydroxy 49.7 ng/mL [facility] Work Phone: Comment on above: Vitamin D 25(OH) Sta tus Range Deficiency <20 ng/mL (50nmol/L) Insufficiency 20 - 30 ng/mL (50 - 75 nmol/L) Sufficiency 30 - 100 ng/mL (75 - 250 nmol/L) Toxicity >100 ng/mL (>250 nmol/L) Platelets bldon 09-15-2021 Platelets (Bld) [#/Vol] 201 10*3/uL 150-450 [facility] Work Phone: Serum or plasma albumin lynn urement (mass/volume)on 09-15-2021 Albumin [Mass/Vol] 3.0 g/dL 3.2-5.0 [facility] Work Phone: Serum or plasma albumin/glob ulin mass ratioon 09-15-2021 Albumin/Globulin [Mass ratio] 0.7 {ratio} 0.9-2.4 [facility] Work Phone: Serum or plasma calcium lynn urement (mass/volume)on 09-15-2021 Calcium [Mass/Vol] 8.7 mg/dL 8.5-10.1 [facility] Work Phone: Serum or plasma creatinine m easurement (mass/volume)on 09-15-2021 Creatinine [Mass/Vol] 0.64 mg/dL 0.55-1.02 [facility] Work Phone: Comment on above: The validity of the calculated GFR & GFRAA in patients over 70 years has not been determined. Clinical correlation is essential. Serum or plasma urea nitroge n measurement (mass/volume)on 09-15-2021 Urea nitrogen [Mass/Vol] 9 mg/dL 7-18 [facility] Work Phone: Thin prep Papanicolaou smear with manual screeningon 09-15-2021 Thin prep Papanicolaou smear with manual screening 17 U/L 15-37 [facility] Work Phone: Thin prep Papanicolaou smear with manual screening 5 5-15 [facility] Work Phone: Clinical Summary: HMSPatient IDon 06-16-2018 OOP Invalid Interpretation Code [facility] Work Phone: Office Visit: New Complaint, Rm: 23on 06-16-2018 NEGATED: Highlighted rowProtein mass conc Done Invalid Interpretation Code [facility] Work Phone: Lab Report: Basic Metabolic Profile (BMP)on 04-17-2017 Anion gap molar conc 5 mmol/L 5-15 [facility] [employer] Work Phone: Calcium mass conc 8.0 mg/dL Low 8.5-10.1 [facility] Work Phone: Chloride molar conc 108 mmol/L High 98-107 [facility] [employer] Work Phone: CO2 ppres (BldV) 29.0 mmol/L 21.0-32.0 [facility] [employer] Work Phone: Creatinine mass conc 0.62 mg/dL 0.55-1.02 [facility] [employer] Work Phone: EST GFR - AA 121 mL/min >60 [facility] [employer] Work Phone: GFR/1.73 sq M predicted among non-blacks MDRD vol rate/area (S/P/Bld) 100 mL/min/{1.73_m2} >60 [facility] [employer] Work Phone: Glucose mass conc 85 mg/dL 70-110 [facility] Work Phone: Potassium molar conc 3.8 mmol/L 3.5-5.1 [facility] [employer] Work Phone: Sodium molar conc 142 mmol/L 136-145 [facility] Work Phone: Urea nitrogen mass conc 9 mg/dL 7-18 [facility] Work Phone: Urea nitrogen/Creatinine mass ratio 14.6 RATIO 10-20 [facility] [employer] Work Phone: Lab Report: CBC W/Diff, Auto matedon 04-17-2017 Basophils/100 WBC (Bld) 0.6 % 0-1 W [facility] [employer] Work Phone: Eosinophils/100 WBC (Bld) 2.4 % 0-5 [facility] [employer] Work Phone: Erythrocyte distribution width Ratio (RBC) 12.2 % 11.6-14.6 [facility] [employer] Work Phone: Erythrocyte distribution width Ratio (RBC) 43.5 fL 35.1-43.9 [facility] [employer] Work Phone: Hematocrit Volume Fraction (Bld) 36.2 % Low 37-47 [facility] Work Phone: Hemoglobin mass conc (Bld) 12.1 g/dL 12.0-15.0 [facility] [employer] Work Phone: Immature granulocytes #/vol (Bld) 0.000 % 0.0-0.9 [facility] [employer] Work Phone: Lymphocytes #/vol (Bld) 1.49 X10 3/UL 0.83-4.51 [facility] Work Phone: Lymphocytes/100 WBC (Bld) 32.0 % 19-41 [facility] Work Phone: MCH Entitic mass (RBC) 33.9 pg High 27.0-32.0 [facility] [employer] Work Phone: MCHC mass conc (RBC) 33.4 G/GL 32-36 [facility] Work Phone: MCV Entitic volume (RBC) 101.4 fL High 81-99 [facility] Work Phone: Monocytes/100 WBC (Bld) 10.1 % High 0-10 [facility] Work Phone: Neutrophils #/vol (Bld) 2.6 X10 3/UL 2.0-7.7 [facility] [employer] Work Phone: Neutrophils/100 WBC (Bld) 54.9 % 47-70 [facility] Work Phone: Platelet mean volume Entitic volume (Bld) 9.8 fL 6.2-12.0 [facility] [employer] Work Phone: Platelets #/vol (Bld) 160 10*3/mm3 150-450 [facility] Work Phone: RBC #/vol (Bld) 3.57 10*6/uL Low 4.2-5.4 [facility] Work Phone: WBC #/vol (Bld) 4.7 10*3/uL 4.4-11.0 [facility] Work Phone: Lab Report: Lactic Acidon Lactate molar conc 0.8 mmol/L 0.4-2.0 [facility] Work Phone: Office Visiton 06-11-2015 General cardiovascular disease 10Y risk [#] [place].D'Agostino 2 % [facility] Work Phone: Protein mass conc Done [facility] Work Phone: Tobacco smoking status NHIS Never smoker [facility] Work Phone: Office Visit: MMMon 01-15-20 15 Tobacco smoking status NHIS Never [facility] Work Phone: Office Visit: 12-12-19 15 cardiac risk group B [facility] [employer] Work Phone: Replaced Document: [employer] Aristides CG Observationson 12-12-2014 EKG QRS axis 66 deg [facility] Work Phone: Interpretation Sinus Rhythm WITHIN NORMAL LIMITS [facility] Work Phone: P [place] 74 deg [facility] Work Phone: NC Interval 140 ms [facility] Work Phone: QRS Duration 82 ms [facility] Work Phone: QT Interval new path ms [facility] Work Phone: QTc Gore 394 ms [facility] Work Phone: T [place] 52 deg [facility] Work Phone: Lab Report: Lipid Profileon 12-05-2014 Cholesterol in HDL mass conc 69 mg/dL [facility] Work Phone: Cholesterol in LDL mass conc 67 mg/dL 0-130 [facility] Work Phone: Cholesterol mass conc 149 mg/dL 200 [facility] Work Phone: Lipoprotein.pre-beta mass conc 13 mg/dL 5-40 [facility] [employer] Work Phone: Triglyceride mass conc 65 mg/dL 0-199 [facility] [employer] Work Phone: Lab Report: Adrian 12-04-19 14 Albumin mass conc 3.5 g/dL Normal 3.4-5.0 [facility] [employer] Work Phone: ALP enzyme act/vol (Bld) 90 U/L Normal 50-136 [facility] Work Phone: ALT enzyme act/vol 21 U/L Normal 12-78 [facility]: AST enzyme act/vol 17 U/L Normal 15-37 [facility] Work Phone: Bilirubin mass conc 0.50 mg/dL Normal 0.00-1.00 [facility] S [facility] [employer] Work Phone: Bilirubin.direct mass conc 0.14 mg/dL Normal 0.00-0.30 [facility] [employer] Work Phone: Protein mass conc 7.3 g/dL Normal 6.4-8.2 [facility] Work Phone: Vital Signs Date Time Vital Sign Value Performing Clinician Facility 01-01-2025 11:22-0400 Body height 157.[address] Nahum Khan MD Work Phone: [facility] 01-01-2025 11:22-0400 Body mass index (BMI) [Ratio] 25.6 kg/m2 Dr. Nahum Khan MD Work Phone: [facility] 01-01-2025 11:22-0400 Body temperature 98 [degF] Dr. Nahum Khan MD Work Phone: [facility] 01-01-2025 11:22-0400 Body weight 63.[address] Nahum Khan MD Work Phone: [facility] 01-01-2025 11:22-0400 Diastolic blood pressure 70 mm[Hg] Dr. Nahum Khan MD Work Phone: [facility] 01-01-2025 11:22-0400 Heart rate 78 /min Dr. Nahum Khan MD Work Phone: [facility] 01-01-2025 11:22-0400 Respiratory rate 15 /min Dr. Nahum Khan MD Work Phone: [facility] 01-01-2025 11:22-0400 SaO2% (BldA) [Mass fraction] 97 % Dr. Nahum Khan MD Work Phone: [facility] 01-01-2025 11:22-0400 Systolic blood pressure 120 mm[Hg] Dr. Nahum Khan MD Work Phone: [phone] [place] [address] 11-01-2023 11:16-0500 Body mass index (BMI) [Ratio] 24.7 kg/m2 Dr. Yg Khan Work Phone: [facility] 11-01-2023 11:16-0500 Body temperature 98.2 [degF] Dr. Yg Khan Work Phone: [facility] 11-01-2023 11:16-0500 Body weight 61.[address] Yg Khan Work Phone: [facility] 11-01-2023 11:16-0500 Diastolic blood pressure 80 mm[Hg] Dr. Yg Khan Work Phone: [facility] 11-01-2023 11:16-0500 Heart rate 80 /min Dr. Yg Khan Work Phone: [facility] 11-01-2023 11:16-0500 Respiratory rate 17 /min Dr. Yg Khan Work Phone: [facility] 11-01-2023 11:16-0500 SaO2% (BldA) [Mass fraction] 96 % Dr. Yg Khan Work Phone: [phone] [place] [address] 11-01-2023 11:16-0500 Systolic blood pressure 132 mm[Hg] Dr. Yg Khan Work Phone: [facility] 06-17-2023 15:34-0400 Body height 157.[address] Yg Khan Work Phone: [facility] 06-17-2023 15:34-0400 Body mass index (BMI) [Ratio] 24.5 kg/m2 Dr. Yg Khan Work Phone: [facility] 06-17-2023 15:34-0400 Body temperature 98.4 [degF] Dr. Yg Khan Work Phone: [facility] 06-17-2023 15:34-0400 Body weight 60.[address] Yg Khan Work Phone: [facility] 06-17-2023 15:34-0400 Diastolic blood pressure 70 mm[Hg] Dr. Yg Khan Work Phone: [facility] 06-17-2023 15:34-0400 Heart rate 87 /min Dr. Yg Khan Work Phone: [facility] 06-17-2023 15:34-0400 Respiratory rate 17 /min Dr. Yg Khan Work Phone: [facility] 06-17-2023 15:34-0400 SaO2% (BldA) [Mass fraction] 97 % Dr. Yg Khan Work Phone: [facility] 06-17-2023 15:34-0400 Systolic blood pressure 144 mm[Hg] Dr. Yg Khan Work Phone: [facility] 01-12-2023 13:28-0400 Body height 157.[address] Yg Khan Work Phone: [facility] 01-12-2023 13:28-0400 Body mass index (BMI) [Ratio] 24.5 kg/m2 Dr. Yg Khan Work Phone: [facility] 01-12-2023 13:28-0400 Body temperature 98.2 [degF] Dr. Yg Khan Work Phone: [facility] 01-12-2023 13:28-0400 Body weight 60.[address] Yg Khan Work Phone: [facility] 01-12-2023 13:28-0400 Diastolic blood pressure 70 mm[Hg] Dr. Yg Khan Work Phone: [facility] 01-12-2023 13:28-0400 Heart rate 77 /min Dr. Yg Khan Work Phone: [facility] 01-12-2023 13:28-0400 Respiratory rate 16 /min Dr. Yg Khan Work Phone: [facility] 01-12-2023 13:28-0400 SaO2% (BldA) [Mass fraction] 96 % Dr. Yg Khan Work Phone: [facility] 01-12-2023 13:28-0400 Systolic blood pressure 138 mm[Hg] Dr. Yg Khan Work Phone: [facility] 01-12-2022 13:12-0400 Body temperature 98.4 [degF] Dr. Yg Khan Work Phone: [facility] Work Phone: 01-12-2022 13:12-0400 Diastolic blood pressure 70 mm[Hg] Dr. Yg Khan Work Phone: [facility] Work Phone: 01-12-2022 13:12-0400 Heart rate 77 /min Dr. Yg Khan Work Phone: [facility] Work Phone: 01-12-2022 13:12-0400 Respiratory rate 18 /min Dr. Yg Khan Work Phone: [facility] Work Phone: 01-12-2022 13:12-0400 SaO2% (BldA) [Mass fraction] 96 % Dr. Yg Khan Work Phone: [facility] Work Phone: 01-12-2022 13:12-0400 Systolic blood pressure 128 mm[Hg] Dr. Yg Khan Work Phone: [facility] Work Phone: 01-12-2022 13:12-0400 Body temperature 98.4 [degF] Dr. Yg Khan Work Phone: [facility] Work Phone: 01-12-2022 13:12-0400 Diastolic blood pressure 70 mm[Hg] Dr. Yg Khan Work Phone: [facility] Work Phone: 01-12-2022 13:12-0400 Heart rate 77 /min Dr. Yg Khan Work Phone: [facility] Work Phone: 01-12-2022 13:12-0400 Respiratory rate 18 /min Dr. Yg Khan Work Phone: [facility] Work Phone: 01-12-2022 13:12-0400 SaO2% (BldA) [Mass fraction] 96 % Dr. Yg Khan Work Phone: [facility] Work Phone: 01-12-2022 13:12-0400 Systolic blood pressure 128 mm[Hg] Dr. Yg Khan Work Phone: [facility] Work Phone: 09-16-2021 13:19-0500 Diastolic blood pressure 80 mm[Hg] Dr. Yg Khan Work Phone: [facility] Work Phone: 09-16-2021 13:19-0500 Heart rate 90 /min Dr. Yg Khan Work Phone: [facility] Work Phone: 09-16-2021 13:19-0500 Respiratory rate 17 /min Dr. Yg Khan Work Phone: [facility] Work Phone: 09-16-2021 13:19-0500 SaO2% (BldA) [Mass fraction] 98 % Dr. Yg Khan Work Phone: [facility] Work Phone: 09-16-2021 13:19-0500 Systolic blood pressure 120 mm[Hg] Dr. Yg Khan Work Phone: [facility] Work Phone: 06-16-2021 13:49-0400 Body height 157.[address] Yg Khan Work Phone: [facility] Work Phone: 04-17-2017 05:22-0400 Body surface area Derived from formula 37.74 mL/min [facility] [employer] Work Phone: 06-11-2015 13:59-0400 BMI (Body Mass Index) 19.53 kg/m2 [facility] [employer] Work Phone: 06-11-2015 13:59-0400 BP Diastolic 50 mm[Hg] [facility] [employer] Work Phone: 06-11-2015 13:59-0400 BP Systolic 100 mm[Hg] [facility] [employer] Work Phone: 06-11-2015 13:59-0400 BSA (Body Surface Area) 1.47 m2 [facility] [employer] Work Phone: 06-11-2015 13:59-0400 Pulse (Heart Rate) 72 /min [facility] [employer] Work Phone: 06-11-2015 13:59-0400 Respiratory Rate 20 /min [facility] [employer] Work Phone: 06-11-2015 13:59-0400 Weight 48.44 kg [facility] Work Phone: 12-12-2014 13:31-0500 Heart rate 76 /min [facility] Work Phone: 05-20-2012 10:23-0400 Height 157.48 cm [facility] Work Phone: NEGATED: Highlighted [id number] 15:51-0400 BMI (Body Mass Index) 23.13 kg/m2 Charles Tammy OT-C [facility] Work Phone: NEGATED: Highlighted [id number] 15:51-0400 BP Diastolic 77 mm[Hg] Charles Tammy OT-C [facility] [facility] Work Phone: NEGATED: Highlighted [id number] 15:51-0400 BP Systolic 125 mm[Hg] Charles Tammy OT-C [facility] Work Phone: NEGATED: Highlighted [id number] 15:51-0400 Height 157.48 cm Charles Tammy OT-C [facility] Work Phone: NEGATED: Highlighted [id number] 15:51-0400 Height 157 cm Charles Tammy OT-C [facility] Work Phone: NEGATED: Highlighted [id number] 15:51-0400 Pulse (Heart Rate) 72 /min Charles Tammy OT-C [facility] Work Phone: NEGATED: Highlighted [id number] 15:51-0400 Weight 57.15 kg Charles Tammy OT-C [facility] Work Phone: NEGATED: Highlighted [id number] 15:51-0400 Weight 57 kg Charles Tammy OT-C [facility] Work Phone: Encounters Encounter Date Encounter Type Care Provider Facility Start: 02-21-2025 End: 02-21-[address] Nahum Khan MD Work Phone: [facility] Work Phone: Start: 02-21-2025 End: 02-21-[address] Nahum Khan MD -[facility] Start: 02-21-2025 End: 02-21-2025 ambulatory Nahum Khan Facility:[facility] Start: 01-01-2025 End: 01-01-[address] Nahum Khan MD Work Phone: [facility] Work Phone: Start: 01-01-2025 End: 01-01-[address] Westley Portillo MD -[facility] Work Phone: Start: 01-01-2025 End: 01-01-[address] Westley Portillo MD -[facility] Work Phone: Start: 01-01-2025 End: 01-01-2025 ambulatory Nahum Khan Facility:[facility] Start: 01-01-2025 End: 01-01-2025 ambulatory Nahum Khan Facility:[facility] Start: 07-28-2024 End: 07-28-2024 ambulatory Nahum Khan Facility:[facility] Start: 07-05-2024 End: 07-05-2024 ambulatory Nahum Khan Facility:[facility] Start: 05-08-2024 End: 05-08-2024 ambulatory Nahum Khan Facility:[facility] Start: 01-03-2024 End: 01-03-[address] Yg Khan Work Phone: [facility] Work Phone: Start: 01-03-2024 End: 01-03-[address] Yg Khan Work Phone: [facility] Start: 11-01-2023 End: 11-01-[address] Yg Khan Work Phone: [facility] Work Phone: Start: 08-23-2023 End: 08-23-[address] Yg Khan Work Phone: [facility] Work Phone: Start: 08-23-2023 End: 08-23-[address] [facility] Work [facility]: Start: 07-20-2023 End: 07-20-[address] Yg Khan Work Phone: [facility]-Outpatient Breast Imaging Work Phone: Start: 06-24-2023 End: 06-24-[address] Yg Khan Work Phone: [facility]-Cat Scan, [facility] Work Phone: Start: 06-17-2023 End: 06-17-[address] Yg Khan Work Phone: [facility] Work Phone: Start: 06-02-2023 End: 06-02-2023 ambulatory [facility] Work Phone: Start: 06-02-2023 End: 06-02-2023 Patient encounter procedure [facility] Start: 02-15-2023 End: 02-15-[address] Yg Khan Work Phone: [facility] Work Phone: Start: 02-15-2023 End: 02-15-[address] Yg Khan Work Phone: [facility] Start: 02-10-2023 End: 02-10-[address] Yg Khan Work Phone: [facility] Work Phone: Start: 02-10-2023 End: 02-10-[address] Yg Khan Work Phone: [facility] Start: 01-12-2023 End: 01-12-[address] Yg Khan Work Phone: [facility] Start: 12-21-2022 End: 12-21-[address] Yg Khan Work Phone: [facility] Start: 07-20-2022 End: 07-20-2022 ambulatory [facility] Work Phone: Start: 07-20-2022 End: 07-20-2022 Patient encounter procedure [facility] Start: 07-16-2022 End: 07-16-2022 ambulatory [facility] Work Phone: Start: 07-16-2022 End: 07-16-2022 Patient encounter procedure [facility]patient [facility] Start: 06-25-2022 End: 06-25-2022 ambulatory [facility] Work Phone: Start: 06-25-2022 End: 06-25-2022 Patient encounter procedure [facility] Start: 04-01-2022 End: 04-01-[address] Yg Khan Work Phone: [facility] Start: 03-17-2022 End: 03-17-[address] Yg Khan Work Phone: [facility] Start: 01-30-2022 End: 01-30-[address] Yg Khan Work Phone: [facility]-Cardi[facility] Services Start: 01-12-2022 End: 01-12-[address] Yg Khan Work Phone: [facility] Start: 01-07-2022 End: 01-07-[address] Yg Khan Work Phone: [facility]-Radiology, [facility] Start: 09-16-2021 End: 09-16-[address] Yg Khan Work Phone: [facility] Start: 09-15-[address] Yg Khan Work Phone: [facility] Start: 06-16-2018 End: 06-16-2018 Patient encounter procedure Gume Emery PA-C Work Phone: [facility] Work Phone: Start: 06-16-2018 End: 06-16-2018 Pt evaluation Gume Emery PA-C Work Phone: [facility] Work Phone: Procedures Date Procedure Procedure Detail Performing Clinician Start: 07-20-2023 Screening mammography Sarath Khan Work Phone: Start: 06-24-[address] Donnell Khan Work Phone: Start: 12-21-2022 Diagnostic radiograp hy of abdomen, decubitus and erect Dr. Yg Khan Work Phone: Start: 07-16-2022 Dual energy X-ray absorptiometry Start: 07-16-2022 Screening mammography Start: 06-25-2022 Radiography of esophagus Start: 01-07-[address] Yg Khan Work Phone: Start: 06-16-2018 End: 06-16-2018 Blood pressure within normal parameters - no follow-up required Gume Emery PA-C Work Phone: Start: 06-16-2018 End: 06-16-2018 BMI documented within normal parameters - no follow-up plan is required Gume Alanan PA-C Work Phone: Start: 06-16-2018 End: 06-16-2018 Current medications documented Gume Alanan PA-C Work Phone: Start: 06-16-2018 End: 06-16-2018 Fall plan of care docd Gume Gonzalez Mitan PA -C Work Phone: Start: 06-16-2018 End: 06-16-2018 Fall risk assessment doc d Gume Alana n PA-C Work Phone: Start: 06-16-2018 End: 06-16-2018 Osteoarthritis assess Gume Alanan PA- C Work Phone: Start: 06-16-2018 End: 06-16-2018 Pain assessment documented as positive - follow-up documented Gume Alanan PA-C Work Phone: Start: 06-16-2018 End: 06-16-2018 Ptfalls assess-doc d ge2+/yr Gume Gonzalez Mitan PA-C Work Phone: Start: 06-16-2018 End: 06-16-2018 Radex hip unilateral with pelvis 2-3 views Gume Gonzalez Mitan PA-C Work Phone: Start: 06-16-2018 End: 06-16-2018 Tobacco non-user Gume Alanan PA-C Work Phone: Start: 06-11-2015 End: 06-12-2015 Documentation of current medications Wale Bauman MD Start: 01-14-2015 End: 01-15-2015 Documentation of current medications Trice Lloyd PA-C Work Phone: Start: 01-14-2015 End: 01-14-2015 Follow Up Appt Other Trice rowan PA-C Work Phone: Start: 12-12-2014 End: 01-02-2015 Ambulatory BP Monitor 24 HR Trice Alcocer PA-C Work Phone: Start: 12-12-2014 End: 01-02-2015 Carotid duplex Trice Lloyd PA-C Work Phone: Start: 12-12-2014 End: 12-12-2014 RECEIVING AND PROCESSING SUPERVISOR Trice Lloyd PA-C Work Phone: Start: 12-12-2014 End: 12-13-2014 Documentation of current medications Trice Lloyd PA-C Work Phone: Start: 12-12-2014 End: 12-12-2014 Follow Up Appt 1 month Trice tang PA-C Work Phone: Start: 12-12-2014 End: 12-12-2014 Follow Up Appt 6 months Tirce gandara PA-C Work Phone: Start: 12-12-2014 End: 12-12-2014 MMM Trice Lloyd PA-C Work Phone: Start: 12-04-2014 End: 12-06-2014 *Hepatic Function Panel Michael Chiang Start: 12-04-2014 End: 12-05-2014 Lipid 1996 panel - Serum or Plasma Wale Bauman MD Start: 06-12-2014 End: 06-12-2014 Follow Up Appt 6 months Michael Chiang Start: 06-12-2014 End: 06-12-2014 MM Wale Bauman MD Start: 12-13-2013 End: 12-13-2013 RECEIVING AND PROCESSING SUPERVISOR Trice Lloyd PA-C Work Phone: Start: 12-13-2013 End: 12-13-2013 Follow Up Appt 6 months Trice gandara PA-C Work Phone: Start: 11-18-2013 End: 12-06-2013 *Hepatic Function Panel Michael Chiang Start: 11-18-2013 End: 12-06-2013 Lipid 1996 panel - Serum or Plasma Wale Bauman MD Start: 06-08-2013 End: 06-08-2013 *Hepatic Function Panel Michael Chiang Start: 06-08-2013 End: 12-01-2013 48 hour holter monitor Wale Bauman MD Start: 06-08-2013 End: 06-08-2013 Follow Up Appt 6 months Michael Chiang Start: 06-08-2013 End: 06-08-2013 Lipid 1996 panel - Serum or Plasma Wale Bauman MD Start: 06-08-2013 End: 06-08-2013 MMM Wale Bauman MD Start: 05-20-2012 End: 05-20-2012 Follow Up Appt 1 year Wale Bauman MD Start: 02-16-2012 End: 12-01-2013 *Hepatic Function Panel Michael Chiang Start: 02-16-2012 End: 12-01-2013 Lipid 1996 panel - Serum or Plasma Wale Bauman MD Plan of Treatment Date Care Activity Detail Author Start: 06-16-2018 End: 06-16-2018 Appointment Appointment [facility] Work Phone: Start: 06-11-2015 End: 06-11-2015 Follow Up Appt Other Follow Up Appt Other [facility] Work Phone: Start: 06-05-2015 End: 12-06-2014 *Hepatic Function Panel *Hepatic Function Panel [facility] Work Phone: Start: 06-05-2015 End: 12-06-2014 Lipid 1996 panel *Lipid Profile CC PCP [facility] Work Phone: Start: 01-14-2015 End: 01-14-2015 Follow Up Appt Other Follow Up Appt Other [facility] Work Phone: Start: 12-12-2014 End: 12-12-2014 Ambulatory BP Monitor 24 HR Ambulatory BP Monitor 24 HR [facility] Work Phone: Start: 12-12-2014 End: 12-12-2014 Carotid duplex Carotid duplex [facility] Work Phone: Start: 12-12-2014 End: 12-12-2014 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 [facility] Work Phone: Start: 12-12-2014 End: 12-12-2014 Follow Up Appt 1 month Follow Up Appt 1 month [facility] Work Phone: Start: 12-12-2014 End: 12-12-2014 Follow Up Appt 6 months Follow Up Appt 6 months [facility] Work Phone: Start: 12-12-2014 End: 12-12-2014 MMM MMM [facility] Work Phone: Start: 12-04-2014 End: 12-04-2014 *Hepatic Function Panel *Hepatic Function Panel [facility] Work Phone: Start: 12-04-2014 End: 12-04-2014 Lipid 1996 panel *Lipid Profile CC PCP [facility] Work Phone: Start: 06-12-2014 End: 06-12-2014 Follow Up Appt 6 months Follow Up Appt 6 months [facility] Work Phone: Start: 06-12-2014 End: 06-12-2014 MMM MMM [facility] Work Phone: Start: 12-13-2013 End: 12-13-2013 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 [facility] Work Phone: Start: 12-13-2013 End: 12-13-2013 Follow Up Appt 6 months Follow Up Appt 6 months [facility] Work Phone: Start: 11-18-2013 End: 12-06-2013 *Hepatic Function Panel *Hepatic Function Panel [facility] Work Phone: Start: 11-18-2013 End: 12-06-2013 Lipid 1996 panel *Lipid Profile CC PCP [facility] Work Phone: Start: 06-08-2013 End: 06-08-2013 *Hepatic Function Panel *Hepatic Function Panel [facility] Work Phone: Start: 06-08-2013 End: 06-08-2013 48 hour holter monitor 48 hour holter monitor [facility] Work Phone: Start: 06-08-2013 End: 06-08-2013 Follow Up Appt 6 months Follow Up Appt 6 months [facility] Work Phone: Start: 06-08-2013 End: 06-08-2013 Lipid 1996 panel *Lipid Profile CC PCP [facility] Work Phone: Start: 06-08-2013 End: 06-08-2013 MMM MMM [facility] Work Phone: Start: 05-20-2012 End: 05-20-2012 Follow Up Appt 1 year Follow Up Appt 1 year [facility] Work Phone: Start: 02-16-2012 End: 12-01-2013 *Hepatic Function Panel *Hepatic Function Panel [facility] Work Phone: Start: 02-16-2012 End: 12-01-2013 Lipid 1996 panel *Lipid Profile [facility] Work Phone: Patient Education [facility] Work Phone: Immunizations Immunization Date Immunization Notes Care Provider Fa cili 07-18-[address] Yg Khan Work Phone: [facility] 07-18-[address] Yg Khan Work Phone: [facility] 06-18-[address] Yg Khan Work Phone: [facility] No information available. Charles Munoz OT-C [facility] Work Phone: Payers Date Payer Category Payer Self-pay [id number] 2023 Unknown [id number] 2003 Medicare [id number] Unknown [id number] [id number] Unknown [id number] [id number] Unknown [id number] [id number] Unknown [id number] [id number] Unknown [id number] [id number] Unknown [id number] [id number] Social History Date Type Detail Facility Start: 01-12-2022 End: 11-01-2023 Assertion Unknown if ever smoked [facility] Work Phone: Start: 10-16-2020 None [facility] Start: 10-16-2020 With Family [facility] Start: 1940 Sex Assigned At Female W [facility] Start: 11-01-2023 Tobacco smoking stat us NHIS Never smoked tobacco (finding) [facility] Start: 01-10-2025 Sex Female (finding) [facility] NEGATED: Highlighted rowStart: 06-16-2018 End: 06-16-2018 Employment detail OCCUPATION#1 auguste [facility] Work Phone: Medical Equipment Procedure Code Equipment Code Equipment Origin al Text Equipment Identifier Dates Minimally invasive total replacement of hip joint by anterior approach FEMORAL HEAD FDA Start: 11-30-2018 Minimally invasive total replacement of hip joint by anterior approach INSERT FDA Start: 11-30-2018 Minimally invasive total replacement of hip joint by anterior approach SHELL FDA Start: 11-30-2018 Minimally invasive total replacement of hip joint by anterior approach STEM FDA Start: 11-30-2018 Minimally invasive total replacement of hip joint by anterior approach FEMORAL HEAD FDA Start: 11-30-2018 Minimally invasive total replacement of hip joint by anterior approach INSERT FDA Start: 11-30-2018 Minimally invasive total replacement of hip joint by anterior approach SHELL FDA Start: 11-30-2018 Minimally invasive total replacement of hip joint by anterior approach STEM FDA Start: 11-30-2018 Minimally invasive total replacement of hip joint by anterior approach FEMORAL HEAD FDA Start: 11-30-2018 Minimally invasive total replacement of hip joint by anterior approach INSERT FDA Start: 11-30-2018 Minimally invasive total replacement of hip joint by anterior approach SHELL FDA Start: 11-30-2018 Minimally invasive total replacement of hip joint by anterior approach STEM FDA Start: 11-30-2018 Minimally invasive total replacement of hip joint by anterior approach FEMORAL HEAD FDA Start: 11-30-2018 Minimally invasive total replacement of hip joint by anterior approach INSERT FDA Start: 11-30-2018 Minimally invasive total replacement of hip joint by anterior approach SHELL FDA Start: 11-30-2018 Minimally invasive total replacement of hip joint by anterior approach STEM FDA Start: 11-30-2018 Minimally invasive total replacement of hip joint by anterior approach FEMORAL HEAD FDA Start: 11-30-2018 Minimally invasive total replacement of hip joint by anterior approach INSERT FDA Start: 11-30-2018 Minimally invasive total replacement of hip joint by anterior approach SHELL FDA Start: 11-30-2018 Minimally invasive total replacement of hip joint by anterior approach STEM FDA Start: 11-30-2018 Minimally invasive total replacement of hip joint by anterior approach FEMORAL HEAD FDA Start: 11-30-2018 Minimally invasive total replacement of hip joint by anterior approach INSERT FDA Start: 11-30-2018 Minimally invasive total replacement of hip joint by anterior approach SHELL FDA Start: 11-30-2018 Minimally invasive total replacement of hip joint by anterior approach STEM FDA Start: 11-30-2018 Minimally invasive total replacement of hip joint by anterior approach FEMORAL HEAD FDA Start: 11-30-2018 Minimally invasive total replacement of hip joint by anterior approach INSERT FDA Start: 11-30-2018 Minimally invasive total replacement of hip joint by anterior approach SHELL FDA Start: 11-30-2018 Minimally invasive total replacement of hip joint by anterior approach STEM FDA Start: 11-30-2018 Minimally invasive total replacement of hip joint by anterior approach FEMORAL HEAD FDA Start: 11-30-2018 Minimally invasive total replacement of hip joint by anterior approach INSERT FDA Start: 11-30-2018 Minimally invasive total replacement of hip joint by anterior approach SHELL FDA Start: 11-30-2018 Minimally invasive total replacement of hip joint by anterior approach STEM FDA Start: 11-30-2018 Minimally invasive total replacement of hip joint by anterior approach FEMORAL HEAD FDA Start: 11-30-2018 Minimally invasive total replacement of hip joint by anterior approach INSERT FDA Start: 11-30-2018 Minimally invasive total replacement of hip joint by anterior approach SHELL FDA Start: 11-30-2018 Minimally invasive total replacement of hip joint by anterior approach STEM FDA Start: 11-30-2018 Minimally invasive total replacement of hip joint by anterior approach FEMORAL HEAD FDA Start: 11-30-2018 Minimally invasive total replacement of hip joint by anterior approach INSERT FDA Start: 11-30-2018 Minimally invasive total replacement of hip joint by anterior approach SHELL FDA Start: 11-30-2018 Minimally invasive total replacement of hip joint by anterior approach STEM FDA Start: 11-30-2018 Minimally invasive total replacement of hip joint by anterior approach FEMORAL HEAD FDA Start: 11-30-2018 Minimally invasive total replacement of hip joint by anterior approach INSERT FDA Start: 11-30-2018 Minimally invasive total replacement of hip joint by anterior approach SHELL FDA Start: 11-30-2018 Minimally invasive total replacement of hip joint by anterior approach STEM FDA Start: 11-30-2018 Minimally invasive total replacement of hip joint by anterior approach FEMORAL HEAD FDA Start: 11-30-2018 Minimally invasive total replacement of hip joint by anterior approach INSERT FDA Start: 11-30-2018 Minimally invasive total replacement of hip joint by anterior approach SHELL FDA Start: 11-30-2018 Minimally invasive total replacement of hip joint by anterior approach STEM FDA Start: 11-30-2018 Minimally invasive total replacement of hip joint by anterior approach FEMORAL HEAD FDA Start: 11-30-2018 Minimally invasive total replacement of hip joint by anterior approach INSERT FDA Start: 11-30-2018 Minimally invasive total replacement of hip joint by anterior approach SHELL FDA Start: 11-30-2018 Minimally invasive total replacement of hip joint by anterior approach STEM FDA Start: 11-30-2018 Minimally invasive total replacement of hip joint by anterior approach FEMORAL HEAD FDA Start: 11-30-2018 Minimally invasive total replacement of hip joint by anterior approach INSERT FDA Start: 11-30-2018 Minimally invasive total replacement of hip joint by anterior approach SHELL FDA Start: 11-30-2018 Minimally invasive total replacement of hip joint by anterior approach STEM FDA Start: 11-30-2018 LEAD KIT 28CM BLADDER STIM FDA Start: 04-01-2021 LEAD KIT 28CM BLADDER STIM FDA Start: 04-01-2021 LEAD KIT 28CM BLADDER STIM FDA Start: 04-01-2021 LEAD KIT 28CM BLADDER STIM FDA Start: 04-01-2021 LEAD KIT 28CM BLADDER STIM FDA Start: 04-01-2021 LEAD KIT 28CM BLADDER STIM FDA Start: 04-01-2021 LEAD KIT 28CM BLADDER STIM FDA Start: 04-01-2021 LEAD KIT 28CM BLADDER STIM FDA Start: 04-01-2021 LEAD KIT 28CM BLADDER STIM FDA Start: 04-01-2021 LEAD KIT 28CM BLADDER STIM FDA Start: 04-01-2021 LEAD KIT 28CM BLADDER STIM FDA Start: 04-01-2021 LEAD KIT 28CM BLADDER STIM FDA Start: 04-01-2021 LEAD KIT 28CM BLADDER STIM FDA Start: 04-01-2021 LEAD KIT 28CM BLADDER STIM FDA Start: 04-01-2021 Evaluation note 01-01-2025 Note Date & Type Note Facility 01-01-2025 Evaluation note Diagnosis Onset Date Resolution Restless legs syndrome acute [facility] 2024 11:22am MCI (mild cognitive impairment) chronic January 01, 2025 11:22am History of TIAs resolved December 11:22am [facility] Work Phone: Clinical Note 11-14-2020 Note Date & Type Note Facility 11-14-2020 Note Patient Outreach ([place] OCC3) LAAN BUCK ([id number]) 1940 F Date Time Provider Department 11/14/20 EDIN HOUSER During your visit today, we recorded the following information about you: Allergies As of Date: 11/14/2020 Noted Allergy Reaction DUST MITES 11/23/2012 14 - Other: See Comments Comments: Sneezing, stuffy nose SEASONAL ALLERGIES 11/23/2012 14 - Other: See Comments Comments: sneezing,runny nose, and stuffy nose TRAMADOL 09/05/2015 14 - Other: See Comments Comments: Urinary frequency Date Reviewed: 07/14/2018 Reviewed by: Chelo ([facility]) Maria Del Carmen - Fully Assessed Order(s):SARS-COVID VACCINE 1ST DOSE APPT [[id number]] Order #: [id number] FUTURE Prescriptions as of 11/14/2020 Sig: MAGNESIUM OXIDE 500 MG TABLET Take 500 mg by mouth daily at* SIMVASTATIN 20 MG TABLET HOLD SIMVASTATIN FOR NOW Patient not taking: Reported on 06/07/2018 IPRATROPIUM BROMIDE 42 MCG (0* Use 2 Sprays in the nose twic* FISH OIL ORAL Take by mouth. LACTOBACILLUS ACIDOPHILUS CAP* Take 2 capsules by mouth thre* STOOL SOFTENER ORAL Take by mouth. POLYETHYLENE GLYCOL 3350 17 G* Take 17 g by mouth once daily. ASPIRIN 81 MG TABLET,DELAYED * Taking QOD ESCITALOPRAM 10 MG TABLET Take 20 mg by mouth once abbe* CLONAZEPAM 0.5 MG TABLET Take 1 tablet by mouth daily * MULTI VITAMIN ORAL Take 1 tablet by mouth once d* More... Problem List As Of Date 11/14/2020 Noted Resolved C. difficile colitis [A04.72] 07/07/2011 08/01/2015 More... Atrial fibrillation [I48.91] 07/07/2011 08/01/2015 More... Acquired hypothyroidism [E03.9] 07/07/2011 More... Depressive disorder, not elsewhere classified [*07/07/2011 More... Anxiety [F41.9] 07/07/2011 More... Mixed hyperlipidemia [E78.2] 07/07/2011 More... 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] 04/13/2012 Other seborrheic keratosis [L82.1] 04/13/2012 Solar Lentigines [L81.4] 04/13/2012 Melanocytic nevi of trunk: Intradermal Nevus mo*04/13/2012 Actinic skin damage [L57.8] 04/13/2012 Other seborrheic dermatitis [L21.8] 11/25/2012 Pruritus of scalp [L29.9] 11/25/2012 [employer] [place] [employer] spot [L81.3] 11/25/2012 Intradermal nevus [D23.9] 11/25/2012 Conner angioma [D18.01] 11/25/2012 Osteopenia [M85.80] 02/20/2013 Allergic rhinitis [J30.9] 03/20/2014 Osteoporosis [M81.0] 05/14/2014 Melanocytic nevus of face [D22.30] 05/22/2014 Xerosis cutis [L85.3] 05/22/2014 Vitamin D deficiency [E55.9] 08/13/2014 Retention of urine [R33.9] 05/13/2015 Dysuria [R30.0] 05/13/2015 08/01/2015 Abnormal defecation [R19.8] 05/16/2016 Change in bowel habits [R19.4] 05/16/2016 Encounter Status:Closed by MORA MCCOY on 11/18/20 [facility] Evaluation note Note Date & Type Note Facility Evaluation note Diagnosis Onset Date Anxiety acute Fatigue acute MCI (mild cognitive impairment) acute TIA (transient ischemic attack) acute Depression chronic Fatigue acute MCI (mild cognitive impairment) acute TIA (transient ischemic attack) acute [facility] Work Phone: Evaluation note Note Date & Type Note Facility Evaluation note Diagnosis Onset Date Fatigue acute MCI (mild cognitive impairment) acute TIA (transient ischemic attack) acute [facility] Work Phone: Evaluation note Note Date & Type Note Facility Evaluation note No assessment information availa ble [facility] Work Phone: Evaluation note Note Date & Type Note Facility Evaluation note Diagnosis Onset Date MCI (mild cognitive impairment) chronic History of TIAs resolved [facility] Work Phone: Evaluation note Note Date & Type Note Facility Evaluation note Diagnosis Onset Date Anosmia acute Dysgeusia acute MCI (mild cognitive impairment) chronic History of TIAs resolved [facility] Work Phone: Reason for referral (narrative) Note Date & Type Note Facility Reason for referral (narrative) No reason for referral information available [facility] Work Phone: Advance Directives No Advanced Directives Records Found Advance Directive Response Recorded Date/ Time Advance Directives Yes June 16, 2021 1:49pm Living Will Yes June 16 1:49pm Power of Cash Management Clerk Yes June 16 1:49pm Advance Directive Response Recorded Date/ Time Advance Directives Yes June 16, 2021 12:49pm Living Will Yes June 16 12:49pm Power of Cash Management Clerk Yes June 16 12:49pm Advance Directive Response Recorded Date/ Time Advance Directives Yes November 01, 2023 1:17pm Living Will Yes November 01 1:17pm Power of Cash Management Clerk Yes November 01, 2023 1:17pm Advance Directive Response Recorded Date/ Time Living Will Yes November 01 1:17pm Do you have a Healthcare Power of Cash Management Clerk? Yes November 01, 2023 1:17pm Advance Directives Yes November 01, 2023 1:17pm Assessments There may be information available, but it has not been provided by the sender. Review of System There may be information available, but it has not been provided by the sender. Family History No Family History Records Found Relationship Condition Age at Onset Recorded Date/T mikey daughter Schizophrenia Unknown grandmother Cerebrovascular accident (CVA) Unknown father Myocardial infarction Unknown sister Cerebrovascular accident (CVA) Unknown Summary Purpose Chief Complaint and Reason for Visit Chief Complaint 3 M FU LEFT SHOULDER - PRIMARY OSTEOARTHRITIS 4 M FU Reason for Visit Anxiety Fatigue MCI (mild cognitive impairment) TIA (transient ischemic attack) Depression Fatigue MCI (mild cognitive impairment) TIA (transient ischemic attack) Chief Complaint LEFT SHOULDER - PRIM EDD OSTEOARTHRITIS 4 M FU RESTLESS LEG Reason for Visit Fatigue MCI (mild cognitive impairment) TIA (transient ischemic attack) Chief Complaint DYSPHAGIA Chief Complaint DYSPHAGIA SCREENING/POST NATASHA Chief Complaint ABD XRAY 1 Y FU FATIGUE Reason for Visit MCI (mild cognitive impairment) History of TIAs Chief Complaint FATIGUE Chief Complaint LOSS OF TASTE AND SM ELL, MEMORY CONCERNS Anosmia SCREENING NEED ORDER Reason for Visit Anosmia Dysgeusia MCI (mild cognitive impairment) History of TIAs Chief Complaint 1 Y FU Reason for Visit Anosmia Dysgeusia MCI (mild cognitive impairment) History of TIAs Chief Complaint Admit Date 8 mo fu January 01, 2025 11: 22am EORDERS January 01, 2025 12: 31pm Reason for Visit Admit Date Restless legs syndrome January 01, 2025 11:22am MCI (mild cognitive impairment) January [id number] 11:22am History of TIAs January 01, 2025 11: 22am Additional Source Comments INFORMATION SOURCE (unrecogn ized section and content) DATE CREATED AUTHOR 11/12/2021 [facility] DATE CREATED AUTHOR AUTHOR'S ORGANIZ ATION 02/27/2025 Marisela [facility] y [facility] Goals (unrecognized section and content) Goals may be documented in a n alternate sectionGoals may be documented in an alternate sectionGoals may be documented in an alternate sectionGoals may be documented in an alternate sectionGoals may be documented in an alternate sectionGoals may be documented in an alternate sectionGoals may be documented in an alternate sectionGoals may be documented in an alternate sectionGoals may be documented in an alternate sectionGoals may be documented in an alternate sectionGoals may be documented in an alternate sectionGoals may be documented in an alternate sectionGoals may be documented in an alternate sectionGoals may be documented in an alternate section Care Teams (unrecognized sec tion and content) Team Status: Active Member Role Status Dates Dr. Wilbert Bar MD Family Provider Active Dr. Yg Khan MD Primary Care Provider Activ e Team Status: Inactive Member Role Status Dates Dr. Yg Khan MD Primary Care Provider, Refe ing Provider Active Dr. Westley Portillo MD Attending Provider Active Team Status: Inactive Member Role Status Dates Dr. Yg Khan MD Primary Care Provider, Attending Provider, Referring Provider Active Team Status: Inactive Member Role Status Dates Dr. Yg Khan MD Primary Care Provider Activ e Dr. Duncan Bragg MD Attending Provider, Referrin g Provider Active Team Status: Inactive Member Role Status Dates Dr. Yg Khan MD Primary Care Provider, Atte nding Provider Active Team Status: Inactive Member Role Status Dates Dr. Yg Khan MD Primary Care Provider Activ e Dr. Westley Portillo MD Attending Provider, Referring Provider Active Team Status: Active Member Role Status Dates Dr. Wilbert Bar MD Family Provider Active Dr. Nahum Khan MD Primary Care Provider Acti ve Team Status: Inactive Member Role Status Dates Dr. Nahum Khan MD Primary Care Provider Acti ve Start: January 01, 2025 End: January 01, 2025 Dr. Nahum Khan MD Referring Provider Active Start: January 01, 2025 End: January 01, 2025 Dr. Westley Portillo MD Attending Provider Active Start: January 01, 2025 End: January 01, 2025 Team Status: Inactive Member Role Status Dates Dr. Nahum Khan MD Primary Care Provider Acti ve Start: January 01, 2025 End: January 01, 2025 Dr. Westley Portillo MD Attending Provider Active Start: January 01, 2025 End: January 01, 2025 Dr. Westley Portillo MD Referring Provider Active Start: January 01, 2025 End: January 01, 2025 Team Status: Inactive Member Role Status Dates Dr. Nahum Khan MD Primary Care Provider Acti ve Start: February 21, 2025 End: February 21, 2025 Dr. Nahum Khan MD Attending Provider Active Start: February 21, 2025 End: February 21, 2025 Dr. Nahum Khan MD Referring Provider Active Start: February 21, 2025 End: February 21, 2025 FOR RECORDS PERTAINING TO PATIENTS WHO ARE OR HAVE BEEN ENROLLED IN A CHEMICAL DEPENDENCY/SUBSTANCEABUSE PROGRAM, SOME INFORMATION MAY BE OMITTED. This clinical summary was aggregated from multiple sources. Caution should be exercised in using it in the provision of clinical care. This summary normalizes information from multiple sources, and as a consequence, information in this document may materially change the coding, format and clinical context of patient data. In addition, data may be omitted in some cases. CLINICAL DECISIONS SHOULD BE BASED ON THE PRIMARY CLINICAL RECORDS. [facility] [employer] provides no warranty or guarantee of the accuracy or completeness of information in this document.
== END | disposition home or self-care (01) ==
PROVIDERS: PCP Family Medicine
DX: K92.1 Melena (principal)

== ENCOUNTER → 2025-05-15 | Outpatient (CLI) | payer MEDICARE, BC, SELFPAY ==
--- OUTSIDE RECORDS SUMMARY | 2025-05-15 06:46 | XMS RPT_ITS | CCD ---
Author Organization [facility] Care Team Providers Care Diploma Pharmacy Technician Name Role Phone Gume Emery PA-C W Unavailable WSANurse Unavailable Unavailable Dr. Yg Khan Primary Care Provider [phone] Angelique ADULT AND PEDIATRIC NEUROLOGIST, ADULT AND PEDIATRIC NEUROLOGIST-C Didi Attending Provider Angelique ADULT AND PEDIATRIC NEUROLOGIST, ADULT AND PEDIATRIC NEUROLOGIST-C Didi Referring Provider Dr. Yg Khan Referring Provider Dr. Yg Khan Primary Care Provider [phone] Angelique ADULT AND PEDIATRIC NEUROLOGIST, ADULT AND PEDIATRIC NEUROLOGIST-C Didi Attending Provider Dr. Yg Khan Primary [...] Provider Erin PATEL, Dr. Sidhu Attending Provider Beth ADULT AND PEDIATRIC NEUROLOGIST-C, Inga Attending Provider [phone] Beth ADULT AND PEDIATRIC NEUROLOGIST-C, Inga Referring Provider [phone] Westley Portillo Attending Unavailable Westley Portillo Referring Unavailable Ranney, Christopher Primary Care Unavailable Erin Christopher Referring Unavailable Westley Portillo Attending Unavailable Ranney, Christopher Primary Care Unavailable Ranney, Christopher Referring Unavailable Ranney, Christopher Primary Care Unavailable Erin, Nahum Attending Unavailable Ranney, Christopher Referring Unavailable Ranney, Christopher Primary Care Unavailable Erin, Nahum Attending Unavailable Westley Portillo Attending Unavailable Ranney, Christopher Referring Unavailable Ranney, Christopher Primary Care Unavailable Beth ADULT AND PEDIATRIC NEUROLOGIST, Inga Referring Unavailable Ranney, Christopher Primary Care Unavailable Beth ADULT AND PEDIATRIC NEUROLOGIST, Inga Attending Unavailable Ranney, Christopher Primary Care Unavailable Beth ADULT AND PEDIATRIC NEUROLOGIST, Inga Attending Unavailable Niallel ADULT AND PEDIATRIC NEUROLOGIST, Inga Referring Unavailable Ranney, Christopher Primary Care Unavailable Nahum Khan Attending Unavailable Ranney, Christopher Referring Unavailable Ranney, Christopher Primary Care Unavailable Nahum Khan Attending Unavailable Allergies Allergy Classification Reported Allergen(s) Allergy Type Date of Onset Reaction(s) Facility (1 source) Seasonal allergy; Translations: [SEASONAL] allergy to substance 4 [facility] Work Phone: Medications Current Medications Medication Drug Class(es) Dates Sig (Normalized) Sig (Original) carboxymethylcellulose sodium 2.5 mg/ml ophthalmic solution (15 sources) Start: 10-16-20 Carboxymethylcellulose Sodium 15 ML drops Active 15 mL OP TWICE A DAY October 16, 2020 1:00am cholecalciferol 0.05 mg oral capsule (20 sources) Vitamin D Start: 01-13-20 22 take 1 capsule by mouth once daily Cholecalciferol (Vitamin D3) (Vitamin D3) 50 mcg (2,000 unit) capsule Active 25 ug PO DAILY January 12, 2022 1:07pm Start: 03-25-2021 End: 03-28-2022 take 1 capsule by mouth once daily Cholecalciferol (Vitamin D3) (Vitamin D3) 50 mcg (2,000 unit) Capsule Discontinued 50 ug PO DAILY March 25, 2021 12:00am January 12, 2022 1:12pm Start: 08-29-2014 VITAMIN D 2000 UNIT TABS 1 tablet daily CHOLECALCIFEROL [id number] Stacy Segura ATTRACTION WORKER mirtazapine 7.5 mg oral tablet (20 sources) [...] 16, 2021 3:44pm Multivitamin 1 EACH tablet (3 sources) Start: 10-16-2020 Multivitamin 1 EACH tablet [...] bedtime rosuvastatin calcium 20 mg oral tablet (15 sources) HMG-CoA Reductase Inhibitor Start: 01-02-2021 take 1 tablet by mouth at bedtime Rosuvastatin 20 mg tablet Active 20 mg PO AT BEDTIME January 02, 2021 12:00am ubidecarenone 75 mg oral capsule (15 sources) Start: 01-12-2022 Coenzyme Q10 (Ultra Coq10) 75 mg capsule Active 100 mg PO DAILY January 12, 2022 12:00am Completed/Discontinued Medications Medication Drug Class(es) Dates Sig (Normalized) Sig (Original) acetaminophen 300 mg / codeine phosphate 30 mg oral tablet (15 sources) Opioid Agonist Start: 04-01-2021 End: 01-12-2022 [...] One tablet by mouth weekly ALENDRONATE SODIUM [id number] Wale Bauman MD ARIPiprazole 5 mg oral tablet (2 sources) Atypical Antipsychotic Start: 01-27-2011 End: 05-20-2012 take 1 tablet by mouth once daily ABILIFY 5 MG TABS One tablet by mouth daily ARIPIPRAZOLE [id number] Wale Bauman MD ascorbic acid 1000 mg [...] TBEC 1 tablet every other day ASPIRIN [id number] Stacy Segura LPN Start: 05-13-2012 take 1 tablet by arslan th every other day ASPIRIN 81 MG TABS One tablet by mouth every other day ASPIRIN [id number] Kaya Whyte RN Start: 01-27-2011 End: 06-08-2013 take 1 tablet by mouth once daily ASPIRIN 81 MG TABS One tablet by mouth daily ASPIRIN [id number] Wale Bauman MD atorvastatin 40 mg oral tablet (15 sources) HMG-CoA Reductase Inhibitor Start: 10-17-2020 End: [...] One tablet by mouth twice daily CLONAZEPAM [id number] Wale Bauman MD Start: 05-20-2012 take 1 tablet by arslan th three times daily CLONAZEPAM 0.5 MG TABS One tablet by mouth three times a day CLONAZEPAM [id number] Wale Bauman MD Start: 01-27-2011 KLONOPIN 0.5 M G TABS 1/2 tablet in AM and 1 tablet at bedtime CLONAZEPAM [id number] Stacy Segura LPN 24 hr desvenlafaxine succinate 50 mg extended release oral tablet (2 sources) Serotonin and Norepinephrine Reuptake Inhibitor Start: 01-27-2011 End: 05-20-2012 take 1 tablet by mouth once daily PRISTIQ 50 MG [id number] One tablet by mouth daily DESVENLAFAXINE SUCCINATE [id number] Kalani Eng DULoxetine 20 mg delayed release oral capsule (2 sources) Serotonin and Norepinephrine Reuptake Inhibitor Start: 06-08-2013 End: 06-12-2014 take 1 tablet by mouth once daily CYMBALTA 20 MG CPEP One tablet by mouth daily DULOXETINE HCL [id number] Wale Bauman MD ergocalciferol 67522 unt oral tablet (1 source) Provitamin D2 Compound Start: 06-12-2014 take 1 tablet by mouth every week VITAMIN D (ERGOCALCIFEROL) 53890 UNIT CAPS One tablet by mouth weekly ERGOCALCIFEROL [id number] Wale Bauman MD escitalopram 20 mg oral tablet (16 sources) Serotonin Reuptake Inhibitor Start: 10-16-2020 End: 01-12-2023 take 1 tablet by mouth at bedtime Escitalopram Oxalate 20 MG tablet Discontinued 20 mg PO AT BEDTIME October 16, 2020 1:00am January 12, 2023 7:52pm Start: 08-10-2016 LEXAPRO 20 MG TABS 1 tablet daily ESCITALOPRAM OXALATE [id number] Stacy Segura LPN fexofenadine hydrochloride 180 mg oral tablet (15 sources) Histamine-1 Receptor Antagonist Start: 02-12-2021 End: [...] One tablet by mouth daily FLUOXETINE HCL [id number] Trice Lloyd PA-C gabapentin 100 mg oral capsule (2 sources) Anti-epileptic Agent Start: 06-12-2014 End: 12-12-2014 take 2 tablets by mouth three times daily GABAPENTIN 100 MG CAPS Two tablets by mouth three times daily GABAPENTIN [id number] Trice Lloyd PA-C ibandronic acid 150 mg oral tablet (15 sources) Bisphosphonate Start: 10-16-2020 End: 01-12-2023 take 1 tablet by mouth every month Ibandronate 150 MG tablet Discontinued 150 mg PO EVERY MONTH October 16, 2020 1:00am January 12, 2023 1:35pm LACTOBACILLUS CAPS (1 source) Start: 01-27-2011 take 1 tablet by mouth once daily ACIDOPHILUS CAPS One tablet by mouth daily LACTOBACILLUS CAPS [id number] Kalani Eng levothyroxine sodium 0.05 mg oral tablet (2 sources) l-Thyroxine Start: 01-27-2011 End: 05-20-2012 take 1 tablet by mouth once daily SYNTHROID 50 MCG TABS One tablet by mouth daily LEVOTHYROXINE SODIUM [id number] Kalani Eng linseed oil 1000 mg oral capsule (15 sources) Start: 02-12-2021 End: 01-12-2022 take 1 capsule by mouth once daily Flaxseed Oil 1,000 mg capsule Discontinued 1000 mg PO DAILY February 12, 2021 12:00am January 12, 2022 1:10pm administer with a meal Magnesium (2 sources) Start: 06-16-2018 MAGNESIUM 500 MG TABS 1 tablet daily MAGNESIUM [id number] Stacy Segura LPN Start: 12-12-2014 take 1 tablet by arslan th once daily MAGNESIUM CAPS One tablet by mouth daily MAGNESIUM CAPS [id number] Trice Lloyd PA-C 24 hr mirabegron 25 mg extended release oral tablet (15 sources) beta3-Adrenergic Agonist Start: 01-02-2021 End: 02-12-2021 take 1 tablet by mouth once daily Mirabegron (Myrbetriq) 25 mg tablet extended release 24 hr Discontinued 25 mg PO DAILY January 02, 2021 12:00am February 12, 2021 9:52am MULTIPLE VITAMIN (1 source) Start: 08-29-2014 MULTIPLE VITAMIN TABS 1 tablet daily MULTIPLE VITAMIN [id number] Stacy Segura LPN MULTIPLE VITAMIN (1 source) Start: 06-12-2014 take 1 tablet by mouth once daily MULTIVITAMINS TABS One tablet by mouth daily MULTIPLE VITAMIN Austin S Mitul, MD naproxen sodium 220 mg oral tablet (2 sources) Nonsteroidal Anti-inflammatory Drug Start: 10-31-2014 End: 12-12-2014 ALEVE 220 MG TABS PRN NAPROXEN SODIUM [id number] Trinity Cornell RN risperiDONE 0.5 mg oral tablet (2 sources) Atypical Antipsychotic Start: 05-20-2012 End: 06-08-2013 take 1 tablet by mouth once daily RISPERDAL 0.5 MG TABS One tablet by mouth daily RISPERIDONE [id number] Wale Bauman MD saccharomyces boulardii (1 source) Start: 06-16-2018 PROBIOTIC CAPS 1 capsule daily SACCHAROMYCES BOULARDII CAPS [id number] Stacy Segura ATTRACTION WORKER simvastatin 20 mg oral tablet (2 sources) HMG-CoA Reductase Inhibitor Start: 05-20-2012 take 1 tablet by mouth once daily SIMVASTATIN 20 MG TABS One tablet by mouth daily SIMVASTATIN [id number] Wale Bauman MD Start: 01-27-2011 take 1 tablet by arslan th once daily in the evening SIMVASTATIN 80 MG TABS 1 tablet by mouth every evening (pt only takes 1/4 tablet or 20mg) SIMVASTATIN [id number] Kalani Eng traMADol hydrochloride 50 mg oral tablet (15 sources) Opioid Agonist Start: 12-02-2018 End: 12-09-2018 take 50-100 mg by mouth every six hours as needed for pain Tramadol 50 MG tablet Discontinued 50 - 100 mg PO EVERY 6 HOURS NEEDED as needed for Mod-Severe Pain (4-10/10) 60 7 December 02, 2018 1:00am December 08, 2018 1:00am December 09, 2018 1:10am 24 hr venlafaxine 150 mg extended release oral capsule (2 sources) Serotonin and Norepinephrine Reuptake Inhibitor Start: 05-20-2012 End: 06-08-2013 take 1 tablet by mouth once daily EFFEXOR XR 150 MG [id number] One tablet by mouth daily VENLAFAXINE HCL [id number] Wale Bauman MD vilazodone hydrochloride 40 mg oral tablet (1 source) Start: 06-12-2014 take 1 tablet by mouth once daily VIIBRYD 40 MG TABS One tablet by mouth daily VILAZODONE HCL [id number] Wale Bauman MD vitamin b12 1 mg/ml [...] injection solution Discontinued 1000 MCG IM ONCE 1 August 18, 2021 10:41am August 18, 2021 10:51am Start: 07-16-2021 End: 07-16-2021 inject 1000 ug by intramuscular injection once cyanocobalamin (vitamin B-12) 1,000 mcg/mL injection solution Discontinued 1000 MCG IM ONCE July 16, 2021 11:02am July 16, 2021 11:05am Start: 06-16-2021 End: 06-16-2021 inject 1000 ug by intramuscular injection once cyanocobalamin (vitamin B-12) 1,000 mcg/mL injection solution Discontinued 1000 MCG IM ONCE 1 June 16, 2021 1:00pm June 16, 2021 1:48pm Start: 06-12-2014 take 1 tablet by mouth once da david VITAMIN B-12 1000 MCG TABS One tablet by mouth daily CYANOCOBALAMIN [id number] Wale Bauman MD Vitamins A,C,U-Nvkn-Cxnosc (12 sources) Start: 10-16-2020 End: 06-16-2021 Vitamins A,C,Z-Urax-Psywrx Discontinued 1 EACH PO DAILY October 16, 2020 3:31pm June 16, 2021 1:08pm Start: 10-16-2020 End: 06-16-2021 Vitamins A,C,N-Lflp-Ndehjf D iscontinued 1 EACH PO DAILY October 16, 2020 12:00am June 16, 2021 12:08pm Start: 10-16-2020 End: 06-16-2021 Vitamins A,C,Q-Jwtj-Anvntb D iscontinued 1 EACH PO DAILY October 16, 2020 1:00am June 16, 2021 1:08pm Vitamins A,C,C-Wasn-Eovgwc 1 EACH capsule (3 sources) Start: 10-16-2020 End: 06-16-2021 take 1 capsule by mouth once daily Vitamins A,C,X-Yqxo-Bxizaa 1 EACH capsule Discontinued 1 NMA PO DAILY October 16, 2020 1:00am June 16, 2021 1:08pm Problems Active Problems Problem Classification Problem Date Documented Da te Episodic/Chronic Anxiety disorders (16 sources) Anxiety; Translations: [Anxiety disorder, unspecified] Chronic Cardiac dysrhythmias (1 source) Atrial fibrillation; Translations: [Paroxysmal atrial fibrillation] Onset: 01-27-2011 01-27-2011 Chronic Disorders of lipid metabolism (17 sources) Hyperlipidemia; Translations: [Hyperlipidemia, unspecified] Onset: 01-27-2011 01-27-2011 Chronic Essential hypertension (2 sources) Labile hypertension; Translations: [Essential (primary) hypertension] Onset: 12-12-2014 12-12-2014 Chronic Gastrointestinal hemorrhage (2 sources) Melena; Translations: [Melena] Onset: 04-03-2025 Episodic Genitourinary symptoms and ill-defined conditions (15 sources) Urge incontinence of urine; Translations: [Urge incontinence] 04-01-2021 Chronic Genitourinary symptoms and ill-defined conditions (20 sources) Increased frequency of urination; Translations: [Frequency of micturition] 04-01-2021 Episodic Intestinal obstruction without hernia (15 sources) Partial obstruction of small bowel; Translations: [Partial intestinal obstruction, unspecified as to cause] 08-26-2019 Episodic Malaise and fatigue (20 sources) Fatigue; Translations: [Other fatigue] Episodic Menopausal disorders (1 source) Unspecified menopausal and perimenopausal disorder; Translations: [Unspecified menopausal and perimenopausal disorder] Onset: 08-22-2024 Chronic Mood disorders (16 sources) Depressive disorder; Translations: [Depression] Chronic Nonspecific chest pain (15 sources) Chest pain; Translations: [Chest pain, unspecified] 10-16-2020 Episodic Osteoarthritis (1 source) Unilateral primary osteoarthritis, right hip; Translations: [Unilateral primary osteoarthritis, right hip] Onset: 06-16-2018 06-16-2018 Chronic Other circulatory disease (11 sources) History of transient ischemic attack; Translations: [...] right leg] Onset: 06-16-2018 06-16-2018 Episodic Other hereditary and degenerative nervous system conditions (18 sources) Impaired cognition; Translations: [Mild cognitive impairment, so stated] 01-12-2023 Chronic Other hereditary and degenerative nervous system conditions (10 sources) Mild cognitive impairment, so stated; Translations: [Mild cognitive impairment, so stated] Onset: 01-01-2025 Chronic Other hereditary and degenerative nervous system conditions (6 sources) Restless legs; Translations: [Restless legs syndrome] 01-01-2025 Chronic Other lower respiratory disease (1 source) Other forms of dyspnea; Translations: [Other forms of dyspnea] Onset: 05-05-2025 Episodic Other nervous system disorders (5 sources) Loss of sense of smell; Translations: [Anosmia] 07-02-2023 Episodic Other nervous system disorders (5 sources) Taste sense altered; Translations: [Parageusia] 06-17-2023 Episodic Other nervous system disorders (2 sources) Anosmia; Translations: [Disturbances of sensation of smell and taste] 06-17-2023 Episodic Other nervous system disorders (2 sources) Parageusia; Translations: [Disturbances of sensation of smell and taste] 06-17-2023 Episodic Syncope (15 sources) Syncope; Translations: [Syncope and collapse] 10-16-2020 Episodic Thyroid disorders (2 sources) Iatrogenic hypothyroidism; 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] Onset: 01-27-2011 Resolved: 06-11-2015 06-11-2015 Chronic Transient cerebral ischemia (20 sources) Transient cerebral ischemia; Translations: [Transient cerebral ischemic attack, unspecified] Chronic Unclassified (1 source) Long-term drug therapy; Translations: [Other terminal system operator (current) drug therapy] Onset: 01-27-2011 01-27-2011 Past or Other Problems Problem Classification Problem Date Documented Da te Episodic/Chronic Conditions associated with dizziness or vertigo (1 source) Dizziness and giddiness; Translations: [Dizziness and giddiness] Onset: 12-12-2014 12-12-2014 Episodic Other hematologic conditions (1 source) Personal history of diseases of the blood and blood-forming organs and certain disorders involving the immune mechanism; Translations: [Personal history of diseases of the blood and blood-forming organs and certain disorders involving the immune mechanism] Onset: 01-10-2025 Episodic Residual codes; unclassified (1 source) Family history of ischemic heart disease and other diseases of the circulatory system; Translations: [Family history of ischemic heart disease and other diseases of the circulatory system] 06-12-2014 Episodic Unclassified (1 source) Problem Results Test Name Value Interpretation Reference Range Facility [id number] 04-05-2025 [facility] [place] Normal . [facility] Comment on above: Order Comment: Order Date: 07/05/24 Order Info: [id number] - BMP Order Date: 04/05/24 Order Info: [id number] - LIPID Order Info: [id number] - MG Order Info: [id number] - TSH Result Comment: Test Ordered: [id number] Stool Culture Salmonella/Shigella Screen CB Reference Range: . Test not performed. No stool culture transport device received. RECEIVED RAW STOOL Campylobacter Culture CB Reference Range: . Test not performed. No stool culture transport device received. RECEIVED RAW STOOL E coli Shiga Toxin EIA CB Reference Range: . Test not performed. No stool culture transport device received. RECEIVED RAW STOOL Performed at: - [facility] [address] [id number] Mail Caller: Sony Pagan PhD, Phone: [phone] Performed By: #### L 547.8948, L001.9899, L506.1000, L500.2500 #### [facility] [address] [place] [address], [address] Absolute lymphocyte countOrd ered By: Inga Campos on 04-03-2025 Lymphocytes Auto (Unsp spec) [#/Vol] 1.51 10*3/uL 0.83-4.51 [facility] Absolute neutrophil countOrd ered By: Inga Campos on 04-03-2025 Neutrophils (Bld) [#/Vol] 4.5 10*3/uL 2.0-7.7 [facility] Anion gap in Serum or Plasma Ordered By: Inga Campos on 04-03-2025 Anion gap [Moles/Vol] 8 mmol/L 5-15 [facility] Automated lymphocyte count a s percentage of total leukocytesOrdered By: Inga Campos on 04-03-2025 Lymphocytes/100 WBC Auto (Unsp spec) 22.7 % 19- [facility] BUN/creatinine ratioOrdered By: Inga Campos on 04-03-2025 Urea nitrogen/Creatinine [Mass ratio] 12.9 mg/mg 10- [facility] Basophil percentageOrdered B y: Inga Campos on 04-03-2025 Basophils/100 WBC (Bld) 0.5 % 0-1 [facility] Bilirubin, totalOrdered By: Inga Campos on 04-03-2025 Bilirubin [Mass/Vol] 0.36 mg/dL 0.00-1.30 [facility] CBC W/Diff, Automatedon 03-18 Absolute Lymph 1.51 X10 3/uL Normal 0.83-4.51 [facility] Comment on above: Performed By: #### L 500.4100, L501.9520, L506.1000, L500.2500 #### [facility] [address] [place], [address] Absolute Neut 4.5 X10 3/uL Normal 2.0-7.7 [facility] Comment on above: Performed By: #### L 500.4100, L501.9520, L506.1000, L500.2500 #### [facility] [address] [place], [address] Basophils/100 WBC (Bld) 0.5 % Normal 0-1 [facility] Comment on above: Performed By: #### L 500.4100, L501.9520, L506.1000, L500.2500 #### [facility] [address] [place], [address] Eosinophils/100 WBC (Bld) 0.8 % Normal 0-5 [facility] Comment on above: Performed By: #### L 500.4100, L501.9520, L506.1000, L500.2500 #### [facility] [address] [place], [address] Erythrocyte distribution width (RBC) [Ratio] 12.9 % Normal 11.6-14.6 [facility] Comment on above: Performed By: #### L 500.4100, L501.9520, L506.1000, L500.2500 #### [facility] [address] [place], [address] Hematocrit (Bld) [Volume fraction] 40.8 % Normal 37-47 [facility] Comment on above: Performed By: #### L 500.4100, L501.9520, L506.1000, L500.2500 #### [facility] [address] [place], [address] Hemoglobin (Bld) [Mass/Vol] 13.7 g/dL Normal 12.0-15.0 [facility] Comment on above: Performed By: #### L 500.4100, L501.9520, L506.1000, L500.2500 #### [facility] [address] [place], [address] IG% 0.500 Normal 0.0-0.9 [facility] Comment on above: Result Comment: IG% - Immature Granulocytes (promyelocytes, myelocytes and metamyelocytes) > 1% indicates that a LEFT SHIFT is Present. Performed By: #### L 500.4100, L501.9520, L506.1000, L500.2500 #### [facility] [address] [place], [address] Lymphocytes/100 WBC (Bld) 22.7 % Normal 19-41 [facility] Comment on above: Performed By: #### L 500.4100, L501.9520, L506.1000, L500.2500 #### [facility] [address] [place], [address] MCH (RBC) [Entitic mass] 33.0 pg High 27.0-32.0 [facility] Comment on above: Performed By: #### L 500.4100, L501.9520, L506.1000, L500.2500 #### [facility] [address] [place], [address] MCHC (RBC) [Mass/Vol] 33.6 g/dL Normal 32-36 [facility] Comment on above: Performed By: #### L 500.4100, L501.9520, L506.1000, L500.2500 #### [facility] [address] [place], [address] MCV (RBC) [Entitic vol] 98.3 fL Normal 81-99 [facility] Comment on above: Performed By: #### L 500.4100, L501.9520, L506.1000, L500.2500 #### [facility] [address] [place], [address] Monocytes/100 WBC (Bld) 8.7 % Normal 0-10 [facility] Comment on above: Performed By: #### L 500.4100, L501.9520, L506.1000, L500.2500 #### [facility] [address] [place], [address] Neutrophils/100 WBC (Bld) 66.8 % Normal 47-70 [facility] Comment on above: Performed By: #### L 500.4100, L501.9520, L506.1000, L500.2500 #### [facility] [address] [place], [address] Nucleated RBC (Bld) [#/Vol] 0 10*3/uL Normal 0-5 [facility] Comment on above: Performed By: #### L 500.4100, L501.9520, L506.1000, L500.2500 #### [facility] [address] [place], [address] Platelet mean volume (Bld) [Entitic vol] 10.3 fL Normal 6.2-12.0 [facility] Comment on above: Performed By: #### L 500.4100, L501.9520, L506.1000, L500.2500 #### [facility] [address] [place], [address] Platelets (Bld) [#/Vol] 186 10*3/uL Normal 150-450 [facility] Comment on above: Performed By: #### L 500.4100, L501.9520, L506.1000, L500.2500 #### [facility] [address] [place], [address] RBC (Bld) [#/Vol] 4.15 10*6/uL Low 4.2-5.4 [facility] Comment on above: Performed By: #### L 500.4100, L501.9520, L506.1000, L500.2500 #### [facility] [address] [place], [address] RDW SD 46.1 fl High 35.1-43.9 [facility] Comment on above: Performed By: #### L 500.4100, L501.9520, L506.1000, L500.2500 #### [facility] [address] [place], [address] WBC (Bld) [#/Vol] 6.7 10*3/uL Normal 4.4-11.0 [facility] Comment on above: Performed By: #### L 500.4100, L501.9520, L506.1000, L500.2500 #### [facility] [address] [place], [address] Carbon dioxide, total [Moles /volume] in Central venous bloodOrdered By: Inga Campos on 04-03-2025 CO2 [Moles/Vol] 25.5 mmol/L 21.0-32.0 [facility] Chloride assayOrdered By: Cory Campos on 04-03-2025 Chloride [Moles/Vol] 103 mmol/L 98-108 [facility] Comprehensive Metabolic Prof ilon 04-03-2025 Albumin [Mass/Vol] 3.8 g/dL Normal 3.4-4.8 [facility] Comment on above: Performed By: #### L 500.4100, L501.9520, L506.1000, L500.2500 #### [facility] Laboratory [address] [place], [address] Albumin/Globulin [Mass ratio] 1.3 {ratio} Normal 0.9-2.4 [facility] Comment on above: Performed By: #### L 500.4100, L501.9520, L506.1000, L500.2500 #### [facility] Laboratory [address] [place], [address] ALK PHOS 73 U/L Normal 35-104 [facility] Comment on above: Performed By: #### L 500.4100, L501.9520, L506.1000, L500.2500 #### [facility] Laboratory [address] [place], [address] ALT [Catalytic activity/Vol] 31 U/L Normal <=34 [facility] Comment on above: Performed By: #### L 500.4100, L501.9520, L506.1000, L500.2500 #### [facility] Laboratory [address] [place], [address] AST [Catalytic activity/Vol] 26 U/L Normal <=31 [facility] Comment on above: Performed By: #### L 500.4100, L501.9520, L506.1000, L500.2500 #### [facility] Laboratory [address] [place], [address] Bilirubin [Mass/Vol] 0.36 mg/dL Normal 0.00-1.30 [facility] Comment on above: Performed By: #### L 500.4100, L501.9520, L506.1000, L500.2500 #### [facility] [address] [place], [address] BUN/CRE 12.9 RATIO Normal 10-20 [facility] Comment on above: Performed By: #### L 500.4100, L501.9520, L506.1000, L500.2500 #### [facility] Laboratory [address] [place], [address] Calcium [Mass/Vol] 9.2 mg/dL Normal 7.6-11.0 [facility] Comment on above: Performed By: #### L 500.4100, L501.9520, L506.1000, L500.2500 #### [facility] [address] [place], [address] Chloride [Moles/Vol] 103 mmol/L Normal 98-108 [facility] Comment on above: Performed By: #### L 500.4100, L501.9520, L506.1000, L500.2500 #### [facility] [address] [place], [address] CO2 [Moles/Vol] 25.5 mmol/L Normal 21.0-32.0 [facility] Comment on above: Performed By: #### L 500.4100, L501.9520, L506.1000, L500.2500 #### [facility] Laboratory [address] [place], [address] Creatinine [Mass/Vol] 0.71 mg/dL Normal 0.70-1.20 [facility] Comment on above: Performed By: #### L 500.4100, L501.9520, L506.1000, L500.2500 #### [facility] [address] [place], [address] GAP 8 Normal 5-15 [facility] Comment on above: Performed By: #### L 500.4100, L501.9520, L506.1000, L500.2500 #### [facility] [address] [place], [address] GFR/1.73 sq M.predicted among non-blacks MDRD (S/P/Bld) [Vol rate/Area] 83 mL/min/{1.73_m2} Normal >60 [facility] Comment on above: Result Comment: mL/m in/1.73m2 CKD-EPI Creatinine Equation (2020) Performed By: #### L 500.4100, L501.9520, L506.1000, L500.2500 #### [facility] [address] [place], [address] Globulin (S) [Mass/Vol] 2.9 g/dL Normal 2.2-4.2 [facility] Comment on above: Performed By: #### L 500.4100, L501.9520, L506.1000, L500.2500 #### [facility] [address] [place], [address] Glucose [Mass/Vol] 86 mg/dL Normal 70-99 [facility] Comment on above: Performed By: #### L 500.4100, L501.9520, L506.1000, L500.2500 #### [facility] [address] [place], [address] Potassium [Moles/Vol] 4.1 mmol/L Normal 3.3-5.1 [facility] Comment on above: Performed By: #### L 500.4100, L501.9520, L506.1000, L500.2500 #### [facility] [address] [place], [address] Sodium [Moles/Vol] 136 mmol/L Normal 133-145 [facility] Comment on above: Performed By: #### L 500.4100, L501.9520, L506.1000, L500.2500 #### [facility] [address] [place], [address] T PROT 6.6 g/dL Normal 5.9-8.4 [facility] Comment on above: Performed By: #### L 500.4100, L501.9520, L506.1000, L500.2500 #### [facility] Laboratory [address] [place], [address] Urea nitrogen [Mass/Vol] 9 mg/dL Normal 4-19 [facility] Comment on above: Performed By: #### L 500.4100, L501.9520, L506.1000, L500.2500 #### [facility] [address] [place], [address] Eosinophil percentageOrdered By: Inga Campos on 04-03-2025 Eosinophils/100 WBC (Bld) 0.8 % 0-5 [facility] Erythrocyte distribution wid th ratioOrdered By: Inga Campos on 04-03-2025 Erythrocyte distribution width (RBC) [Ratio] 12.9 % 11.6-14.6 [facility] Erythrocyte distribution wid th standard deviationOrdered By: Inga Campos on 04-03-2025 Erythrocyte distribution width (RBC) [Ratio] 46.1 fl High 35.1-43.9 [facility] Glomerular filtration rate ( GFR) estimation/1.73 sq m using serum, plasma, or whole bOrdered By: Inga Campos on 04-03-2025 GFR/1.73 sq M.predicted among non-blacks MDRD (S/P/Bld) [Vol rate/Area] 83 mL/min/{1.73_m2} >60 [facility] Comment on above: mL/min/1.73m2 CKD-EP I Creatinine Equation (2020) Hematocrit Auto (Bld) [Volum e fraction]Ordered By: Inga Campos on 04-03-2025 Hematocrit (Bld) [Volume fraction] 40.8 % 37-47 [facility] Hemoglobin measurementOrdere d By: Inga Campos on 04-03-2025 Hemoglobin (Bld) [Mass/Vol] 13.7 g/dL 12.0-15.0 [facility] Immature granulocytes/100 WB C Auto (Bld)Ordered By: Inga Campos on 04-03-2025 Immature granulocytes/100 WBC (Bld) 0.500 % 0.0-0.9 [facility] Comment on above: IG% - Immature Granu locytes (promyelocytes, myelocytes and metamyelocytes) > 1% indicates that a LEFT SHIFT is Present. Laboratory - Chemistry and C hemistry - challengeOrdered By: Inga Campos on 04-03-2025 AST [Catalytic activity/Vol] 26 U/L <32 [facility] MCV (mean corpuscular volume ) determinationOrdered By: Inga Campos on 04-03-2025 MCV (RBC) [Entitic vol] 98.3 fL 81-99 [facility] Mean corpuscular hemoglobin (MCH) determinationOrdered By: Inga Campos on 04-03-2025 MCH (RBC) [Entitic mass] 33.0 pg High 27.0-32.0 [facility] Mean corpuscular hemoglobin concentration (MCHC) determinationOrdered By: Inga Campos on 04-03-2025 MCHC (RBC) [Mass/Vol] 33.6 g/dL 32-36 [facility] Mean platelet volume determi nationOrdered By: Inga Campos on 04-03-2025 Platelet mean volume (Bld) [Entitic vol] 10.3 fL 6.2-12.0 [facility] Monocyte percentageOrdered B y: Inga Campos on 04-03-2025 Monocytes/100 WBC (Bld) 8.7 % 0-10 [facility] Neutrophil percentageOrdered By: Inga Campos on 04-03-2025 Neutrophils/100 WBC (Bld) 66.8 % 47-70 [facility] Nucleated red blood cell per centageOrdered By: Inga Campos on 04-03-2025 Nucleated RBC/100 WBC (Bld) [Ratio] 0 % 0-5 [facility] Platelet countOrdered By: Cory Campos on 04-03-2025 Platelets (Bld) [#/Vol] 186 10*3/uL 150-450 [facility] Potassium measurement (mass/ volume)Ordered By: Inga Campos on 04-03-2025 Potassium (Unsp spec) [Mass/Vol] 4.1 mmol/L 3.3-5.1 [facility] RBC Auto (Bld) [#/Vol]Ordere d By: Inga Campos on 04-03-2025 RBC (Bld) [#/Vol] 4.15 10*6/uL Low 4.2-5.4 [facility] Serum creatinine measurement (mass/volume)Ordered By: Inga Campos on 04-03-2025 Creatinine [Mass/Vol] 0.71 mg/dL 0.70-1.20 [facility] Serum globulin measurementOr dered By: Inga Campos on 04-03-2025 Globulin (S) [Mass/Vol] 2.9 g/dL 2.2-4.2 [facility] Serum glucose measurement (m ass/volume)Ordered By: Inga Campos on 04-03-2025 Glucose [Mass/Vol] 86 mg/dL 70-99 [facility] Serum or plasma alanine patricia otransferase (ALT) measurementOrdered By: Inga Campos on 04-03-2025 ALT [Catalytic activity/Vol] 31 U/L <35 [facility] Serum or plasma albumin lynn urement (mass/volume)Ordered By: Inga Campos on 04-03-2025 Albumin [Mass/Vol] 3.8 g/dL 3.4-4.8 [facility] Serum or plasma albumin/glob ulin mass ratioOrdered By: Inga Campos on 04-03-2025 Albumin/Globulin [Mass ratio] 1.3 {ratio} 0.9-2.4 [facility] Serum or plasma alkaline stephanie sphatase measurementOrdered By: Inga Campos on 04-03-2025 ALP [Catalytic activity/Vol] 73 U/L 35-104 [facility] Serum or plasma calcium lynn urement (mass/volume)Ordered By: Inga Campos on 04-03-2025 Calcium [Mass/Vol] 9.2 mg/dL 7.6-11.0 [facility] Serum or plasma urea nitroge n measurement (mass/volume)Ordered By: Inga Campos on 04-03-2025 Urea nitrogen [Mass/Vol] 9 mg/dL 4-19 [facility] Sodium levelOrdered By: Natasha Campos on 04-03-2025 Sodium [Moles/Vol] 136 mmol/L 133-145 [facility] Total proteinOrdered By: Freddie Campos on 04-03-2025 Protein [Mass/Vol] 6.6 g/dL 5.9-8.4 [facility] White blood cell (WBC) count Ordered By: Inga Campos on 04-03-2025 WBC (Bld) [#/Vol] 6.7 10*3/uL 4.4-11.0 [facility] Anion gap in Serum or Plasma Ordered By: Nahum Khan on 02-21-2025 Anion gap [Moles/Vol] 11 mmol/L 5- [facility] BUN/creatinine ratioOrdered By: Nahum Khan on 02-21-2025 Urea nitrogen/Creatinine [Mass ratio] 18.4 mg/mg 10- [facility] Basic Metabolic Profile (BMP )on 02-21-2025 BUN/CRE 18.4 RATIO Normal - [facility] Comment on above: Order Comment: Order Date: 02/21/25 Order Info: 0667-1 - BMP Order Info: 3016-3 - TSH Performed By: #### L 501.0834, L100.0500, L500.2500 #### [facility] Laboratory [address] [place], [address] Calcium [Mass/Vol] 9.2 mg/dL Normal 7.6-11.0 [facility] Comment on above: Order Comment: Order Date: 02/21/25 Order Info: 06- - BMP Order Info: 3015-3 - TSH Performed By: #### L 501.9520, L100.0500, L500.2500 #### [facility] Laboratory [address] [place], [address] Chloride [Moles/Vol] 103 mmol/L Normal 98-108 [facility] Comment on above: Order Comment: Order Date: 02/21/25 Order Info: 666-10 - BMP Order Info: 3 - TSH Performed By: #### L 501.9520, L100.0500, L500.2500 #### [facility] [address] [place], [address] CO2 [Moles/Vol] 23.0 mmol/L Normal 21.0-32.0 [facility] Comment on above: Order Comment: Order Date: 02/21/25 Order Info: 06 - [facility] Order Info: 3 - TSH Performed By: #### L 501.9520, L100.0500, L500.2500 #### [facility] Laboratory [address] [place], [address] Creatinine [Mass/Vol] 0.61 mg/dL Low 0.70-1.20 [facility] Comment on above: Order Comment: Order Date: 02/21/25 Order Info: 06- - BMP Order Info: 3 - TSH Performed By: #### L 501.9520, L100.0500, L500.2500 #### [facility] [address] [place], [address] GAP 11 Normal 5-15 [facility] Comment on above: Order Comment: Order Date: 02/21/25 Order Info: 0667- - BMP Order Info: 3015-3 - TSH Performed By: #### L 501.9520, L100.0500, L500.2500 #### [facility] [address] [place], [address] GFR/1.73 sq M.predicted among non-blacks MDRD (S/P/Bld) [Vol rate/Area] 87 mL/min/{1.73_m2} Normal >60 [facility] Comment on above: Order Comment: Order Date: 02/21/25 Order Info: 06 - BMP Order Info: 3015-12 - TSH Result Comment: mL/m in/1.73m2 CKD-EPI Creatinine Equation (2020) Performed By: #### L 501.9520, L100.0500, L500.2500 #### [facility] [address] [place], [address] Glucose [Mass/Vol] 84 mg/dL Normal 70-99 [facility] Comment on above: Order Comment: Order Date: 02/21/25 Order Info: 06 - BMP Order Info: 3015-12 - TSH Performed By: #### L 501.9520, L100.0500, L500.2500 #### [facility] [address] [place], [address] Potassium [Moles/Vol] 3.9 mmol/L Normal 3.3-5.1 [facility] Comment on above: Order Comment: Order Date: 02/21/25 Order Info: 06- - BMP Order Info: 3015-12 - TSH Performed By: #### L 501.9520, L100.0500, L500.2500 #### [facility] [address] [place], [address] Sodium [Moles/Vol] 137 mmol/L Normal 133-145 [facility] Comment on above: Order Comment: Order Date: 02/21/25 Order Info: 0667- - BMP Order Info: 3015-12 - TSH Performed By: #### L 501.9520, L100.0500, L500.2500 #### [facility] [address] [place], [address] Urea nitrogen [Mass/Vol] 11 mg/dL Normal 4-19 [facility] Comment on above: Order Comment: Order Date: 02/21/25 Order Info: 0667-1 - BMP Order Info: 3016-3 - TSH Performed By: #### L 501.9520, L100.0500, L500.2500 #### [facility] [address] [place], [address] CBC-Complete Blood Cnt No Di ffon 02-21-2025 Erythrocyte distribution width (RBC) [Ratio] 13.2 % Normal 11.6-14.6 [facility] Comment on above: Order Comment: Order Date: 02/21/25 Order Info: [id number] - CBC Performed By: #### L 501.9520, L100.0500, L500.2500 #### [facility] [address] [place], [address] Hematocrit (Bld) [Volume fraction] 37.1 % Normal 37-47 [facility] Comment on above: Order Comment: Order Date: 02/21/25 Order Info: [id number] - CBC Performed By: #### L 501.9520, L100.0500, L500.2500 #### [facility] [address] [place], [address] Hemoglobin (Bld) [Mass/Vol] 12.8 g/dL Normal 12.0-15.0 [facility] Comment on above: Order Comment: Order Date: 02/21/25 Order Info: [id number] - CBC Performed By: #### L 501.9520, L100.0500, L500.2500 #### [facility] [address] [place], [address] MCH (RBC) [Entitic mass] 33.2 pg High 27.0-32.0 [facility] Comment on above: Order Comment: Order Date: 02/21/25 Order Info: [id number] - CBC Performed By: #### L 501.9520, L100.0500, L500.2500 #### [facility] [address] [place], [address] MCHC (RBC) [Mass/Vol] 34.5 g/dL Normal 32-36 [facility] Comment on above: Order Comment: Order Date: 02/21/25 Order Info: [id number] - CBC Performed By: #### L 501.9520, L100.0500, L500.2500 #### [facility] [address] [place], [address] MCV (RBC) [Entitic vol] 96.4 fL Normal 81-99 [facility] Comment on above: Order Comment: Order Date: 02/21/25 Order Info: [id number] - CBC Performed By: #### L 501.9520, L100.0500, L500.2500 #### [facility] [address] [place], [address] Platelet mean volume (Bld) [Entitic vol] 10.6 fL Normal 6.2-12.0 [facility] Comment on above: Order Comment: Order Date: 02/21/25 Order Info: [id number] - CBC Performed By: #### L 501.9520, L100.0500, L500.2500 #### [facility] [address] [place], [address] Platelets (Bld) [#/Vol] 163 10*3/uL Normal 150-450 [facility] Comment on above: Order Comment: Order Date: 02/21/25 Order Info: [id number] - CBC Performed By: #### L 501.9520, L100.0500, L500.2500 #### [facility] [address] [place], [address] RBC (Bld) [#/Vol] 3.85 10*6/uL Low 4.2-5.4 [facility] Comment on above: Order Comment: Order Date: 02/21/25 Order Info: [id number] - CBC Performed By: #### L 501.9520, L100.0500, L500.2500 #### [facility] [address] [place], [address] RDW SD 46.9 fl High 35.1-43.9 [facility] Comment on above: Order Comment: Order Date: 02/21/25 Order Info: [id number] - CBC Performed By: #### L 501.9520, L100.0500, L500.2500 #### [facility] [address] [place], [address] WBC (Bld) [#/Vol] 6.2 10*3/uL Normal 4.4-11.0 [facility] Comment on above: Order Comment: Order Date: 02/21/25 Order Info: [id number] - CBC Performed By: #### L 501.9520, L100.0500, L500.2500 #### [facility] [address] [place], [address] Carbon dioxide, total [Moles /volume] in Central venous bloodOrdered By: Nahum Khan on 02-21-2025 CO2 [Moles/Vol] 23.0 mmol/L 21.0-32.0 [facility] Chloride assayOrdered By: Nolan Khan on 02-21-2025 Chloride [Moles/Vol] 103 mmol/L 98-108 [facility] Erythrocyte distribution wid th ratioOrdered By: Nahum Khan on 02-21-2025 Erythrocyte distribution width (RBC) [Ratio] 13.2 % 11.6-14.6 [facility] Erythrocyte distribution wid th standard deviationOrdered By: Nahum Khan on 02-21-2025 Erythrocyte distribution width (RBC) [Ratio] 46.9 fl High 35.1-43.9 [facility] Glomerular filtration rate ( GFR) estimation/1.73 sq m using serum, plasma, or whole bOrdered By: Nahum Khan on 02-21-2025 GFR/1.73 sq M.predicted among non-blacks MDRD (S/P/Bld) [Vol rate/Area] 87 mL/min/{1.73_m2} >60 [facility] Comment on above: mL/min/1.73m2 CKD-EP I Creatinine Equation (2020) Hematocrit Auto (Bld) [Volum e fraction]Ordered By: Nahum Khan on 02-21-2025 Hematocrit (Bld) [Volume fraction] 37.1 % 37-47 [facility] Hemoglobin measurementOrdere d By: Nahum Khan on 02-21-2025 Hemoglobin (Bld) [Mass/Vol] 12.8 g/dL 12.0-15.0 [facility] MCV (mean corpuscular volume ) determinationOrdered By: Nahum Khan on 02-21-2025 MCV (RBC) [Entitic vol] 96.4 fL 81-99 [facility] Mean corpuscular hemoglobin (MCH) determinationOrdered By: Nahum Khan on 02-21-2025 MCH (RBC) [Entitic mass] 33.2 pg High 27.0-32.0 [facility] Mean corpuscular hemoglobin concentration (MCHC) determinationOrdered By: Nahum Khan on 02-21-2025 MCHC (RBC) [Mass/Vol] 34.5 g/dL 32-36 [facility] Mean platelet volume determi nationOrdered By: Nahum Khan on 02-21-2025 Platelet mean volume (Bld) [Entitic vol] 10.6 fL 6.2-12.0 [facility] Platelet countOrdered By: Nolan Khan on 02-21-2025 Platelets (Bld) [#/Vol] 163 10*3/uL 150-450 [facility] Potassium measurement (mass/ volume)Ordered By: Nahum Khan on 02-21-2025 Potassium (Unsp spec) [Mass/Vol] 3.9 mmol/L 3.3-5.1 [facility] RBC Auto (Bld) [#/Vol]Ordere d By: Nahum Khan on 02-21-2025 RBC (Bld) [#/Vol] 3.85 10*6/uL Low 4.2-5.4 [facility] Serum creatinine measurement (mass/volume)Ordered By: Nahum Khan on 02-21-2025 Creatinine [Mass/Vol] 0.61 mg/dL Low 0.70-1.20 [facility] Serum glucose measurement (m ass/volume)Ordered By: Nahum Khan on 02-21-2025 Glucose [Mass/Vol] 84 mg/dL 70-99 [facility] Serum or plasma calcium lynn urement (mass/volume)Ordered By: Nahum Khan on 02-21-2025 Calcium [Mass/Vol] 9.2 mg/dL 7.6-11.0 [facility] Serum or plasma urea nitroge n measurement (mass/volume)Ordered By: Nahum Khan on 02-21-2025 Urea nitrogen [Mass/Vol] 11 mg/dL 4-19 [facility] Sodium levelOrdered By: Miah Khan on 02-21-2025 Sodium [Moles/Vol] 137 mmol/L 133-145 [facility] TSH DL <= 0.005 mIU/L QnOrde red By: Nahum Khan on 02-21-2025 TSH Qn 1.050 uIU/mL 0.300-4.200 [facility] Thyroid Stim Hormone (TSH)on 02-21-2025 TSH 1.050 uIU/mL Normal 0.300-4.200 [facility] Comment on above: Order Comment: Order Date: 02/21/25 Order Info: [id number] - [facility] Order Info: [id number] - TSH Performed By: #### L 501.9520, L100.0500, L500.2500 #### [facility] [address] [place] [address], [address] White blood cell (WBC) count Ordered By: Nahum Khan on 02-21-2025 WBC (Bld) [#/Vol] 6.2 10*3/uL 4.4-11.0 [facility] CBC-Complete Blood Cnt No Di ffon 01-01-2025 Erythrocyte distribution width (RBC) [Ratio] 12.8 % Normal 11.6-14.6 [facility] Comment on above: Performed By: #### L 500.4100, L501.9520, L506.1000, L500.2500 #### [facility] [address] [place], [address] Hematocrit (Bld) [Volume fraction] 37.5 % Normal 37-47 [facility] Comment on above: Performed By: #### L 500.4100, L501.9520, L506.1000, L500.2500 #### [facility] [address] [place], [address] Hemoglobin (Bld) [Mass/Vol] 12.3 g/dL Normal 12.0-15.0 [facility] Comment on above: Performed By: #### L 500.4100, L501.9520, L506.1000, L500.2500 #### [facility] [address] [place], [address] MCH (RBC) [Entitic mass] 32.6 pg High 27.0-32.0 [facility] Comment on above: Performed By: #### L 500.4100, L501.9520, L506.1000, L500.2500 #### [facility] [address] [place], [address] MCHC (RBC) [Mass/Vol] 32.8 g/dL Normal 32-36 [facility] Comment on above: Performed By: #### L 500.4100, L501.9520, L506.1000, L500.2500 #### [facility] [address] [place], [address] MCV (RBC) [Entitic vol] 99.5 fL High 81-99 [facility] Comment on above: Performed By: #### L 500.4100, L501.9520, L506.1000, L500.2500 #### [facility] [address] [place], [address] Platelet mean volume (Bld) [Entitic vol] 10.9 fL Normal 6.2-12.0 [facility] Comment on above: Performed By: #### L 500.4100, L501.9520, L506.1000, L500.2500 #### [facility] [address] [place], [address] Platelets (Bld) [#/Vol] 180 10*3/uL Normal 150-450 [facility] Comment on above: Performed By: #### L 500.4100, L501.9520, L506.1000, L500.2500 #### [facility] [address] [place], [address] RBC (Bld) [#/Vol] 3.77 10*6/uL Low 4.2-5.4 [facility] Comment on above: Performed By: #### L 500.4100, L501.9520, L506.1000, L500.2500 #### [facility] [address] [place], [address] RDW SD 46.8 fl High 35.1-43.9 [facility] Comment on above: Performed By: #### L 500.4100, L501.9520, L506.1000, L500.2500 #### [facility] [address] [place], [address] WBC (Bld) [#/Vol] 4.7 10*3/uL Normal 4.4-11.0 [facility] Comment on above: Performed By: #### L 500.4100, L501.9520, L506.1000, L500.2500 #### [facility] [address] [place], [address] Erythrocyte distribution wid th ratioOrdered By: Westley Potrillo on 01-01-2025 Erythrocyte distribution width (RBC) [Ratio] 12.8 % 11.6-14.6 [facility] Erythrocyte distribution wid th standard deviationOrdered By: Westley Portillo on 01-01-2025 Erythrocyte distribution width (RBC) [Entitic vol] 46.8 fL High 35.1-43.9 [facility] Erythrocyte distribution width (RBC) [Ratio] 46.8 fl High 35.1-43.9 [facility] Ferritinon 01-01-2025 Ferritin [Mass/Vol] 170 ng/mL Normal 22-378 [facility] Comment on above: Performed By: #### L 500.4100, L501.9520, L506.1000, L500.2500 #### [facility] [address] [place], [address] Hematocrit Auto (Bld) [Volum e fraction]Ordered By: Westley Portillo on 01-01-2025 Hematocrit (Bld) [Volume fraction] 37.5 % 37-47 [facility] Hemoglobin measurementOrdere d By: Westley Portillo on 01-01-2025 Hemoglobin (Bld) [Mass/Vol] 12.3 g/dL 12.0-15.0 [facility] Ironon 01-01-2025 Iron [Mass/Vol] 59 ug/dL Normal 50-170 [facility] Comment on above: Performed By: #### L 500.4100, L501.9520, L506.1000, L500.2500 #### [facility] [address] [place], [address] Iron (Unsp spec) [Mass/Mass] Ordered By: Westley Portillo on 01-01-2025 Iron [Mass/Vol] 59 ug/dL 50-170 [facility] Iron measurement (mass/mass) Ordered By: Westley Portillo on 01-01-2025 Iron (Unsp spec) [Mass/Mass] 59 ug/dL 50-170 [facility] MCV (mean corpuscular volume ) determinationOrdered By: Westley Portillo on 01-01-2025 MCV (RBC) [Entitic vol] 99.5 fL High 81-99 [facility] Mean corpuscular hemoglobin (MCH) determinationOrdered By: Westley Portillo on 01-01-2025 MCH (RBC) [Entitic mass] 32.6 pg High 27.0-32.0 [facility] Mean corpuscular hemoglobin concentration (MCHC) determinationOrdered By: Westley Gillashtny on 01-01-2025 MCHC (RBC) [Mass/Vol] 32.8 g/dL 32-36 [facility] Mean platelet volume determi nationOrdered By: Westleyjacquelyn Portillo on 01-01-2025 Platelet mean volume (Bld) [Entitic vol] 10.9 fL 6.2-12.0 [facility] Neurology Visit Reporton Neurology Visit Report [facility] [address] [facility], [address] [place] [address] OFFICE VISIT Date of Service: 01/01/25 MR#: [id number] Acct: [id number] Name: LANA BUCK Rep #: [id number] : 1940 Provider: Dr. Westley santos MD Age/Sex: 84/F [place] [facility] [place] Status: Signed HPI HPI Chief Complaint: Details: Interim History: Lana returns for follow-up. She has a history of hyperlipidemia, reported previous atrial fibrillation, thyroid disorder (no longer requiring medication), cervical spinal surgery ( 1987 d/t a fall resulting in a cervical spinal fracture), depression, anxiety, and TIAs. 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 An EEG [...] and within recent days has started an clxy-jwg-zprdhpm iron supplement. She is experiencing constipation as [...] eccentric aortic (more content not included)... Normal [facility] Platelet countOrdered By: Ra valeria Portillo on 01-01-2025 Platelets (Bld) [#/Vol] 180 10*3/uL 150-450 [facility] RBC Auto (Bld) [#/Vol]Ordere d By: Westley Portillo on 01-01-2025 RBC (Bld) [#/Vol] 3.77 10*6/uL Low 4.2-5.4 [facility] Serum or plasma ferritin robert surement (mass/volume)Ordered By: Westley Portillo on 01-01-2025 Ferritin [Mass/Vol] 170 ng/mL 22-378 [facility] White blood cell (WBC) count Ordered By: Westley Portillo on 01-01-2025 WBC (Bld) [#/Vol] 4.7 10*3/uL 4.4-11.0 [facility] Dexa Bone Density Studyon Dexa Bone Density Study [facility] Imaging Services [address] [place] [address] [id number] Dexa Bone Density Study MR#: [id number] Acct: [id number] Name: LANA BUCK Rep #: [id number] : 1940 F 84 From: Danny rosario MD PCP: Dr. Nahum Khan MD Status: REG CLI Study: Dexa Bone Density Study Date of Exam: 07/28/24 Exam# [id number] Ordering Dr: Nahum Khan -[id number] STUDY: DUAL ENERGY X-RAY ABSORPTIOMETRY / [...] EDT , CC: Dr. Nahum Khan MD Director Of Rehabilitation: Signed Normal [facility] Basic Metabolic Profile (BMP )on 07-05-2024 BUN/CRE 14.1 RATIO Normal 10-20 [facility] Comment on above: Order Comment: Order Date: 07/05/24 Order Info: [id number] - BMP Order Date: 04/05/24 Order Info: [id number] - LIPID Order Info: [id number] - MG Order Info: 3016-3 - TSH Performed By: #### L 500.4100, L501.9520, L506.1000, L500.2500 #### [facility] [address] [place], [address] CA,Total 9.4 mg/dL Normal 8.5-10.1 [facility] Comment on above: Order Comment: Order Date: 07/05/24 Order Info: [id number] - BMP Order Date: 04/05/24 Order Info: [id number] - LIPID Order Info: [id number] - MG Order Info: 3016-3 - TSH Performed By: #### L 500.4100, L501.9520, L506.1000, L500.2500 #### [facility] [address] [place], [address] Chloride [Moles/Vol] 104 mmol/L Normal 98-107 [facility] Comment on above: Order Comment: Order Date: 07/05/24 Order Info: 0667-1 - BMP Order Date: 04/05/24 Order Info: [id number] - LIPID Order Info: [id number] - MG Order Info: 3 - TSH Performed By: #### L 500.4100, L501.9520, L506.1000, L500.2500 #### [facility] [address] [place], [address] CO2 [Moles/Vol] 30.0 mmol/L Normal 21.0-32.0 [facility] Comment on above: Order Comment: Order Date: 07/05/24 Order Info: 06- - BMP Order Date: 04/05/24 Order Info: [id number] - LIPID Order Info: [id number] - MG Order Info: 3 - TSH Performed By: #### L 500.4100, L501.9520, L506.1000, L500.2500 #### [facility] [address] [place], [address] Creatinine [Mass/Vol] 0.71 mg/dL Normal 0.55-1.02 [facility] Comment on above: Order Comment: Order Date: 07/05/24 Order Info: 0667- - BMP Order Date: 04/05/24 Order Info: [id number] - LIPID Order Info: [id number] - MG Order Info: 3015-12 - TSH Result Comment: The validity of the calculated GFR GFRAA in patients over 70 years has not been determined. Clinical correlation is essential. Performed By: #### L 500.4100, L501.9520, L506.1000, L500.2500 #### [facility] [address] [place], [address] EST GFR - AA 101 mL/min Normal >60 [facility] Comment on above: Order Comment: Order Date: 07/05/24 Order Info: 0667- - BMP Order Date: 04/05/24 Order Info: [id number] - LIPID Order Info: [id number] - MG Order Info: 301-3 - TSH Result Comment: Afri can Cuban GFR Calc Performed By: #### L 500.4100, L501.9520, L506.1000, L500.2500 #### [facility] [address] [place], [address] GAP 2 Low 5-15 [facility] Comment on above: Order Comment: Order Date: 07/05/24 Order Info: [id number] - BMP Order Date: 04/05/24 Order Info: [id number] - LIPID Order Info: [id number] - MG Order Info: 3016-3 - TSH Performed By: #### L 500.4100, L501.9520, L506.1000, L500.2500 #### [facility] [address] [place], [address] GFR/1.73 sq M.predicted among non-blacks MDRD (S/P/Bld) [Vol rate/Area] 83 mL/min/{1.73_m2} Normal >60 [facility] Comment on above: Order Comment: Order Date: 07/05/24 Order Info: 666-10 - BMP Order Date: 04/05/24 Order Info: [id number] - LIPID Order Info: [id number] - MG Order Info: 3016-3 - TSH Result Comment: Non- GFR Calc Performed By: #### L 500.4100, L501.9520, L506.1000, L500.2500 #### [facility] [address] [place], [address] Glucose [Mass/Vol] 78 mg/dL Normal 74-106 [facility] Comment on above: Order Comment: Order Date: 07/05/24 Order Info: 0667- - BMP Order Date: 04/05/24 Order Info: [id number] - LIPID Order Info: [id number] - MG Order Info: 3016-3 - TSH Performed By: #### L 500.4100, L501.9520, L506.1000, L500.2500 #### [facility] [address] [place], [address] Potassium [Moles/Vol] 4.3 mmol/L Normal 3.5-5.1 [facility] Comment on above: Order Comment: Order Date: 07/05/24 Order Info: 0667-1 - BMP Order Date: 04/05/24 Order Info: [id number] - LIPID Order Info: [id number] - MG Order Info: 3016-3 - TSH Performed By: #### L 500.4100, L501.9520, L506.1000, L500.2500 #### [facility] [address] [place], [address] Sodium [Moles/Vol] 136 mmol/L Normal 136-145 [facility] Comment on above: Order Comment: Order Date: 07/05/24 Order Info: 666- - BMP Order Date: 04/05/24 Order Info: [id number] - LIPID Order Info: [id number] - MG Order Info: 6-3 - TSH Performed By: #### L 500.4100, L501.9520, L506.1000, L500.2500 #### [facility] [address] [place], [address] Urea nitrogen [Mass/Vol] 10 mg/dL Normal 7-18 [facility] Comment on above: Order Comment: Order Date: 07/05/24 Order Info: 0667- - BMP Order Date: 04/05/24 Order Info: [id number] - LIPID Order Info: [id number] - MG Order Info: 3016-3 - TSH Performed By: #### L 500.4100, L501.9520, L506.1000, L500.2500 #### [facility] [address] [place], [address] Lipid Profileon 07-05-2024 Cholesterol [Mass/Vol] 168 mg/dL Normal 200 [facility] Comment on above: Order Comment: Order Date: 07/05/24 Order Info: 0667-1 - BMP Order Date: 04/05/24 Order Info: [id number] - LIPID Order Info: [id number] - MG Order Info: 3016-3 - TSH Result Comment: <200 mg/dL Desirable 200-240 mg/dL Borderline >240 mg/dL High Risk Performed By: #### L 500.4100, L501.9520, L506.1000, L500.2500 #### [facility] [address] [place], [address] Cholesterol in HDL [Mass/Vol] 74 mg/dL Normal [facility] Comment on above: Order Comment: Order Date: 07/05/24 Order Info: 0667- - BMP Order Date: 04/05/24 Order Info: [id number] - LIPID Order Info: [id number] - MG Order Info: 3016-3 - TSH Result Comment: The drugs N-Acetylcysteine and Metamizole may falsely depress this assay. Reference Range HDL <40 mg/dL Low HDL Cholesterol HDL >or= 60 mg/dL High HDL Cholesterol Performed By: #### L 500.4100, L501.9520, L506.1000, L500.2500 #### [facility] [address] [place], [address] Cholesterol in LDL [Mass/Vol] 80 mg/dL Normal 0-130 [facility] Comment on above: Order Comment: Order Date: 07/05/24 Order Info: 666- - BMP Order Date: 04/05/24 Order Info: [id number] - LIPID Order Info: [id number] - MG Order Info: 3016-3 - TSH Performed By: #### L 500.4100, L501.9520, L506.1000, L500.2500 #### [facility] [address] [place], [address] Cholesterol in VLDL [Mass/Vol] 14 mg/dL Normal 5-40 [facility] Comment on above: Order Comment: Order Date: 07/05/24 Order Info: 0667- - BMP Order Date: 04/05/24 Order Info: [id number] - LIPID Order Info: [id number] - MG Order Info: 3016-3 - TSH Performed By: #### L 500.4100, L501.9520, L506.1000, L500.2500 #### [facility] [address] [place], [address] Triglyceride [Mass/Vol] 68 mg/dL Normal [facility] Comment on above: Order Comment: Order Date: 07/05/24 Order Info: [id number] - BMP Order Date: 04/05/24 Order Info: [id number] - LIPID Order Info: [id number] - MG Order Info: 3016-3 - TSH Result Comment: The drugs N-Acetylcysteine and Metamizole may falsely depress this assay. Serum Triglycerides Reference Interval Normal <150 mg/dL Borderline high 150 - 199 mg/dL High 200 - 499 mg/dL Very High > or = 500 mg/dL Performed By: #### L 500.4100, L501.9520, L506.1000, L500.2500 #### [facility] [address] [place], [address] Magnesiumon 07-05-2024 Magnesium [Mass/Vol] 2.4 mg/dL Normal 1.6-2.6 [facility] Comment on above: Order Comment: Order Date: 07/05/24 Order Info: 0667- - BMP Order Date: 04/05/24 Order Info: [id number] - LIPID Order Info: [id number] - MG Order Info: 3016-3 - TSH Performed By: #### L 500.4100, L501.9520, L506.1000, L500.2500 #### [facility] [address] [place], [address] Thyroid Stim Hormone (TSH)on 07-05-2024 TSH 1.200 uIU/mL Normal 0.358-3.740 [facility] Comment on above: Order Comment: Order Date: 07/05/24 Order Info: 0667- - BMP Order Date: 04/05/24 Order Info: [id number] - LIPID Order Info: [id number] - MG Order Info: 3016-3 - TSH Performed By: #### L 500.4100, L501.9520, L506.1000, L500.2500 #### [facility] [address] [place], [place], [address] Vitamin D,25 Hydroxyon 07-05 Vitamin D 25-OH 54.7 ng/mL Normal [facility] Comment on above: Order Comment: Order Date: 07/05/24 Order Info: [id number] - VITD25 Result Comment: Erin min D 25(OH) Status Range Deficiency <20 ng/mL (50nmol/L) Insufficiency 20 - 30 ng/mL (50 - 75 nmol/L) Sufficiency 30 - 100 ng/mL (75 - 250 nmol/L) Toxicity >100 ng/mL (>250 nmol/L) Performed By: #### L 500.4100, L501.9520, L506.1000, L500.2500 #### [facility] [address] [place], [place], [address] Neurology Visit Reporton Neurology Visit Report [facility] [address] [place] [address], [address] [place], [place] [address] OFFICE VISIT Date of Service: 05/08/24 MR#: [id number] Acct: [id number] Name: LANA BUCK Rep #: [id number] : 1940 Provider: Dr. Westley santos MD Age/Sex: 84/F Location[place] [facility] [place] Status: Signed HPI [facility] Chief Complaint: Details: Interim History: Lana returns for follow-up. She has a history of hyperlipidemia, reported previous atrial fibrillation, thyroid disorder (no longer requiring medication), cervical spinal surgery ( 1987 d/t a fall resulting in a cervical spinal fracture), depression, anxiety, and TIAs. 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 An EEG [...] and within recent days has started an efda-lya-qfrutpy iron supplement. She is experiencing constipation as [...] Mild (1+ (more content not included)... Normal [facility] Basophil percentageOrdered B y: Yg Khan on 01-03-2024 Basophil percentage 2.9 mg/dL 2.5-4.9 [facility] Chloride [Moles/Vol] 103 mmol/L 98-107 [facility] Glucose [Mass/Vol] 84 mg/dL 74-106 [facility] Potassium [Moles/Vol] 4.1 mmol/L 3.5-5.1 [facility] Sodium [Moles/Vol] 138 mmol/L 136-145 [facility] Iron measurement (mass/mass) Ordered By: Yg Khan on 01-03-2024 Iron (Unsp spec) [Mass/Mass] 62 ug/dL 50-170 [facility] - Chemistry and C hemistry - challengeOrdered By: Yg Khan on 01-03-2024 CO2 [Moles/Vol] 31.0 mmol/L 21.0-32.0 [facility] Ferritin [Mass/Vol] 116 ng/mL 8-252 [facility] Magnesium [Mass/Vol] 2.4 mg/dL 1.6-2.6 [facility] Urea nitrogen/Creatinine [Mass ratio] 15.0 mg/mg 10-20 [facility] No Panel InformationOrdered By: Yg Khan on 01-03-2024 Estimated GFR (MDRD) Amer 97 mL/min >60 [facility] Comment on above: GFR Calc Estimated GFR (MDRD) Non-Af Amer 80 mL/min >60 [facility] Comment on above: Non- GFR Calc Parathyroid Hormone (Intact) 31.9 pg/mL 18.4-80.1 [facility] Total Iron Binding Capacity 292 ug/dL 250-450 [facility] Vitamin D 25-Hydroxy 64.4 ng/mL [facility] Comment on above: Vitamin D 25(OH) Sta tus Range Deficiency <20 ng/mL (50nmol/L) Insufficiency 20 - 30 ng/mL (50 - 75 nmol/L) Sufficiency 30 - 100 ng/mL (75 - 250 nmol/L) Toxicity >100 ng/mL (>250 nmol/L) Serum or plasma calcium lynn urement (mass/volume)Ordered By: Yg Khan on 01-03-2024 Calcium [Mass/Vol] 9.1 mg/dL 8.5-10.1 [facility] Serum or plasma creatinine m easurement (mass/volume)Ordered By: Yg Khan on 01-03-2024 Creatinine [Mass/Vol] 0.73 mg/dL 0.55-1.02 [facility] Comment on above: The validity of the calculated GFR & GFRAA in patients over 70 years has not been determined. Clinical correlation is essential. Serum or plasma thyroid stim ulating hormone (TSH) measurement (units/volume)Ordered By: Yg Khan on 01-03-2024 TSH Qn 1.21 uIU/mL 0.358-3.74 [facility] Serum or plasma urea nitroge n measurement (mass/volume)Ordered By: Yg Khan on 01-03-2024 Urea nitrogen [Mass/Vol] 11 mg/dL -18 [facility] Thin prep Papanicolaou smear with manual screeningOrdered By: Yg Khan on 01-03-2024 Thin prep Papanicolaou smear with manual screening 4 5-15 [facility] Iron measurement (mass/mass) Ordered By: Duncan Bragg on 08-23-2023 Iron (Unsp spec) [Mass/Mass] 68 ug/dL 50-170 [facility] No Panel InformationOrdered By: uDncan Bragg on 08-23-2023 Total Iron Binding Capacity 280 ug/dL 250-450 [facility] Serum or plasma iron saturat ion measurement (mass fraction)Ordered By: uDncan Bragg on 08-23-2023 Iron saturation [Mass fraction] 24.3 % 15.0-55.0 [facility] Absolute lymphocyte countOrd ered By: Yg Khan on 06-02-2023 Lymphocytes Auto (Unsp spec) [#/Vol] 1.66 10*3/uL 0.83-4.51 [facility] Basophil percentageOrdered B y: Yg Khan on 06-02-2023 Basophils/100 WBC (Bld) 0.9 % 0-1 [facility] Chloride [Moles/Vol] 101 mmol/L 98-107 [facility] Eosinophils/100 WBC (Bld) 2.1 % 0-5 [facility] Glucose [Mass/Vol] 90 mg/dL 74-106 [facility] Neutrophils (Bld) [#/Vol] 2.4 10*3/uL 2.0-7.7 [facility] Neutrophils/100 WBC (Bld) 51.3 % 47-70 [facility] Potassium [Moles/Vol] 4.1 mmol/L 3.5-5.1 [facility] Sodium [Moles/Vol] 134 mmol/L 136-145 [facility] WBC (Bld) [#/Vol] 4.7 10*3/uL 4.4-11.0 [facility] Blood erythrocytes count (nu mber/volume)Ordered By: Yg Khan on 06-02-2023 RBC (Bld) [#/Vol] 4.17 10*6/uL 4.2-5.4 [facility] Blood hemoglobin measurement (mass/volume)Ordered By: Yg Khan on 06-02-2023 Hemoglobin (Bld) [Mass/Vol] 14.0 g/dL 12.0-15.0 [facility] Blood lymphocytes/100 leukoc ytesOrdered By: Yg Khan on 06-02-2023 Lymphocytes/100 WBC (Bld) 35.3 % 19-41 [facility] Blood monocytes/100 leukocyt esOrdered By: Yg Khan on 06-02-2023 Monocytes/100 WBC (Bld) 10.2 % 0-10 [facility] Blood platelet mean volumeOr dered By: Yg Khan on 06-02-2023 Platelet mean volume (Bld) [Entitic vol] 10.9 fL 6.2-12.0 [facility] Determination of erythrocyte mean corpuscular volume (MCV)Ordered By: Yg Khan on 06-02-2023 MCV (RBC) [Entitic vol] 100.7 fL 81-99 [facility] Hematocrit Auto (Bld) [Volum e fraction]Ordered By: Yg Khan on 06-02-2023 Hematocrit (Bld) [Volume fraction] 42.0 % 37-47 [facility] Laboratory - Chemistry and C hemistry - challengeOrdered By: Yg Khan on 06-02-2023 CO2 [Moles/Vol] 28.0 mmol/L 21.0-32.0 [facility] Cobalamin (Vitamin B12) [Mass/Vol] 531 pg/mL 211-911 [facility] Urea nitrogen/Creatinine [Mass ratio] 14.7 mg/mg 10-20 [facility] Laboratory - Hematology and Cell countsOrdered By: Yg Khan on 06-02-2023 Erythrocyte distribution width (RBC) [Entitic vol] 46.3 fL 35.1-43.9 [facility] Erythrocyte distribution width (RBC) [Ratio] 12.3 % 11.6-14.6 [facility] Immature granulocytes/100 WBC (Bld) 0.200 % 0.0-0.9 [facility] Comment on above: IG% - Immature Granu locytes (promyelocytes, myelocytes and metamyelocytes) > 1% indicates that a LEFT SHIFT is Present. MCH (RBC) [Entitic mass] 33.6 pg 27.0-32.0 [facility] Nucleated RBC/100 WBC (Bld) [Ratio] 0 % 0-5 [facility] Auto (RBC) [Mass/Vol]Or dered By: Yg Khan on 06-02-2023 MCHC (RBC) [Mass/Vol] 33.3 g/dL 32-36 [facility] No Panel InformationOrdered By: Yg Khan on 06-02-2023 Estimated GFR (MDRD) Amer 95 mL/min >60 [facility] - [place] Comment on above: GFR Calc Estimated GFR (MDRD) Non-Af Amer 79 mL/min >60 [facility] Comment on above: Non- GFR Calc Thyroid Stimulating Hormone (TSH) 1.00 uIU/mL 0.358-3.74 [facility] Vitamin D 25-Hydroxy 77.5 ng/mL [facility] Comment on above: Vitamin D 25(OH) Sta tus Range Deficiency <20 ng/mL (50nmol/L) Insufficiency 20 - 30 ng/mL (50 - 75 nmol/L) Sufficiency 30 - 100 ng/mL (75 - 250 nmol/L) Toxicity >100 ng/mL (>250 nmol/L) Platelets bldOrdered By: Nataliia Khan on 06-02-2023 Platelets (Bld) [#/Vol] 199 10*3/uL 150-450 [facility] Serum or plasma calcium lynn urement (mass/volume)Ordered By: Yg hKan on 06-02-2023 Calcium [Mass/Vol] 9.3 mg/dL 8.5-10.1 [facility] Serum or plasma cortisol robert surement (mass/volume)Ordered By: Yg Khan on 06-02-2023 Cortisol [Mass/Vol] 9.60 ug/dL 3.44-22.45 [facility] Comment on above: Adult (AM) 5.27 - 22 .45 ug/dL Adult (PM) 3.44 - 16.76 ug/dLPlease note revised CORTISOL reference range effective 2019. Serum or plasma creatinine m easurement (mass/volume)Ordered By: Yg Khan on 06-02-2023 Creatinine [Mass/Vol] 0.75 mg/dL 0.55-1.02 [facility] Comment on above: The validity of the calculated GFR & GFRAA in patients over 70 years has not been determined. Clinical correlation is essential. Serum or plasma urea nitroge n measurement (mass/volume)Ordered By: Yg Khan on 06-02-2023 Urea nitrogen [Mass/Vol] 11 mg/dL 7-18 [facility] Thin prep Papanicolaou smear with manual screeningOrdered By: Yg Khan on 06-02-2023 Thin prep Papanicolaou smear with manual screening 5 5-15 [facility] Whole blood hemoglobin A1c/t otal hemoglobin ratio (mass fraction)Ordered By: Dr. Khan on 02-15-2023 HbA1c (Bld) [Mass fraction] 5.4 % 3.8-5.6 [facility] Comment on above: Normal < 5.7 % Predi abetic 5.7 - 6.4 % Diabetic >or= 6.5 % Please note range changes. Basophil percentageOrdered B y: Dr. Khan on 02-10-2023 Chloride [Moles/Vol] 104 mmol/L 98-107 [facility] Cholesterol [Mass/Vol] 144 mg/dL <200 [facility] Comment on above: <200 mg/dL Desirable 200-240 mg/dL Borderline >240 mg/dL High Risk Glucose [Mass/Vol] 164 mg/dL 74-106 [facility] Comment on above: Fasting Glucose resu lt greater than or equal to 126 mg/dL suggests DIABETES MELLITUS per A.D.A. criteria. Potassium [Moles/Vol] 4.1 mmol/L 3.5-5.1 [facility] Sodium [Moles/Vol] 134 mmol/L 136-145 [facility] Triglyceride [Mass/Vol] 72 mg/dL <199 [facility] Comment on above: The drugs N-Acetylcy steine and Metamizole may falsely depress this assay.Serum Triglycerides Reference Interval Normal <150 mg/dL Borderline high 150 - 199 mg/dL High 200 - 499 mg/dL Very High > or = 500 mg/dL Laboratory - Chemistry and C hemistry - challengeOrdered By: Dr. Khan on 02-10-2023 CO2 [Moles/Vol] 26.0 mmol/L 21.0-32.0 [facility] Cobalamin (Vitamin B12) [Mass/Vol] 485 pg/mL 211-911 [facility] Urea nitrogen/Creatinine [Mass ratio] 19.8 mg/mg 10-20 [facility] No Panel InformationOrdered By: Dr. Khan on 02-10-2023 Estimated GFR (MDRD) Amer 110 mL/min >60 [facility] Comment on above: GFR Calc Estimated GFR (MDRD) Non-Af Amer 91 mL/min >60 [facility] Comment on above: Non- GFR Calc Serum or plasma calcium lynn urement (mass/volume)Ordered By: Dr. Khan on 02-10-2023 Calcium [Mass/Vol] 9.1 mg/dL 8.5-10.1 [facility] Serum or plasma cholesterol in HDL measurement (mass/volume)Ordered By: Dr. Khan on 02-10-2023 Cholesterol in HDL [Mass/Vol] 73 mg/dL >40 [facility] Comment on above: The drugs N-Acetylcy steine and Metamizole may falsely depress this assay. Reference Range HDL <40 mg/dL Low HDL Cholesterol HDL >or= 60 mg/dL High HDL Cholesterol Serum or plasma cholesterol in VLDL measurement (mass/volume)Ordered By: Dr. Khan on 02-10-2023 Cholesterol in VLDL [Mass/Vol] 14 mg/dL 5-40 [facility] Serum or plasma creatinine m easurement (mass/volume)Ordered By: Dr. Khan on 02-10-2023 Creatinine [Mass/Vol] 0.66 mg/dL 0.55-1.02 [facility] Comment on above: The validity of the calculated GFR & GFRAA in patients over 70 years has not been determined. Clinical correlation is essential. Serum or plasma ferritin robert surement (mass/volume)Ordered By: Dr. Khan on 02-10-2023 Ferritin [Mass/Vol] 125 ng/mL 8-252 [facility] Serum or plasma low density lipoprotein (LDL) cholesterol measurement (mass/volume)Ordered By: Dr. Khan on 02-10-2023 Cholesterol in LDL [Mass/Vol] 57 mg/dL 0-130 [facility] Serum or plasma urea nitroge n measurement (mass/volume)Ordered By: Dr. Khan on 02-10-2023 Urea nitrogen [Mass/Vol] 13 mg/dL 7-18 [facility] Thin prep Papanicolaou smear with manual screeningOrdered By: Dr. Khan on 02-10-2023 Thin prep Papanicolaou smear with manual screening 4 5-15 [facility] Basophil percentageon 2021 Basophil percentage 3.4 mg/dL 2.5-4.9 [facility] Work Phone: Chloride [Moles/Vol] 105 mmol/L 98-[address] [facility] [address] [facility] Work Phone: Glucose [Mass/Vol] 63 mg/dL 74-106 [facility] Work Phone: Potassium [Moles/Vol] 3.9 mmol/L 3.5-5.1 [facility] Work Phone: Sodium [Moles/Vol] 139 mmol/L 136-145 [facility] Work Phone: Laboratory - Chemistry and C hemistry - challengeon 07-20-2022 CO2 [Moles/Vol] 29.0 mmol/L 21.0-32.0 [facility] Work Phone: Urea nitrogen/Creatinine [Mass ratio] 17.1 mg/mg 10- [facility] Work Phone: No Panel Informationon 07-20 Ionized Calcium 5.4 mg/dL 4.5-5.6 [facility] Work Phone: Comment on above: Performed at: [address] [id number] Director: Sony Pagan PhD, Phone: [phone] Estimated GFR (MDRD) Amer 113 mL/min >60 [facility] Work Phone: Comment on above: GFR Calc Estimated GFR (MDRD) Non-Af Amer 93 mL/min >60 [facility] Work Phone: Comment on above: Non- GFR Calc Parathyroid Hormone (Intact) 27.4 pg/mL 18.4-80.1 [facility] Work Phone: Thyroid Stimulating Hormone (TSH) 1.43 uIU/mL 0.358-3.74 [facility] Work Phone: Vitamin D 25-Hydroxy 54.6 ng/mL [facility] Work Phone: Comment on above: Vitamin D 25(OH) Sta tus Range Deficiency <20 ng/mL (50nmol/L) Insufficiency 20 - 30 ng/mL (50 - 75 nmol/L) Sufficiency 30 - 100 ng/mL (75 - 250 nmol/L) Toxicity >100 ng/mL (>250 nmol/L) Serum or plasma calcium lynn urement (mass/volume)on 07-20-2022 Calcium [Mass/Vol] 9.3 mg/dL 8.5-10.1 [facility] Work Phone: Serum or plasma creatinine m easurement (mass/volume)on 07-20-2022 Creatinine [Mass/Vol] 0.64 mg/dL 0.55-1.02 [facility] Work Phone: Comment on above: The validity of the calculated GFR & GFRAA in patients over 70 years has not been determined. Clinical correlation is essential. Serum or plasma urea nitroge n measurement (mass/volume)on 07-20-2022 Urea nitrogen [Mass/Vol] 11 mg/dL 7-18 [facility] Work Phone: Thin prep Papanicolaou smear with manual screeningon 07-20-2022 Thin prep Papanicolaou smear with manual screening 5 5-15 [facility] Work Phone: Absolute lymphocyte counton 04-01-2022 Lymphocytes Auto (Unsp spec) [#/Vol] 1.10 10*3/uL 0.83-4.51 [facility] Work Phone: Basophil percentageon 2021 Basophils/100 WBC (Bld) 0.8 % 0-1 [facility] Work Phone: Bilirubin [Mass/Vol] 0.40 mg/dL 0.20-1.00 [facility] Work Phone: Comment on above: For patients on eltr ombopag therapy, use of [employer] TBIL is not recommended. Chloride [Moles/Vol] 105 mmol/L 98-107 [facility] Work Phone: Cholesterol [Mass/Vol] 146 mg/dL <200 [facility] Work Phone: Comment on above: <200 mg/dL Desirable 200-240 mg/dL Borderline >240 mg/dL High Risk Eosinophils/100 WBC (Bld) 2.8 % 0-5 [facility] Work Phone: Glucose [Mass/Vol] 91 mg/dL 74-106 [facility] Work Phone: Neutrophils (Bld) [#/Vol] 2.0 10*3/uL 2.0-7.7 [facility] Work Phone: Neutrophils/100 WBC (Bld) 55.6 % 47-70 [facility] Work Phone: Potassium [Moles/Vol] 4.1 mmol/L 3.5-5.1 [facility] Work Phone: Protein [Mass/Vol] 7.0 g/dL 6.4-8.2 [facility] Work Phone: Sodium [Moles/Vol] 137 mmol/L 136-145 [facility] Work Phone: Triglyceride [Mass/Vol] 44 mg/dL <199 [facility] Work Phone: Comment on above: The drugs N-Acetylcy steine and Metamizole may falsely depress this assay.Serum Triglycerides Reference Interval Normal <150 mg/dL Borderline high 150 - 199 mg/dL High 200 - 499 mg/dL Very High > or = 500 mg/dL WBC (Bld) [#/Vol] 3.6 10*3/uL 4.4-11.0 [facility] Work Phone: Blood erythrocytes count (nu mber/volume)on 04-01-2022 RBC (Bld) [#/Vol] 4.11 10*6/uL 4.2-5.4 [facility] Work Phone: Blood hemoglobin measurement (mass/volume)on 04-01-2022 Hemoglobin (Bld) [Mass/Vol] 13.8 g/dL 12.0-15.0 [facility] Work Phone: Blood lymphocytes/100 leukoc yteson 04-01-2022 Lymphocytes/100 WBC (Bld) 30.3 % 19-41 [facility] Work Phone: Blood monocytes/100 leukocyt eson 04-01-2022 Monocytes/100 WBC (Bld) 10.2 % 0-10 [facility] Work Phone: Blood platelet mean volumeon 04-01-2022 Platelet mean volume (Bld) [Entitic vol] 10.6 fL 6.2-12.0 [facility] Work Phone: Determination of erythrocyte mean corpuscular volume (MCV)on 04-01-2022 MCV (RBC) [Entitic vol] 100.2 fL 81-99 [facility] Work Phone: Hematocrit Auto (Bld) [Volum e fraction]on 04-01-2022 Hematocrit (Bld) [Volume fraction] 41.2 % 37-47 [facility] Work Phone: Laboratory - Chemistry and C hemistry - challengeon 04-01-2022 ALP [Catalytic activity/Vol] 68 U/L 45-117 [facility] Work Phone: ALT [Catalytic activity/Vol] 23 U/L 13-56 [facility] Work Phone: CO2 [Moles/Vol] 25.0 mmol/L 21.0-32.0 [facility] Work Phone: Cobalamin (Vitamin B12) [Mass/Vol] 1955 pg/mL 211-911 [facility] Work Phone: Globulin (S) [Mass/Vol] 3.7 g/dL 2.2-4.2 [facility] Work Phone: Urea nitrogen/Creatinine [Mass ratio] 14.5 mg/mg 10-20 [facility] Work Phone: Laboratory - Hematology and Cell countson 04-01-2022 Erythrocyte distribution width (RBC) [Entitic vol] 46.6 fL 35.1-43.9 [facility] Work Phone: Erythrocyte distribution width (RBC) [Ratio] 12.5 % 11.6-14.6 [facility] Work Phone: Immature granulocytes/100 WBC (Bld) 0.300 % 0.0-0.9 [facility] Work Phone: Comment on above: IG% - Immature Granu locytes (promyelocytes, myelocytes and metamyelocytes) > 1% indicates that a LEFT SHIFT is Present. MCH (RBC) [Entitic mass] 33.6 pg 27.0-32.0 [facility] Work Phone: Nucleated RBC/100 WBC (Bld) [Ratio] 0 % 0-5 [facility] Work Phone: MCHC Auto (RBC) [Mass/Vol]on 04-01-2022 MCHC (RBC) [Mass/Vol] 33.5 g/dL 32-36 [facility] Work Phone: No Panel Informationon 04-01 Estimated GFR (MDRD) Amer 118 mL/min >60 [facility] Work Phone: Comment on above: GFR Calc Estimated GFR (MDRD) Non-Af Amer 97 mL/min >60 [facility] Work Phone: Comment on above: Non- GFR Calc Thyroid Stimulating Hormone (TSH) 1.61 uIU/mL 0.358-3.74 [facility] Work Phone: Platelets bldon 04-01-2022 Platelets (Bld) [#/Vol] 193 10*3/uL 150-450 [facility] Work Phone: Serum or plasma albumin lynn urement (mass/volume)on 04-01-2022 Albumin [Mass/Vol] 3.3 g/dL 3.2-5.0 [facility] Work Phone: Serum or plasma albumin/glob ulin mass ratioon 04-01-2022 Albumin/Globulin [Mass ratio] 0.9 {ratio} 0.9-2.4 [facility] Work Phone: Serum or plasma calcium lynn urement (mass/volume)on 04-01-2022 Calcium [Mass/Vol] 8.6 mg/dL 8.5-10.1 [facility] Work Phone: Serum or plasma cholesterol in HDL measurement (mass/volume)on 04-01-2022 Cholesterol in HDL [Mass/Vol] 71 mg/dL >40 [facility] Work Phone: Comment on above: The drugs N-Acetylcy steine and Metamizole may falsely depress this assay. Reference Range HDL <40 mg/dL Low HDL Cholesterol HDL >or= 60 mg/dL High HDL Cholesterol Serum or plasma cholesterol in VLDL measurement (mass/volume)on 04-01-2022 Cholesterol in VLDL [Mass/Vol] 9 mg/dL 5-40 [facility] Work Phone: Serum or plasma creatinine m easurement (mass/volume)on 04-01-2022 Creatinine [Mass/Vol] 0.62 mg/dL 0.55-1.02 [facility] Work Phone: Comment on above: The validity of the calculated GFR & GFRAA in patients over 70 years has not been determined. Clinical correlation is essential. Serum or plasma low density lipoprotein (LDL) cholesterol measurement (mass/volume)on 04-01-2022 Cholesterol in LDL [Mass/Vol] 66 mg/dL 0-130 [facility] Work Phone: Serum or plasma urea nitroge n measurement (mass/volume)on 04-01-2022 Urea nitrogen [Mass/Vol] 9 mg/dL 7-18 [facility] Work Phone: Thin prep Papanicolaou smear with manual screeningon 04-01-2022 Thin prep Papanicolaou smear with manual screening 21 U/L 15-37 [facility] Work Phone: Thin prep Papanicolaou smear with manual screening 7 5-15 [facility] Work Phone: Iron measurement (mass/mass) on 03-17-2022 Iron (Unsp spec) [Mass/Mass] 78 ug/dL 50-170 [facility] Work Phone: Basophil percentageon 2020 Bilirubin [Mass/Vol] 0.30 mg/dL 0.20-1.00 [facility] Work Phone: Comment on above: For patients on eltr ombopag therapy, use of [employer] TBIL is not recommended. Chloride [Moles/Vol] 104 mmol/L 98-107 [facility] Work Phone: Glucose [Mass/Vol] 78 mg/dL 74-106 [facility] Work Phone: Comment on above: Please note revised GLUCOSE reference range effective 2017. Potassium [Moles/Vol] 4.0 mmol/L 3.5-5.1 [facility] Work Phone: Protein [Mass/Vol] 7.3 g/dL 6.4-8.2 [facility] Work Phone: Sodium [Moles/Vol] 138 mmol/L 136-145 [facility] Work Phone: WBC (Bld) [#/Vol] 5.2 10*3/uL 4.4-11.0 [facility] Work Phone: Blood erythrocytes count (nu mber/volume)on 09-15-2021 RBC (Bld) [#/Vol] 4.00 10*6/uL 4.2-5.4 [facility] Work Phone: Blood hemoglobin measurement (mass/volume)on 09-15-2021 Hemoglobin (Bld) [Mass/Vol] 13.2 g/dL 12.0-15.0 [facility] Work Phone: Blood platelet mean volumeon 09-15-2021 Platelet mean volume (Bld) [Entitic vol] 10.8 fL 6.2-12.0 [facility] Work Phone: Determination of erythrocyte mean corpuscular volume (MCV)on 09-15-2021 MCV (RBC) [Entitic vol] 99.0 fL 81-99 [facility] Work Phone: Hematocrit Auto (Bld) [Volum e fraction]on 09-15-2021 Hematocrit (Bld) [Volume fraction] 39.6 % 37-47 [facility] Work Phone: Iron measurement (mass/mass) on 09-15-2021 Iron (Unsp spec) [Mass/Mass] 70 ug/dL 50-170 [facility] Work Phone: Laboratory - Chemistry and C hemistry - challengeon 09-15-2021 ALP [Catalytic activity/Vol] 80 U/L 45-117 [facility] Work Phone: ALT [Catalytic activity/Vol] 19 U/L 13-56 [facility] Work Phone: CO2 [Moles/Vol] 29.0 mmol/L 21.0-32.0 [facility] Work Phone: Cobalamin (Vitamin B12) [Mass/Vol] 625 pg/mL 211-911 [facility] Work Phone: Globulin (S) [Mass/Vol] 4.3 g/dL 2.2-4.2 [facility] Work Phone: Urea nitrogen/Creatinine [Mass ratio] 14.0 mg/mg 10-20 [facility] Work Phone: Laboratory - Hematology and Cell countson 09-15-2021 Erythrocyte distribution width (RBC) [Entitic vol] 45.4 fL 35.1-43.9 [facility] Work Phone: Erythrocyte distribution width (RBC) [Ratio] 12.5 % 11.6-14.6 [facility] Work Phone: MCH (RBC) [Entitic mass] 33.0 pg 27.0-32.0 [facility] Work Phone: MCHC Auto (RBC) [Mass/Vol]on 09-15-2021 MCHC (RBC) [Mass/Vol] 33.3 g/dL 32-36 [facility] Work Phone: No Panel Informationon 09-15 Estimated GFR (MDRD) Amer 113 mL/min >60 [facility] Work Phone: Comment on above: GFR Calc Estimated GFR (MDRD) Non-Af Amer 93 mL/min >60 [facility] Work Phone: Comment on above: Non- GFR Calc Thyroid Stimulating Hormone (TSH) 1.23 uIU/mL 0.358-3.74 [facility] Work Phone: Vitamin D 25-Hydroxy 49.7 ng/mL [facility] Work Phone: Comment on above: Vitamin D 25(OH) Sta tus Range Deficiency <20 ng/mL (50nmol/L) Insufficiency 20 - 30 ng/mL (50 - 75 nmol/L) Sufficiency 30 - 100 ng/mL (75 - 250 nmol/L) Toxicity >100 ng/mL (>250 nmol/L) Platelets bldon 09-15-2021 Platelets (Bld) [#/Vol] 201 10*3/uL 150-450 [facility] Work Phone: Serum or plasma albumin lynn urement (mass/volume)on 09-15-2021 Albumin [Mass/Vol] 3.0 g/dL 3.2-5.0 [facility] Work Phone: Serum or plasma albumin/glob ulin mass ratioon 09-15-2021 Albumin/Globulin [Mass ratio] 0.7 {ratio} 0.9-2.4 [facility] Work Phone: Serum or plasma calcium lynn urement (mass/volume)on 09-15-2021 Calcium [Mass/Vol] 8.7 mg/dL 8.5-10.1 [facility] Work Phone: Serum or plasma creatinine m easurement (mass/volume)on 09-15-2021 Creatinine [Mass/Vol] 0.64 mg/dL 0.55-1.02 [facility] Work Phone: Comment on above: The validity of the calculated GFR & GFRAA in patients over 70 years has not been determined. Clinical correlation is essential. Serum or plasma urea nitroge n measurement (mass/volume)on 09-15-2021 Urea nitrogen [Mass/Vol] 9 mg/dL 7-18 [facility] Work Phone: Thin prep Papanicolaou smear with manual screeningon 09-15-2021 Thin prep Papanicolaou smear with manual screening 17 U/L 15-37 [facility] Work Phone: Thin prep Papanicolaou smear with manual screening 5 5-15 [facility] Work Phone: Clinical Summary: HMSPatient IDon 06-16-2018 OOP Invalid Interpretation Code [facility] Work Phone: Office Visit: New Complaint, Rm: 23on 06-16-2018 NEGATED: Highlighted rowProtein mass conc Done Invalid Interpretation Code [facility] Work Phone: Lab Report: Basic Metabolic Profile (BMP)on 04-17-2017 Anion gap molar conc 5 mmol/L 5-15 [facility] [employer] Work Phone: Calcium mass conc 8.0 mg/dL Low 8.5-10.1 [facility] [employer] Work Phone: Chloride molar conc 108 mmol/L High 98-107 [facility] [employer] Work Phone: CO2 ppres (BldV) 29.0 mmol/L 21.0-32.0 [facility] [employer] Work Phone: Creatinine mass conc 0.62 mg/dL 0.55-1.02 [facility] [employer] Work Phone: EST GFR - AA 121 mL/min >60 [facility] [employer] Work Phone: GFR/1.73 sq M predicted among non-blacks MDRD vol rate/area (S/P/Bld) 100 mL/min/{1.73_m2} >60 [facility] [employer] Work Phone: Glucose mass conc 85 mg/dL 70-110 [facility] [employer] [facility] [employer] Work Phone: Potassium molar conc 3.8 mmol/L 3.5-5.1 [facility] [employer] Work Phone: Sodium molar conc 142 mmol/L 136-145 [facility] [employer] Work Phone: Urea nitrogen mass conc 9 mg/dL 7-18 [facility] [employer] Work Phone: Urea nitrogen/Creatinine mass ratio 14.6 RATIO 10-20 [facility] [employer] Work Phone: Lab Report: CBC W/Diff, Auto matedon 04-17-2017 Basophils/100 WBC (Bld) 0.6 % 0-1 [facility] [employer] Work Phone: Eosinophils/100 WBC (Bld) 2.4 % 0-5 [facility] [employer] Work Phone: Erythrocyte distribution width Ratio (RBC) 12.2 % 11.6-14.6 [facility] [employer] Work Phone: Erythrocyte distribution width Ratio (RBC) 43.5 fL 35.1-43.9 [facility] [employer] Work Phone: Hematocrit Volume Fraction (Bld) 36.2 % Low 37-47 [facility] [employer] Work Phone: Hemoglobin mass conc (Bld) 12.1 g/dL 12.0-15.0 [facility] [employer] Work Phone: Immature granulocytes #/vol (Bld) 0.000 % 0.0-0.9 [facility] [employer] Work Phone: Lymphocytes #/vol (Bld) 1.49 X10 3/UL 0.83-4.51 [facility] [employer] Work Phone: Lymphocytes/100 WBC (Bld) 32.0 % 19-41 [facility] [employer] Work Phone: MCH Entitic mass (RBC) 33.9 pg High 27.0-32.0 [facility] [employer] Work Phone: MCHC mass conc (RBC) 33.4 G/GL 32-36 [facility] [employer] Work Phone: MCV Entitic volume (RBC) 101.4 fL High 81-99 [facility] Work Phone: Monocytes/100 WBC (Bld) 10.1 % High 0-10 [facility] Work Phone: Neutrophils #/vol (Bld) 2.6 X10 3/UL 2.0-7.7 [facility] Work Phone: Neutrophils/100 WBC (Bld) 54.9 % 47-70 [facility] Work Phone: Platelet mean volume Entitic volume (Bld) 9.8 fL 6.2-12.0 [facility] Work Phone: Platelets #/vol (Bld) 160 10*3/mm3 150-450 [facility] Work Phone: RBC #/vol (Bld) 3.57 10*6/uL Low 4.2-5.4 [facility] [employer] Work Phone: WBC #/vol (Bld) 4.7 10*3/uL 4.4-11.0 [facility] Work Phone: Lab Report: Lactic Acidon Lactate molar conc 0.8 mmol/L 0.4-2.0 [facility] [employer] Work Phone: Office Visiton 06-11-2015 General cardiovascular disease 10Y risk [#] Fyffe.D'Agostino 2 % [facility] Work Phone: Protein mass conc Done [facility] [employer] Work Phone: Tobacco smoking status NHIS Never smoker [facility] Work Phone: Office Visit: [facility] 01-15-20 15 Tobacco smoking status NHIS Never [facility] Work Phone: Office Visit: [facility] 12-12-19 15 cardiac risk group B [facility] [employer] Work Phone: Replaced Document: Bin [place] 12-12-2014 EKG QRS axis 66 deg [facility] Work Phone: Interpretation Sinus Rhythm WITHIN NORMAL LIMITS [facility] Work Phone: P [place] 74 deg [facility] Work Phone: AK Interval 140 ms [facility] Work Phone: QRS Duration 82 ms [facility] Work Phone: QT Interval new path ms [facility] Work Phone: QTc Gore 394 ms [facility] Work Phone: T [place] 52 deg [facility] Work Phone: Lab Report: Lipid Profileon 12-05-2014 Cholesterol in HDL mass conc 69 mg/dL [facility] [employer] Work Phone: Cholesterol in LDL mass conc 67 mg/dL 0-130 [facility] [employer] Work Phone: Cholesterol mass conc 149 mg/dL 200 [facility] [employer] Work Phone: Lipoprotein.pre-beta mass conc 13 mg/dL 5-40 [facility] [employer] Work Phone: Triglyceride mass conc 65 mg/dL 0-199 [facility] [employer] Work Phone: Lab Report: LIVERon 12-04-19 14 Albumin mass conc 3.5 g/dL Normal 3.4-5.0 [facility] Work Phone: ALP enzyme act/vol (Bld) 90 U/L Normal 50-136 [facility] Work Phone: ALT enzyme act/vol 21 U/L Normal 12-78 [facility] [employer] Work Phone: AST enzyme act/vol 17 U/L Normal 15-37 [facility] [employer] Work Phone: Bilirubin mass conc 0.50 mg/dL Normal 0.00-1.00 [facility] Work Phone: Bilirubin.direct mass conc 0.14 mg/dL Normal 0.00-0.30 [facility] Work Phone: Protein mass conc 7.3 g/dL Normal 6.4-8.2 [facility] Work Phone: Vital Signs Date Time Vital Sign Value Performing Clinician Facility 01-01-2025 11:22-0400 Body height 157.[address] Nahum Khan MD Work Phone: [facility] 01-01-2025 11:22-0400 Body mass index (BMI) [Ratio] 25.6 kg/m2 Dr. Nahum Khan MD Work Phone: [phone] [place] [address] 01-01-2025 11:22-0400 Body temperature 98 [degF] Dr. Nahum Khan MD Work Phone: 1([phone] [address] 01-01-2025 11:22-0400 Body weight 63.[address] Nahum Khan MD Work Phone: [facility] 01-01-2025 11:22-0400 Diastolic blood pressure 70 mm[Hg] Dr. Nahum Khan MD Work Phone: [phone] [place] [address] 01-01-2025 11:22-0400 Heart rate 78 /min Dr. Nahum Khan MD Work Phone: [facility] 01-01-2025 11:22-0400 Respiratory rate 15 /min Dr. Nahum Khan MD Work Phone: [facility] 01-01-2025 11:22-0400 SaO2% (BldA) [Mass fraction] 97 % Dr. Nahum Khan MD Work Phone: [facility] 01-01-2025 11:22-0400 Systolic blood pressure 120 mm[Hg] Dr. Nahum Khan MD Work Phone: [facility] 11-01-2023 11:16-0500 Body mass index (BMI) [Ratio] 24.7 kg/m2 Dr. Yg Khan Work Phone: [facility] 11-01-2023 11:16-0500 Body temperature 98.2 [degF] Dr. Yg Khan Work Phone: [facility] 11-01-2023 11:16-0500 Body weight 61.[address] Yg Khan Work Phone: [facility] 11-01-2023 11:16-0500 Diastolic blood pressure 80 mm[Hg] Dr. Yg Khan Work Phone: [facility] 11-01-2023 11:16-0500 Heart rate 80 /min Dr. Yg Khan Work Phone: 0([phone] [place] [address] 11-01-2023 11:16-0500 Respiratory rate 17 /min Dr. Yg Khan Work Phone: [phone] [address] 11-01-2023 11:16-0500 SaO2% (BldA) [Mass fraction] 96 % Dr. Yg Khan Work Phone: [facility] 11-01-2023 11:16-0500 Systolic blood pressure 132 mm[Hg] Dr. Yg Khan Work Phone: [facility] 06-17-2023 15:34-0400 Body height 157.[address] Yg Khan Work Phone: [facility] 06-17-2023 15:34-0400 Body mass index (BMI) [Ratio] 24.5 kg/m2 Dr. Yg Khan Work Phone: [facility] 06-17-2023 15:34-0400 Body temperature 98.4 [degF] Dr. Yg Khan Work Phone: [facility] 06-17-2023 15:34-0400 Body weight 60.[address] Yg Khan Work Phone: [facility] 06-17-2023 15:34-0400 Diastolic blood pressure 70 mm[Hg] Dr. Yg Khan Work Phone: [facility] 06-17-2023 15:34-0400 Heart rate 87 /min Dr. Yg Khan Work Phone: [facility] 06-17-2023 15:34-0400 Respiratory rate 17 /min Dr. Yg Khan Work Phone: [facility] 06-17-2023 15:34-0400 SaO2% (BldA) [Mass fraction] 97 % Dr. Yg Khan Work Phone: [facility] 06-17-2023 15:34-0400 Systolic blood pressure 144 mm[Hg] Dr. Yg Khan Work Phone: [facility] 01-12-2023 13:28-0400 Body height 157.[address] Yg Khan Work Phone: [facility] 01-12-2023 13:28-0400 Body mass index (BMI) [Ratio] 24.5 kg/m2 Dr. Yg Khan Work Phone: [facility] 01-12-2023 13:28-0400 Body temperature 98.2 [degF] Dr. Yg Khan Work Phone: [facility] 01-12-2023 13:28-0400 Body weight 60.[address] Yg Khan Work Phone: [facility] 01-12-2023 13:28-0400 Diastolic blood pressure 70 mm[Hg] Dr. Yg Khan Work Phone: [facility] 01-12-2023 13:28-0400 Heart rate 77 /min Dr. Yg Khan Work Phone: [facility] 01-12-2023 13:28-0400 Respiratory rate 16 /min Dr. Yg Khan Work Phone: [facility] 01-12-2023 13:28-0400 SaO2% (BldA) [Mass fraction] 96 % Dr. Yg Khan Work Phone: [facility] 01-12-2023 13:28-0400 Systolic blood pressure 138 mm[Hg] Dr. Yg Khan Work Phone: [facility] 01-12-2022 13:12-0400 Body temperature 98.4 [degF] Dr. Yg Khan Work Phone: [facility] Work Phone: 01-12-2022 13:12-0400 Diastolic blood pressure 70 mm[Hg] Dr. Yg Khan Work Phone: [facility] Work Phone: 01-12-2022 13:12-0400 Heart rate 77 /min Dr. Yg Khan Work Phone: [facility] Work Phone: 01-12-2022 13:12-0400 Respiratory rate 18 /min Dr. Yg Khan Work Phone: [facility] Work Phone: 01-12-2022 13:12-0400 SaO2% (BldA) [Mass fraction] 96 % Dr. Yg Khan Work Phone: [facility] Work Phone: 01-12-2022 13:12-0400 Systolic blood pressure 128 mm[Hg] Dr. Yg Khan Work Phone: [facility] Work Phone: 01-12-2022 13:12-0400 Body temperature 98.4 [degF] Dr. Yg Khan Work Phone: [facility] Work Phone: 01-12-2022 13:12-0400 Diastolic blood pressure 70 mm[Hg] Dr. Yg Khan Work Phone: [facility] Work Phone: 01-12-2022 13:12-0400 Heart rate 77 /min Dr. Yg Khan Work Phone: [facility] Work Phone: 01-12-2022 13:12-0400 Respiratory rate 18 /min Dr. Yg Khan Work Phone: [facility] Work Phone: 01-12-2022 13:12-0400 SaO2% (BldA) [Mass fraction] 96 % Dr. Yg Khan Work Phone: [facility] Work Phone: 01-12-2022 13:12-0400 Systolic blood pressure 128 mm[Hg] Dr. Yg Khan Work Phone: [facility] Work Phone: 09-16-2021 13:19-0500 Diastolic blood pressure 80 mm[Hg] Dr. Yg Khan Work Phone: [facility] Work Phone: 09-16-2021 13:19-0500 Heart rate 90 /min Dr. Yg Khan Work Phone: [facility] Work Phone: 09-16-2021 13:19-0500 Respiratory rate 17 /min Dr. Yg Khan Work Phone: [facility] Work Phone: 09-16-2021 13:19-0500 SaO2% (BldA) [Mass fraction] 98 % Dr. Yg Khan Work Phone: [facility] Work Phone: 09-16-2021 13:19-0500 Systolic blood pressure 120 mm[Hg] Dr. Yg Khan Work Phone: [facility] Work Phone: 06-16-2021 13:49-0400 Body height 157.[address] Yg Khan Work Phone: [facility] Work Phone: 04-17-2017 05:22-0400 Body surface area Derived from formula 37.74 mL/min [facility] [employer] Work Phone: 06-11-2015 13:59-0400 BMI (Body Mass Index) 19.53 kg/m2 [facility] [employer] Work Phone: 06-11-2015 13:59-0400 BP Diastolic 50 mm[Hg] [facility] [employer] Work Phone: 06-11-2015 13:59-0400 BP Systolic 100 mm[Hg] [facility] [employer] Work Phone: 06-11-2015 13:59-0400 BSA (Body Surface Area) 1.47 m2 [facility] [employer] Work Phone: 06-11-2015 13:59-0400 Pulse (Heart Rate) 72 /min [facility] [employer] Work Phone: 06-11-2015 13:59-0400 Respiratory Rate 20 /min [facility] [employer] Work Phone: 06-11-2015 13:59-0400 Weight 48.44 kg [facility] [employer] Work Phone: 12-12-2014 13:31-0500 Heart rate 76 /min [facility] [employer] Work Phone: 05-20-2012 10:23-0400 Height 157.48 cm [facility] [employer] Work Phone: NEGATED: Highlighted [id number] 15:51-0400 BMI (Body Mass Index) 23.13 kg/m2 Charles TY [facility] Work Phone: NEGATED: Highlighted [id number] 15:51-0400 BP Diastolic 77 mm[Hg] Charles Munoz OT-[facility] Work Phone: NEGATED: Highlighted [id number] 15:51-0400 BP Systolic 125 mm[Hg] Charles Munoz OT-C [facility] Work Phone: NEGATED: Highlighted [id number] 15:51-0400 Height 157.48 cm Charles Tammy OT-C [facility] Work Phone: NEGATED: Highlighted [id number] 15:51-0400 Height 157 cm Charles Tammy OT-C [facility] Work Phone: NEGATED: Highlighted [id number] 15:51-0400 Pulse (Heart Rate) 72 /min Charles Tammy [facility] [place] [facility] Work Phone: NEGATED: Highlighted [id number] 15:51-0400 Weight 57.15 kg Charles Tammy OT-C [facility] Work Phone: NEGATED: Highlighted [id number] 15:51-0400 Weight 57 kg Charles Tammy OT-C [facility] Work Phone: Encounters Encounter Date Encounter Type Care Provider Facility Start: 05-15-2025 ambulatory Nahum Khan [facility] lity:[facility] Start: 04-04-2025 End: 04-04-[address] Nahum Khan MD Work Phone: [facility] Work Phone: Start: 04-04-2025 End: 04-04-2025 Patient encounter procedure Inga Campos ADULT AND PEDIATRIC NEUROLOGIST-C -[facility]atory [facility] Work Phone: Start: 04-03-2025 Patient encounter procedure Inga Campos ADULT AND PEDIATRIC NEUROLOGIST-C -Laboratory [place] Work Phone: Start: 04-03-2025 End: 04-04-2025 ambulatory Nahum Khan Facility:[facility] Start: 02-21-2025 End: 02-21-[address] Nahum Khan MD Work Phone: [facility] Work Phone: Start: 02-21-2025 End: 02-21-[address] Nahum Khan MD -[facility] Start: 02-21-2025 End: 02-21-2025 ambulatory Nahum Khan Facility:[facility] Start: 01-01-2025 End: 01-01-[address] Nahum Khan MD Work Phone: [facility] Work Phone: Start: 01-01-2025 End: 01-01-[address] Westley Portillo MD -[facility] Work Phone: Start: 01-01-2025 End: 01-01-[address] Westley Portillo MD -[facility] Work Phone: Start: 01-01-2025 End: 01-01-2025 ambulatory Nahum Khan Facility:[facility] Start: 01-01-2025 End: 01-01-2025 ambulatory Westley Portillo Facility:[facility] Start: 07-28-2024 End: 07-28-2024 ambulatory Nahum Khan Facility:[facility] Start: 07-05-2024 End: 07-05-2024 [facility] Start: 05-08-2024 End: 05-08-2024 ambulatory Westley Portillo Facility:[facility] Start: 01-03-2024 End: 01-03-[address] Yg Khan Work Phone: [facility] Work Phone: Start: 01-03-2024 End: 01-03-[address] Yg Khan Work Phone: [facility] Start: 11-01-2023 End: 11-01-[address] Yg Khan Work Phone: [facility] Work Phone: Start: 08-23-2023 End: 08-23-[address] Yg Khan Work Phone: [facility] Work Phone: Start: 08-23-2023 End: 08-23-[address] [facility] Start: 07-20-2023 End: 07-20-[address] Yg Khan Work Phone: [facility]-Outpatient Breast Imaging Work Phone: Start: 06-24-2023 End: 06-24-[address] Yg Khan Work Phone: [facility]-Cat Scan, [facility] Work Phone: Start: 06-17-2023 End: 06-17-[address] Yg Khan Work Phone: [facility] Work Phone: Start: 06-02-2023 End: 06-02-2023 ambulatory [facility] Work Phone: Start: 06-02-2023 End: 06-02-2023 Patient encounter procedure [facility] Start: 02-15-2023 End: 02-15-[address] Yg Khan Work Phone: [facility] Work Phone: Start: 02-15-2023 End: 02-15-[address] Yg Khan Work Phone: [facility] Start: 02-10-2023 End: 02-10-[address] Yg Khan Work Phone: [facility] Work Phone: Start: 02-10-2023 End: 02-10-[address] Yg Khan Work Phone: [facility] Start: 01-12-2023 End: 01-12-[address] Yg Khan Work Phone: [facility] Neurology Start: 12-21-2022 End: 12-21-[address] Yg Khan Work Phone: [facility] Start: 07-20-2022 End: 07-20-2022 ambulatory [facility] Work Phone: Start: 07-20-2022 End: 07-20-2022 Patient encounter procedure [facility] Start: 07-16-2022 End: 07-16-2022 ambulatory [facility] Work Phone: Start: 07-16-2022 End: 07-16-2022 Patient encounter procedure [facility]-Outpatient Bone Densitometry Start: 06-25-2022 End: 06-25-2022 ambulatory [facility] Work Phone: Start: 06-25-2022 End: 06-25-2022 Patient encounter procedure [facility] Start: 04-01-2022 End: 04-01-[address] Yg Khan Work Phone: [facility] Start: 03-17-2022 End: 03-17-[address] Yg Khan Work Phone: [facility] Start: 01-30-2022 End: 01-30-[address] Yg Khan Work Phone: [facility]-Cardiovascular Services Start: 01-12-2022 End: 01-12-[address] Yg Khan Work Phone: [facility] Neurology Start: 01-07-2022 End: 01-07-[address] Yg Khan Work Phone: [facility]-Radiology, [facility] Start: 09-16-2021 End: 09-16-[address] Yg Khan Work Phone: [facility] Neurology Start: 09-15-[address] Yg Khan Work Phone: [facility], Thiago Kaur Start: 06-16-2018 End: 06-16-2018 Patient encounter procedure Gume Emery PA-C Work Phone: [facility] [place] [facility] Work Phone: Start: 06-16-2018 End: 06-16-2018 Pt evaluation Gume Emery PA-C Work Phone: [facility] Work Phone: Procedures Date Procedure Procedure Detail Performing Clinician Start: 04-04-[address] Donnell Khan MD Work Phone: Comment on above: Test Ordered: [id number] Stool CultureSalmonella/Shigella Screen CB Reference Range: .Test not performed. No stool culture transport devicereceived.RECEIVED RAW STOOLCampylobacter Culture CB Reference Range: .Test not performed. No stool culture transport devicereceived.RECEIVED RAW STOOLE coli Shiga Toxin EIA CB Reference Range: .Test not performed. No stool culture transport devicereceived.RECEIVED RAW STOOLPerformed at: [facility] [id number] Director: Sony Pagan PhD, Phone: [phone] Start: 07-20-2023 Screening mammography Sarath Khan Work [...] normal parameters - no follow-up required Gume Alanan PA-C Work Phone: Start: 06-16-2018 End: 06-16-2018 BMI documented within normal parameters - no follow-up plan is required Gume Gonzalez Mitan PA-C Work Phone: Start: 06-16-2018 End: 06-16-2018 Current medications documented Gume Gonzalez Mitan PA-C Work Phone: Start: 06-16-2018 End: 06-16-2018 Fall plan of care docd Gume Gonzalez Mitan PA -C Work Phone: Start: 06-16-2018 End: 06-16-2018 Fall risk assessment doc d Gume Alana n PA-C Work Phone: Start: 06-16-2018 End: 06-16-2018 Osteoarthritis assess Gume Gonzalez Mitan PA- C Work Phone: Start: 06-16-2018 End: 06-16-2018 Pain assessment documented as positive - follow-up documented Gume Gonzalez Mitan PA-C Work Phone: Start: 06-16-2018 End: 06-16-2018 Ptfalls assess-doc d ge2+/yr Gume Gonzalez Kathie navarrete PA-C Work Phone: Start: 06-16-2018 End: 06-16-2018 Radex hip unilateral with pelvis 2-3 views Gume Gonzalez Mitan PA-C Work Phone: Start: 06-16-2018 End: 06-16-2018 Tobacco non-user Gume Gonzalez Mitan PA-C Work Phone: Start: 06-11-2015 End: 06-12-2015 [...] PA-C Work Phone: Start: 12-12-2014 End: 12-12-2014 SUB ASSEMBL[employer] TEAM WORKER Trice Lloyd PA-C Work Phone: Start: 12-12-2014 End: 12-13-2014 Documentation of current medications Trice Lloyd PA-C Work Phone: Start: 12-12-2014 End: 12-12-2014 Follow Up Appt 1 month Trice tang PA-C Work Phone: Start: 12-12-2014 End: 12-12-2014 Follow Up Appt 6 months Trice gandara PA-C Work Phone: Start: 12-12-2014 End: 12-12-2014 MMM Trice Lloyd PA-C Work Phone: Start: 12-04-2014 End: 12-06-2014 *Hepatic Function Panel Michael Chiang Start: 12-04-2014 End: 12-05-2014 Lipid 1996 panel - Serum or Plasma Wale Bauman MD Start: 06-12-2014 End: 06-12-2014 Follow Up Appt 6 months Michael Chiang Start: 06-12-2014 End: 06-12-2014 MMMichael Bauman MD Start: 12-13-2013 End: 12-13-2013 SUB ASSEMBLY TEAM WORKER Trice Lloyd PA-C Work Phone: Start: 12-13-2013 [...] Michael Chiang Start: 02-16-2012 End: 12-01-2013 Lipid Haylee panel - Serum or Plasma Wale Bauman MD Plan of Treatment Date Care Activity Detail Author Start: 06-16-2018 End: 06-16-2018 Appointment Appointment [facility] [place] [facility] Work Phone: Start: 06-11-2015 End: 06-11-2015 Follow Up Appt Other Follow Up Appt Other [facility] Work Phone: Start: 06-05-2015 End: 12-06-2014 *Hepatic Function Panel *Hepatic Function Panel [facility] Work Phone: Start: 06-05-2015 End: 12-06-2014 Lipid 1996 panel *Lipid Profile CC PCP [facility] Work Phone: Start: 01-14-2015 End: 01-14-2015 Follow Up Appt Other Follow Up Appt Other [facility] Work Phone: Start: 12-12-2014 End: 12-12-2014 Ambulatory BP Monitor 24 HR Ambulatory BP Monitor 24 HR [facility] Work Phone: Start: 12-12-2014 End: 12-12-2014 Carotid duplex Carotid duplex [facility] Work Phone: Start: 12-12-2014 End: 12-12-2014 SUB ASSEMBLY TEAM WORKER SUB ASSEMBLY TEAM WORKER [facility] Work Phone: Start: 12-12-2014 End: 12-12-2014 Follow Up Appt 1 month Follow Up Appt 1 month [facility] Work Phone: Start: 12-12-2014 End: 12-12-2014 Follow Up Appt 6 months Follow Up Appt 6 months [facility] Work Phone: Start: 12-12-2014 End: 12-12-2014 MMM MMM [facility] Work Phone: Start: 12-04-2014 End: 12-04-2014 *Hepatic Function Panel *Hepatic Function Panel [facility] Work Phone: Start: 12-04-2014 End: 12-04-2014 Lipid 1996 panel *Lipid Profile CC PCP [facility] Work Phone: Start: 06-12-2014 End: 06-12-2014 Follow Up Appt 6 months Follow Up Appt 6 months [facility] Work Phone: Start: 06-12-2014 End: 06-12-2014 MMM MMM [facility] Work Phone: Start: 12-13-2013 End: 12-13-2013 SUB ASSEMBLY TEAM WORKER SUB ASSEMBLY TEAM WORKER [facility] Work Phone: Start: 12-13-2013 End: 12-13-2013 Follow Up Appt 6 months Follow Up Appt 6 months [facility] Work Phone: Start: 11-18-2013 End: 12-06-2013 *Hepatic Function Panel *Hepatic Function Panel [facility] Work Phone: Start: 11-18-2013 End: 12-06-2013 Lipid 1996 panel *Lipid Profile CC PCP [facility] Work Phone: Start: 06-08-2013 End: 06-08-2013 *Hepatic Function Panel *Hepatic Function Panel [facility] Work Phone: Start: 06-08-2013 End: 06-08-2013 48 hour holter monitor 48 hour holter monitor [facility] Work Phone: Start: 06-08-2013 End: 06-08-2013 Follow Up Appt 6 months Follow Up Appt 6 months [facility] Work Phone: Start: 06-08-2013 End: 06-08-2013 Lipid 1996 panel *Lipid Profile CC PCP [facility] Work Phone: Start: 06-08-2013 End: 06-08-2013 MMM [facility] Work Phone: Start: 05-20-2012 End: 05-20-2012 Follow Up Appt 1 year Follow Up Appt 1 year [facility] Work Phone: Start: 02-16-2012 End: 12-01-2013 *Hepatic Function Panel *Hepatic Function Panel [facility] Work Phone: Start: 02-16-2012 End: 12-01-2013 Lipid 1996 panel *Lipid Profile [facility] Work Phone: Patient Education [facility] Work Phone: Immunizations Immunization Date Immunization Notes Care Provider Jaswant sayra 07-18-[address] Yg Khan Work Phone: [facility] 07-18-[address] Yg Khan Work Phone: [facility] 06-18-[address] Yg Khan Work Phone: [facility] No information available. Charles Munoz OT-C [facility] Work Phone: Payers Date Payer Category Payer Self-pay [id number] 2023 Unknown [id number] 2003 Medicare [id number] Unknown [id number] 2.16.8 [id number] Unknown [id number] 2.16.8 [id number] Unknown [id number] 2.16.8 [id number] Unknown [id number] 2.16.8 [id number] Unknown [id number] 2.16.8 [id number] Unknown [id number] 2.16.8 [id number] Unknown [id number] 2.16.8 [id number] Unknown [id number] 2.16.8 [id number] Unknown [id number] 2.16.8 [id number] Social History Date Type Detail Facility Start: 01-12-2022 End: 11-01-2023 Assertion Unknown if ever smoked [facility] Work Phone: Start: 10-16-2020 [facility] Start: 10-16-2020 With Family [facility] Start: 1940 Sex Assigned At Female [facility] Start: 11-01-2023 Tobacco smoking stat us NHIS Never smoked tobacco (finding) [facility] Start: 01-10-2025 Sex Female (finding) [facility] NEGATED: Highlighted rowStart: 06-16-2018 End: 06-16-2018 Employment detail OCCUPATION#1 [employer] [facility] Work Phone: Medical Equipment [...] Onset Date Resolution Restless legs syndrome acute Ma [facility] 2024 11:22am MCI (mild cognitive impairment) chronic January 01, 2025 11:22am History of TIAs resolved December 11:22am [facility] Work Phone: Clinical Note 11-14-2020 Note Date & Type Note Facility 11-14-2020 Note Patient Outreach ([place] OCC3) LANA BUCK ([id number]) 1940 F Date Time Provider Department 11/14/20 [...] frequency Date Reviewed: 07/14/2018 Reviewed by: Chelo (Assembler Body) Maria Del Carmen - Fully Assessed Order(s):SARS-COVID VACCINE 1ST DOSE APPT [[id number]] Order #: [id number] FUTURE Prescriptions as of 11/14/2020 Sig: MAGNESIUM [...] bowel habits [R19.4] 05/16/2016 Encounter Status:Closed by NADINE, PRODUSER on 11/18/[address] [facility] Evaluation note Note Date & Type Note Facility Evaluation note Diagnosis Onset Date Anxiety acute Fatigue acute MCI (mild cognitive impairment) acute TIA (transient ischemic attack) acute Depression chronic Fatigue acute MCI (mild cognitive impairment) acute TIA (transient ischemic attack) acute [facility] Work Phone: Evaluation note Note Date & Type Note Facility Evaluation note Diagnosis Onset Date Fatigue acute MCI (mild cognitive impairment) acute TIA (transient ischemic attack) acute [facility] Work Phone: Evaluation note Note Date & Type Note Facility Evaluation note No assessment information availa ble [facility] Work Phone: Evaluation note Note Date & Type Note Facility Evaluation note Diagnosis Onset Date MCI (mild cognitive impairment) chronic History of TIAs resolved [facility] Work Phone: Evaluation note Note Date & Type Note Facility Evaluation note Diagnosis Onset Date Anosmia acute Dysgeusia acute MCI (mild cognitive impairment) chronic History of TIAs resolved [facility] Work Phone: Reason for referral (narrative) Note Date & Type Note Facility Reason for referral (narrative) No reason for referral information available [facility] Work Phone: Advance Directives No Advanced Directives Records Found Advance Directive Response Recorded Date/ Time Advance Directives Yes June 16, 2021 1:49pm Living Will Yes June 16 1:49pm Power of Promotions Director Yes June 16 1:49pm Advance Directive Response Recorded Date/ Time Advance Directives Yes June 16, 2021 12:49pm Living Will Yes June 16 12:49pm Power of Promotions Director Yes June 16 12:49pm Advance Directive Response Recorded Date/ Time Advance Directives Yes November 01, 2023 1:17pm Living Will Yes November 01 1:17pm Power of Promotions Director Yes November 01, 2023 1:17pm Advance Directive Response Recorded Date/ Time Living Will Yes November 01 1:17pm Do you have a Healthcare Power of Promotions Director? Yes November 01, 2023 1:17pm Advance Directives [...] section and content) DATE CREATED AUTHOR 11/12/[address] [facility] DATE CREATED AUTHOR 'Odette FOY 05/05/2025 [facility] Goals (unrecognized section and content) Goals may [...] Yg Khan MD Primary Care Provider, Refe rring Provider Active Dr. Westley Portillo MD Attending Provider Active Team Status: Inactive Member Role Status Dates Dr. Yg Khan MD Primary Care Provider, Attending Provider, Referring Provider Active Team Status: Inactive Member Role Status Dates Dr. Yg Khna MD Primary Care Provider Activ e Dr. [...] February 21, 2025 End: February 21, 2025 Team Status: Active Member Role Status Dates Dr. Nahum Khan MD Primary Care Provider Acti ve Start: April 03, 2025 Inga Campos ADULT AND PEDIATRIC NEUROLOGIST, ADULT AND PEDIATRIC NEUROLOGIST-C Attending Provider Active Start: April 03, 2025 Inga Campos NP, ADULT AND PEDIATRIC NEUROLOGIST-C Referring Provider Active Start: April 03, 2025 Team Status: Inactive Member Role Status Dates Dr. Nahum Khan MD Primary Care Provider Acti ve Start: April 04, 2025 End: April 04, 2025 Inga Campos NP, ADULT AND PEDIATRIC NEUROLOGIST-C Attending Provider Active Start: April 04, 2025 End: April 04, 2025 nIga Campos ADULT AND PEDIATRIC NEUROLOGIST, ADULT AND PEDIATRIC NEUROLOGIST-C Referring Provider Active Start: April 04, 2025 End: April 04, 2025 FOR RECORDS PERTAINING TO PATIENTS WHO [...] BE BASED ON THE PRIMARY CLINICAL RECORDS. [facility] [employer] provides no warranty or guarantee of the accuracy or completeness of information in this document.
--- NOTE | 2025-05-16 15:27 | STRESSREP ---
Stress Test Report Exercise myocardial perfusion stress test. 85-year-old lady with a history of shortness of breath Stress protocol: Resting EKG demonstrates normal sinus rhythm with a rate of 71 bpm resting blood pressure is 142/86 mmHg. The patient exercised according to the regular John protocol for a total duration of 3-1/2 minutes attaining a maximum heart rate of 109 bpm which was 81% of maximum predicted heart rate; the maximum workload was 5.8 metabolic equivalents. At rest there were no ST or T wave changes noted to suggest ischemia and at peak exercise upsloping ST changes only were noted which did not meet the criteria for ischemia. No clinical angina was noted the test was terminated due to the target heart rate being achieved/fatigue. The peak blood pressure was 190/102 mmHg. Rate-pressure product was 15,200. Myocardial perfusion protocol. 11.6 mCi of technetium 99m sestamibi was injected at rest. The patient exercised according to regular John protocol for total duration of 3-1/2 minutes and at peak exercise 33.1 mCi of technetium 99m sestamibi was injected stress images were obtained stress and rest images were reconstructed in comparing the short axis vertical long and horizontal long axis. Gated images were also obtained. Perfusion SPECT analysis: Review of the stress images demonstrate normal uptake of tracer noted in all areas of the myocardium. The resting images similarly demonstrate normal uptake of tracer noted in all areas of the myocardium. No areas of reversibility are noted to suggest ischemia no previous infarct was noted. There is an area in the mid anterior wall however, with mildly reduced perfusion unlikely to signify significant ischemia Gated SPECT analysis: The gated ejection fraction is 77%. Conclusion: Normal exercise myocardial perfusion stress test at a low workload Preserved ejection fraction. The low workload may affect sensitivity for detection of ischemia.
== END | disposition home or self-care (01) ==
LOC: CVS 06:43
PROVIDERS: PCP Family Medicine; Referring Provider Family Medicine; Visit Provider Family Medicine
DX: R06.09 Other forms of dyspnea (principal)
CPT/HCPCS: 78452; 93017; A9500; A4216

== ENCOUNTER → 2025-06-27 | Outpatient (CLI) | payer MEDICARE, BC, SELFPAY ==
--- NOTE | 2025-06-27 15:41 | CT_ITS ---
PROCEDURE: CHEST WITHOUT CONTRAST 06/27/2025 REASON FOR EXAM: SOB TECHNIQUE: Chest CT without contrast. Coronal and Sagittal reconstruction series were provided. One or more dose reduction techniques were used (e.g., Automated exposure control, adjustment of the mA and/or kV according to patient size, use of iterative reconstruction technique RADIATION DOSE SUMMARY: CTDlvol: 7.48 mGy DLP: 241 mGycm COMPARISON: Chest radiograph on 10/16/2020. FINDINGS: Scattered calcified splenic granulomas. Scattered calcified granulomas in the right lower lobe with the largest measuring 7 mm. No follow-up is needed. Mild coronary artery calcifications are noted. Bilateral basilar atelectatic pulmonary changes. Mild bilateral multilobar, multi segmental multifocal ground-glass densities of both lungs, possibly presenting infectious/inflammatory pathology. Mild diffuse spondylosis. Prior cholecystectomy. Mild calcified atheromatous plaques of the aorta. Normal unenhanced main pulmonary artery and right and left pulmonary arteries. Normal bilateral peripheral pulmonary arteries. Normal thoracic aorta and visualized great vessels. There is no demonstrated aortic aneurysm. Normal heart and pericardium. Normal mediastinum. Normal hilar regions. Normal visualized trachea and bronchi. Normal pleura. Normal visualized upper abdomen. CT/Chest without Contrast IMPRESSION: IMPRESSION: Scattered calcified splenic granulomas. Scattered calcified granulomas in the right lower lobe with the largest measuri ng 7 mm. No follow-up is needed. Mild coronary artery calcifications are noted. Bilateral basilar atelectatic pulmonary changes. Mild bilateral multilobar, multi segmental multifocal ground-glass densities of both lungs, possibly presenting infectious/inflammatory pathology. Mild diffuse spondylosis. Prior cholecystectomy. Mild calcified atheromatous plaques of the aorta. Reading Location: [place] [id number]
== END | disposition home or self-care (01) ==
LOC: CT 15:32
PROVIDERS: PCP Family Medicine; Referring Provider Family Medicine; Visit Provider Family Medicine
DX: R06.09 Other forms of dyspnea (principal)
CPT/HCPCS: 71250

== ENCOUNTER → 2025-07-19 | Outpatient (CLI) | payer MEDICARE, BC, SELFPAY ==
[2025-07-19 13:20] LABS: Color, Urine Yellow (Yellow); Glucose, Dipstick Normal (Normal); Ketone-Dipstick Negative (Negative); Leukocyte Esterase-Dipstick Negative /ul (Negative); Nitrite-Dipstick Negative (Negative); Occult Blood-Urine Negative /ul (Negative); Protein-Dipstick Negative (Negative); Specific Gravity, Urine 1.010 (1.002-1.030); Urine Bilirubin Dipstick Negative (Negative)
== END | disposition home or self-care (01) ==
LOC: MFPLAB 09:48
PROVIDERS: PCP Family Medicine; Referring Provider Family Medicine; Visit Provider Family Medicine
DX: R35.0 Frequency of micturition (principal)
CPT/HCPCS: 81002